=== PATIENT | female | born 1955 | race Caucasian/White ===

== ENCOUNTER 2019-04-02 21:31 | Inpatient (IN) ==
[2019-04-02] MEDS ORDERED: FAMOTIDINE 20MG/5ML IV PUSH IV STA (22:02)
[2019-04-02] MEDS ORDERED: PROCHLORPERAZINE 2 ML IV ONE (22:02)
[2019-04-02] MEDS ORDERED: ACETAMINOPHEN 1,000 MG/100 ML VIAL IV STA (22:03)
[2019-04-02] MEDS ORDERED: SODIUM CHLORIDE 0.9% 500 ML IV SCH (22:15)
[2019-04-02 22:27] LABS: Basophils # (auto) 0.06 K/uL (0-0.2); Basophils % (auto) 0.6 %; Eosinophils # (auto) 0.07 K/uL (0-0.5); Eosinophils % (auto) 0.7 %; Hematocrit (blood only) 29.5 % (37-47); Hemoglobin 10.3 g/dL (12.0-16.0); Immature Granulocytes # (auto) 0.06 K/uL (0.00-0.02); Immature Granulocytes % (auto) 0.6 %; Lymphocytes # (auto) 0.55 K/uL (1.2-3.4); Lymphocytes % (auto) 5.4 %; Mean Corpuscular Hgb Conc 34.9 g/dL (32-36); Mean Corpuscular Volume 100.3 fL (80-100); Mean Platelet Volume 13.8 fL (7.4-10.4); Monocytes % (auto) 8.9 %; Neutrophils # (auto) 8.52 K/uL (1.4-6.5); Neutrophils % (auto) 83.8 %; Platelet Count 162 K/uL (130-400); RDW Coefficient of Variation 12.2 % (11.5-14.5); RDW Standard Deviation 43.8 fL (36.4-46.3); Red Blood Count 2.94 M/uL (4.2-5.4); White Blood Count 10.16 K/uL (4.8-10.8)
[2019-04-02 22:31] LABS: Base Excess VBG -11.2 mEq/L; pH VBG 7.27 (7.36-7.41)
[2019-04-02 22:35] LABS: Alanine Aminotransferase 39 U/L (12-78); Albumin Level 3.3 gm/dl (3.4-5.0); Alkaline Phosphatase 194 U/L (45-117); Aspartate Aminotransferase 26 U/L (15-37); BUN Creatinine Ratio 8.3 (10-20); Bilirubin Direct 0.1 mg/dl (0-0.2); Bilirubin,Total 0.5 mg/dl (0.2-1); Blood Urea Nitrogen 40 mg/dl (7-18); Calcium 9.3 mg/dl (8.5-10.1); Carbon Dioxide 15 mmol/L (21-32); Chloride 92 mmol/L (98-107); Creatinine Clr Calc Pharmacy 10.2 ml/min; Est GFR (African American) 10.6; Est GFR (Non-African American) 9.1; Globulin 3.4 gm/dl (2.5-4.0); Glucose 512 mg/dl (70-99); Magnesium 2.2 mg/dl (1.8-2.4); Phosphorus 5.3 mg/dl (2.5-4.9); Potassium 3.7 mmol/L (3.5-5.1); Sodium 131 mmol/L (136-145); Total Protein 6.7 gm/dl (6.4-8.2); Troponin I < 0.015 ng/ml (0-0.045)
--- NOTE | 2019-04-02 22:37 | XRay Report ---
XR chest 1V portable CLINICAL HISTORY: Chest Pain COMPARISON STUDY: No previous studies for comparison. FINDINGS: There is no pneumothorax or pleural effusion. There is no consolidation. Calcified nodules within the lungs are noted. There are calcified thoracic lymph nodes. The size of the heart is normal . There is mitral annular calcification. There is no evidence for pulmonary edema. IMPRESSION: No acute cardiopulmonary findings. Electronically signed by: Cameron Jack M.D. 04/02/2019 10:36 PM
[2019-04-02] MEDS ORDERED: SODIUM CHLORIDE 0.9% 1000ML 500 ML IV ONE (23:01)
[2019-04-02] MEDS ORDERED: DKA GOAL RANGE 150-250 mg/dl ONE (23:02)
[2019-04-02] MEDS ORDERED: INSULIN REGULAR 250 UNITS in SODIUM CHLORIDE 0.9% 247.5 ML IV SCH (23:15)
--- NOTE | 2019-04-02 23:21 | CT Scan Report ---
CT OF THE ABDOMEN AND PELVIS WITHOUT CONTRAST CLINICAL HISTORY: Abdominal pain, nausea, vomiting and diarrhea. COMPARISON STUDY: No previous studies for comparison. TECHNIQUE: Axial images of the abdomen and pelvis were obtained without IV contrast. Images were revi ewed in the axial, sagittal, and coronal planes. Automated exposure control was utilized for the roslyn dy. A dose lowering technique was utilized adhering to the principles of ALARA. FINDINGS: Calcified granulomas within the lower lungs are noted. Calcification within or overlying th e posterior left ventricle is noted. No pneumatosis, free air or portal venous gas is present. This e xam is significantly compromised given the lack of contrast and paucity of intra-abdominal fat. There are calcified granulomas within the spleen. Unenhanced images of liver, adrenal glands and pancreas are grossly unremarkable. The gallbladder is surgically absent. There is moderate bilateral renal atr ophy. A 3 mm calculus within the right kidney is noted. The course of the ureters is difficult to fol low on this exam and differentiation between gonadal phleboliths and nonobstructing ureteral calculi is difficult. There is no evidence for a bowel obstruction. The appendix is not identified. There is mild diffuse mesenteric infiltration. No suspicious osseous lesions are noted. There is no lymphadeno jhoan. There is no ascites. Postoperative findings within the proximal right femur are noted. IMPRESSION: 1. Exam significantly compromised given the lack of IV contrast and paucity of intra-abdominal fat. 2. Moderate bilateral renal atrophy. No hydronephrosis. 3 mm right renal calculus. Course of ureters difficult to follow on this exam but no definite ureteral calculi. 3. No bowel obstruction. Mild diffuse mesenteric infiltration, a nonspecific finding. 4. Nonvisualization of the appendix. Electronically signed by: Cameron Jack M.D. 04/02/2019 11:18 PM
[2019-04-02] MEDS ORDERED: SODIUM CHLORIDE 0.9% 1000ML 1,000 ML IV SCH (23:45)
[2019-04-02] MEDS ORDERED: NovoLIN-R INSULIN PER UNIT CHARGE IV STA (23:50)
--- NOTE | 2019-04-03 00:19 | Emergency Department Note ---
Entered by Rajesh Reich acting as a scribe for Daniel Hubbard MD History of Present Illness General Chief complaint: Hyperglycemia Stated complaint: NAUSEA, VOMITING, HYPERGYLCEMIA Time Seen by Provider: 04/02/19 21:37 Source: patient History of Present Illness Onset (ago): day(s) 1 Location: abdomen (illness) Pain Consistency: + other (worsening) Relieved By: + none Associated symptoms: + denies other symptoms (dizziness), + nausea/vomiting and + other (diarrhea, abdominal pain) The patient is a 63 year old F who presents to the Emergency Room with complaints of a worsening illness that started 1 day ago. She states that she had dialysis yesterday before she went to dinner with her family. She adds that she has a fistula in place. She notes that after dinner, a family member reported that they had gotten sick. The patient states that she does not know if she currently has food poisoning. She notes that she is currently experiencing vomiting, nausea, diarrhea, and abdominal pain. She denies experiencing any dizziness. She reports that she is urinating normally every day. She states that she does not check her ketones. She adds that she has a history of type 1 diabetes. She notes that she shattered her left leg 5 years ago and recently had a walking boot placed. Home Medications Home Medications Medication Instructions Recorded Confirmed Type furosemide 40 mg PO 2XWK 01/21/19 04/02/19 History venlafaxine 150 mg PO QAM 01/21/19 04/02/19 History atorvastatin 40 mg PO QPM 04/02/19 04/02/19 History fludrocortisone 0.1 mg PO DAILY 04/02/19 04/02/19 History insulin aspart U-100 [Novolog See Rx Instructions .ROUTE .COMPLEX 04/02/19 04/02/19 History Flexpen U-100 Insulin] insulin glargine [Lantus Solostar 12 units SUBCUT DAILY 04/02/19 04/02/19 History U-100 Insulin] levothyroxine 300 mcg PO QAM 04/02/19 04/02/19 History tramadol 50 mg PO BID PRN 04/02/19 04/02/19 History venlafaxine 75 mg PO QAM 04/02/19 04/02/19 History warfarin See Rx Instructions .ROUTE .COMPLEX 04/02/19 04/02/19 History Allergies Allergy/AdvReac Type Severity Reaction Status Date / Time ibuprofen Allergy Hives Verified 02/21/19 13:08 shellfish derived Allergy Hives Verified 02/21/19 13:08 strawberry Allergy ALL Verified 02/21/19 13:08 BERRIES --> Anaphylaxis Past Med/Surg History Medical History A-V fistula (Chronic) RIGHT ARM Chronic kidney disease (Chronic) Diabetes mellitus type 1 (Chronic) GERD (gastroesophageal reflux disease) (Chronic) Hemodialysis patient (Chronic) M,W,F @ [facility] ([place]) Anemia Anxiety Depression Hypertension Hypothyroidism Osteoarthritis Osteoporosis Surgical History History of appendectomy History of section History of cholecystectomy History of colonoscopy History of esophagogastroduodenoscopy (EGD) History of hysterectomy PIERCE WITH BSO History of open reduction and internal fixation (ORIF) procedure RIGHT HIP RIGHT WRIST LEFT ANKLE Social History Preferred Language: German Communication Ability: Effective Patient Care Coordinator Required: No Beliefs That Will Affect Care: None Current Living Situation: Spouse Feels Safe at Home: Yes Safety Concerns: Feels Safe At This Time Smoking Status: Former smoker Tobacco Type: cigarettes Second Hand Exposure: No Hx Alcohol Use: No Hx Substance Use: No Review of Systems See HPI for pertinent positives & negatives. and A total of 10 systems reviewed and were otherwise negative Physical Exam Vital Signs Vital Signs - 24 hr 04/02/19 21:35 04/02/19 22:25 04/02/19 22:26 Temperature 36.4 C L Temperature Source Oral Sepsis Recent Fever Within 48 Hours No Sepsis New/Unexplained Change in Mental Status No Sepsis Action Taken by Nursing No Action Required Pulse Rate 87 Pulse Rate [Apical] 96 H Respiratory Rate 20 22 Respiratory Effort / Characteristics Respiratory Depth Blood Pressure 193/73 H Blood Pressure [Left Arm] 162/51 H Blood Pressure Mean 113 Blood Pressure Mean [Left Arm] 88 Blood Pressure Position Sitting Blood Pressure Position [Left Arm] Sitting Pulse Oximetry 97 99 99 Oxygen Delivery Method Room Air Room Air Room Air 04/02/19 23:05 04/03/19 00:01 04/03/19 00:30 Temperature Temperature Source Sepsis Recent Fever Within 48 Hours Sepsis New/Unexplained Change in Mental Status Sepsis Action Taken by Nursing Pulse Rate Pulse Rate [Apical] 106 H 110 H 118 H Respiratory Rate 20 17 21 Respiratory Effort / Characteristics Respiratory Depth Blood Pressure Blood Pressure [Left Arm] 189/73 H 175/73 H 193/66 H Blood Pressure Mean Blood Pressure Mean [Left Arm] 111 107 108 Blood Pressure Position Blood Pressure Position [Left Arm] Sitting Left Lateral Pulse Oximetry 99 100 99 Oxygen Delivery Method Room Air Room Air 04/03/19 00:32 04/03/19 00:50 04/03/19 04:13 Temperature 36.7 C 36.8 C Temperature Source Oral Oral Sepsis Recent Fever Within 48 Hours Sepsis New/Unexplained Change in Mental Status Sepsis Action Taken by Nursing Pulse Rate 117 H 99 H Pulse Rate [Apical] 101 H Respiratory Rate 17 Respiratory Effort / Characteristics Non-Labored Spontaneous Respiratory Depth Normal Blood Pressure 193/66 H 173/71 H Blood Pressure [Left Arm] 180/70 H 175/74 H Blood Pressure Mean Blood Pressure Mean [Left Arm] 106 107 Blood Pressure Position Blood Pressure Position [Left Arm] Pulse Oximetry 99 95 Oxygen Delivery Method Room Air Room Air GENERAL: Awake, alert, ill-appearing HENT: Normocephalic, atraumatic. Oropharynx with dry mucous membranes and otherwise unremarkable. EYES: Normal conjunctiva. Sclera non-icteric. NECK: Supple. No nuchal rigidity. FROM. No JVD. RESPIRATORY: CTA bilaterally. CARDIAC: Regular rate, normal rhythm. Extremities warm and well perfused. Pulses equal. ABDOMEN: Soft, non-distended. General abdominal discomfort without discrete tenderness. No rebound or guarding. No masses. RECTAL: Deferred. MUSCULOSKELETAL: Chest examination reveals no tenderness. The back is symmetrical on inspection without obvious abnormality. There is no CVA tenderne ss to palpation. No joint edema. LOWER EXTREMITIES: Calves are equal size bilaterally and non-tender. No edema. No discoloration. NEURO: Normal sensorium. No sensory or motor deficits noted. SKIN: No rash or jaundice noted. Course 2151: The patient was evaluated in room C7. A complete history and physical exam was performed. 0017: I reviewed the patient's case with Dr. Jagdish Sanchez, [facility] Hospitalist. He will evaluate the patient for further management. Consultations Consultation #1: I reviewed the patient's case with Dr. Jagdish Sanchez, [facility] Hospitalist. He will evaluate the patient for further management. Time: 00:17 Administered Medications Insulin Human Regular 250 (units/ Sodium Chloride) 250 mls @ 1.5 mls/hr IV .Q24H DELFINO; Protocol Stop: 05/03/19 01:29 Last Titration: 04/03/19 04:33 Dose: 1.5 units/hr, 1.5 mls/hr Documented by: [id number] Cosigned by: [id number] Admin: 04/03/19 02:33 Dose: 1.5 units/hr, 1.5 mls/hr Documented by: [id number] Cosigned by: [id number] Metoprolol Tartrate (Lopressor) 5 mg IV Q4 PRN PRN Reason: Blood Pressure - High Stop: 05/03/19 03:59 Last Admin: 04/03/19 00:32 Dose: 5 mg Documented by: [id number] Discontinued Medications Famotidine (Pepcid 20mg Iv Push) 20 mg IV ONE STA Stop: 04/02/19 22:03 Last Admin: 04/02/19 22:10 Dose: 20 mg Documented by: [id number] Acetaminophen (Ofirmev) 1,000 mg in 100 mls @ 400 mls/hr IV NOW STA Stop: 04/02/19 22:17 Last Infusion: 04/02/19 22:30 Dose: 0 mls/hr Documented by: [id number] Admin: 04/02/19 22:10 Dose: 400 mls/hr Documented by: [id number] Prochlorperazine (Compazine) 2 mls @ 1 mls/min IV ONE ONE Stop: 04/02/19 22:03 Last Admin: 04/02/19 22:10 Dose: 1 mls/min Documented by: [id number] Sodium Chloride (Nss) 500 mls @ 999 mls/hr IV .Q31M DELFINO Stop: 04/02/19 22:45 Last Infusion: 04/02/19 22:42 Dose: 0 mls/hr Documented by: [id number] Admin: 04/02/19 22:11 Dose: 999 mls/hr Documented by: [id number] Sodium Chloride (Nss 1000ml) 500 mls @ 999 mls/hr IV .Q31M ONE Stop: 04/02/19 23:31 Last Infusion: 04/02/19 23:58 Dose: 0 mls/hr Documented by: [id number] Admin: 04/02/19 23:30 Dose: 999 mls/hr Documented by: [id number] Sodium Chloride (Nss 1000ml) 1,000 mls @ 999 mls/hr IV .Q1H1M COUNTS INCLUDE 234 BEDS AT THE [facility] Stop: 04/03/19 00:45 Last Infusion: 04/03/19 01:13 Dose: 0 mls/hr Documented by: [id number] Admin: 04/02/19 23:58 Dose: 999 mls/hr Documented by: [id number] Insulin Human Regular 1.5 (units/ Syringe) 1.5 mls @ 30 mls/min IV TODAY@0245 COUNTS INCLUDE 234 BEDS AT THE [facility] Stop: 04/03/19 02:46 Last Admin: 04/03/19 02:44 Dose: 30 mls/min Documented by: [id number] Cosigned by: [id number] Insulin Human Regular (Novolin R U-100 Per Unit) 10 units IV NOW [facility] Stop: 04/02/19 23:51 Last Admin: 04/02/19 23:58 Dose: 10 units Documented by: [id number] Cosigned by: [id number] Miscellaneous (Insulin Protocol Dka Goal Range) 1 ea N/A ONE ONE Stop: 04/03/19 01:06 Last Admin: 04/03/19 02:47 Dose: 1 ea Documented by: [id number] Miscellaneous (Insulin Protocol Moderate Stress Level) 1 ea N/A ONE ONE Stop: 04/03/19 01:06 Last Admin: 04/03/19 02:48 Dose: 1 ea Documented by: [id number] Medical Decision Making Differential Diagnosis Differential diagnosis includes: appendicitis, diverticulitis, PUD, biliary pathology, UTI, pancreatitis, obstruction, mesenteric ischemia, aortic pathology, infections, inflammatory bowel disease, renal colic, as well as others were entertained. Medical Records Attestation: I reviewed the patient's medical records. Home Medications Current Medication List: was personally reviewed by me Laboratory Data Attestation: I reviewed the patient's lab results. Result diagrams: 04/02/19 21:38 04/03/19 01:17 Lab Results 04/02/19 04/02/19 04/02/19 Range/Units 21:37 21:38 21:38 WBC 10.16 (4.8-10.8) K/uL RBC 2.94 L (4.2-5.4) M/uL Hgb 10.3 L (12.0-16.0) g/dL Hct 29.5 L (37-47) % MCV 100.3 H (80-100) fL MCH 35.0 H (25-34) pg MCHC 34.9 (32-36) g/dL RDW Std Deviation 43.8 (36.4-46.3) fL RDW Coeff of Erica 12.2 (11.5-14.5) % Plt Count 162 (130-400) K/uL MPV 13.8 H (7.4-10.4) fL Immature Gran % (Auto) 0.6 % Neut % (Auto) 83.8 % Lymph % (Auto) 5.4 % [place] % (Auto) 8.9 % Eos % (Auto) 0.7 % Baso % (Auto) 0.6 % Immature Gran # (Auto) 0.06 H (0.00-0.02) K/uL Neut # (Auto) 8.52 H (1.4-6.5) K/uL Lymph # (Auto) 0.55 L (1.2-3.4) K/uL [place] # (Auto) 0.90 H (0.11-0.59) K/uL Eos # (Auto) 0.07 (0-0.5) K/uL Baso # (Auto) 0.06 (0-0.2) K/uL VBG pH (7.36-7.41) VBG pCO2 (38-50) mmHg VBG pO2 mmHg VBG HCO3 mmol/L VBG O2 Saturation % VBG Base Excess mEq/L Barometric Pressure mm/Hg Sodium 131 L (136-145) mmol/L Potassium 3.7 (3.5-5.1) mmol/L Chloride 92 L (98-107) mmol/L Carbon Dioxide 15 L (21-32) mmol/L Anion Gap 24.0 H (3-11) BUN 40 H (7-18) mg/dl Creatinine 4.79 H* (0.6-1.2) mg/dl Est Cr Clr Drug Dosing 10.2 ml/min Est GFR ( Amer) 10.6 Est GFR (Non-Af Amer) 9.1 BUN/Creatinine Ratio 8.3 L (10-20) Glucose 512 H* (70-99) mg/dl POC Glucose 522 H* (70-99) Calcium 9.3 (8.5-10.1) mg/dl Phosphorus 5.3 H (2.5-4.9) mg/dl Magnesium 2.2 (1.8-2.4) mg/dl Total Bilirubin 0.5 (0.2-1) mg/dl Direct Bilirubin 0.1 (0-0.2) mg/dl AST 26 (15-37) U/L ALT 39 (12-78) U/L Alkaline Phosphatase 194 H (45-117) U/L Troponin I < 0.015 (0-0.045) ng/ml Total Protein 6.7 (6.4-8.2) gm/dl Albumin 3.3 L (3.4-5.0) gm/dl Globulin 3.4 (2.5-4.0) gm/dl Albumin/Globulin Ratio 1.0 (0.9-2) Lipase 133 (73-393) U/L Beta-Hydroxybutyric Acd 85.90 H (0.2-2.81) mg/dl 04/02/19 04/02/19 04/03/19 Range/Units 22:21 23:30 00:32 WBC (4.8-10.8) K/uL RBC (4.2-5.4) M/uL Hgb (12.0-16.0) g/dL Hct (37-47) % MCV (80-100) fL MCH (25-34) pg MCHC (32-36) g/dL RDW Std Deviation (36.4-46.3) fL RDW Coeff of Erica (11.5-14.5) % Plt Count (130-400) K/uL MPV (7.4-10.4) fL Immature Gran % (Auto) % Neut % (Auto) % Lymph % (Auto) % [place] % (Auto) % Eos % (Auto) % Baso % (Auto) % Immature Gran # (Auto) (0.00-0.02) K/uL Neut # (Auto) (1.4-6.5) K/uL Lymph # (Auto) (1.2-3.4) K/uL [place]leigh # (Auto) (0.11-0.59) K/uL Eos # (Auto) (0-0.5) K/uL Baso # (Auto) (0-0.2) K/uL VBG pH 7.27 L (7.36-7.41) VBG pCO2 33 L (38-50) mmHg VBG pO2 59 mmHg VBG HCO3 15 mmol/L VBG O2 Saturation 88.0 % VBG Base Excess -11.2 mEq/L Barometric Pressure 727.7 mm/Hg Sodium (136-145) mmol/L Potassium (3.5-5.1) mmol/L Chloride (98-107) mmol/L Carbon Dioxide (21-32) mmol/L Anion Gap (3-11) BUN (7-18) mg/dl Creatinine (0.6-1.2) mg/dl Est Cr Clr Drug Dosing ml/min Est GFR ( Amer) Est GFR (Non-Af Amer) BUN/Creatinine Ratio (10-20) Glucose (70-99) mg/dl POC Glucose 551 H* 493 H* (70-99) Calcium (8.5-10.1) mg/dl Phosphorus (2.5-4.9) mg/dl Magnesium (1.8-2.4) mg/dl Total Bilirubin (0.2-1) mg/dl Direct Bilirubin (0-0.2) mg/dl AST (15-37) U/L ALT (12-78) U/L Alkaline Phosphatase (45-117) U/L Troponin I (0-0.045) ng/ml Total Protein (6.4-8.2) gm/dl Albumin (3.4-5.0) gm/dl Globulin (2.5-4.0) gm/dl Albumin/Globulin Ratio (0.9-2) Lipase (73-393) U/L Beta-Hydroxybutyric Acd (0.2-2.81) mg/dl 04/03/19 04/03/19 04/03/19 Range/Units 01:17 02:11 03:31 WBC (4.8-10.8) K/uL RBC (4.2-5.4) M/uL Hgb (12.0-16.0) g/dL Hct (37-47) % MCV (80-100) fL MCH (25-34) pg MCHC (32-36) g/dL RDW Std Deviation (36.4-46.3) fL RDW Coeff of Erica (11.5-14.5) % Plt Count (130-400) K/uL MPV (7.4-10.4) fL Immature Gran % (Auto) % Neut % (Auto) % Lymph % (Auto) % [place] % (Auto) % Eos % (Auto) % Baso % (Auto) % Immature Gran # (Auto) (0.00-0.02) K/uL Neut # (Auto) (1.4-6.5) K/uL Lymph # (Auto) (1.2-3.4) K/uL [place] # (Auto) (0.11-0.59) K/uL Eos # (Auto) (0-0.5) K/uL Baso # (Auto) (0-0.2) K/uL VBG pH (7.36-7.41) VBG pCO2 (38-50) mmHg VBG pO2 mmHg VBG HCO3 mmol/L VBG O2 Saturation % VBG Base Excess mEq/L Barometric Pressure mm/Hg Sodium 133 L (136-145) mmol/L Potassium 3.4 L (3.5-5.1) mmol/L Chloride 97 L (98-107) mmol/L Carbon Dioxide 17 L (21-32) mmol/L Anion Gap 19.0 H (3-11) BUN 45 H (7-18) mg/dl Creatinine 4.95 H* (0.6-1.2) mg/dl Est Cr Clr Drug Dosing 10.3 ml/min Est GFR ( Amer) 10.2 Est GFR (Non-Af Amer) 8.8 BUN/Creatinine Ratio 9.3 L (10-20) Glucose 449 H* (70-99) mg/dl POC Glucose 412 H* 357 H* (70-99) Calcium 8.2 L (8.5-10.1) mg/dl Phosphorus (2.5-4.9) mg/dl Magnesium (1.8-2.4) mg/dl Total Bilirubin (0.2-1) mg/dl Direct Bilirubin (0-0.2) mg/dl AST (15-37) U/L ALT (12-78) U/L Alkaline Phosphatase (45-117) U/L Troponin I (0-0.045) ng/ml Total Protein (6.4-8.2) gm/dl Albumin (3.4-5.0) gm/dl Globulin (2.5-4.0) gm/dl Albumin/Globulin Ratio (0.9-2) Lipase (73-393) U/L Beta-Hydroxybutyric Acd (0.2-2.81) mg/dl 04/03/19 Range/Units 04:28 WBC (4.8-10.8) K/uL RBC (4.2-5.4) M/uL Hgb (12.0-16.0) g/dL Hct (37-47) % MCV (80-100) fL MCH (25-34) pg MCHC (32-36) g/dL RDW Std Deviation (36.4-46.3) fL RDW Coeff of Erica (11.5-14.5) % Plt Count (130-400) K/uL MPV (7.4-10.4) fL Immature Gran % (Auto) % Neut % (Auto) % Lymph % (Auto) % [place] % (Auto) % Eos % (Auto) % Baso % (Auto) % Immature Gran # (Auto) (0.00-0.02) K/uL Neut # (Auto) (1.4-6.5) K/uL Lymph # (Auto) (1.2-3.4) K/uL [place] # (Auto) (0.11-0.59) K/uL Eos # (Auto) (0-0.5) K/uL Baso # (Auto) (0-0.2) K/uL VBG pH (7.36-7.41) VBG pCO2 (38-50) mmHg VBG pO2 mmHg VBG HCO3 mmol/L VBG O2 Saturation % VBG Base Excess mEq/L Barometric Pressure mm/Hg Sodium (136-145) mmol/L Potassium (3.5-5.1) mmol/L Chloride (98-107) mmol/L Carbon Dioxide (21-32) mmol/L Anion Gap (3-11) BUN (7-18) mg/dl Creatinine (0.6-1.2) mg/dl Est Cr Clr Drug Dosing ml/min Est GFR ( Amer) Est GFR (Non-Af Amer) BUN/Creatinine Ratio (10-20) Glucose (70-99) mg/dl POC Glucose 356 H* (70-99) Calcium (8.5-10.1) mg/dl Phosphorus (2.5-4.9) mg/dl Magnesium (1.8-2.4) mg/dl Total Bilirubin (0.2-1) mg/dl Direct Bilirubin (0-0.2) mg/dl AST (15-37) U/L ALT (12-78) U/L Alkaline Phosphatase (45-117) U/L Troponin I (0-0.045) ng/ml Total Protein (6.4-8.2) gm/dl Albumin (3.4-5.0) gm/dl Globulin (2.5-4.0) gm/dl Albumin/Globulin Ratio (0.9-2) Lipase (73-393) U/L Beta-Hydroxybutyric Acd (0.2-2.81) mg/dl Imaging Data Radiologist's Impression: Radiology results as stated below per my review and the radiologist's interpretation: XR chest 1V portable CLINICAL HISTORY: Chest Pain COMPARISON STUDY: No previous studies for comparison. FINDINGS: There is no pneumothorax or pleural effusion. There is no consolidation. Calcified nodules within the lungs are noted. There are calcified thoracic lymph nodes. The size of the heart is normal. There is mitral annular calcification. There is no evidence for pulmonary edema. IMPRESSION: No acute cardiopulmonary findings. Electronically signed by: Cameron Jack M.D. 04/02/2019 10:[address] OF THE ABDOMEN AND PELVIS WITHOUT CONTRAST CLINICAL HISTORY: Abdominal pain, nausea, vomiting and diarrhea. COMPARISON STUDY: No previous studies for comparison. TECHNIQUE: Axial images of the abdomen and pelvis were obtained without IV contrast. Images were reviewed in the axial, sagittal, and coronal planes. Automated exposure control was utilized for the study. A dose lowering technique was utilized adhering to the principles of ALARA. FINDINGS: Calcified granulomas within the lower lungs are noted. Calcification w ithin or overlying the posterior left ventricle is noted. No pneumatosis, free air or portal venous gas is present. This exam is significantly compromised given the lack of contrast and paucity of intra-abdominal fat. There are calcified granulomas within the spleen. Unenhanced images of liver, adrenal glands and pancreas are grossly unremarkable. The gallbladder is surgically absent. There is moderate bilateral renal atrophy. A 3 mm calculus within the right kidney is noted. The course of the ureters is difficult to follow on this exam and differentiation between gonadal phleboliths and nonobstructing ureteral calculi is difficult. There is no evidence for a bowel obstruction. The appendix is not identified. There is mild diffuse mesenteric infiltration. No suspicious osseous lesions are noted. There is no lymphadenopathy. There is no ascites. Postoperative findings within the proximal right femur are noted. IMPRESSION: 1. Exam significantly compromised given the lack of IV contrast and paucity of intra-abdominal fat. 2. Moderate bilateral renal atrophy. No hydronephrosis. 3 mm right renal calculus. Course of ureters difficult to follow on this exam but no definite ureteral calculi. 3. No bowel obstruction. Mild diffuse mesenteric infiltration, a nonspecific finding. 4. Nonvisualization of the appendix. Electronically signed by: Cameron Jack M.D. 04/02/2019 11:18 PM ECG Data Attestation: I personally reviewed and interpreted this ECG as follows: Indication: abdominal pain Rate (beats per minute): 88 Rhythm: sinus rhythm Findings: + nonspecific-ST abn; no acute ischemic change Comparison ECG Date: from (02/28/19) Change: no significant change Blood Pressure Blood Pressure Findings: Elevated blood pressure Blood Pressure Disposition: further management by hospitalist MIKE Briggs The patient is a pleasant 63 y/o woman with a pmhx of IDDM1 and ESRD on HD MWF who presents to the emergency department with n/v/d since yesterday with elevated sugars in 400s per HPI. On arrival the patient is ill appearing but in NAD, AF, VSS. Patient appears clinically dry. She has mild generalized abdominal discomfort without discrete ttp. EKG without overt acute ischemia. CXR negative for acute process. WBC wnl. H/H 10.3/29.5 similar to prior baseline range. Platelts wnl. VBG with pH 7.27 suggestive of DKA as chemistry demonstrates Gap acidosis with gap 24 and bicarb 15. BHB 85. Cr. 4.95 in the setting of patients ESRD. Troponin negative. CT abd/pelvis w/o contrast with nonspecific mesenteric stranding. Otherwise no acute findings. Patient ordered for insulin gtt and cautious hydration given ESRD, though patient reports she does urinate daily. Case d/w Dr. sanchez, [facility], who will evaluate the patient for admission. Impression & Plan DKA (diabetic ketoacidoses) Critical Care Time I have personally spent greater than 45 minutes of critical care time in the direct management of this patient. This includes bedside care, interpretation of diagnostic studies, and testing, discussion with consultants, patient, and family members, and other required patient management activities. This 45 minutes is in excess of all separately billable procedures. Critical Care Time: Yes Total Critical Care Time: 45 Discharge Plan Visit Data *Final* Discharge Date/Time: 04/03/19 00:50 Chief Complaint: Hyperglycemia Stated Complaint: NAUSEA, VOMITING, HYPERGYLCEMIA ED Provider: Daniel Hubbard Discharge Problem: DKA (diabetic ketoacidoses) Patient Disposition: Admitted As Inpatient Discharge Instructions Interventions: ED Discharge Assessment Last Done: 04/03/19 00:50 Discharge Problem: DKA (diabetic ketoacidoses) Qualifiers: Diabetes mellitus type: type 1 Diabetes mellitus complication detail: without coma Qualified Code(s): E10.10 - Type 1 diabetes mellitus with ketoacidosis without coma The scribe's documentation has been prepared under my direction and personally reviewed by me in its entirety. I confirm that the note above accurately reflects all work, treatment, procedures, and medical decision making performed by me.
[2019-04-03] MEDS: METOPROLOL TARTRATE 1 MG/ML VIAL IV PRN (00:32)
[2019-04-03] MEDS ORDERED: DKA GOAL RANGE 150-250 mg/dl ONE (01:05)
[2019-04-03] MEDS ORDERED: ACETAMINOPHEN 325 MG TAB PO PRN (01:05)
[2019-04-03] MEDS ORDERED: ACETAMINOPHEN 1000 MG/100 ML IV IV PRN (01:05)
[2019-04-03] MEDS ORDERED: PROCHLORPERAZINE 10 MG in SYRINGE 8 ML IV PRN (01:05)
[2019-04-03] MEDS ORDERED: MODERATE STRESS LEVEL ONE (01:05)
[2019-04-03] MEDS ORDERED: INSULIN REGULAR 250 UNITS in SODIUM CHLORIDE 0.9% 247.5 ML IV SCH (01:30)
[2019-04-03] MEDS ORDERED: DEXTROSE 50% 50 ML SYRINGE IV PRN (02:00)
[2019-04-03] MEDS ORDERED: GLUCOSE 40% GEL 15 GM TUBE PO PRN (02:00)
[2019-04-03] MEDS ORDERED: GLUCAGON FOR INJ 1 MG VIAL SQ PRN (02:00)
[2019-04-03] MEDS ORDERED: GLUCOSE 10 TABS/TUBE PO PRN (02:00)
[2019-04-03 02:18] LABS: BUN Creatinine Ratio 9.3 (10-20); Calcium 8.2 mg/dl (8.5-10.1); Creatinine Clr Calc Pharmacy 10.3 ml/min; Est GFR (African American) 10.2; Est GFR (Non-African American) 8.8; Potassium 3.4 mmol/L (3.5-5.1)
[2019-04-03] MEDS ORDERED: INSULIN HUMAN REGULAR PER UNIT 1.5 UNITS in SYRINGE 1.485 ML IV SCH (02:45)
[2019-04-03] MEDS: LEVOTHYROXINE SODIUM 100 MCG TABLET PO SCH (05:58)
--- NOTE | 2019-04-03 06:08 | History & Physical Report ---
Date of Service April 03, 2019 Assessment & Plan (1) DKA (diabetic ketoacidoses): DKA, likely secondary to dehydration and gastroenteritis, possibly associated food poisoning- Placed on DKA protocol with target range 150-250, moderate stress scale. She is received a total of 2 L of normal saline in the ED. We will continue normal saline at 50 mils per hour, and convert over to D5 when glucose gets below 250. Presently anion gap is 24, follow BMP serially, and continue insulin drip and IV fluids until gap closes. Present on Admission?: Yes (2) Gastroenteritis: Likely trigger of her DKA. She questions the possibility of food poisoning. Stool culture results pending. Present on Admission?: Yes (3) End stage renal disease on dialysis: Typically gets dialysis Thursday, Thursday and Thursday Present on Admission?: Yes (4) Diabetes mellitus type 1: Hold Lantus insulin 12 units subcu daily and her NovoLog FlexPen scale. Placed on DKA protocol with target 150-250, and moderate stress scale. Present on Admission?: Yes (5) Anxiety and depression: Continue venlafaxine Present on Admission?: Yes (6) Hyperlipidemia LDL goal <70: Continue atorvastatin 40 mg p.o. every evening Present on Admission?: Yes (7) Hypothyroidism (acquired): Continue levothyroxine sodium 200 mcg p.o. every morning Present on Admission?: Yes History of Present Illness Chief Complaint: The patient presents to the emergency department with nausea, vomiting and generalized abdominal pain. Primary Care Provider: Fiorella Vela MD The patient is a 63-year-old female with past medical history including ESRD on HD, with last dialysis day yesterday, who presents to the emergency department with complaint of nausea, vomiting, generalized abdominal pain and intermittent diarrhea. She reports that she had dialysis yesterday, then went out to dinner with the family, was told that 1 of her family members did get sick, and she is questioning whether she may possibly have food poisoning. She does have daily production of urine. Allergies Allergy/AdvReac Type Severity Reaction Status Date / Time ibuprofen Allergy Hives Verified 02/21/19 13:08 shellfish derived Allergy Hives Verified 02/21/19 13:08 strawberry Allergy ALL Verified 02/21/19 13:08 BERRIES --> Anaphylaxis Home Medications Home Medications Medication Instructions Recorded Confirmed Type furosemide 40 mg PO 2XWK 01/21/19 04/02/19 History venlafaxine 150 mg PO QAM 01/21/19 04/02/19 History atorvastatin 40 mg PO QPM 04/02/19 04/02/19 History fludrocortisone 0.1 mg PO DAILY 04/02/19 04/02/19 History insulin aspart U-100 [Novolog See Rx Instructions .ROUTE .COMPLEX 04/02/19 04/02/19 History Flexpen U-100 Insulin] insulin glargine [Lantus Solostar 12 units SUBCUT DAILY 04/02/19 04/02/19 History U-100 Insulin] levothyroxine 300 mcg PO QAM 04/02/19 04/02/19 History tramadol 50 mg PO BID PRN 04/02/19 04/02/19 History venlafaxine 75 mg PO QAM 04/02/19 04/02/19 History warfarin See Rx Instructions .ROUTE .COMPLEX 04/02/19 04/02/19 History Past Med/Surg History Medical History A-V fistula (Chronic) RIGHT ARM Chronic kidney disease (Chronic) Diabetes mellitus type 1 (Chronic) GERD (gastroesophageal reflux disease) (Chronic) Hemodialysis patient (Chronic) M,W,F @ [facility] ([place]) Anemia Anxiety Depression Hypertension Hypothyroidism Osteoarthritis Osteoporosis Surgical History History of appendectomy History of section History of cholecystectomy History of colonoscopy History of esophagogastroduodenoscopy (EGD) History of hysterectomy PIERCE WITH BSO History of open reduction and internal fixation (ORIF) procedure RIGHT HIP RIGHT WRIST LEFT ANKLE Social History Preferred Language: Turkish Communication Ability: Effective Event Planner Required: No Beliefs That Will Affect Care: None Current Living Situation: Spouse Feels Safe at Home: Yes Safety Concerns: Feels Safe At This Time Smoking Status: Former smoker Tobacco Type: cigarettes Second Hand Exposure: No Hx Alcohol Use: No Hx Substance Use: No Review of Systems Review of Systems: The patient denies chest pain, palpitations, shortness of breath, dyspnea on exertion, cough, lower extremity swelling, sore throat, constipation, blood in urine or stool, dysuria, urinary frequency or urgency, memory loss, loss of consciousness, rash, abnormal bruising or bleeding, imbalance, focal weakness, numbness or tingling in arms or legs, generalized arthralgias or myalgias, back or neck pain, or night sweats. The review of systems is otherwise negative other than for that already noted above, and at least 10 systems have been reviewed. Physical Exam Physical Exam: The patient is awake, alert and oriented 3, normocephalic and atraumatic, lying in bed and in no acute distress. HEENT--PERRL, EOMI, mucous membranes and oropharynx dry. Neck--supple. No JVD. No bruits. Thyroid normal, trachea midline, no adenopathy. Heart--normal S1 and S2. No murmurs, rubs or gallops. Lungs--clear bilaterally, no respiratory distress, no accessory muscle use. Abdomen--normal bowel sounds and soft. Nontender. Nondistended. Extremities--no cyanosis or clubbing. No edema. There are good distal pulses b/l. Dermatologic--normal skin turgor, normal color, no abnormal lymph nodes, no rash. Neurologic--cranial nerves II through XII grossly intact. Rheumatologic--normal range of motion. Psychiatric--normal affect. Results & Data Vital Signs (Past 12 Hours) Vital Signs Temp Pulse Pulse Resp BP BP Pulse Ox 04/03/19 04:13 98.2 F 175/74 H 95 04/03/19 00:50 98.1 F 99 H 101 H 17 173/71 H 180/70 H 99 04/03/19 00:32 117 H 193/66 H 04/03/19 00:30 118 H 21 193/66 H 99 04/03/19 00:01 110 H 17 175/73 H 100 04/02/19 23:05 106 H 20 189/73 H 99 04/02/19 22:26 99 04/02/19 22:25 96 H 22 162/51 H 99 04/02/19 21:35 97.5 F L 87 20 193/73 H 97 Laboratory Results Laboratory Results WBC 10.16 K/uL (4.8-10.8) 04/02/19 21:38 RBC 2.94 M/uL (4.2-5.4) L 05/04/19 21:38 Hgb 10.3 g/dL (12.0-16.0) L 04/02/19 21:38 Hct 29.5 % (37-47) L 04/02/19 21:38 MCV 100.3 fL (80-100) H 04/02/19 21:38 MCH 35.0 pg (25-34) H 04/02/19 21:38 MCHC 34.9 g/dL (32-36) 04/02/19 21:38 RDW Std Deviation 43.8 fL (36.4-46.3) 04/02/19 21:38 RDW Coeff of Erica 12.2 % (11.5-14.5) 04/02/19 21:38 Plt Count 162 K/uL (130-400) 04/02/19 21:38 MPV 13.8 fL (7.4-10.4) H 04/02/19 21:38 Immature Gran % (Auto) 0.6 % 04/02/19 21:38 Neut % (Auto) 83.8 % 04/02/19 21:38 Lymph % (Auto) 5.4 % 04/02/19 21:38 Kingfisher % (Auto) 8.9 % 04/02/19 21:38 Eos % (Auto) 0.7 % 04/02/19 21:38 Baso % (Auto) 0.6 % 04/02/19 21:38 Immature Gran # (Auto) 0.06 K/uL (0.00-0.02) H 04/02/19 21:38 Neut # (Auto) 8.52 K/uL (1.4-6.5) H 04/02/19 21:38 Lymph # (Auto) 0.55 K/uL (1.2-3.4) L 04/02/19 21:38 Kingfisher # (Auto) 0.90 K/uL (0.11-0.59) H 04/02/19 21:38 Eos # (Auto) 0.07 K/uL (0-0.5) 04/02/19 21:38 Baso # (Auto) 0.06 K/uL (0-0.2) 04/02/19 21:38 VBG pH 7.27 (7.36-7.41) L 04/02/19 22:21 VBG pCO2 33 mmHg (38-50) L 04/02/19 22:21 VBG pO2 59 mmHg 04/02/19 22:21 VBG HCO3 15 mmol/L 04/02/19 22:21 VBG O2 Saturation 88.0 % 04/02/19 22:21 VBG Base Excess -11.2 mEq/L 04/02/19 22:21 Barometric Pressure 727.7 mm/Hg 04/02/19 22:21 Sodium 133 mmol/L (136-145) L 04/03/19 01:17 Potassium 3.4 mmol/L (3.5-5.1) L 04/03/19 01:17 Chloride 97 mmol/L (98-107) L 04/03/19 01:17 Carbon Dioxide 17 mmol/L (21-32) L 04/03/19 01:17 Anion Gap 19.0 (3-11) H 04/03/19 01:17 BUN 45 mg/dl (7-18) H 04/03/19 01:17 Creatinine 4.95 mg/dl (0.6-1.2) H* 04/03/19 01:17 Est Cr Clr Drug Dosing 10.3 ml/min 04/03/19 01:17 Est GFR ( Amer) 10.2 04/03/19 01:17 Est GFR (Non-Af Amer) 8.8 04/03/19 01:17 BUN/Creatinine Ratio 9.3 (10-20) L 04/03/19 01:17 Glucose 449 mg/dl (70-99) H* 04/03/19 01:17 POC Glucose 310 (70-99) H* 04/03/19 05:31 Calcium 8.2 mg/dl (8.5-10.1) L 04/03/19 01:17 Phosphorus 5.3 mg/dl (2.5-4.9) H 04/02/19 21:38 Magnesium 2.2 mg/dl (1.8-2.4) 04/02/19 21:38 Total Bilirubin 0.5 mg/dl (0.2-1) 04/02/19 21:38 Direct Bilirubin 0.1 mg/dl (0-0.2) 04/02/19 21:38 AST 26 U/L (15-37) 04/02/19 21:38 ALT 39 U/L (12-78) 04/02/19 21:38 Alkaline Phosphatase 194 U/L (45-117) H 04/02/19 21:38 Troponin I < 0.015 ng/ml (0-0.045) 04/02/19 21:38 Total Protein 6.7 gm/dl (6.4-8.2) 04/02/19 21:38 Albumin 3.3 gm/dl (3.4-5.0) L 04/02/19 21:38 Globulin 3.4 gm/dl (2.5-4.0) 04/02/19 21:38 Albumin/Globulin Ratio 1.0 (0.9-2) 04/02/19 21:38 Lipase 133 U/L (73-393) 04/02/19 21:38 Beta-Hydroxybutyric Acd mg/dl (0.2-2.81) 04/03/19 01:17 Diagnostic Findings [place], [place] [phone] XRay Report Patient: Kendal DOMÍNGUEZ Date: 04/02/19 MR#: [id number]: [address] Acct ID:[id number]: Date: 1955[facility] Zip: [place] [address] Age: 63Location: ED Sex: F Room/Bed: Att Phy: Diagnosis: NAUSEA, VOMITING, HYPERGYLCEMIA Elissa Phy: Fiorella Vela MDService Date: 04/02/19 Fam Phy: Interpreting Phy: Cameron Jack MD Admit Phy: Ordering Phy: Daniel Hubbard M.D. cc: ~ XR chest 1V portable CLINICAL HISTORY: Chest Pain COMPARISON STUDY: No previous studies for comparison. FINDINGS: There is no pneumothorax or pleural effusion. There is no consolidation. Calcified nodules within the lungs are noted. There are calcified thoracic lymph nodes. The size of the heart is normal. There is mitral annular calcification. There is no evidence for pulmonary edema. IMPRESSION: No acute cardiopulmonary findings. Electronically signed by: Cameron Jack M.D. 04/02/2019 10:36 PM Dictated: 04/02/192234 Transcribed: 04/02/192234 [place], [place] [phone] CT Scan Report Patient: Kendal DOMÍNGUEZ Date: 04/02/19 MR#: [id number]: [address] Acct ID:[id number]: Date: 1955[facility] Zip: [place] [address] Age: 63Location: ED Sex: F Room/Bed: Att Phy: Diagnosis: NAUSEA, VOMITING, HYPERGYLCEMIA Elissa Phy: Fiorella Vela MDService Date: 04/02/19 Fam Phy: Interpreting Phy: Cameron Jack MD Admit Phy: Ordering Phy: Daniel Hubbard M.D. cc: ~ CT OF THE ABDOMEN AND PELVIS WITHOUT CONTRAST CLINICAL HISTORY: Abdominal pain, nausea, vomiting and diarrhea. COMPARISON STUDY: No previous studies for comparison. TECHNIQUE: Axial images of the abdomen and pelvis were obtained without IV contrast. Images were reviewed in the axial, sagittal, and coronal planes. Automated exposure control was utilized for the study. A dose lowering technique was utilized adhering to the principles of ALARA. FINDINGS: Calcified granulomas within the lower lungs are noted. Calcification within or overlying the posterior left ventricle is noted. No pneumatosis, free air or portal venous gas is present. This exam is significantly compromised given the lack of contrast and paucity of intra-abdominal fat. There are calcified granulomas within the spleen. Unenhanced images of liver, adrenal glands and pancreas are grossly unremarkable. The gallbladder is surgically absent. There is moderate bilateral renal atrophy. A 3 mm calculus within the right kidney is noted. The course of the ureters is difficult to follow on this exam and differentiation between gonadal phleboliths and nonobstructing ureteral calculi is difficult. There is no evidence for a bowel obstruction. The appendix is not identified. There is mild diffuse mesenteric infiltration. No suspicious osseous lesions are noted. There is no lymphadenopathy. There is no ascites. Postoperative findings within the proximal right femur are noted. IMPRESSION: 1. Exam significantly compromised given the lack of IV contrast and paucity of intra-abdominal fat. 2. Moderate bilateral renal atrophy. No hydronephrosis. 3 mm right renal calculus. Course of ureters difficult to follow on this exam but no definite ureteral calculi. 3. No bowel obstruction. Mild diffuse mesenteric infiltration, a nonspecific finding. 4. Nonvisualization of the appendix. Electronically signed by: Cameron Jack M.D. 04/02/2019 11:18 PM Dictated: 04/02/192306 Transcribed: 04/02/192306 Code Status & VTE Plan Code Status Full code VTE Prophylaxis Plan VTE Prophylaxis will be ordered: Yes (1) DKA (diabetic ketoacidoses) Diabetes mellitus complication detail: without coma Diabetes mellitus type: type 1 Qualified Code(s): E10.10 - Type 1 diabetes mellitus with ketoacidosis without coma
[2019-04-03] MEDS ORDERED: D5W AND NSS 1,000 ML IV PRN (06:15)
[2019-04-03] MEDS: VENLAFAXINE HCL XR 75 MG CAPXR PO SCH (08:26)
[2019-04-03] MEDS: FLUDROCORTISONE ACETATE 0.1 MG TAB PO SCH (08:26)
[2019-04-03] MEDS: VENLAFAXINE HCL XR 150 MG CAPXR PO SCH (08:26)
[2019-04-03 08:54] LABS: Basophils # (auto) 0.03 K/uL (0-0.2); Basophils % (auto) 0.2 %; Eosinophils # (auto) 0.02 K/uL (0-0.5); Eosinophils % (auto) 0.2 %; Hematocrit (blood only) 28.6 % (37-47); Hemoglobin 10.1 g/dL (12.0-16.0); Immature Granulocytes # (auto) 0.04 K/uL (0.00-0.02); Immature Granulocytes % (auto) 0.3 %; Lymphocytes # (auto) 1.15 K/uL (1.2-3.4); Lymphocytes % (auto) 8.7 %; Mean Corpuscular Hgb Conc 35.3 g/dL (32-36); Mean Corpuscular Volume 97.3 fL (80-100); Mean Platelet Volume 12.6 fL (7.4-10.4); Monocytes # (auto) 1.55 K/uL (0.11-0.59); Monocytes % (auto) 11.8 %; Neutrophils # (auto) 10.37 K/uL (1.4-6.5); Neutrophils % (auto) 78.8 %; Platelet Count 175 K/uL (130-400); RDW Coefficient of Variation 12.1 % (11.5-14.5); RDW Standard Deviation 43.4 fL (36.4-46.3); Red Blood Count 2.94 M/uL (4.2-5.4); White Blood Count 13.16 K/uL (4.8-10.8)
[2019-04-03] MEDS: HEPARIN SOD 5,000 UNIT/0.5 ML VIAL SQ SCH ×2 (08:59→19:47)
[2019-04-03 09:05] LABS: INR 1.1 (0.9-1.1); Partial Thromboplastin Ratio 0.9; Partial Thromboplastin Time 24.8 Seconds (21.0-31.0); Prothrombin Time 10.9 Seconds (9.0-12.0)
[2019-04-03] MEDS: INSULIN ASPART 100 UNITS/ML 3 ML PEN SC SCH ×4 (09:13→19:46)
[2019-04-03] MEDS ORDERED: PHARMACY GLYCEMIC MGMT CONSULT PRN (09:15)
[2019-04-03] MEDS ORDERED: INSULIN PROTOCOL GOAL RANGE ONE (09:30)
[2019-04-03 09:45] LABS: Albumin Level 3.2 gm/dl (3.4-5.0); BUN Creatinine Ratio 9.9 (10-20); Bilirubin,Total 0.3 mg/dl (0.2-1); Calcium 8.7 mg/dl (8.5-10.1); Creatinine Clr Calc Pharmacy 10.1 ml/min; Est GFR (African American) 9.9; Est GFR (Non-African American) 8.5; Globulin 3.3 gm/dl (2.5-4.0); Potassium 3.4 mmol/L (3.5-5.1); Total Protein 6.5 gm/dl (6.4-8.2)
[2019-04-03] MEDS ORDERED: INSULIN GLARGINE SOLOSTAR 100 UNITS/ML 3 ML PEN SC ONE (09:45)
--- NOTE | 2019-04-03 10:26 | Pharmacy Report ---
Glycemic Control Consultation - Date of Service April 03, 2019 - Scope Scope: Glycemic Pharmacist consulted by Dr Lai on 04/03/19 for glycemic control and to write orders per [facility] inpatient glycemic control protocol - Objective Weight: 60.6 kg Accuchecks BSG (last 24hrs): 04/02/19 04/02/19 04/02/19 21:37 21:38 23:30 Glucose 512 H* POC Glucose 522 H* 551 H* 04/03/19 04/03/19 04/03/19 00:32 01:17 02:11 Glucose 449 H* POC Glucose 493 H* 412 H* 04/03/19 04/03/19 04/03/19 03:31 04:28 05:31 Glucose POC Glucose 357 H* 356 H* 310 H* 04/03/19 04/03/19 04/03/19 07:53 08:35 09:15 Glucose 275 H POC Glucose 287 H 281 H Laboratory Data (last 24hrs): 04/02/19 04/03/19 04/03/19 21:38 01:17 08:35 Potassium 3.7 3.4 L 3.4 L Carbon Dioxide 15 L 17 L 20 L Anion Gap 24.0 H 19.0 H 15.0 H Creatinine 4.79 H* 4.95 H* 5.07 H* Est Cr Clr Drug Dosing 10.2 10.3 10.1 Beta-Hydroxybutyric Acd 85.90 H HbA1c: * Patient's A1c * Her result is likely somewhat unreliable in ESRD patients d/t interactions between the A1c analyzing technique and high levels of urea in ESRD, reduced RBC life span, iron deficiency anemia, and EPO administration. HbA1c > 7.5% in ESRD patient may overestimate the extent of hyperglycemia in ESRD patients. - Recent Pertinent Medications Outpatient Anti-diabetic Regimen: * Lantus 12 units SQ AM * NovoLog as directed ACHS The patient is currently receiving: * IV insulin infusion per DKA protocol * Running st 1.5 units/hr * Goal range 150-250mg/dl - Assessment & Plan Assessment & Plan: ASSESSMENT: * 63yo T1DM female with DKA secondary to gastroenteritis * Pt initiated on IV insulin infusion per DKA protocol * Labs show moderate improvement this morning * Bicarb = 15 --> 17 --> 20 * AG = 24 --> 19--> 15 * GLU --> 512 --> 449 --> 275 * Will start slow transition off of IV insulin infusion to SQ basal bolus insulin regimen * Will adjust fluids per electrolytes PLAN FOR INPATIENT GLYCEMIC CONTROL: * Continue IV insulin infusion per DKA protocol * Will lower Goal Range from 150-250mg/dl to 140-180 mg/dl * Basal insulin * Slightly stress outpatient dosing of Lantus to 18 units SQ x 1 dose now. Will re-evaluate dosing based on BSG trends * Bolus insulin * NovoLog per scale ACHS or Q6hrs while NPO * Goal Range: Low 120 mg/dL - High 150 mg/dL * Correction Factor: 30 mg/dL/unit * Carb ratio = 1 unit for every 10g CHO consumed * Change fluids from D5NS @ 125ml/hr to D51/2NS+20kCl @ 75ml/hr * Please note that the plan above was derived based on current level of insulin resistance and hospital stress. These recommendations are appropriate for inpatient admission only. Plan of care upon discharge will need to be reassessed to avoid potential outpatient hypo/hyperglycemia. Thank you.
[2019-04-03] MEDS: D5W AND 1/2NSS + 20MEQ KCL 20 MEQ/1,000 ML BAG IV SCH (10:32)
[2019-04-03] MEDS ORDERED: HydrALAZINE HCL 20 MG/ML VIAL IV PRN (11:01)
--- NOTE | 2019-04-03 11:09 | Hospitalist Progress Note ---
Date of Service April 03, 2019 Assessment & Plan (1) DKA (diabetic ketoacidoses): DKA, likely secondary to dehydration and gastroenteritis, possibly associated food poisoning- Placed on insulin gtt and now weaned off gtt and on Lantus, Novolog SSI Anion gap is now closed, VBG pH now normal -received IVFs today was switched to D5 i/1 NS with KCl 20 meq all day--> now dc that gap is closed -potassium replaced -continue to follow BMP (2) Gastroenteritis: Likely trigger of her DKA. With leukocytosis likely stress response or from infection She questions the possibility of food poisoning. Stool culture results pending. -antiemetics prn Seems to be resolved (3) End stage renal disease on dialysis: Typically gets dialysis Thursday, Thursday and Thursday Nephro consulted-plan for HD tomorrow appreciate management -continue phosphate binder (4) Diabetes mellitus type 1: HgbA1C elevated and uncontrolled at 10.3% recently -with DKA as above -follows with Endocrine as outpt -continue Lantus/Novolog here now that weaned off insulin gtt (5) Anxiety and depression: stable -Continue venlafaxine (6) Hyperlipidemia LDL goal <70: -Continue atorvastatin 40 mg p.o. every evening (7) Hypothyroidism (acquired): TSH was >500 about 6 weeks ago--> question if was lab error -was started on levothyroxine 200mcg daily and now TSH normal at 0.4 -continue same dose -follow up with Endo as outpt (8) Anemia: Hgb 10.1, macrocytic -check B12, folate (9) Nausea & vomiting: improved, as above -continue antiemetics prn (10) Hypokalemia: mioldly reduced -cautiously replaced in the setting of ESRD -gave KCl 20 meq IV x 1 and some KCl inmaintenance IVFs which are now stopped -follow BMP in AM (11) DVT prophylaxis: heparin SQ Dispo-remain on tele Subjective Pt very drowsy when I saw her but does wake up and briefly answer questions. Not eating much yet today but reports her abd pain is improved and Nausea improved. No CP or SOB Tele with NSR, PVCs, rates 80-100 Review of Systems Review of Systems: All systems reviewed & are unremarkable except as noted in HPI & below Physical Exam Constitutional: WD/WN, vitals as above (appears older than given age) Eyes: PERRL, conjunctivae normal, anicteric sclerae ENMT: external ear and nose normal, oropharynx normal Neck: trachea midline, no thyromegaly Respiratory: normal respiratory effort, lungs clear to auscultation Cardiovascular: RRR, no murmur, no edema Gastrointestinal (Abdomen): normal bowel sounds, soft, nontender, no hepatosplenomegaly Musculoskeletal: Extremities: extremities normal to inspection; no cyanosis and no clubbing Skin: no rashes, warm and dry Neurologic: moves all extremities; no focal motor deficits Psychiatric: Orientation: oriented to person and cooperative; + not alert (drowsy) Results & Data Vital Signs (Past 12 Hours) Vital Signs Temp Pulse Pulse Resp BP BP Pulse Ox 04/03/19 11:05 36.8 C 91 H 17 172/71 H 94 04/03/19 10:37 90 04/03/19 06:58 37.0 C 92 H 18 190/79 H 95 04/03/19 04:13 36.8 C 175/74 H 95 04/03/19 00:50 36.7 C 99 H 101 H 17 173/71 H 180/70 H 99 04/03/19 00:32 117 H 193/66 H 04/03/19 00:30 118 H 21 193/66 H 99 04/03/19 00:01 110 H 17 175/73 H 100 Laboratory Results 04/03/19 04/03/19 04/03/19 Range/Units 20:56 19:45 16:35 WBC (4.8-10.8) K/uL RBC (4.2-5.4) M/uL Hgb (12.0-16.0) g/dL Hct (37-47) % MCV (80-100) fL MCH (25-34) pg MCHC (32-36) g/dL RDW Std Deviation (36.4-46.3) fL RDW Coeff of Erica (11.5-14.5) % Plt Count (130-400) K/uL MPV (7.4-10.4) fL Immature Gran % (Auto) % Neut % (Auto) % Lymph % (Auto) % [place] % (Auto) % Eos % (Auto) % Baso % (Auto) % Immature Gran # (Auto) (0.00-0.02) K/uL Neut # (Auto) (1.4-6.5) K/uL Lymph # (Auto) (1.2-3.4) K/uL [place] # (Auto) (0.11-0.59) K/uL Eos # (Auto) (0-0.5) K/uL Baso # (Auto) (0-0.2) K/uL PT (9.0-12.0) Seconds INR (0.9-1.1) APTT (21.0-31.0) Seconds PTT Ratio VBG pH 7.40 (7.36-7.41) VBG pCO2 38 (38-50) mmHg VBG pO2 52 mmHg VBG HCO3 23 mmol/L VBG O2 Saturation 85.6 % VBG Base Excess -1.6 mEq/L Barometric Pressure 726.3 mm/Hg Sodium 137 (136-145) mmol/L Potassium 3.6 (3.5-5.1) mmol/L Chloride 102 (98-107) mmol/L Carbon Dioxide 24 (21-32) mmol/L Anion Gap 11.0 (3-11) BUN 48 H (7-18) mg/dl Creatinine 5.60 H* (0.6-1.2) mg/dl Est Cr Clr Drug Dosing 9.1 ml/min Est GFR ( Amer) 8.8 Est GFR (Non-Af Amer) 7.6 BUN/Creatinine Ratio 8.6 L (10-20) Glucose 251 H (70-99) mg/dl POC Glucose 232 H (70-99) Estimat Average Glucose Hemoglobin A1c Calcium 8.0 L (8.5-10.1) mg/dl Total Bilirubin (0.2-1) mg/dl AST (15-37) U/L ALT (12-78) U/L Alkaline Phosphatase (45-117) U/L Total Protein (6.4-8.2) gm/dl Albumin (3.4-5.0) gm/dl Globulin (2.5-4.0) gm/dl Albumin/Globulin Ratio (0.9-2) Beta-Hydroxybutyric Acd (0.2-2.81) mg/dl TSH (0.300-4.500) uIu/ml 04/03/19 04/03/19 04/03/19 Range/Units 16:35 16:15 15:45 WBC (4.8-10.8) K/uL RBC (4.2-5.4) M/uL Hgb (12.0-16.0) g/dL Hct (37-47) % MCV (80-100) fL MCH (25-34) pg MCHC (32-36) g/dL RDW Std Deviation (36.4-46.3) fL RDW Coeff of Erica (11.5-14.5) % Plt Count (130-400) K/uL MPV (7.4-10.4) fL Immature Gran % (Auto) % Neut % (Auto) % Lymph % (Auto) % [place] % (Auto) % Eos % (Auto) % Baso % (Auto) % Immature Gran # (Auto) (0.00-0.02) K/uL Neut # (Auto) (1.4-6.5) K/uL Lymph # (Auto) (1.2-3.4) K/uL [place] # (Auto) (0.11-0.59) K/uL Eos # (Auto) (0-0.5) K/uL Baso # (Auto) (0-0.2) K/uL PT (9.0-12.0) Seconds INR (0.9-1.1) APTT (21.0-31.0) Seconds PTT Ratio VBG pH (7.36-7.41) VBG pCO2 (38-50) mmHg VBG pO2 mmHg VBG HCO3 mmol/L VBG O2 Saturation % VBG Base Excess mEq/L Barometric Pressure mm/Hg Sodium 139 (136-145) mmol/L Potassium 3.2 L (3.5-5.1) mmol/L Chloride 104 (98-107) mmol/L Carbon Dioxide 23 (21-32) mmol/L Anion Gap 13.0 H (3-11) BUN 49 H (7-18) mg/dl Creatinine 5.52 H* (0.6-1.2) mg/dl Est Cr Clr Drug Dosing 9.2 ml/min Est GFR ( Amer) 8.9 Est GFR (Non-Af Amer) 7.7 BUN/Creatinine Ratio 8.8 L (10-20) Glucose 164 H (70-99) mg/dl POC Glucose 135 H 148 H (70-99) Estimat Average Glucose Hemoglobin A1c Calcium 8.3 L (8.5-10.1) mg/dl Total Bilirubin (0.2-1) mg/dl AST (15-37) U/L ALT (12-78) U/L Alkaline Phosphatase (45-117) U/L Total Protein (6.4-8.2) gm/dl Albumin (3.4-5.0) gm/dl Globulin (2.5-4.0) gm/dl Albumin/Globulin Ratio (0.9-2) Beta-Hydroxybutyric Acd (0.2-2.81) mg/dl TSH (0.300-4.500) uIu/ml 04/03/19 04/03/19 04/03/19 Range/Units 13:30 12:50 11:30 WBC (4.8-10.8) K/uL RBC (4.2-5.4) M/uL Hgb (12.0-16.0) g/dL Hct (37-47) % MCV (80-100) fL MCH (25-34) pg MCHC (32-36) g/dL RDW Std Deviation (36.4-46.3) fL RDW Coeff of Erica (11.5-14.5) % Plt Count (130-400) K/uL MPV (7.4-10.4) fL Immature Gran % (Auto) % Neut % (Auto) % Lymph % (Auto) % [place] % (Auto) % Eos % (Auto) % Baso % (Auto) % Immature Gran # (Auto) (0.00-0.02) K/uL Neut # (Auto) (1.4-6.5) K/uL Lymph # (Auto) (1.2-3.4) K/uL [place] # (Auto) (0.11-0.59) K/uL Eos # (Auto) (0-0.5) K/uL Baso # (Auto) (0-0.2) K/uL PT (9.0-12.0) Seconds INR (0.9-1.1) APTT (21.0-31.0) Seconds PTT Ratio VBG pH (7.36-7.41) VBG pCO2 (38-50) mmHg VBG pO2 mmHg VBG HCO3 mmol/L VBG O2 Saturation % VBG Base Excess mEq/L Barometric Pressure mm/Hg Sodium 140 (136-145) mmol/L Potassium 3.3 L (3.5-5.1) mmol/L Chloride 103 (98-107) mmol/L Carbon Dioxide 24 (21-32) mmol/L Anion Gap 14.0 H (3-11) BUN 49 H (7-18) mg/dl Creatinine 5.46 H* D (0.6-1.2) mg/dl Est Cr Clr Drug Dosing 9.3 ml/min Est GFR ( Amer) 9.0 Est GFR (Non-Af Amer) 7.8 BUN/Creatinine Ratio 9.0 L (10-20) Glucose 232 H (70-99) mg/dl POC Glucose 236 H 267 H (70-99) Estimat Average Glucose Hemoglobin A1c Calcium 8.2 L (8.5-10.1) mg/dl Total Bilirubin (0.2-1) mg/dl AST (15-37) U/L ALT (12-78) U/L Alkaline Phosphatase (45-117) U/L Total Protein (6.4-8.2) gm/dl Albumin (3.4-5.0) gm/dl Globulin (2.5-4.0) gm/dl Albumin/Globulin Ratio (0.9-2) Beta-Hydroxybutyric Acd (0.2-2.81) mg/dl TSH (0.300-4.500) uIu/ml 04/03/19 04/03/19 04/03/19 Range/Units 09:15 08:35 08:35 WBC (4.8-10.8) K/uL RBC (4.2-5.4) M/uL Hgb (12.0-16.0) g/dL Hct (37-47) % MCV (80-100) fL MCH (25-34) pg MCHC (32-36) g/dL RDW Std Deviation (36.4-46.3) fL RDW Coeff of Erica (11.5-14.5) % Plt Count (130-400) K/uL MPV (7.4-10.4) fL Immature Gran % (Auto) % Neut % (Auto) % Lymph % (Auto) % [place] % (Auto) % Eos % (Auto) % Baso % (Auto) % Immature Gran # (Auto) (0.00-0.02) K/uL Neut # (Auto) (1.4-6.5) K/uL Lymph # (Auto) (1.2-3.4) K/uL [place] # (Auto) (0.11-0.59) K/uL Eos # (Auto) (0-0.5) K/uL Baso # (Auto) (0-0.2) K/uL PT (9.0-12.0) Seconds INR (0.9-1.1) APTT (21.0-31.0) Seconds PTT Ratio VBG pH (7.36-7.41) VBG pCO2 (38-50) mmHg VBG pO2 mmHg VBG HCO3 mmol/L VBG O2 Saturation % VBG Base Excess mEq/L Barometric Pressure mm/Hg Sodium 136 (136-145) mmol/L Potassium 3.4 L (3.5-5.1) mmol/L Chloride 101 (98-107) mmol/L Carbon Dioxide 20 L (21-32) mmol/L Anion Gap 15.0 H (3-11) BUN 51 H (7-18) mg/dl Creatinine 5.07 H* (0.6-1.2) mg/dl Est Cr Clr Drug Dosing 10.1 ml/min Est GFR ( Amer) 9.9 Est GFR (Non-Af Amer) 8.5 BUN/Creatinine Ratio 9.9 L (10-20) Glucose 275 H (70-99) mg/dl POC Glucose 281 H (70-99) Estimat Average Glucose Hemoglobin A1c Calcium 8.7 (8.5-10.1) mg/dl Total Bilirubin 0.3 (0.2-1) mg/dl AST 33 (15-37) U/L ALT 44 (12-78) U/L Alkaline Phosphatase 197 H (45-117) U/L Total Protein 6.5 (6.4-8.2) gm/dl Albumin 3.2 L (3.4-5.0) gm/dl Globulin 3.3 (2.5-4.0) gm/dl Albumin/Globulin Ratio 1.0 (0.9-2) Beta-Hydroxybutyric Acd (0.2-2.81) mg/dl TSH 0.438 (0.300-4.500) uIu/ml 04/03/19 04/03/19 04/03/19 Range/Units 08:35 08:35 08:35 WBC 13.16 H (4.8-10.8) K/uL RBC 2.94 L (4.2-5.4) M/uL Hgb 10.1 L (12.0-16.0) g/dL Hct 28.6 L (37-47) % MCV 97.3 (80-100) fL MCH 34.4 H (25-34) pg MCHC 35.3 (32-36) g/dL RDW Std Deviation 43.4 (36.4-46.3) fL RDW Coeff of Erica 12.1 (11.5-14.5) % Plt Count 175 (130-400) K/uL MPV 12.6 H (7.4-10.4) fL Immature Gran % (Auto) 0.3 % Neut % (Auto) 78.8 % Lymph % (Auto) 8.7 % [place] % (Auto) 11.8 % Eos % (Auto) 0.2 % Baso % (Auto) 0.2 % Immature Gran # (Auto) 0.04 H (0.00-0.02) K/uL Neut # (Auto) 10.37 H (1.4-6.5) K/uL Lymph # (Auto) 1.15 L (1.2-3.4) K/uL [place] # (Auto) 1.55 H (0.11-0.59) K/uL Eos # (Auto) 0.02 (0-0.5) K/uL Baso # (Auto) 0.03 (0-0.2) K/uL PT 10.9 (9.0-12.0) Seconds INR 1.1 (0.9-1.1) APTT 24.8 (21.0-31.0) Seconds PTT Ratio 0.9 VBG pH (7.36-7.41) VBG pCO2 (38-50) mmHg VBG pO2 mmHg VBG HCO3 mmol/L VBG O2 Saturation % VBG Base Excess mEq/L Barometric Pressure mm/Hg Sodium (136-145) mmol/L Potassium (3.5-5.1) mmol/L Chloride (98-107) mmol/L Carbon Dioxide (21-32) mmol/L Anion Gap (3-11) BUN (7-18) mg/dl Creatinine (0.6-1.2) mg/dl Est Cr Clr Drug Dosing ml/min Est GFR ( Amer) Est GFR (Non-Af Amer) BUN/Creatinine Ratio (10-20) Glucose (70-99) mg/dl POC Glucose (70-99) Estimat Average Glucose Pending Hemoglobin A1c Pending Calcium (8.5-10.1) mg/dl Total Bilirubin (0.2-1) mg/dl AST (15-37) U/L ALT (12-78) U/L Alkaline Phosphatase (45-117) U/L Total Protein (6.4-8.2) gm/dl Albumin (3.4-5.0) gm/dl Globulin (2.5-4.0) gm/dl Albumin/Globulin Ratio (0.9-2) Beta-Hydroxybutyric Acd (0.2-2.81) mg/dl TSH (0.300-4.500) uIu/ml 04/03/19 04/03/19 04/03/19 Range/Units 07:53 05:31 04:28 WBC (4.8-10.8) K/uL RBC (4.2-5.4) M/uL Hgb (12.0-16.0) g/dL Hct (37-47) % MCV (80-100) fL MCH (25-34) pg MCHC (32-36) g/dL RDW Std Deviation (36.4-46.3) fL RDW Coeff of Erica (11.5-14.5) % Plt Count (130-400) K/uL MPV (7.4-10.4) fL Immature Gran % (Auto) % Neut % (Auto) % Lymph % (Auto) % [place] % (Auto) % Eos % (Auto) % Baso % (Auto) % Immature Gran # (Auto) (0.00-0.02) K/uL Neut # (Auto) (1.4-6.5) K/uL Lymph # (Auto) (1.2-3.4) K/uL [place] # (Auto) (0.11-0.59) K/uL Eos # (Auto) (0-0.5) K/uL Baso # (Auto) (0-0.2) K/uL PT (9.0-12.0) Seconds INR (0.9-1.1) APTT (21.0-31.0) Seconds PTT Ratio VBG pH (7.36-7.41) VBG pCO2 (38-50) mmHg VBG pO2 mmHg VBG HCO3 mmol/L VBG O2 Saturation % VBG Base Excess mEq/L Barometric Pressure mm/Hg Sodium (136-145) mmol/L Potassium (3.5-5.1) mmol/L Chloride (98-107) mmol/L Carbon Dioxide (21-32) mmol/L Anion Gap (3-11) BUN (7-18) mg/dl Creatinine (0.6-1.2) mg/dl Est Cr Clr Drug Dosing ml/min Est GFR ( Amer) Est GFR (Non-Af Amer) BUN/Creatinine Ratio (10-20) Glucose (70-99) mg/dl POC Glucose 287 H 310 H* 356 H* (70-99) Estimat Average Glucose Hemoglobin A1c Calcium (8.5-10.1) mg/dl Total Bilirubin (0.2-1) mg/dl AST (15-37) U/L ALT (12-78) U/L Alkaline Phosphatase (45-117) U/L Total Protein (6.4-8.2) gm/dl Albumin (3.4-5.0) gm/dl Globulin (2.5-4.0) gm/dl Albumin/Globulin Ratio (0.9-2) Beta-Hydroxybutyric Acd (0.2-2.81) mg/dl TSH (0.300-4.500) uIu/ml 04/03/19 04/03/19 04/03/19 Range/Units 03:31 02:11 01:17 WBC (4.8-10.8) K/uL RBC (4.2-5.4) M/uL Hgb (12.0-16.0) g/dL Hct (37-47) % MCV (80-100) fL MCH (25-34) pg MCHC (32-36) g/dL RDW Std Deviation (36.4-46.3) fL RDW Coeff of Erica (11.5-14.5) % Plt Count (130-400) K/uL MPV (7.4-10.4) fL Immature Gran % (Auto) % Neut % (Auto) % Lymph % (Auto) % [place] % (Auto) % Eos % (Auto) % Baso % (Auto) % Immature Gran # (Auto) (0.00-0.02) K/uL Neut # (Auto) (1.4-6.5) K/uL Lymph # (Auto) (1.2-3.4) K/uL [place] # (Auto) (0.11-0.59) K/uL Eos # (Auto) (0-0.5) K/uL Baso # (Auto) (0-0.2) K/uL PT (9.0-12.0) Seconds INR (0.9-1.1) APTT (21.0-31.0) Seconds PTT Ratio VBG pH (7.36-7.41) VBG pCO2 (38-50) mmHg VBG pO2 mmHg VBG HCO3 mmol/L VBG O2 Saturation % VBG Base Excess mEq/L Barometric Pressure mm/Hg Sodium 133 L (136-145) mmol/L Potassium 3.4 L (3.5-5.1) mmol/L Chloride 97 L (98-107) mmol/L Carbon Dioxide 17 L (21-32) mmol/L Anion Gap 19.0 H (3-11) BUN 45 H (7-18) mg/dl Creatinine 4.95 H* (0.6-1.2) mg/dl Est Cr Clr Drug Dosing 10.3 ml/min Est GFR ( Amer) 10.2 Est GFR (Non-Af Amer) 8.8 BUN/Creatinine Ratio 9.3 L (10-20) Glucose 449 H* (70-99) mg/dl POC Glucose 357 H* 412 H* (70-99) Estimat Average Glucose Hemoglobin A1c Calcium 8.2 L (8.5-10.1) mg/dl Total Bilirubin (0.2-1) mg/dl AST (15-37) U/L ALT (12-78) U/L Alkaline Phosphatase (45-117) U/L Total Protein (6.4-8.2) gm/dl Albumin (3.4-5.0) gm/dl Globulin (2.5-4.0) gm/dl Albumin/Globulin Ratio (0.9-2) Beta-Hydroxybutyric Acd (0.2-2.81) mg/dl TSH (0.300-4.500) uIu/ml 04/03/19 Range/Units 00:32 WBC (4.8-10.8) K/uL RBC (4.2-5.4) M/uL Hgb (12.0-16.0) g/dL Hct (37-47) % MCV (80-100) fL MCH (25-34) pg MCHC (32-36) g/dL RDW Std Deviation (36.4-46.3) fL RDW Coeff of Erica (11.5-14.5) % Plt Count (130-400) K/uL MPV (7.4-10.4) fL Immature Gran % (Auto) % Neut % (Auto) % Lymph % (Auto) % [place] % (Auto) % Eos % (Auto) % Baso % (Auto) % Immature Gran # (Auto) (0.00-0.02) K/uL Neut # (Auto) (1.4-6.5) K/uL Lymph # (Auto) (1.2-3.4) K/uL [place] # (Auto) (0.11-0.59) K/uL Eos # (Auto) (0-0.5) K/uL Baso # (Auto) (0-0.2) K/uL PT (9.0-12.0) Seconds INR (0.9-1.1) APTT (21.0-31.0) Seconds PTT Ratio VBG pH (7.36-7.41) VBG pCO2 (38-50) mmHg VBG pO2 mmHg VBG HCO3 mmol/L VBG O2 Saturation % VBG Base Excess mEq/L Barometric Pressure mm/Hg Sodium (136-145) mmol/L Potassium (3.5-5.1) mmol/L Chloride (98-107) mmol/L Carbon Dioxide (21-32) mmol/L Anion Gap (3-11) BUN (7-18) mg/dl Creatinine (0.6-1.2) mg/dl Est Cr Clr Drug Dosing ml/min Est GFR ( Amer) Est GFR (Non-Af Amer) BUN/Creatinine Ratio (10-20) Glucose (70-99) mg/dl POC Glucose 493 H* (70-99) Estimat Average Glucose Hemoglobin A1c Calcium (8.5-10.1) mg/dl Total Bilirubin (0.2-1) mg/dl AST (15-37) U/L ALT (12-78) U/L Alkaline Phosphatase (45-117) U/L Total Protein (6.4-8.2) gm/dl Albumin (3.4-5.0) gm/dl Globulin (2.5-4.0) gm/dl Albumin/Globulin Ratio (0.9-2) Beta-Hydroxybutyric Acd (0.2-2.81) mg/dl TSH (0.300-4.500) uIu/ml (1) DKA (diabetic ketoacidoses) Diabetes mellitus complication detail: without coma Diabetes mellitus type: type 1 Qualified Code(s): E10.10 - Type 1 diabetes mellitus with ketoacidosis without coma
--- NOTE | 2019-04-03 13:35 | Nephrology Consultation ---
Date of Consultation April 03, 2019 Assessment & Plan (1) End stage renal disease on dialysis: Shanda is a 63-year-old female with ESRD admitted to the hospital with DKA. On HD MWF via BC AVF. On IV fluid and insulin for DKA. Currently electrolyte , volume status acceptable. BP has been running high. --Plan for HD tomorrow as her regular schedule --Epogen during Hd tomorrow --Phos binder and renal vitamin when starts po --DC IV once AG closes Will follow Thank you for allowing me to participate in your patient's care. It was a pleasure to see Shanda (2) Anemia: (3) Secondary hyperparathyroidism of renal origin: History of Present Illness Reason for Consultation: ESRD on HD Attending Physician: Ingrid Lai MD History of Present Illness Shanda Conner is 71 year female with past medical significant for type 1 diabetes end-stage renal disease hemodialysis Thursday admitted to the hospital with DKA. Nephrology consult was requested to manage dialysis while in hospital. Electronic medical records including labs and imaging reviewed in detail during patient's visit. Shanda has history of 1 diabetes. Last Thursday she went out or dinner with her sister. later that evening she developed GI symptoms including vomiting, abdominal pain and diarrhea thought to be related to some food poisoning. She presented to the ER for further evaluation. In ER she was found be in DKA. She was started on DKA protocol with insulin and IV fluid. Glucose improved but she still has AG. Last dialysis was Thursday as regular schedule currently volume status acceptable acceptable. Blood pressure has been running slightly elevated. AVF working fine. She denies any symptoms. Allergies Allergy/AdvReac Type Severity Reaction Status Date / Time ibuprofen Allergy Hives Verified 02/21/19 13:08 shellfish derived Allergy Hives Verified 02/21/19 13:08 strawberry Allergy ALL Verified 02/21/19 13:08 BERRIES --> Anaphylaxis Home Medications Home Medications Medication Instructions Recorded Confirmed Type furosemide 40 mg PO 2XWK 01/21/19 04/02/19 History venlafaxine 150 mg PO QAM 01/21/19 04/02/19 History atorvastatin 40 mg PO QPM 04/02/19 04/02/19 History fludrocortisone 0.1 mg PO DAILY 04/02/19 04/02/19 History insulin aspart U-100 [Novolog See Rx Instructions .ROUTE .COMPLEX 04/02/19 04/02/19 History Flexpen U-100 Insulin] insulin glargine [Lantus Solostar 12 units SUBCUT DAILY 04/02/19 04/02/19 History U-100 Insulin] levothyroxine 300 mcg PO QAM 04/02/19 04/02/19 History tramadol 50 mg PO BID PRN 04/02/19 04/02/19 History venlafaxine 75 mg PO QAM 04/02/19 04/02/19 History warfarin See Rx Instructions .ROUTE .COMPLEX 04/02/19 04/02/19 History Patient History Medical History A-V fistula (Chronic) RIGHT ARM Chronic kidney disease (Chronic) Diabetes mellitus type 1 (Chronic) GERD (gastroesophageal reflux disease) (Chronic) Hemodialysis patient (Chronic) M,W,[facility] Anemia Anxiety Depression Hypertension Hypothyroidism Osteoarthritis Osteoporosis Surgical History History of appendectomy History of section History of cholecystectomy History of colonoscopy History of esophagogastroduodenoscopy (EGD) History of hysterectomy PIERCE WITH BSO History of open reduction and internal fixation (ORIF) procedure RIGHT HIP RIGHT WRIST LEFT ANKLE Social History Preferred Language: [place] Communication Ability: Impaired Extension Edger Required: No Beliefs That Will Affect Care: None Current Living Situation: Spouse Feels Safe at Home: Yes Safety Concerns: Feels Safe At This Time Smoking Status: Former smoker Tobacco Type: cigarettes Second Hand Exposure: No Hx Alcohol Use: No Hx Substance Use: No Physical Exam Physical Exam: GENERAL: middle aged male, AAA x 3, sleepy ill-appearing, not in any distress. HEENT: Atraumatic, normocephalic. NECK: Supple, no JVD, no carotid bruit appreciated. ENT: No sinus tenderness MOUTH and THROAT: dry oral mucosa, RESPIRATORY: Normal breathing efforts, clear to auscultation bilaterally, no wheezes or rales. CARDIOVASCULAR: S1, S2 normal, rate rhythm regular. ABDOMEN: Soft, nontender, positive bowel sound. MUSCULOSKELETAL: No joint swelling, erythema or tenderness. Normal range of motion. SKIN: No skin rash EXTREMITY: No lower extremity edema NEURO: No gross focal neurological deficit, speech fluent. PSYCHIATRY: Normal mood and judgment Results & Data Vital Signs (Past 12 Hours) Vital Signs Temp Pulse Pulse Resp BP BP Pulse Ox 04/03/19 11:05 36.8 C 91 H 17 172/71 H 94 04/03/19 10:37 90 04/03/19 06:58 37.0 C 92 H 18 190/79 H 95 04/03/19 04:13 36.8 C 175/74 H 95
[2019-04-03 13:52] LABS: Calcium 8.2 mg/dl (8.5-10.1); Creatinine Clr Calc Pharmacy 9.3 ml/min; Est GFR (Non-African American) 7.8; Potassium 3.3 mmol/L (3.5-5.1)
[2019-04-03] MEDS: POTASSIUM CHLORIDE / WTR 10 MEQ/100 ML PLCT IV SCH ×2 (16:31→17:23)
[2019-04-03 16:52] LABS: Base Excess VBG -1.6 mEq/L; Oxygen Saturation VBG 85.6 %; pH VBG 7.4 (7.36-7.41)
[2019-04-03 17:31] LABS: BUN Creatinine Ratio 8.8 (10-20); Calcium 8.3 mg/dl (8.5-10.1); Creatinine Clr Calc Pharmacy 9.2 ml/min; Est GFR (African American) 8.9; Est GFR (Non-African American) 7.7; Potassium 3.2 mmol/L (3.5-5.1)
[2019-04-03] MEDS ORDERED: INSULIN GLARGINE SOLOSTAR 100 UNITS/ML 3 ML PEN SC SCH (18:00)
[2019-04-03] MEDS ORDERED: DC IV INSULIN INFUSION 1 EA DEVI ONE (18:00)
[2019-04-03] MEDS: ATORVASTATIN 40 MG TAB PO SCH (19:43)
[2019-04-03 21:33] LABS: BUN Creatinine Ratio 8.6 (10-20); Creatinine Clr Calc Pharmacy 9.1 ml/min; Est GFR (African American) 8.8; Est GFR (Non-African American) 7.6; Potassium 3.6 mmol/L (3.5-5.1)
[2019-04-04] MEDS: INSULIN ASPART 100 UNITS/ML 3 ML PEN SC SCH ×6 (00:02→20:30)
[2019-04-04] MEDS: ONDANSETRON INJ 2 MG/ML 2 ML VIAL IV PRN ×2 (03:57→07:50)
[2019-04-04] MEDS: LEVOTHYROXINE SODIUM 100 MCG TABLET PO SCH (05:20)
[2019-04-04 06:34] LABS: Estimated Average Glucose 243 mg/dl; Hemoglobin A1C 10.1 % (4.5-5.6)
[2019-04-04] MEDS ORDERED: SODIUM CHLORIDE 0.9% 1000ML 1,000 ML IV PRN (07:00)
[2019-04-04 07:10] LABS: Basophils # (auto) 0.05 K/uL (0-0.2); Basophils % (auto) 0.4 %; Eosinophils # (auto) 0.17 K/uL (0-0.5); Eosinophils % (auto) 1.2 %; Hematocrit (blood only) 29.4 % (37-47); Hemoglobin 10.6 g/dL (12.0-16.0); Immature Granulocytes # (auto) 0.04 K/uL (0.00-0.02); Immature Granulocytes % (auto) 0.3 %; Lymphocytes # (auto) 1.07 K/uL (1.2-3.4); Lymphocytes % (auto) 7.6 %; Mean Corpuscular Hgb Conc 36.1 g/dL (32-36); Mean Corpuscular Volume 97.4 fL (80-100); Mean Platelet Volume 12.3 fL (7.4-10.4); Monocytes # (auto) 1.55 K/uL (0.11-0.59); Neutrophils # (auto) 11.27 K/uL (1.4-6.5); Neutrophils % (auto) 79.5 %; Platelet Count 185 K/uL (130-400); RDW Coefficient of Variation 12.5 % (11.5-14.5); RDW Standard Deviation 44.4 fL (36.4-46.3); Red Blood Count 3.02 M/uL (4.2-5.4); White Blood Count 14.15 K/uL (4.8-10.8)
[2019-04-04 07:27] LABS: INR 1.1 (0.9-1.1); Prothrombin Time 11.1 Seconds (9.0-12.0)
[2019-04-04 07:43] LABS: Albumin Globulin Ratio 0.9 (0.9-2); Albumin Level 3.1 gm/dl (3.4-5.0); BUN Creatinine Ratio 8.2 (10-20); Bilirubin,Total 0.4 mg/dl (0.2-1); Calcium 8.7 mg/dl (8.5-10.1); Creatinine Clr Calc Pharmacy 8.8 ml/min; Est GFR (African American) 8.5; Est GFR (Non-African American) 7.3; Globulin 3.3 gm/dl (2.5-4.0); Potassium 3.3 mmol/L (3.5-5.1); Total Protein 6.4 gm/dl (6.4-8.2)
[2019-04-04 08:00] LABS: Folate (Folic Acid) 4.58 ng/ml (>5.38)
[2019-04-04] MEDS: FLUDROCORTISONE ACETATE 0.1 MG TAB PO SCH (08:02)
[2019-04-04] MEDS: HEPARIN SOD 5,000 UNIT/0.5 ML VIAL SQ SCH ×2 (08:02→20:31)
[2019-04-04] MEDS: VENLAFAXINE HCL XR 75 MG CAPXR PO SCH (08:02)
[2019-04-04] MEDS: VENLAFAXINE HCL XR 150 MG CAPXR PO SCH (08:02)
[2019-04-04] MEDS: D5W AND 1/2NSS + 20MEQ KCL 20 MEQ/1,000 ML BAG IV SCH (08:18)
[2019-04-04] MEDS ORDERED: INSULIN GLARGINE SOLOSTAR 100 UNITS/ML 3 ML PEN SC SCH (09:00)
--- NOTE | 2019-04-04 09:40 | Nephrology Progress Note ---
Date of Service April 04, 2019 Assessment & Plan (1) End stage renal disease on dialysis: Shanda is a 63-year-old female with ESRD admitted to the hospital with DKA. On HD MWF via [facility] AV[facility]. On IV fluid and insulin for DKA. Currently electrolyte , volume status acceptable. BP has been running high. -- HD today per MWF schedule -- Orders for HD entered into EMR and discussed with HD nurse, UF goal 2 L -- Renal diet -- Medications appropriate for kidney function -- Volume status acceptable -- Hold fludrocortisone due to accelerated blood pressure (2) Anemia: -- Epogen held today with Hgb 10.6 (acceptable) -- BP accelerated (3) Secondary hyperparathyroidism of renal origin: Subjective No acute events overnight. Shanda was resting comfortably in bed this morning. She feels reasonably well nothing a slight headache and generalized body ache. Appetite good. Hands slightly swollen. Breathing comfortably. Review of Systems Review of Systems: All systems reviewed & are unremarkable except as noted in HPI & below Physical Exam Constitutional: well developed; no acute distress Eyes: no scleral abnormality and no corneal abnormality ENMT: Mouth: no oral mucosal abnormality and oral mucous membranes not dry Neck: normal visual inspection and trachea midline Respiratory: normal respiratory effort; no respiratory distress Cardiovascular: Rate/Rhythm: regular rate Heart Sounds: normal S1 and normal S2 Extremities: + edema (trace) and + AV fistula Gastrointestinal (Abdomen): Percussion/Palpation: abdomen soft; abdomen nontender Musculoskeletal: Extremities: no cyanosis and no clubbing Skin: normal turgor; no rashes Neurologic: Motor/Sensory: no tremor and no asterixis Psychiatric: Orientation: alert and oriented x 3 Results & Data Vital Signs (Past 12 Hours) Vital Signs Temp Pulse Resp BP Pulse Ox 04/04/19 08:09 36.4 C L 92 H 19 199/80 H 94 04/04/19 03:35 36.9 C 85 18 170/90 H 95 04/03/19 23:02 36.8 C 86 18 175/73 H 91 Laboratory Results Laboratory Results - last 24 hr 04/03/19 04/03/19 04/03/19 08:35 08:35 08:35 WBC RBC Hgb Hct MCV MCH MCHC RDW Std Deviation RDW Coeff of Erica Plt Count MPV Immature Gran % (Auto) Neut % (Auto) Lymph % (Auto) [place] % (Auto) Eos % (Auto) Baso % (Auto) Immature Gran # (Auto) Neut # (Auto) Lymph # (Auto) [place] # (Auto) Eos # (Auto) Baso # (Auto) PT INR VBG pH VBG pCO2 VBG pO2 VBG HCO3 VBG O2 Saturation VBG Base Excess Barometric Pressure Sodium 136 Potassium 3.4 L Chloride 101 Carbon Dioxide 20 L Anion Gap 15.0 H BUN 51 H Creatinine 5.07 H* Est Cr Clr Drug Dosing 10.1 Est GFR ( Amer) 9.9 Est GFR (Non-Af Amer) 8.5 BUN/Creatinine Ratio 9.9 L Glucose 275 H POC Glucose Estimat Average Glucose 243 Hemoglobin A1c 10.1 H Calcium 8.7 Total Bilirubin 0.3 AST 33 ALT 44 Alkaline Phosphatase 197 H Total Protein 6.5 Albumin 3.2 L Globulin 3.3 Albumin/Globulin Ratio 1.0 Vitamin B12 Folate TSH 0.438 04/03/19 04/03/19 04/03/19 11:30 12:50 13:30 WBC RBC Hgb Hct MCV MCH MCHC RDW Std Deviation RDW Coeff of Erica Plt Count MPV Immature Gran % (Auto) Neut % (Auto) Lymph % (Auto) [place] % (Auto) Eos % (Auto) Baso % (Auto) Immature Gran # (Auto) Neut # (Auto) Lymph # (Auto) [place] # (Auto) Eos # (Auto) Baso # (Auto) PT INR VBG pH VBG pCO2 VBG pO2 VBG HCO3 VBG O2 Saturation VBG Base Excess Barometric Pressure Sodium 140 Potassium 3.3 L Chloride 103 Carbon Dioxide 24 Anion Gap 14.0 H BUN 49 H Creatinine 5.46 H* D Est Cr Clr Drug Dosing 9.3 Est GFR ( Amer) 9.0 Est GFR (Non-Af Amer) 7.8 BUN/Creatinine Ratio 9.0 L Glucose 232 H POC Glucose 267 H 236 H Estimat Average Glucose Hemoglobin A1c Calcium 8.2 L Total Bilirubin AST ALT Alkaline Phosphatase Total Protein Albumin Globulin Albumin/Globulin Ratio Vitamin B12 Folate TSH 04/03/19 04/03/19 04/03/19 15:45 16:15 16:35 WBC RBC Hgb Hct MCV MCH MCHC RDW Std Deviation RDW Coeff of Erica Plt Count MPV Immature Gran % (Auto) Neut % (Auto) Lymph % (Auto) [place] % (Auto) Eos % (Auto) Baso % (Auto) Immature Gran # (Auto) Neut # (Auto) Lymph # (Auto) [place] # (Auto) Eos # (Auto) Baso # (Auto) PT INR VBG pH VBG pCO2 VBG pO2 VBG HCO3 VBG O2 Saturation VBG Base Excess Barometric Pressure Sodium 139 Potassium 3.2 L Chloride 104 Carbon Dioxide 23 Anion Gap 13.0 H BUN 49 H Creatinine 5.52 H* Est Cr Clr Drug Dosing 9.2 Est GFR ( Amer) 8.9 Est GFR (Non-Af Amer) 7.7 BUN/Creatinine Ratio 8.8 L Glucose 164 H POC Glucose 148 H 135 H Estimat Average Glucose Hemoglobin A1c Calcium 8.3 L Total Bilirubin AST ALT Alkaline Phosphatase Total Protein Albumin Globulin Albumin/Globulin Ratio Vitamin B12 Folate TSH 04/03/19 04/03/19 04/03/19 16:35 19:45 20:56 WBC RBC Hgb Hct MCV MCH MCHC RDW Std Deviation RDW Coeff of Erica Plt Count MPV Immature Gran % (Auto) Neut % (Auto) Lymph % (Auto) [place] % (Auto) Eos % (Auto) Baso % (Auto) Immature Gran # (Auto) Neut # (Auto) Lymph # (Auto) [place] # (Auto) Eos # (Auto) Baso # (Auto) PT INR VBG pH 7.40 VBG pCO2 38 VBG pO2 52 VBG HCO3 23 VBG O2 Saturation 85.6 VBG Base Excess -1.6 Barometric Pressure 726.3 Sodium 137 Potassium 3.6 Chloride 102 Carbon Dioxide 24 Anion Gap 11.0 BUN 48 H Creatinine 5.60 H* Est Cr Clr Drug Dosing 9.1 Est GFR ( Amer) 8.8 Est GFR (Non-Af Amer) 7.6 BUN/Creatinine Ratio 8.6 L Glucose 251 H POC Glucose 232 H Estimat Average Glucose Hemoglobin A1c Calcium 8.0 L Total Bilirubin AST ALT Alkaline Phosphatase Total Protein Albumin Globulin Albumin/Globulin Ratio Vitamin B12 Folate TSH 04/03/19 04/04/19 04/04/19 23:58 03:46 06:35 WBC 14.15 H RBC 3.02 L Hgb 10.6 L Hct 29.4 L MCV 97.4 MCH 35.1 H MCHC 36.1 H RDW Std Deviation 44.4 RDW Coeff of Erica 12.5 Plt Count 185 MPV 12.3 H Immature Gran % (Auto) 0.3 Neut % (Auto) 79.5 Lymph % (Auto) 7.6 [place] % (Auto) 11.0 Eos % (Auto) 1.2 Baso % (Auto) 0.4 Immature Gran # (Auto) 0.04 H Neut # (Auto) 11.27 H Lymph # (Auto) 1.07 L [place] # (Auto) 1.55 H Eos # (Auto) 0.17 Baso # (Auto) 0.05 PT INR VBG pH VBG pCO2 VBG pO2 VBG HCO3 VBG O2 Saturation VBG Base Excess Barometric Pressure Sodium Potassium Chloride Carbon Dioxide Anion Gap BUN Creatinine Est Cr Clr Drug Dosing Est GFR ( Amer) Est GFR (Non-Af Amer) BUN/Creatinine Ratio Glucose POC Glucose 281 H 222 H Estimat Average Glucose Hemoglobin A1c Calcium Total Bilirubin AST ALT Alkaline Phosphatase Total Protein Albumin Globulin Albumin/Globulin Ratio Vitamin B12 Folate TSH 04/04/19 04/04/19 04/04/19 06:35 06:35 06:35 WBC RBC Hgb Hct MCV MCH MCHC RDW Std Deviation RDW Coeff of Erica Plt Count MPV Immature Gran % (Auto) Neut % (Auto) Lymph % (Auto) [place] % (Auto) Eos % (Auto) Baso % (Auto) Immature Gran # (Auto) Neut # (Auto) Lymph # (Auto) [place] # (Auto) Eos # (Auto) Baso # (Auto) PT 11.1 INR 1.1 VBG pH VBG pCO2 VBG pO2 VBG HCO3 VBG O2 Saturation VBG Base Excess Barometric Pressure Sodium 135 L Potassium 3.3 L Chloride 103 Carbon Dioxide 20 L Anion Gap 12.0 H BUN 48 H Creatinine 5.77 H* Est Cr Clr Drug Dosing 8.8 Est GFR ( Amer) 8.5 Est GFR (Non-Af Amer) 7.3 BUN/Creatinine Ratio 8.2 L Glucose 248 H POC Glucose Estimat Average Glucose Hemoglobin A1c Calcium 8.7 Total Bilirubin 0.4 AST 31 ALT 42 Alkaline Phosphatase 204 H Total Protein 6.4 Albumin 3.1 L Globulin 3.3 Albumin/Globulin Ratio 0.9 Vitamin B12 1095 H Folate 4.58 L TSH 04/04/19 07:13 WBC RBC Hgb Hct MCV MCH MCHC RDW Std Deviation RDW Coeff of Erica Plt Count MPV Immature Gran % (Auto) Neut % (Auto) Lymph % (Auto) [place] % (Auto) Eos % (Auto) Baso % (Auto) Immature Gran # (Auto) Neut # (Auto) Lymph # (Auto) [place] # (Auto) Eos # (Auto) Baso # (Auto) PT INR VBG pH VBG pCO2 VBG pO2 VBG HCO3 VBG O2 Saturation VBG Base Excess Barometric Pressure Sodium Potassium Chloride Carbon Dioxide Anion Gap BUN Creatinine Est Cr Clr Drug Dosing Est GFR ( Amer) Est GFR (Non-Af Amer) BUN/Creatinine Ratio Glucose POC Glucose 270 H Estimat Average Glucose Hemoglobin A1c Calcium Total Bilirubin AST ALT Alkaline Phosphatase Total Protein Albumin Globulin Albumin/Globulin Ratio Vitamin B12 Folate TSH
[2019-04-04] MEDS ORDERED: EPOETIN ALFA 3,000 UNITS in SYRINGE 0 ML IV SCH (09:45)
[2019-04-04 09:46] LABS: iSTAT Arterial Blood Gas HCO3 13 meg/L (19-24); iSTAT Arterial Blood Gas pCO2 32 mmHg (35-46); iSTAT Arterial Blood Gas pH 7.23 (7.35-7.45); iSTAT Carbon Dioxide 14 mEq/l (24-31)
[2019-04-04 09:47] LABS: iSTAT Sample Type Arterial
[2019-04-04] MEDS: FOLIC ACID 1 MG TAB PO SCH (11:12)
[2019-04-04] MEDS: LABETALOL HCL 100 MG TAB PO SCH ×2 (11:12→20:31)
--- NOTE | 2019-04-04 12:55 | Pharmacy Report ---
Pharmacy Glycemic Short Note 2 - Date of Service April 04, 2019 - Glycemic Short BSG Results (Last 24 hours): 04/03/19 04/03/19 04/03/19 11:30 12:50 13:30 Glucose 232 H POC Glucose 267 H 236 H 04/03/19 04/03/19 04/03/19 15:45 16:15 16:35 Glucose 164 H POC Glucose 148 H 135 H 04/03/19 04/03/19 04/03/19 19:45 20:56 23:58 Glucose 251 H POC Glucose 232 H 281 H 04/04/19 04/04/19 04/04/19 03:46 06:35 07:13 Glucose 248 H POC Glucose 222 H 270 H 04/04/19 11:10 Glucose POC Glucose 253 H ASSESSMENT: 5-6: * Patient transitioned off insulin drip yesterday afternoon - as BSGs 148-135 mg/dL. Transitioned to basal/bolus thereafter * BSGs trending up last evening, despite minimal po intake from patient * Fasting this morning elevated at 270 mg/dL - adjusted CF/CR for this morning a nd BSGs trending down at lunch, however still elevated >200 mg/dL * Will continue with current regimen / Q4 hr checks novolog as anticipate BSGs to continue to trend down at this time. Patient received Lantus 15 units this morning which about a 20% increase in her home dose. She continues on her home fludrocortisone during this time. * Hesitant to change CF/CR as IVF's (with dextrose) were also d/c'ed around midnight last night, so do feel that there will be continued improvement 5-5: * 63yo T1DM female with DKA secondary to gastroenteritis * Pt initiated on IV insulin infusion per DKA protocol * Labs show moderate improvement this morning * Bicarb = 15 --> 17 --> 20 * AG = 24 --> 19--> 15 * GLU --> 512 --> 449 --> 275 * Will start slow transition off of IV insulin infusion to SQ basal bolus insulin regimen * Will adjust fluids per electrolytes PLAN FOR INPATIENT GLYCEMIC CONTROL: * Basal insulin * Slightly stress outpatient dosing of Lantus 15 units daily * Bolus insulin - tightened * NovoLog per scale ACHS or Q6hrs while NPO * Goal Range: Low 120 mg/dL - High 150 mg/dL * Correction Factor: 25 mg/dL/unit * Carb ratio = 1 unit for every 9 g CHO consumed
--- NOTE | 2019-04-04 18:02 | Hospitalist Progress Note ---
Date of Service April 04, 2019 Assessment & Plan (1) DKA (diabetic ketoacidoses): DKA, likely secondary to dehydration and gastroenteritis, possibly associated food poisoning- Placed on insulin gtt and now weaned off gtt and on Lantus, Novolog SSI Anion gap slightly up again this AM, now glucose improved, Pharmacy managing -no longer on IVFs and getting hemodialysis today -potassium to be corrected with HD -continue to follow BMP, glucose checks (2) Gastroenteritis: Likely trigger of her DKA. With leukocytosis likely stress response or from infection now resolving Stool culture results pending. -antiemetics prn Seems to be resolved richard po, adv diet as tolerated (3) End stage renal disease on dialysis: Typically gets dialysis Thursday, Thursday and Thursday Nephro consulted-appreciated appreciate management -continue phosphate binder (4) Diabetes mellitus type 1: HgbA1C elevated and uncontrolled at 10.3% recently -with DKA as above -follows with Endocrine as outpt -continue Lantus/Novolog here now that weaned off insulin gtt (5) Anxiety and depression: stable -Continue venlafaxine (6) Hyperlipidemia LDL goal <70: -Continue atorvastatin 40 mg p.o. every evening (7) Hypothyroidism (acquired): TSH was >500 about 6 weeks ago--> question if was lab error -was started on levothyroxine 300mcg daily and now TSH normal at 0.4 -continue same dose for now but consider lowering it to 200 -follow up with Endo as outpt (8) Anemia: Hgb 10.1, macrocytic, some from folate def, some from anemia of CKD B12 here is normal, Folate LOW -start folic acid 1 mg daily (9) Nausea & vomiting: improved, as above -continue antiemetics prn (10) Hypokalemia: -cautiously replaced in the setting of ESRD -now getting HD -follow BMP in AM (11) DVT prophylaxis: heparin SQ Dispo-remain on tele Subjective Pt still lethargic but improved. Seen on dialysis. Says still with nausea but improved. No vomitig. No cheast pain or abd pain Is hoping to go home tomorrow Review of Systems Review of Systems: All systems reviewed & are unremarkable except as noted in HPI & below Physical Exam Constitutional: WD/WN, vitals as above (appears older than given age) Eyes: PERRL, conjunctivae normal, anicteric sclerae ENMT: external ear and nose normal, oropharynx normal Neck: trachea midline, no thyromegaly Respiratory: normal respiratory effort, lungs clear to auscultation Cardiovascular: RRR, no murmur, no edema Gastrointestinal (Abdomen): normal bowel sounds, soft, nontender, no hepatosplenomegaly Musculoskeletal: Extremities: extremities normal to inspection; no cyanosis and no clubbing Skin: no rashes, warm and dry Neurologic: moves all extremities; no focal motor deficits Psychiatric: Orientation: oriented to person and cooperative Results & Data Vital Signs (Past 12 Hours) Vital Signs Temp Pulse Pulse Pulse Resp BP BP 04/04/19 17:40 89 168/85 H 04/04/19 17:20 86 158/64 H 04/04/19 17:00 89 150/69 H 04/04/19 16:40 89 174/84 H 04/04/19 16:20 89 175/85 H 04/04/19 16:00 87 173/88 H 04/04/19 15:40 90 173/86 H 04/04/19 15:20 91 H 168/89 H 04/04/19 15:00 90 185/97 H 04/04/19 14:58 37.2 C 90 90 177/94 H 04/04/19 12:01 36.6 C 95 H 17 203/90 H 04/04/19 08:09 36.4 C L 92 H 19 199/80 H Pulse Ox 04/04/19 17:40 04/04/19 17:20 04/04/19 17:00 04/04/19 16:40 04/04/19 16:20 04/04/19 16:00 04/04/19 15:40 04/04/19 15:20 04/04/19 15:00 04/04/19 14:58 04/04/19 12:01 90 04/04/19 08:09 94 Laboratory Results Labs reviewed from 04/04 (1) DKA (diabetic ketoacidoses) Diabetes mellitus complication detail: without coma Diabetes mellitus type: type 1 Qualified Code(s): E10.10 - Type 1 diabetes mellitus with ketoacidosis without coma
[2019-04-04] MEDS: ATORVASTATIN 40 MG TAB PO SCH (20:31)
[2019-04-05] MEDS: METOPROLOL TARTRATE 1 MG/ML VIAL IV PRN (03:51)
[2019-04-05] MEDS: INSULIN ASPART 100 UNITS/ML 3 ML PEN SC SCH ×7 (03:54→23:46)
[2019-04-05] MEDS: LEVOTHYROXINE SODIUM 100 MCG TABLET PO SCH (06:38)
[2019-04-05] MEDS ORDERED: SODIUM CHLORIDE 0.9% 1000ML 1,000 ML IV PRN (07:00)
[2019-04-05 07:35] LABS: Basophils # (auto) 0.05 K/uL (0-0.2); Basophils % (auto) 0.5 %; Eosinophils # (auto) 0.11 K/uL (0-0.5); Eosinophils % (auto) 1.2 %; Hematocrit (blood only) 30.7 % (37-47); Hemoglobin 10.7 g/dL (12.0-16.0); Immature Granulocytes # (auto) 0.02 K/uL (0.00-0.02); Immature Granulocytes % (auto) 0.2 %; Lymphocytes # (auto) 0.97 K/uL (1.2-3.4); Lymphocytes % (auto) 10.6 %; Mean Corpuscular Hgb Conc 34.9 g/dL (32-36); Mean Corpuscular Volume 97.8 fL (80-100); Mean Platelet Volume 12.6 fL (7.4-10.4); Monocytes # (auto) 0.96 K/uL (0.11-0.59); Monocytes % (auto) 10.5 %; Platelet Count 162 K/uL (130-400); RDW Coefficient of Variation 12.4 % (11.5-14.5); RDW Standard Deviation 44.1 fL (36.4-46.3); Red Blood Count 3.14 M/uL (4.2-5.4); White Blood Count 9.11 K/uL (4.8-10.8)
[2019-04-05 07:46] LABS: INR 1.1 (0.9-1.1); Prothrombin Time 11.2 Seconds (9.0-12.0)
[2019-04-05] MEDS: HEPARIN SOD 5,000 UNIT/0.5 ML VIAL SQ SCH ×2 (08:08→20:47)
[2019-04-05] MEDS: VENLAFAXINE HCL XR 150 MG CAPXR PO SCH (08:13)
[2019-04-05] MEDS: FOLIC ACID 1 MG TAB PO SCH (08:13)
[2019-04-05] MEDS: LABETALOL HCL 100 MG TAB PO SCH ×2 (08:15→20:47)
[2019-04-05] MEDS: VENLAFAXINE HCL XR 75 MG CAPXR PO SCH (08:15)
[2019-04-05 08:18] LABS: Albumin Globulin Ratio 0.8 (0.9-2); BUN Creatinine Ratio 6.1 (10-20); Bilirubin,Total 0.6 mg/dl (0.2-1); Calcium 8.7 mg/dl (8.5-10.1); Creatinine Clr Calc Pharmacy 15.9 ml/min; Est GFR (African American) 17.3; Est GFR (Non-African American) 14.9; Globulin 3.6 gm/dl (2.5-4.0); Magnesium 1.9 mg/dl (1.8-2.4); Potassium 3.3 mmol/L (3.5-5.1); Total Protein 6.6 gm/dl (6.4-8.2)
[2019-04-05] MEDS: TRAMADOL HCL 50 MG TABLET PO PRN ×3 (08:39→23:44)
[2019-04-05] MEDS ORDERED: INSULIN GLARGINE SOLOSTAR 100 UNITS/ML 3 ML PEN SC SCH (09:00)
--- NOTE | 2019-04-05 09:34 | Nephrology Progress Note ---
Date of Service April 05, 2019 Assessment & Plan (1) End stage renal disease on dialysis: -- HD MWF via [facility] AVF -- Electrolyte balance acceptable -- Appears euovlemic -- Next HD tomorrow per TTS schedule -- Renal diet -- Medications appropriate for kidney function -- Hold fludrocortisone due to accelerated blood pressure (2) Anemia: -- Hgb acceptable -- Check pre HD (3) Secondary hyperparathyroidism of renal origin: (4) Hypertension: -- Accelerated readings but patient asymptomatic -- Fludrocortisone held -- Labetalol started -- Will monitor Subjective No acute events overnight. Shanda was resting comfortably in bed this morning. She describes generalized malaise. She has some muscle aches but otherwise feels well. She denies fevers or chills. Appetite is fair. She does not have any nausea. She denies diarrhea. No headache. Tolerated HD well yesterday, net UF 2 L. Review of Systems Review of Systems: All systems reviewed & are unremarkable except as noted in HPI & below Physical Exam Constitutional: well developed; no acute distress Eyes: no scleral abnormality and no corneal abnormality ENMT: Mouth: no oral mucosal abnormality and oral mucous membranes not dry Neck: normal visual inspection and trachea midline Respiratory: normal respiratory effort; no respiratory distress Cardiovascular: Rate/Rhythm: regular rate Heart Sounds: normal S1 and normal S2 Extremities: + edema (trace) and + AV fistula Gastrointestinal (Abdomen): Percussion/Palpation: abdomen soft; abdomen nontender Musculoskeletal: Extremities: no cyanosis and no clubbing Skin: normal turgor; no rashes Neurologic: Motor/Sensory: no tremor and no asterixis Psychiatric: Orientation: alert and oriented x 3 Results & Data Vital Signs (Past 12 Hours) Vital Signs Temp Pulse Pulse Resp BP BP Pulse Ox 04/05/19 07:25 86 04/05/19 07:11 36.5 C 75 17 180/76 H 96 04/05/19 05:46 177/75 H 04/05/19 03:51 86 188/80 H 04/05/19 03:28 36.8 C 86 16 188/80 H 95 04/05/19 02:08 91 H 04/05/19 00:17 37.6 C H 89 18 171/80 H 96 Laboratory Results Laboratory Results - last 24 hr 04/02/19 04/04/19 04/04/19 23:40 11:10 16:44 WBC RBC Hgb Hct MCV MCH MCHC RDW Std Deviation RDW Coeff of Erica Plt Count MPV Immature Gran % (Auto) Neut % (Auto) Lymph % (Auto) [place] % (Auto) Eos % (Auto) Baso % (Auto) Immature Gran # (Auto) Neut # (Auto) Lymph # (Auto) [place] # (Auto) Eos # (Auto) Baso # (Auto) PT INR Specimen Type Arterial POC pH 7.23 L POC pCO2 32 L POC pO2 101 H POC HCO3 13 L POC Total CO2 14 L POC Base Excess -14.0 L POC ABG O2 Sat 97.0 H Sodium Potassium Chloride Carbon Dioxide Anion Gap BUN Creatinine Est Cr Clr Drug Dosing Est GFR ( Amer) Est GFR (Non-Af Amer) BUN/Creatinine Ratio Glucose POC Glucose 253 H 135 H Calcium Magnesium Total Bilirubin AST ALT Alkaline Phosphatase Total Protein Albumin Globulin Albumin/Globulin Ratio 04/04/19 04/04/19 04/05/19 20:06 23:40 03:51 WBC RBC Hgb Hct MCV MCH MCHC RDW Std Deviation RDW Coeff of Erica Plt Count MPV Immature Gran % (Auto) Neut % (Auto) Lymph % (Auto) [place] % (Auto) Eos % (Auto) Baso % (Auto) Immature Gran # (Auto) Neut # (Auto) Lymph # (Auto) [place] # (Auto) Eos # (Auto) Baso # (Auto) PT INR Specimen Type POC pH POC pCO2 POC pO2 POC HCO3 POC Total CO2 POC Base Excess POC ABG O2 Sat Sodium Potassium Chloride Carbon Dioxide Anion Gap BUN Creatinine Est Cr Clr Drug Dosing Est GFR ( Amer) Est GFR (Non-Af Amer) BUN/Creatinine Ratio Glucose POC Glucose 123 H 167 H 203 H Calcium Magnesium Total Bilirubin AST ALT Alkaline Phosphatase Total Protein Albumin Globulin Albumin/Globulin Ratio 04/05/19 04/05/19 04/05/19 07:03 07:03 07:03 WBC 9.11 RBC 3.14 L Hgb 10.7 L Hct 30.7 L MCV 97.8 MCH 34.1 H MCHC 34.9 RDW Std Deviation 44.1 RDW Coeff of Erica 12.4 Plt Count 162 MPV 12.6 H Immature Gran % (Auto) 0.2 Neut % (Auto) 77.0 Lymph % (Auto) 10.6 [place] % (Auto) 10.5 Eos % (Auto) 1.2 Baso % (Auto) 0.5 Immature Gran # (Auto) 0.02 Neut # (Auto) 7.00 H Lymph # (Auto) 0.97 L [place] # (Auto) 0.96 H Eos # (Auto) 0.11 Baso # (Auto) 0.05 PT 11.2 INR 1.1 Specimen Type POC pH POC pCO2 POC pO2 POC HCO3 POC Total CO2 POC Base Excess POC ABG O2 Sat Sodium 134 L Potassium 3.3 L Chloride 97 L Carbon Dioxide 24 Anion Gap 13.0 H BUN 19 H D Creatinine 3.20 H D Est Cr Clr Drug Dosing 15.9 Est GFR ( Amer) 17.3 Est GFR (Non-Af Amer) 14.9 BUN/Creatinine Ratio 6.1 L Glucose 210 H POC Glucose Calcium 8.7 Magnesium 1.9 Total Bilirubin 0.6 AST 31 ALT 38 Alkaline Phosphatase 208 H Total Protein 6.6 Albumin 3.0 L Globulin 3.6 Albumin/Globulin Ratio 0.8 L 04/05/19 07:59 WBC RBC Hgb Hct MCV MCH MCHC RDW Std Deviation RDW Coeff of Erica Plt Count MPV Immature Gran % (Auto) Neut % (Auto) Lymph % (Auto) [place] % (Auto) Eos % (Auto) Baso % (Auto) Immature Gran # (Auto) Neut # (Auto) Lymph # (Auto) [place] # (Auto) Eos # (Auto) Baso # (Auto) PT INR Specimen Type POC pH POC pCO2 POC pO2 POC HCO3 POC Total CO2 POC Base Excess POC ABG O2 Sat Sodium Potassium Chloride Carbon Dioxide Anion Gap BUN Creatinine Est Cr Clr Drug Dosing Est GFR ( Amer) Est GFR (Non-Af Amer) BUN/Creatinine Ratio Glucose POC Glucose 261 H Calcium Magnesium Total Bilirubin AST ALT Alkaline Phosphatase Total Protein Albumin Globulin Albumin/Globulin Ratio
[2019-04-05] MEDS ORDERED: POTASSIUM CHLORIDE 20 MEQ TABCR PO STA (09:50)
[2019-04-05] MEDS ORDERED: MAGNESIUM SULFATE / D5W 1 GM/100 ML BAG IV ONE (10:00)
--- NOTE | 2019-04-05 12:47 | Hospitalist Progress Note ---
Date of Service April 05, 2019 Assessment & Plan (1) DKA (diabetic ketoacidoses): DKA, secondary to very poorly controlled blood sugars at home Patient's reports that her blood glucose monitor has been reading "high" 4 times a day for the last month and they did not know that they should call their carpenter general or their primary care doctor to tell them about this. Placed on insulin gtt and now weaned off gtt and on Lantus, Novolog SSI, glucose is improved Anion gap 13 today but serum bicarbonate is normal at 24 Was initially treated with IV fluids which is now been discontinued and she is receiving her routine dialysis -Potassium replaced gently today with oral potassium 20 mEq -continue to follow BMP, glucose checks -Needs continued diabetic education-appreciate diabetic nurse educator consultation while here-an appointment has been arranged with outpatient endocrinology (2) Gastroenteritis: Suspected, but ruled out. Most likely her DKA caused her nausea and vomiting With leukocytosis likely stress response which is now resolved Stool culture results pending but no growth to date Still has some persistent nausea but is tolerating somewhat of a diet today, low appetite. Hopefully her appetite will improve as her blood sugars improve -Continue antiemetics as needed (3) End stage renal disease on dialysis: Typically gets dialysis Thursday, Thursday and Thursday Nephro consulted-appreciated appreciate management -continue phosphate binder (4) Diabetes mellitus type 1: HgbA1C elevated and uncontrolled at 10.3% recently -with DKA as above -follows with Endocrine as outpt-an appointment has been arranged for in the next 2 weeks -continue Lantus/Novolog and adjust as needed (5) Anxiety and depression: stable -Continue venlafaxine (6) Hyperlipidemia LDL goal <70: -Continue atorvastatin 40 mg p.o. every evening (7) Hypothyroidism (acquired): TSH was >500 about 6 weeks ago--> patient reports she used to eat immediately after taking her levothyroxine, but after counseling by the carpenter general a month ago, she has been taking it appropriately on an empty stomach -was started on levothyroxine 300mcg daily approximately 1 month ago and now TSH normal at 0.4 -continue same dose for now but consider lowering it to 200 upon discharge -follow up with Endo as outpt (8) Anemia: Hgb 10.1, macrocytic, some from folate def, some from anemia of CKD B12 here is normal, Folate LOW -started folic acid 1 mg daily (9) Nausea & vomiting: improved, as above -continue antiemetics prn (10) Hypokalemia: -cautiously replaced in the setting of ESRD -follow BMP in AM (11) Memory deficit: Patient and report a great deal of issues with her memory. Patient is not able to tell me much about her history at all. Suspect she has early dementia -Consider outpatient work-up for this -Defer to PCP -Encouraged has been to get more involved with patient's care particularly when it comes to her medication regimen and compliance (12) Hypertension: Accelerated hypertension-blood pressure is much improved today Patient has been on fludrocortisone as an outpatient for an unknown length of time, but had severely elevated blood pressures here -Continue to hold fludrocortisone but watch carefully for orthostasis as she has been on it for a while-we will likely need to wean off of this in the future-we will defer to endocrinology -Started labetalol 100 mg p.o. twice daily (13) DVT prophylaxis: heparin SQ Dispo-remain on tele overnight and if appetite improved and eating better, could be discharged home tomorrow after dialysis Subjective Feeling a little better but still nauseated, low appetite, not her norm. Pt reports she thought she was on coumadin last year, but does not recall this at all and neither 1 of them recall her ever having her INR checked. Pt and her report her blood sugars have been "HI" on her glucose monitor 4x/day for the last month. Patient jokes that her says she has dementia all the time, but I affirmed that I truly believe that she does have mild cognitive impairment no chest pain, no SOB, no abd pain, no diarrhea, no change in urine. Is questioning if the Novolog she started on a few weeks ago caused her to vomit. Tele with NSR Review of Systems Review of Systems: All systems reviewed & are unremarkable except as noted in HPI & below Physical Exam Constitutional: WD/WN, vitals as above (appears older than given age) Eyes: PERRL, conjunctivae normal, anicteric sclerae ENMT: external ear and nose normal, oropharynx normal Neck: trachea midline, no thyromegaly Respiratory: normal respiratory effort, lungs clear to auscultation Cardiovascular: RRR, no murmur, no edema Gastrointestinal (Abdomen): normal bowel sounds, soft, nontender, no hepatosplenomegaly Musculoskeletal: Extremities: extremities normal to inspection; no cyanosis and no clubbing Skin: no rashes, warm and dry Neurologic: moves all extremities; no focal motor deficits Psychiatric: Orientation: oriented to person and cooperative Results & Data Vital Signs (Past 12 Hours) Vital Signs Temp Pulse Pulse Resp BP BP Pulse Ox 04/05/19 11:22 37.2 C 85 16 166/71 H 94 04/05/19 07:25 86 04/05/19 07:11 36.5 C 75 17 180/76 H 96 04/05/19 05:46 177/75 H 04/05/19 03:51 86 188/80 H 04/05/19 03:28 36.8 C 86 16 188/80 H 95 04/05/19 02:08 91 H Laboratory Results 04/05/19 04/05/19 04/05/19 Range/Units 19:29 16:19 11:40 WBC (4.8-10.8) K/uL RBC (4.2-5.4) M/uL Hgb (12.0-16.0) g/dL Hct (37-47) % MCV (80-100) fL MCH (25-34) pg MCHC (32-36) g/dL RDW Std Deviation (36.4-46.3) fL RDW Coeff of Erica (11.5-14.5) % Plt Count (130-400) K/uL MPV (7.4-10.4) fL Immature Gran % (Auto) % Neut % (Auto) % Lymph % (Auto) % Coal % (Auto) % Eos % (Auto) % Baso % (Auto) % Immature Gran # (Auto) (0.00-0.02) K/uL Neut # (Auto) (1.4-6.5) K/uL Lymph # (Auto) (1.2-3.4) K/uL Coal # (Auto) (0.11-0.59) K/uL Eos # (Auto) (0-0.5) K/uL Baso # (Auto) (0-0.2) K/uL PT (9.0-12.0) Seconds INR (0.9-1.1) Sodium (136-145) mmol/L Potassium (3.5-5.1) mmol/L Chloride (98-107) mmol/L Carbon Dioxide (21-32) mmol/L Anion Gap (3-11) BUN (7-18) mg/dl Creatinine (0.6-1.2) mg/dl Est Cr Clr Drug Dosing ml/min Est GFR ( Amer) Est GFR (Non-Af Amer) BUN/Creatinine Ratio (10-20) Glucose (70-99) mg/dl POC Glucose 100 H 99 151 H (70-99) Calcium (8.5-10.1) mg/dl Magnesium (1.8-2.4) mg/dl Total Bilirubin (0.2-1) mg/dl AST (15-37) U/L ALT (12-78) U/L Alkaline Phosphatase (45-117) U/L Total Protein (6.4-8.2) gm/dl Albumin (3.4-5.0) gm/dl Globulin (2.5-4.0) gm/dl Albumin/Globulin Ratio (0.9-2) 04/05/19 04/05/19 04/05/19 Range/Units 07:59 07:03 07:03 WBC (4.8-10.8) K/uL RBC (4.2-5.4) M/uL Hgb (12.0-16.0) g/dL Hct (37-47) % MCV (80-100) fL MCH (25-34) pg MCHC (32-36) g/dL RDW Std Deviation (36.4-46.3) fL RDW Coeff of Erica (11.5-14.5) % Plt Count (130-400) K/uL MPV (7.4-10.4) fL Immature Gran % (Auto) % Neut % (Auto) % Lymph % (Auto) % Coal % (Auto) % Eos % (Auto) % Baso % (Auto) % Immature Gran # (Auto) (0.00-0.02) K/uL Neut # (Auto) (1.4-6.5) K/uL Lymph # (Auto) (1.2-3.4) K/uL Coal # (Auto) (0.11-0.59) K/uL Eos # (Auto) (0-0.5) K/uL Baso # (Auto) (0-0.2) K/uL PT 11.2 (9.0-12.0) Seconds INR 1.1 (0.9-1.1) Sodium 134 L (136-145) mmol/L Potassium 3.3 L (3.5-5.1) mmol/L Chloride 97 L (98-107) mmol/L Carbon Dioxide 24 (21-32) mmol/L Anion Gap 13.0 H (3-11) BUN 19 H D (7-18) mg/dl Creatinine 3.20 H D (0.6-1.2) mg/dl Est Cr Clr Drug Dosing 15.9 ml/min Est GFR ( Amer) 17.3 Est GFR (Non-Af Amer) 14.9 BUN/Creatinine Ratio 6.1 L (10-20) Glucose 210 H (70-99) mg/dl POC Glucose 261 H (70-99) Calcium 8.7 (8.5-10.1) mg/dl Magnesium 1.9 (1.8-2.4) mg/dl Total Bilirubin 0.6 (0.2-1) mg/dl AST 31 (15-37) U/L ALT 38 (12-78) U/L Alkaline Phosphatase 208 H (45-117) U/L Total Protein 6.6 (6.4-8.2) gm/dl Albumin 3.0 L (3.4-5.0) gm/dl Globulin 3.6 (2.5-4.0) gm/dl Albumin/Globulin Ratio 0.8 L (0.9-2) 04/05/19 04/05/19 04/04/19 Range/Units 07:03 03:51 23:40 WBC 9.11 (4.8-10.8) K/uL RBC 3.14 L (4.2-5.4) M/uL Hgb 10.7 L (12.0-16.0) g/dL Hct 30.7 L (37-47) % MCV 97.8 (80-100) fL MCH 34.1 H (25-34) pg MCHC 34.9 (32-36) g/dL RDW Std Deviation 44.1 (36.4-46.3) fL RDW Coeff of Erica 12.4 (11.5-14.5) % Plt Count 162 (130-400) K/uL MPV 12.6 H (7.4-10.4) fL Immature Gran % (Auto) 0.2 % Neut % (Auto) 77.0 % Lymph % (Auto) 10.6 % Coal % (Auto) 10.5 % Eos % (Auto) 1.2 % Baso % (Auto) 0.5 % Immature Gran # (Auto) 0.02 (0.00-0.02) K/uL Neut # (Auto) 7.00 H (1.4-6.5) K/uL Lymph # (Auto) 0.97 L (1.2-3.4) K/uL Coal # (Auto) 0.96 H (0.11-0.59) K/uL Eos # (Auto) 0.11 (0-0.5) K/uL Baso # (Auto) 0.05 (0-0.2) K/uL PT (9.0-12.0) Seconds INR (0.9-1.1) Sodium (136-145) mmol/L Potassium (3.5-5.1) mmol/L Chloride (98-107) mmol/L Carbon Dioxide (21-32) mmol/L Anion Gap (3-11) BUN (7-18) mg/dl Creatinine (0.6-1.2) mg/dl Est Cr Clr Drug Dosing ml/min Est GFR ( Amer) Est GFR (Non-Af Amer) BUN/Creatinine Ratio (10-20) Glucose (70-99) mg/dl POC Glucose 203 H 167 H (70-99) Calcium (8.5-10.1) mg/dl Magnesium (1.8-2.4) mg/dl Total Bilirubin (0.2-1) mg/dl AST (15-37) U/L ALT (12-78) U/L Alkaline Phosphatase (45-117) U/L Total Protein (6.4-8.2) gm/dl Albumin (3.4-5.0) gm/dl Globulin (2.5-4.0) gm/dl Albumin/Globulin Ratio (0.9-2) (1) DKA (diabetic ketoacidoses) Diabetes mellitus complication detail: without coma Diabetes mellitus type: type 1 Qualified Code(s): E10.10 - Type 1 diabetes mellitus with ketoacidosis without coma
--- NOTE | 2019-04-05 13:53 | Pharmacy Report ---
Pharmacy Glycemic Short Note 2 - Date of Service April 05, 2019 - Glycemic Short BSG Results (Last 24 hours): 04/04/19 04/04/19 04/04/19 16:44 20:06 23:40 Glucose POC Glucose 135 H 123 H 167 H 04/05/19 04/05/19 04/05/19 03:51 07:03 07:59 Glucose 210 H POC Glucose 203 H 261 H 04/05/19 11:40 Glucose POC Glucose 151 H ASSESSMENT: 5-7: * Patient received total of 33 units of insulin yesterday, of which 15 were ba willa insulin * Fasting BSG this am elevated at 261 - will further increase basal to 17 units QAM * BSGs trending down yesterday as patient had dialysis 135 - 123 - 167; but then increased further this morning into 200s * Appetite is still poor at this time - will tighten CF further today due to continued elevated preprandial BSGs 5-6: * Patient transitioned off insulin drip yesterday afternoon - as BSGs 148-135 mg/dL. Transitioned to basal/bolus thereafter * BSGs trending up last evening, despite minimal po intake from patient * Fasting this morning elevated at 270 mg/dL - adjusted CF/CR for this morning and BSGs trending down at lunch, however still elevated >200 mg/dL * Will continue with current regimen / Q4 hr checks novolog as anticipate BSGs to continue to trend down at this time. Patient received Lantus 15 units this morning which about a 20% increase in her home dose. She continues on her home fludrocortisone during this time. * Hesitant to change CF/CR as IVF's (with dextrose) were also d/c'ed around midnight last night, so do feel that there will be continued improvement 5-5: * 63yo T1DM female with DKA secondary to gastroenteritis * Pt initiated on IV insulin infusion per DKA protocol * Labs show moderate improvement this morning * Bicarb = 15 --> 17 --> 20 * AG = 24 --> 19--> 15 * GLU --> 512 --> 449 --> 275 * Will start slow transition off of IV insulin infusion to SQ basal bolus insulin regimen * Will adjust fluids per electrolytes PLAN FOR INPATIENT GLYCEMIC CONTROL: * Basal insulin * increase to 17 units daily * Bolus insulin - tightened * NovoLog per scale ACHS or Q6hrs while NPO * Goal Range: Low 120 mg/dL - High 140 mg/dL * Correction Factor: 20 mg/dL/unit * Carb ratio = 1 unit for every 9 g CHO consumed
[2019-04-05] MEDS: ATORVASTATIN 40 MG TAB PO SCH (20:47)
[2019-04-06] MEDS: INSULIN ASPART 100 UNITS/ML 3 ML PEN SC SCH ×5 (04:10→20:41)
[2019-04-06] MEDS: LEVOTHYROXINE SODIUM 100 MCG TABLET PO SCH (05:57)
[2019-04-06] MEDS ORDERED: SODIUM CHLORIDE 0.9% 1000ML 1,000 ML IV PRN (07:00)
[2019-04-06] MEDS: HEPARIN SOD 5,000 UNIT/0.5 ML VIAL SQ SCH ×2 (08:02→20:41)
[2019-04-06 08:23] LABS: BUN Creatinine Ratio 5.9 (10-20); Calcium 8.5 mg/dl (8.5-10.1); Creatinine Clr Calc Pharmacy 11.1 ml/min; Est GFR (African American) 11.1; Est GFR (Non-African American) 9.6; Magnesium 2.2 mg/dl (1.8-2.4); Potassium 3.5 mmol/L (3.5-5.1)
[2019-04-06] MEDS ORDERED: INSULIN GLARGINE SOLOSTAR 100 UNITS/ML 3 ML PEN SC SCH (09:00)
--- NOTE | 2019-04-06 09:52 | Pharmacy Report ---
Pharmacy Glycemic Short Note 2 - Date of Service April 06, 2019 - Glycemic Short BSG Results (Last 24 hours): 04/05/19 04/05/19 04/05/19 11:40 16:19 19:29 Glucose POC Glucose 151 H 99 100 H 04/05/19 04/06/19 04/06/19 23:45 04:07 06:47 Glucose 101 H POC Glucose 124 H 96 04/06/19 07:58 Glucose POC Glucose 111 H Outpatient anti-hyperglycemic regimen: * Lantus 12 units daily * Novolog ACHS ASSESSMENT: 5-8: * Shanda received 32 units of insulin yesterday (17 of which was basal) * Fasting BSG has improved significantly and without the increased basal at steady state, I'm concerned that this may continue to drop * We are probably seeing a decrease in BSGs with the fludrocortisone on hold * Postprandial BSGs are on the lower side so will loosen CF/CR as well 5-7: * Patient received total of 33 units of insulin yesterday, of which 15 were basal insulin * Fasting BSG this am elevated at 261 - will further increase basal to 17 units QAM * BSGs trending down yesterday as patient had dialysis 135 - 123 - 167; but then increased further this morning into 200s * Appetite is still poor at this time - will tighten CF further today due to continued elevated preprandial BSGs 5-6: * Patient transitioned off insulin drip yesterday afternoon - as BSGs 148-135 mg/dL. Transitioned to basal/bolus thereafter * BSGs trending up last evening, despite minimal po intake from patient * Fasting this morning elevated at 270 mg/dL - adjusted CF/CR for this morning and BSGs trending down at lunch, however still elevated >200 mg/dL * Will continue with current regimen / Q4 hr checks novolog as anticipate BSGs to continue to trend down at this time. Patient received Lantus 15 units this morning which about a 20% increase in her home dose. She continues on her home fludrocortisone during this time. * Hesitant to change CF/CR as IVF's (with dextrose) were also d/c'ed around midnight last night, so do feel that there will be continued improvement 5-5: * 63yo T1DM female with DKA secondary to gastroenteritis * Pt initiated on IV insulin infusion per DKA protocol * Labs show moderate improvement this morning * Bicarb = 15 --> 17 --> 20 * AG = 24 --> 19--> 15 * GLU --> 512 --> 449 --> 275 * Will start slow transition off of IV insulin infusion to SQ basal bolus insulin regimen * Will adjust fluids per electrolytes PLAN FOR INPATIENT GLYCEMIC CONTROL: * Basal insulin - decrease * Lantus 15 units daily * Bolus insulin - loosen CF/CR * NovoLog per scale ACHS or Q6hrs while NPO * Goal Range: Low 120 mg/dL - High 140 mg/dL * Correction Factor: 25 mg/dL/unit * Carb ratio = 1 unit for every 10 g CHO consumed Discharge Recommendations: * A1c is unreliable in ESRD; however, CDE interview indicates elevated BSGs at home. Patient is attempting to monitor BSGs more frequently in hopes to get a CGM. Her admission with DKA was secondary to gastroenteritis. Would r ecommend patient continue on outpatient regimen with f/u with outpatient provider to adjust as necessary. Insulin requirements as an inpatient are not significantly different than outpatient regimen.
--- NOTE | 2019-04-06 10:46 | Nephrology Progress Note ---
Date of Service April 06, 2019 Assessment & Plan (1) End stage renal disease on dialysis: -- HD MWF via [facility] -- Patient seen during treatment and orders reviewed with nurse -- BP acceptable -- Renal diet -- Medications appropriate for kidney function -- Hold fludrocortisone due to accelerated blood pressure (2) Anemia: -- Hgb acceptable (3) Secondary hyperparathyroidism of renal origin: (4) Hypertension: -- BP improved -- Fludrocortisone held -- Labetalol started -- Will monitor Subjective No acute events overnight. Shanda was seen during HD this morning. Tolerating treatment well. Qb adequate. Review of Systems Review of Systems: All systems reviewed & are unremarkable except as noted in HPI & below Physical Exam Constitutional: well developed; no acute distress Eyes: no scleral abnormality and no corneal abnormality ENMT: Mouth: no oral mucosal abnormality and oral mucous membranes not dry Neck: normal visual inspection and trachea midline Respiratory: normal respiratory effort; no respiratory distress Cardiovascular: Rate/Rhythm: regular rate Heart Sounds: normal S1 and normal S2 Extremities: + edema (trace) and + AV fistula Gastrointestinal (Abdomen): Percussion/Palpation: abdomen soft; abdomen nontender Musculoskeletal: Extremities: no cyanosis and no clubbing Skin: normal turgor; no rashes Neurologic: Motor/Sensory: no tremor and no asterixis Psychiatric: Orientation: alert and oriented x 3 Results & Data Vital Signs (Past 12 Hours) Vital Signs Temp Pulse Pulse Pulse Resp BP BP 04/06/19 10:40 78 137/74 04/06/19 10:20 77 152/79 H 04/06/19 10:00 76 130/72 04/06/19 09:40 76 152/80 H 04/06/19 09:20 89 167/84 H 04/06/19 09:00 82 164/81 H 04/06/19 08:36 37.1 C 80 04/06/19 07:44 36.9 C 81 17 139/55 L 04/06/19 07:15 77 04/06/19 03:10 36.5 C 78 18 127/65 04/05/19 23:16 37.0 C 84 18 146/72 H Pulse Ox 04/06/19 10:40 04/06/19 10:20 04/06/19 10:00 04/06/19 09:40 04/06/19 09:20 04/06/19 09:00 04/06/19 08:36 04/06/19 07:44 97 04/06/19 07:15 04/06/19 03:10 97 04/05/19 23:16 96 Laboratory Results Laboratory Results - last 24 hr 04/05/19 04/05/19 04/05/19 11:40 16:19 19:29 Sodium Potassium Chloride Carbon Dioxide Anion Gap BUN Creatinine Est Cr Clr Drug Dosing Est GFR ( Amer) Est GFR (Non-Af Amer) BUN/Creatinine Ratio Glucose POC Glucose 151 H 99 100 H Calcium Magnesium 04/05/19 04/06/19 04/06/19 23:45 04:07 06:47 Sodium 137 Potassium 3.5 Chloride 101 Carbon Dioxide 28 Anion Gap 8.0 BUN 27 H Creatinine 4.61 H* D Est Cr Clr Drug Dosing 11.1 Est GFR ( Amer) 11.1 Est GFR (Non-Af Amer) 9.6 BUN/Creatinine Ratio 5.9 L Glucose 101 H POC Glucose 124 H 96 Calcium 8.5 Magnesium 2.2 04/06/19 07:58 Sodium Potassium Chloride Carbon Dioxide Anion Gap BUN Creatinine Est Cr Clr Drug Dosing Est GFR ( Amer) Est GFR (Non-Af Amer) BUN/Creatinine Ratio Glucose POC Glucose 111 H Calcium Magnesium
[2019-04-06] MEDS: VENLAFAXINE HCL XR 150 MG CAPXR PO SCH (12:51)
[2019-04-06] MEDS: VENLAFAXINE HCL XR 75 MG CAPXR PO SCH (12:51)
[2019-04-06] MEDS: LABETALOL HCL 100 MG TAB PO SCH ×2 (12:51→20:40)
[2019-04-06] MEDS: FOLIC ACID 1 MG TAB PO SCH (12:51)
[2019-04-06] MEDS: FLUDROCORTISONE ACETATE 0.1 MG TAB PO SCH (15:23)
--- NOTE | 2019-04-06 20:02 | Hospitalist Progress Note ---
Date of Service April 06, 2019 Assessment & Plan (1) DKA (diabetic ketoacidoses): DKA, secondary to very poorly controlled blood sugars at home Patient's reports that her blood glucose monitor has been reading "high" 4 times a day for the last month and they did not know that they should call their compliance auditor or their primary care doctor to tell them about this. Placed on insulin gtt and now weaned off gtt and on Lantus, Novolog SSI, glucose is improved and anion gap is closed Was initially treated with IV fluids which is now been discontinued and she is receiving her routine dialysis -Potassium replaced and is now normal -continue to follow BMP, glucose checks -Needs continued diabetic education-appreciate diabetic nurse educator consultation while here-an appointment has been arranged with outpatient endocrinology (2) Gastroenteritis: Suspected, but ruled out. Most likely her DKA caused her nausea and vomiting With leukocytosis likely stress response which is now resolved Stool culture results no growth to date Still has some persistent nausea but is much improved -Continue antiemetics as needed (3) End stage renal disease on dialysis: Typically gets dialysis Thursday, Thursday and Thursday Nephro consulted-appreciated appreciate management -continue phosphate binder (4) Diabetes mellitus type 1: HgbA1C elevated and uncontrolled at 10.3% recently -with DKA as above -follows with Endocrine as outpt-an appointment has been arranged for in the next 2 weeks -continue Lantus 15 units nightly/Novolog sliding scale and adjust as needed (5) Anxiety and depression: stable -Continue venlafaxine to 25 mg once daily (6) Hyperlipidemia LDL goal <70: -Continue atorvastatin 40 mg p.o. every evening (7) Hypothyroidism (acquired): TSH was >500 about 6 weeks ago--> patient reports she used to eat immedi ately after taking her levothyroxine, but after counseling by the compliance auditor a month ago, she has been taking it appropriately on an empty stomach -was started on levothyroxine 300mcg daily approximately 1 month ago and now TSH normal at 0.4 -Will decrease dose to 200 micrograms daily -follow up with Endo as outpt (8) Anemia: Hgb 10.1, macrocytic, some from folate def, some from anemia of CKD B12 here is normal, Folate LOW -started folic acid 1 mg daily (9) Nausea & vomiting: improved, as above -continue antiemetics prn (10) Hypokalemia: -cautiously replaced in the setting of ESRD, now normal -follow BMP in AM (11) Memory deficit: Patient and report a great deal of issues with her memory. Patient is not able to tell me much about her history at all. Suspect she has early dementia -Consider outpatient work-up for this -Defer to PCP -Encouraged has been to get more involved with patient's care particularly when it comes to her medication regimen and compliance (12) Hypertension: Accelerated hypertension-with severely elevated blood pressures earlier, now improved somewhat with labetalol and then decreased suddenly as she is been off of her fludrocortisone Has a history of orthostasis and likely has autonomic dysfunction due to severe diabetes for many decades -Restart fludrocortisone 0.1 mg once daily for now, but may need to taper off of this and use midodrine instead on dialysis days -Continue labetalol 100 mg p.o. twice daily and follow blood pressures (13) Pre-syncope: With an episode of almost passing out with getting up to go to the bathroom on 04/06 Blood pressure is significantly lower than previous, likely due to holding fludrocortisone for several days -Restart fludrocortisone as above -Follow blood pressures (14) DVT prophylaxis: heparin SQ Dispo-remain on tele overnight given presyncopal episode and if no longer lightheaded or orthostatic, can discharge home tomorrow Subjective Patient feeling much better today, less nausea, however has been feeling lightheaded and almost passed out when she went to the bathroom today. The nurse had to hold her up and help get her back in the bed. Her blood pressure was in the 1 teens systolic which was significantly lower from previous. She continues to feel lightheaded even with sitting up. Her fludrocortisone has been on hold the last several days. She reports a long history of labile blood pressures and orthostasis. She is eating more today. She is happy with the diabetic nurse educator and feels that she learned a lot from her today. Denies chest pain or shortness of breath. Telemetry with normal sinus rhythm with rates in the 70s to 80s Review of Systems Review of Systems: All systems reviewed & are unremarkable except as noted in HPI & below Physical Exam Constitutional: WD/WN, vitals as above (appears older than given age) Eyes: PERRL, conjunctivae normal, anicteric sclerae ENMT: external ear and nose normal, oropharynx normal Neck: trachea midline, no thyromegaly Respiratory: normal respiratory effort, lungs clear to auscultation Cardiovascular: RRR, no murmur, no edema Gastrointestinal (Abdomen): normal bowel sounds, soft, nontender, no hepatosplenomegaly Musculoskeletal: Extremities: extremities normal to inspection (Except with muscle atrophy in the left calf); no cyanosis and no clubbing Skin: no rashes, warm and dry Neurologic: moves all extremities; no focal motor deficits Psychiatric: Orientation: oriented to person and cooperative Results & Data Vital Signs (Past 12 Hours) Vital Signs Temp Pulse Pulse Pulse Resp BP BP 04/06/19 19:47 36.9 C 82 18 115/64 04/06/19 15:51 36.7 C 65 18 118/68 04/06/19 14:10 94 H 110/62 04/06/19 12:40 37.0 C 78 185/88 H 04/06/19 12:00 76 171/91 H 04/06/19 11:41 79 156/82 H 04/06/19 11:20 90 143/76 H 04/06/19 11:00 79 142/77 H 04/06/19 10:40 78 137/74 04/06/19 10:20 77 152/79 H 04/06/19 10:00 76 130/72 04/06/19 09:40 76 152/80 H 04/06/19 09:20 89 167/84 H 04/06/19 09:00 82 164/81 H 04/06/19 08:36 37.1 C 80 Pulse Ox 04/06/19 19:47 98 04/06/19 15:51 98 04/06/19 14:10 04/06/19 12:40 04/06/19 12:00 04/06/19 11:41 04/06/19 11:20 04/06/19 11:00 04/06/19 10:40 04/06/19 10:20 04/06/19 10:00 04/06/19 09:40 04/06/19 09:20 04/06/19 09:00 04/06/19 08:36 Laboratory Results 04/06/19 04/06/19 04/06/19 Range/Units 20:37 16:22 12:50 Sodium (136-145) mmol/L Potassium (3.5-5.1) mmol/L Chloride (98-107) mmol/L Carbon Dioxide (21-32) mmol/L Anion Gap (3-11) BUN (7-18) mg/dl Creatinine (0.6-1.2) mg/dl Est Cr Clr Drug Dosing ml/min Est GFR ( Amer) Est GFR (Non-Af Amer) BUN/Creatinine Ratio (10-20) Glucose (70-99) mg/dl POC Glucose 116 H 205 H 81 (70-99) Calcium (8.5-10.1) mg/dl Magnesium (1.8-2.4) mg/dl 04/06/19 04/06/19 04/06/19 Range/Units 07:58 06:47 04:07 Sodium 137 (136-145) mmol/L Potassium 3.5 (3.5-5.1) mmol/L Chloride 101 (98-107) mmol/L Carbon Dioxide 28 (21-32) mmol/L Anion Gap 8.0 (3-11) BUN 27 H (7-18) mg/dl Creatinine 4.61 H* D (0.6-1.2) mg/dl Est Cr Clr Drug Dosing 11.1 ml/min Est GFR ( Amer) 11.1 Est GFR (Non-Af Amer) 9.6 BUN/Creatinine Ratio 5.9 L (10-20) Glucose 101 H (70-99) mg/dl POC Glucose 111 H 96 (70-99) Calcium 8.5 (8.5-10.1) mg/dl Magnesium 2.2 (1.8-2.4) mg/dl 04/05/19 Range/Units 23:45 Sodium (136-145) mmol/L Potassium (3.5-5.1) mmol/L Chloride (98-107) mmol/L Carbon Dioxide (21-32) mmol/L Anion Gap (3-11) BUN (7-18) mg/dl Creatinine (0.6-1.2) mg/dl Est Cr Clr Drug Dosing ml/min Est GFR ( Amer) Est GFR (Non-Af Amer) BUN/Creatinine Ratio (10-20) Glucose (70-99) mg/dl POC Glucose 124 H (70-99) Calcium (8.5-10.1) mg/dl Magnesium (1.8-2.4) mg/dl (1) DKA (diabetic ketoacidoses) Diabetes mellitus complication detail: without coma Diabetes mellitus type: type 1 Qualified Code(s): E10.10 - Type 1 diabetes mellitus with ketoacidosis without coma
[2019-04-06] MEDS: ATORVASTATIN 40 MG TAB PO SCH (20:40)
[2019-04-06] MEDS: TRAMADOL HCL 50 MG TABLET PO PRN (20:43)
[2019-04-07] MEDS: LEVOTHYROXINE SODIUM 100 MCG TABLET PO SCH (05:28)
[2019-04-07 06:12] LABS: BUN Creatinine Ratio 4.4 (10-20); Creatinine Clr Calc Pharmacy 13.8 ml/min; Est GFR (African American) 14.6; Est GFR (Non-African American) 12.6
[2019-04-07] MEDS: FLUDROCORTISONE ACETATE 0.1 MG TAB PO SCH (08:11)
[2019-04-07] MEDS: LABETALOL HCL 100 MG TAB PO SCH ×2 (08:11→19:56)
[2019-04-07] MEDS: VENLAFAXINE HCL XR 75 MG CAPXR PO SCH (08:11)
[2019-04-07] MEDS: VENLAFAXINE HCL XR 150 MG CAPXR PO SCH (08:11)
[2019-04-07] MEDS: HEPARIN SOD 5,000 UNIT/0.5 ML VIAL SQ SCH ×2 (08:12→20:34)
[2019-04-07] MEDS: INSULIN ASPART 100 UNITS/ML 3 ML PEN SC SCH ×4 (08:12→20:34)
[2019-04-07] MEDS: FOLIC ACID 1 MG TAB PO SCH (08:12)
--- NOTE | 2019-04-07 08:43 | Pharmacy Report ---
Pharmacy Glycemic Short Note 2 - Date of Service April 07, 2019 - Glycemic Short BSG Results (Last 24 hours): 04/06/19 04/06/19 04/06/19 12:50 16:22 20:37 Glucose POC Glucose 81 205 H 116 H 04/07/19 04/07/19 05:25 07:12 Glucose 264 H POC Glucose 257 H Outpatient anti-hyperglycemic regimen: * Lantus 12 units daily * Novolog ACHS ASSESSMENT: 5-9: * Ms. Conner received 23 units of insulin yesterday (15 of this being basal) * BSGs were decreasing with her Florinef on hold but this was resumed last evening so BSGs have increased again * Will plan to increase Lantus back to 17 units - this was original increase when on the Florinef * Will also tighten CF/CR back to previous parameters to provide more coverage throughout the day * Update: Hydrocortisone 50 mg q8h has just been added as of 11 am. Since BSG already down to 116 mg/dL after tightening the Novolog parameters and basal just increased, will continue same parameters for now. Can add an overnight check in case BSGs remain elevated. 5-8: * Shanda received 32 units of insulin yesterday (17 of which was basal) * Fasting BSG has improved significantly and without the increased basal at steady state, I'm concerned that this may continue to drop * We are probably seeing a decrease in BSGs with the fludrocortisone on hold * Postprandial BSGs are on the lower side so will loosen CF/CR as well 5-7: * Patient received total of 33 units of insulin yesterday, of which 15 were basal insulin * Fasting BSG this am elevated at 261 - will further increase basal to 17 units QAM * BSGs trending down yesterday as patient had dialysis 135 - 123 - 167; but then increased further this morning into 200s * Appetite is still poor at this time - will tighten CF further today due to continued elevated preprandial BSGs 5-6: * Patient transitioned off insulin drip yesterday afternoon - as BSGs 148-135 mg/dL. Transitioned to basal/bolus thereafter * BSGs trending up last evening, despite minimal po intake from patient * Fasting this morning elevated at 270 mg/dL - adjusted CF/CR for this morning and BSGs trending down at lunch, however still elevated >200 mg/dL * Will continue with current regimen / Q4 hr checks novolog as anticipate BSGs to continue to trend down at this time. Patient received Lantus 15 units this morning which about a 20% increase in her home dose. She continues on her home fludrocortisone during this time. * Hesitant to change CF/CR as IVF's (with dextrose) were also d/c'ed around midnight last night, so do feel that there will be continued improvement 5-5: * 63yo T1DM female with DKA secondary to gastroenteritis * Pt initiated on IV insulin infusion per DKA protocol * Labs show moderate improvement this morning * Bicarb = 15 --> 17 --> 20 * AG = 24 --> 19--> 15 * GLU --> 512 --> 449 --> 275 * Will start slow transition off of IV insulin infusion to SQ basal bolus insulin regimen * Will adjust fluids per electrolytes PLAN FOR INPATIENT GLYCEMIC CONTROL: * Basal insulin - increase with resumption of Florinef (continue same for now with added hydrocortisone) * Lantus 17 units daily * Bolus insulin - tighten CF/CR with resumption of Florinef, add overnight check with addition of hydrocortisone * NovoLog per scale ACHS + 0200 * Goal Range: Low 120 mg/dL - High 140 mg/dL * Correction Factor: 20 mg/dL/unit * Carb ratio = 1 unit for every 9 g CHO consumed Discharge Recommendations: * A1c is unreliable in ESRD; however, CDE interview indicates elevated BSGs at home. Patient is attempting to monitor BSGs more frequently in hopes to get a CGM. Her admission with DKA was secondary to gastroenteritis but she will still need adjustments with insulin on discharge secondary to sustained increased BSGs prior to this. She does have an appt with Dr. Sosa later this month for closer management of insulin. * Recommendations: * Increase Lantus to 15 units qAM * Change Novolog to 4 units with meals plus the following sliding scale: * BSG 141 - 170 mg/dL, give 1 unit * BSG 171 - 200 mg/dL, give 2 units * BSG 201 - 230 mg/dL, give 3 units * BSG 231 - 260 mg/dL, give 4 units * BSG 261 - 290 mg/dL, give 5 units * BSG 291 - 320 mg/dL, give 6 units * BSG 321 - 350 mg/dL, give 7 units and call physician
[2019-04-07] MEDS ORDERED: INSULIN GLARGINE SOLOSTAR 100 UNITS/ML 3 ML PEN SC SCH (09:00)
--- NOTE | 2019-04-07 09:39 | Nephrology Progress Note ---
Date of Service April 07, 2019 Assessment & Plan (1) End stage renal disease on dialysis: -- HD MWF via [facility] -- Volume status acceptable -- BP normotensive -- Electrolytes appropriate -- Medications appropriate for kidney function (2) Anemia: -- Hgb acceptable (3) Secondary hyperparathyroidism of renal origin: (4) Hypertension: -- BP improved -- Fludrocortisone held -- Labetalol started -- BP improved Subjective No acute events overnight. Presyncopal event noted yesterday. Tolerated HD well. Breathing comfortably. Abdominal symptoms resolved. Shanda hopes to be discharged home today. No events on tele overnight. Review of Systems Review of Systems: All systems reviewed & are unremarkable except as noted in HPI & below Physical Exam Constitutional: well developed; no acute distress Eyes: no scleral abnormality and no corneal abnormality ENMT: Mouth: no oral mucosal abnormality and oral mucous membranes not dry Neck: normal visual inspection and trachea midline Respiratory: normal respiratory effort; no respiratory distress Cardiovascular: Rate/Rhythm: regular rate Heart Sounds: normal S1 and normal S2 Extremities: + edema (trace) and + AV fistula Gastrointestinal (Abdomen): Percussion/Palpation: abdomen soft; abdomen nontender Musculoskeletal: Extremities: no cyanosis and no clubbing Skin: normal turgor; no rashes Neurologic: Motor/Sensory: no tremor and no asterixis Psychiatric: Orientation: alert and oriented x 3 Results & Data Vital Signs (Past 12 Hours) Vital Signs Temp Pulse Resp BP Pulse Ox 04/07/19 07:18 36.6 C 84 18 127/56 L 95 04/07/19 03:38 36.5 C 83 18 106/57 L 96 04/06/19 23:41 36.1 C L 87 18 104/64 98 Laboratory Results Laboratory Results - last 24 hr 04/06/19 04/06/19 04/06/19 12:50 16:22 20:37 Sodium Potassium Chloride Carbon Dioxide Anion Gap BUN Creatinine Est Cr Clr Drug Dosing Est GFR ( Amer) Est GFR (Non-Af Amer) BUN/Creatinine Ratio Glucose POC Glucose 81 205 H 116 H Calcium 04/07/19 04/07/19 05:25 07:12 Sodium 134 L Potassium 4.0 Chloride 101 Carbon Dioxide 30 Anion Gap 3.0 BUN 16 Creatinine 3.67 H D Est Cr Clr Drug Dosing 13.8 Est GFR ( Amer) 14.6 Est GFR (Non-Af Amer) 12.6 BUN/Creatinine Ratio 4.4 L Glucose 264 H POC Glucose 257 H Calcium 8.0 L
[2019-04-07] MEDS: HYDROCORTISONE SOD 50 MG in SYRINGE 0 ML IV SCH ×2 (11:18→19:30)
[2019-04-07] MEDS: TRAMADOL HCL 50 MG TABLET PO PRN ×2 (14:10→19:56)
[2019-04-07] MEDS: ATORVASTATIN 40 MG TAB PO SCH (19:56)
--- NOTE | 2019-04-07 20:59 | Hospitalist Progress Note ---
Date of Service April 07, 2019 Assessment & Plan (1) DKA (diabetic ketoacidoses): DKA, secondary to very poorly controlled blood sugars at home Patient's reports that her blood glucose monitor has been reading "high" 4 times a day for the last month and they did not know that they should call their public address servicer or their primary care doctor to tell them about this. Placed on insulin gtt and has since been weaned off gtt and on Lantus, Novolog SSI, glucose is improved and anion gap is closed Was initially treated with IV fluids which is now been discontinued and she is receiving her routine dialysis -Potassium replaced and is now normal -continue to follow BMP, glucose checks -Needs continued diabetic education-appreciate diabetic nurse educator consultation while here-an appointment has been arranged with outpatient endocrinology Final insulin regimen to be determined prior to discharge-appreciate pharmacist input. Has been placed back on IV steroids and fludrocortisone and insulin requirement is still not solidified -Patient is willing to do a sliding scale mealtime insulin in addition to her 4 units of NovoLog with each meal, and will likely need Lantus 17 units once daily (2) Gastroenteritis: Suspected, but ruled out. Most likely her DKA caused her nausea and vomiting With leukocytosis likely stress response which is now resolved Stool culture results negative Nausea and vomiting are completely resolved now that blood sugar is much improved (3) End stage renal disease on dialysis: Typically gets dialysis Thursday, Thursday and Thursday Nephro consulted-appreciated appreciate management -continue phosphate binder (4) Diabetes mellitus type 1: HgbA1C elevated and uncontrolled at 10.3% recently -with DKA as above -follows with Endocrine as outpt-an appointment has been arranged for in the next 2 weeks -continue basal bolus insulin as above (5) Anxiety and depression: stable -Continue venlafaxine 225 mg once daily (6) Hyperlipidemia LDL goal <70: -Continue atorvastatin 40 mg p.o. every evening (7) Hypothyroidism (acquired): TSH was >500 about 6 weeks ago--> patient reports she used to eat immediately after taking her levothyroxine, but after counseling by the public address servicer a month ago, she has been taking it appropriately on an empty stomach -was started on levothyroxine 300mcg daily approximately 1 month ago and now TSH normal at 0.4 -Have since decreased dose to 200 micrograms daily during this hospitalization -follow up with Endo as outpt (8) Anemia: Hgb 10.1, macrocytic, some from folate def, some from anemia of CKD B12 here is normal, Folate LOW -started folic acid 1 mg daily (9) Nausea & vomiting: Resolved (10) Hypokalemia: Resolved and was secondary to poor p.o. intake and GI losses (11) Memory deficit: Patient and report a great deal of issues with her memory. Patient is not able to tell me much about her history at all. Suspect she has early dementia -Consider outpatient work-up for this -Defer to PCP -Encouraged her to get more involved with patient's care particularly when it comes to her medication regimen and compliance (12) Hypertension: Accelerated hypertension-with severely elevated blood pressures early on in the admission which were improved with holding her fludrocortisone and restarting her home labetalol 100 mg p.o. twice daily However, her blood pressures then plummeted and she began having orthostasis with syncope after holding the fludrocortisone for 2 days Has a history of orthostasis and likely has autonomic dysfunction due to severe diabetes for many decades -Continue fludrocortisone 0.1 mg once daily for now, but may need to taper off of this and use midodrine instead on dialysis days -Continue labetalol 100 mg p.o. twice daily and follow blood pressures (13) Orthostasis: Now with positive orthostatics -Likely secondary to holding fludrocortisone as above for severely elevated blood pressures She clearly has labile blood pressures and this is proved difficult to control here -Gave 1 day of IV hydrocortisone today and hopefully by tomorrow, her fludrocortisone will help keep her blood pressures up -Remains on labetalol 100 mg p.o. twice daily-consider stopping this, however when she first came in, she had severely elevated blood pressures-we will closely monitor blood pressures at this time -Continue to check orthostatics -If no further syncope and blood pressures better controlled, could discharge to home tomorrow (14) Syncope: Secondary to orthostasis as above Occurred at least 2 times during this hospitalization (15) DVT prophylaxis: heparin SQ Dispo-remain on tele overnight given recurrent syncopal episode and if no longer lightheaded or orthostatic, can discharge home tomorrow Subjective Passed out again today with standing up and then had +orthostatics again later. Started IV hydrocortisone and now feeling much better. No further nausea or vomiting, no abd pain. Feels "great" now, Review of Systems Review of Systems: All systems reviewed & are unremarkable except as noted in HPI & below Physical Exam Constitutional: WD/WN, vitals as above (appears older than given age) Eyes: PERRL, conjunctivae normal, anicteric sclerae ENMT: external ear and nose normal, oropharynx normal Neck: trachea midline, no thyromegaly Respiratory: normal respiratory effort, lungs clear to auscultation Cardiovascular: RRR, no murmur, no edema Gastrointestinal (Abdomen): normal bowel sounds, soft, nontender, no hepatosplenomegaly Musculoskeletal: Extremities: extremities normal to inspection (Except with muscle atrophy in the left calf); no cyanosis and no clubbing Skin: no rashes, warm and dry Neurologic: moves all extremities; no focal motor deficits Psychiatric: A+Ox3, euthymic affect Orientation: cooperative Results & Data Vital Signs (Past 12 Hours) Vital Signs Temp Pulse Pulse Resp BP Pulse Ox 04/07/19 19:14 36.6 C 90 18 146/78 H 98 04/07/19 15:22 36.7 C 81 18 133/69 97 04/07/19 14:48 80 04/07/19 10:43 36.7 C Laboratory Results 04/07/19 04/07/19 04/07/19 Range/Units 20:05 16:19 14:07 Sodium (136-145) mmol/L Potassium (3.5-5.1) mmol/L Chloride (98-107) mmol/L Carbon Dioxide (21-32) mmol/L Anion Gap (3-11) BUN (7-18) mg/dl Creatinine (0.6-1.2) mg/dl Est Cr Clr Drug Dosing ml/min Est GFR ( Amer) Est GFR (Non-Af Amer) BUN/Creatinine Ratio (10-20) Glucose (70-99) mg/dl POC Glucose 256 H 145 H 138 H (70-99) Calcium (8.5-10.1) mg/dl 04/07/19 04/07/19 04/07/19 Range/Units 11:16 07:12 05:25 Sodium 134 L (136-145) mmol/L Potassium 4.0 (3.5-5.1) mmol/L Chloride 101 (98-107) mmol/L Carbon Dioxide 30 (21-32) mmol/L Anion Gap 3.0 (3-11) BUN 16 (7-18) mg/dl Creatinine 3.67 H D (0.6-1.2) mg/dl Est Cr Clr Drug Dosing 13.8 ml/min Est GFR ( Amer) 14.6 Est GFR (Non-Af Amer) 12.6 BUN/Creatinine Ratio 4.4 L (10-20) Glucose 264 H (70-99) mg/dl POC Glucose 116 H 257 H (70-99) Calcium 8.0 L (8.5-10.1) mg/dl (1) DKA (diabetic ketoacidoses) Diabetes mellitus complication detail: without coma Diabetes mellitus type: type 1 Qualified Code(s): E10.10 - Type 1 diabetes mellitus with ketoacidosis without coma
[2019-04-08 01:52] LABS: Appearance Urine Cloudy (Clear); Bilirubin Urine Negative (Negative); Blood Urine Trace (Negative); Color Urine Yellow; Epithelial Cell Urine Auto >30 /lpf (0-5); Glucose Urine UA 3+ (Negative); Ketones Urine Trace (Negative); Leukocyte Esterase Urine Negative (Negative); Nitrite Urine Negative (Negative); Protein Urine 2+ (Negative); RBC Urine Automated 0-4 /hpf (0-4); Specific Gravity Urine 1.021 (1.000-1.030); Urobilinogen Urine Negative (Negative)
[2019-04-08] MEDS ORDERED: INSULIN ASPART 100 UNITS/ML 3 ML PEN SC SCH (02:00)
[2019-04-08 02:17] LABS: Bacteria Urine Automated 1+ (Negative)
[2019-04-08] MEDS: LEVOTHYROXINE SODIUM 100 MCG TABLET PO SCH (05:58)
[2019-04-08] MEDS ORDERED: SODIUM CHLORIDE 0.9% 1000ML 1,000 ML IV PRN (07:00)
[2019-04-08 07:03] LABS: BUN Creatinine Ratio 6.5 (10-20); Calcium 8.4 mg/dl (8.5-10.1); Creatinine Clr Calc Pharmacy 9.5 ml/min; Est GFR (African American) 9.2; Potassium 4.2 mmol/L (3.5-5.1)
[2019-04-08] MEDS: HEPARIN SOD 5,000 UNIT/0.5 ML VIAL SQ SCH ×2 (07:56→20:53)
[2019-04-08] MEDS: INSULIN ASPART 100 UNITS/ML 3 ML PEN SC SCH ×4 (07:57→20:53)
[2019-04-08] MEDS ORDERED: INSULIN GLARGINE SOLOSTAR 100 UNITS/ML 3 ML PEN SC SCH (09:00)
[2019-04-08] MEDS: LABETALOL HCL 100 MG TAB PO SCH (09:05)
[2019-04-08] MEDS: VENLAFAXINE HCL XR 150 MG CAPXR PO SCH (09:05)
[2019-04-08] MEDS: FLUDROCORTISONE ACETATE 0.1 MG TAB PO SCH (09:05)
[2019-04-08] MEDS: FOLIC ACID 1 MG TAB PO SCH (09:05)
[2019-04-08] MEDS: VENLAFAXINE HCL XR 75 MG CAPXR PO SCH (09:05)
--- NOTE | 2019-04-08 11:04 | Nephrology Progress Note ---
Date of Service April 08, 2019 Assessment & Plan (1) End stage renal disease on dialysis: -- HD MWF via [facility] -- HD orders entered into chart and reviewed with nurse -- BP normotensive -- Electrolytes appropriate -- Medications appropriate for kidney function (2) Anemia: -- Hgb acceptable (3) Secondary hyperparathyroidism of renal origin: (4) Hypertension: -- BP improved -- Fludrocortisone restarted due to orthostasis -- Labetalol started -- BP improved Subjective No acute events overnight. Presyncopal event noted yesterday. Tolerated HD well. Breathing comfortably. Abdominal symptoms resolved. Shanda hopes to be discharged home today. No events on tele overnight. Review of Systems Review of Systems: All systems reviewed & are unremarkable except as noted in HPI & below Physical Exam Constitutional: well developed; no acute distress Eyes: no scleral abnormality and no corneal abnormality ENMT: Mouth: no oral mucosal abnormality and oral mucous membranes not dry Neck: normal visual inspection and trachea midline Respiratory: normal respiratory effort; no respiratory distress Cardiovascular: Rate/Rhythm: regular rate Heart Sounds: normal S1 and normal S2 Extremities: + edema (trace) and + AV fistula Gastrointestinal (Abdomen): Percussion/Palpation: abdomen soft; abdomen nontender Musculoskeletal: Extremities: no cyanosis and no clubbing Skin: normal turgor; no rashes Neurologic: Motor/Sensory: no tremor and no asterixis Psychiatric: Orientation: alert and oriented x 3 Results & Data Vital Signs (Past 12 Hours) Vital Signs Temp Pulse Pulse Resp BP Pulse Ox 04/08/19 08:00 79 04/08/19 07:28 36.6 C 85 18 149/73 H 99 04/08/19 02:57 36.6 C 83 17 136/68 100 04/07/19 23:32 36.8 C 80 16 144/69 H 97 Laboratory Results Laboratory Results - last 24 hr 04/07/19 04/07/19 04/07/19 11:16 14:07 16:19 Sodium Potassium Chloride Carbon Dioxide Anion Gap BUN Creatinine Est Cr Clr Drug Dosing Est GFR ( Amer) Est GFR (Non-Af Amer) BUN/Creatinine Ratio Glucose POC Glucose 116 H 138 H 145 H Calcium Urine Color Urine Appearance Urine pH Ur Specific [place] Urine Protein Urine Glucose (UA) Urine Ketones Urine Blood Urine Nitrite Urine Bilirubin Urine Urobilinogen Ur Leukocyte Esterase Urine WBC (Auto) Urine RBC (Auto) U Hyaline Cast (Auto) U Epithel Cells (Auto) Urine Bacteria (Auto) Urine Yeast 04/07/19 04/08/19 04/08/19 20:05 00:40 01:58 Sodium Potassium Chloride Carbon Dioxide Anion Gap BUN Creatinine Est Cr Clr Drug Dosing Est GFR ( Amer) Est GFR (Non-Af Amer) BUN/Creatinine Ratio Glucose POC Glucose 256 H 266 H Calcium Urine Color Yellow Urine Appearance Cloudy A Urine pH 5.0 Ur Specific [place] 1.021 Urine Protein 2+ H Urine Glucose (UA) 3+ H Urine Ketones Trace H Urine Blood Trace H Urine Nitrite Negative Urine Bilirubin Negative Urine Urobilinogen Negative Ur Leukocyte Esterase Negative Urine WBC (Auto) 10-30 H Urine RBC (Auto) 0-4 U Hyaline Cast (Auto) 1-5 U Epithel Cells (Auto) >30 H Urine Bacteria (Auto) 1+ H Urine Yeast Not Reportable 04/08/19 04/08/19 05:51 07:08 Sodium 131 L Potassium 4.2 Chloride 99 Carbon Dioxide 24 Anion Gap 8.0 BUN 36 H D Creatinine 5.37 H* D Est Cr Clr Drug Dosing 9.5 Est GFR ( Amer) 9.2 Est GFR (Non-Af Amer) 8.0 BUN/Creatinine Ratio 6.5 L Glucose 230 H POC Glucose 250 H Calcium 8.4 L Urine Color Urine Appearance Urine pH Ur Specific [place] Urine Protein Urine Glucose (UA) Urine Ketones Urine Blood Urine Nitrite Urine Bilirubin Urine Urobilinogen Ur Leukocyte Esterase Urine WBC (Auto) Urine RBC (Auto) U Hyaline Cast (Auto) U Epithel Cells (Auto) Urine Bacteria (Auto) Urine Yeast
--- NOTE | 2019-04-08 15:21 | Discharge Summary ---
Date of Service April 08, 2019 Admission HPI Per Admitting Provider The patient is a 63-year-old female with past medical history including ESRD on HD, with last dialysis day yesterday, who presents to the emergency department with complaint of nausea, vomiting, generalized abdominal pain and intermittent diarrhea. She reports that she had dialysis yesterday, then went out to dinner with the family, was told that 1 of her family members did get sick, and she is questioning whether she may possibly have food poisoning. She does have daily production of urine. Principal Diagnosis no Discharge Exam General Appearance: WD/WN, no apparent distress, Eyes: normal inspection, PERRL, EOMI, sclerae normal ENT: normal ENT inspection, hearing grossly normal, pharynx normal Neck: supple, no adenopathy, thyroid normal, no JVD, no carotid bruits, trachea midline Respiratory/Chest: chest non-tender, normal breath sounds, no respiratory distress, no accessory muscle use, breath sounds, rales, wheezing Cardiovascular: regular rate, rhythm, no JVD, no murmur Abdomen: normal bowel sounds, non tender, soft, no organomegaly, Extremities: Extremities: + edema (trace) and + AV fistula, normal range of motion, non-tender, normal inspection, no calf tenderness, normal capillary refill, pelvis stable, joint has no limited range of motion, capillary refill is normal, no cyanosis clubbing Neurologic/Psychiatric: 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, no motor/sensory deficits, alert, normal mood/affect, oriented x 3 Skin: normal color, warm/dry, no rash Lymphatic: no adenopathy Discharge Data Allergies Allergy/AdvReac Type Severity Reaction Status Date / Time ibuprofen Allergy Hives Verified 02/21/19 13:08 shellfish derived Allergy Hives Verified 02/21/19 13:08 strawberry Allergy ALL Verified 02/21/19 13:08 BERRIES --> Anaphylaxis Consultations 04/02/19 23:08 ED Decision to Admit Stat 04/03/19 01:05 Consult Case Management - Discharge Planning Routine 04/03/19 09:04 Consult Nephrology Routine Ordered Studies 04/02/19 22:21 CT abd pelvis wo con Stat Hospital Course (1) DKA (diabetic ketoacidoses): DKA, secondary to very poorly controlled blood sugars at home, resolved Patient's reports that her blood glucose monitor has been reading "high" 4 times a day for the last month and they did not know that they should call their coagulating drying supervisor or their primary care doctor to tell them about this. Placed on insulin gtt and has since been weaned off gtt and on Lantus, Novolog SSI, glucose is improved and anion gap is closed Was initially treated with IV fluids which is now been discontinued and she is receiving her routine dialysis -Potassium replaced and is now normal -continue to follow BMP, glucose checks, which has been normal, -Needs continued diabetic education-appreciate diabetic nurse educator consultation while here-an appointment has been arranged with outpatient endocrinology Final insulin regimen to be determined prior to discharge-appreciate pharmacist input. Has been placed back on IV steroids and fludrocortisone and insulin requirement is still not solidified -Patient is willing to do a sliding scale mealtime insulin in addition to her 4 units of NovoLog with each meal, and will likely need Lantus 20 units once daily (2) Gastroenteritis: Suspected, but ruled out. Most likely her DKA caused her nausea and vomiting With leukocytosis likely stress response which is now resolved Stool culture results negative Nausea and vomiting are completely resolved now that blood sugar is much improved Today is no more nausea vomiting (3) End stage renal disease on dialysis: Typically gets dialysis Thursday, Thursday and Thursday Nephro consulted-appreciated appreciate management continue phosphate binder Today has dialysis today, patient looks well (4) Diabetes mellitus type 1: HgbA1C elevated and uncontrolled at 10.3% recently -with DKA as above -follows with Endocrine as outpt-an appointment has been arranged for in the next 2 weeks -continue basal bolus insulin as above (5) Anxiety and depression: stable -Continue venlafaxine 225 mg once daily (6) Hyperlipidemia LDL goal <70: -Continue atorvastatin 40 mg p.o. every evening (7) Hypothyroidism (acquired): TSH was >500 about 6 weeks ago--> patient reports she used to eat immediately after taking her levothyroxine, but after counseling by the coagulating drying supervisor a month ago, she has been taking it appropriately on an empty stomach -was started on levothyroxine 300mcg daily approximately 1 month ago and now TSH normal at 0.4 -Have since decreased dose to 200 micrograms daily during this hospitalization -follow up with Endo as outpt (8) Anemia: Hgb 10.1, macrocytic, some from folate def, some from anemia of CKD B12 here is normal, Folate LOW -started folic acid 1 mg daily, will continue (9) Nausea & vomiting: Resolved (10) Hypokalemia: Resolved and was secondary to poor p.o. intake and GI losses (11) Memory deficit: Patient and report a great deal of issues with her memory. Patient is not able to tell me much about her history at all. Suspect she has early dementia -Consider outpatient work-up for this -Defer to PCP -Encouraged her to get more involved with patient's care particularly when it comes to her medication regimen and compliance (12) Hypertension: Accelerated hypertension-with severely elevated blood pressures early on in the admission which were improved with holding her fludrocortisone and restarting her home labetalol 100 mg p.o. twice daily However, her blood pressures then plummeted and she began having orthostasis with syncope after holding the fludrocortisone for 2 days Has a history of orthostasis and likely has autonomic dysfunction due to severe diabetes for many decades -Continue fludrocortisone 0.1 mg once daily for now, but may need to taper off of this and use midodrine instead on dialysis days -Continue labetalol 100 mg p.o. twice daily and follow blood pressures -New (13) Orthostasis: Now with positive orthostatics -Likely secondary to holding fludrocortisone as above for severely elevated blood pressures She clearly has labile blood pressures and this is proved difficult to control here -Gave 1 day of IV hydrocortisone today and hopefully by tomorrow, her fludrocortisone will help keep her blood pressures up -Remains on labetalol 100 mg p.o. twice daily-consider stopping this, however when she first came in, she had severely elevated blood pressures-we will closely monitor blood pressures at this time -Continue to check orthostatics -We will walk in the bedside and hallway after dialysis today, if everything doing fine will be discharged home today Patient agreed with the plan (14) Syncope: Secondary to orthostasis as above Occurred at least 2 times during this hospitalization Has counseled patient about fall precaution, she agreed (15) DVT prophylaxis: heparin SQ plan you need to follow up with your primary care physician in 1 week, - take medication as instructed, never overdose or any misuse, or take with alc ohol, because misuse of medicine may cause organ damage or , call me, or your primary care physician if have questions of discharge medicaitons. - call your primary care physician, or go to local emergency room if has any fever/chill, chest pain, shortness of breathing, nausea/vomiting/abdominal pain, facial droop/slurry speech/local weakness, or if has any questions. - fall precaution - diet as instructed - you need to follow up with your subspecialist, such as today Laboratory Results - last 24 hr 04/07/19 04/07/19 04/08/19 16:19 20:05 00:40 Sodium Potassium Chloride Carbon Dioxide Anion Gap BUN Creatinine Est Cr Clr Drug Dosing Est GFR ( Amer) Est GFR (Non-Af Amer) BUN/Creatinine Ratio Glucose POC Glucose 145 H 256 H Calcium Urine Color Yellow Urine Appearance Cloudy A Urine pH 5.0 Ur Specific [place] 1.021 Urine Protein 2+ H Urine Glucose (UA) 3+ H Urine Ketones Trace H Urine Blood Trace H Urine Nitrite Negative Urine Bilirubin Negative Urine Urobilinogen Negative Ur Leukocyte Esterase Negative Urine WBC (Auto) 10-30 H Urine RBC (Auto) 0-4 U Hyaline Cast (Auto) 1-5 U Epithel Cells (Auto) >30 H Urine Bacteria (Auto) 1+ H Urine Yeast Not Reportable 04/08/19 04/08/19 04/08/19 01:58 05:51 07:08 Sodium 131 L Potassium 4.2 Chloride 99 Carbon Dioxide 24 Anion Gap 8.0 BUN 36 H D Creatinine 5.37 H* D Est Cr Clr Drug Dosing 9.5 Est GFR ( Amer) 9.2 Est GFR (Non-Af Amer) 8.0 BUN/Creatinine Ratio 6.5 L Glucose 230 H POC Glucose 266 H 250 H Calcium 8.4 L Urine Color Urine Appearance Urine pH Ur Specific [place] Urine Protein Urine Glucose (UA) Urine Ketones Urine Blood Urine Nitrite Urine Bilirubin Urine Urobilinogen Ur Leukocyte Esterase Urine WBC (Auto) Urine RBC (Auto) U Hyaline Cast (Auto) U Epithel Cells (Auto) Urine Bacteria (Auto) Urine Yeast 04/08/19 15:07 Sodium Potassium Chloride Carbon Dioxide Anion Gap BUN Creatinine Est Cr Clr Drug Dosing Est GFR ( Amer) Est GFR (Non-Af Amer) BUN/Creatinine Ratio Glucose POC Glucose 87 Calcium Urine Color Urine Appearance Urine pH Ur Specific [place] Urine Protein Urine Glucose (UA) Urine Ketones Urine Blood Urine Nitrite Urine Bilirubin Urine Urobilinogen Ur Leukocyte Esterase Urine WBC (Auto) Urine RBC (Auto) U Hyaline Cast (Auto) U Epithel Cells (Auto) Urine Bacteria (Auto) Urine Yeast Total Time Total Time Spent Total Time Spent (In Minutes): 36 Discharge Plan Discharge Items Patient Disposition: Home - Self-Care Reason For Visit: DKA Discharge Diagnosis: DKA, uncontrolled DMI Condition: Fair Discharge Goals: Decrease discomfort, Diagnostic testing, Improve disease control, Improve function, Increase independence, Improve nutritional status, Learn about illness and Prevent disease Activity: Resume your previous activity Non-emergency contact: Primary Care Provider, Specialist and Soyfreeze Operator Call non-emergency contact if: you have any medication questions Follow-up/Referrals: Byron Sosa MD [Physician] - 04/22/19 2:00 pm (Please, follow up at [facility] Endocrinology Office with Dr. Sosa on ThursdayApril 22 at 2:00 pm. *The office is located in [address] of [facility]. If you need to change this appointment, call the office at [phone].) Fiorella Vela MD [Primary Care Provider] - 04/12/19 11:30 am (Please, follow up at [facility] with Dr. Vela on ThursdayApril 12 at 11:30 am. *If you need to change this appointment, call the office at [phone].) Diet: Carb Count or DM1 Addtl Provider Instructions: you had DKA secondary to very poorly controlled blood sugars at home, your Lantus is increase to 20 unit hs, please follow-up the instruction from parent educator keep appoinment with outpatient endocrinology In addition to her 4 units of NovoLog with each meal, and will likely need Lantus 20 units once daily you have End stage renal disease on dialysis, continue with dialysis as instructed by orthodontic assistant, you have Anxiety and depression, Hyperlipidemia LDL goal <70: Continue current medication, you have Hypothyroidism (acquired): TSH was >500 about 6 weeks ago, have since decreased dose to 200 micrograms daily during this hospitalization, follow up with Endo as outpt you have accelerated hypertension-with severely elevated blood pressures your cont home labetalol 100 mg p.o. twice daily for now, f/u with pcp you have hx of Orthostasis: cont fludrocortisone, fall precaution you need to follow up with your primary care physician in 1 week, - take medication as instructed, never overdose or any misuse, or take with alcohol, because misuse of medicine may cause organ damage or , call me, or your primary care physician if have questions of discharge medicaitons. - call your primary care physician, or go to local emergency room if has any fever/chill, chest pain, shortness of breathing, nausea/vomiting/abdominal pain, facial droop/slurry speech/local weakness, or if has any questions. - fall precaution - diet as instructed - you need to follow up with your subspecialist, such as Renal and Music Teacher Prescriptions: New folic acid 1 mg Tablet 1 mg PO QAM Qty: 30 RF: 0 labetalol 100 mg Tablet 100 mg PO BID Qty: 30 RF: 0 Continued atorvastatin 40 mg tablet 40 mg PO QPM RF: 0 venlafaxine 75 mg capsule,extended release 24hr 75 mg PO QAM RF: 0 tramadol 50 mg tablet 50 mg PO BID PRN (Reason: Pain) RF: 0 fludrocortisone 0.1 mg tablet 0.1 mg PO DAILY RF: 0 Novolog Flexpen U-100 Insulin 100 unit/mL (3 mL) Insulin Pen See Rx Instructions .ROUTE .COMPLEX RF: 0 furosemide 40 mg tablet 40 mg PO 2XWK RF: 0 venlafaxine 150 mg capsule,extended release 24hr 150 mg PO QAM RF: 0 Changed Lantus Solostar U-100 Insulin 100 unit/mL (3 mL) Insulin Pen 20 unit SUBCUT DAILY Qty: 0 RF: 0 levothyroxine 300 mcg tablet 200 mcg PO QAM Qty: 0 RF: 0 Stand-Alone Forms: [facility] Discharge Orders: Discharge Order (Routine); Ordered 04/08/19 Ordered By: Brian Welch Admission Data Admit Date/Time: 04/03/19 00:11 Attending Provider: Brian Welch Admit Provider: Jagdish Sanchez Primary Care Provider: Fiorella Vela Other Providers: Jagdish Sanchez ; Ada Gardner ; Ingrid Lai Service: Telemetry
[2019-04-08] MEDS: MIDODRINE HCL 2.5 MG TAB PO SCH (17:39)
[2019-04-08] MEDS: CARBOHYDRATES FOR HYPOGLYCEMIA PO PRN (20:45)
[2019-04-08] MEDS: ATORVASTATIN 40 MG TAB PO SCH (20:52)
[2019-04-08] MEDS: TRAMADOL HCL 50 MG TABLET PO PRN (20:52)
[2019-04-09] MEDS: LEVOTHYROXINE SODIUM 100 MCG TABLET PO SCH (06:47)
[2019-04-09] MEDS: VENLAFAXINE HCL XR 150 MG CAPXR PO SCH (07:54)
[2019-04-09] MEDS: INSULIN ASPART 100 UNITS/ML 3 ML PEN SC SCH ×2 (07:54→12:21)
[2019-04-09] MEDS: MIDODRINE HCL 2.5 MG TAB PO SCH ×2 (07:55→11:59)
[2019-04-09] MEDS: HEPARIN SOD 5,000 UNIT/0.5 ML VIAL SQ SCH (07:55)
[2019-04-09] MEDS: VENLAFAXINE HCL XR 75 MG CAPXR PO SCH (07:55)
[2019-04-09] MEDS: FLUDROCORTISONE ACETATE 0.1 MG TAB PO SCH (07:55)
[2019-04-09] MEDS: FOLIC ACID 1 MG TAB PO SCH (07:56)
[2019-04-09] MEDS ORDERED: INSULIN GLARGINE SOLOSTAR 100 UNITS/ML 3 ML PEN SC SCH (09:00)
[2019-04-09] MEDS: CARBOHYDRATES FOR HYPOGLYCEMIA PO PRN ×4 (11:10→11:57)
--- NOTE | 2019-04-09 13:02 | Nephrology Progress Note ---
Date of Service April 09, 2019 Assessment & Plan (1) End stage renal disease on dialysis: -- HD MWF via [facility] resume treatment schedule at [facility] post discharge -- Volume status acceptable -- BP normotensive -- Electrolytes appropriate -- Medications appropriate for kidney function (2) Anemia: -- Hgb stable (3) Secondary hyperparathyroidism of renal origin: (4) Hypertension: -- Fludrocortisone restarted due to orthostasis -- Labetalol stopped -- BP improved Subjective No acute events overnight. Blood glucose low this morning but improved. Tolerated HD well. Shanda hopes to be discharged home today. No events on tele overnight. She was out of bed to the bathroom this morning and denied any lightheadedness or dizziness. No chest pain or palpitations. Review of Systems Review of Systems: All systems reviewed & are unremarkable except as noted in HPI & below Physical Exam Constitutional: well developed; no acute distress Eyes: no scleral abnormality and no corneal abnormality ENMT: Mouth: no oral mucosal abnormality and oral mucous membranes not dry Neck: normal visual inspection and trachea midline Respiratory: normal respiratory effort; no respiratory distress Cardiovascular: Rate/Rhythm: regular rate Heart Sounds: normal S1 and normal S2 Extremities: + edema (trace) and + AV fistula Gastrointestinal (Abdomen): Percussion/Palpation: abdomen soft; abdomen nontender Musculoskeletal: Extremities: no cyanosis and no clubbing Skin: normal turgor; no rashes Neurologic: Motor/Sensory: no tremor and no asterixis Psychiatric: Orientation: alert and oriented x 3 Results & Data Vital Signs (Past 12 Hours) Vital Signs Temp Pulse Pulse Resp BP Pulse Ox 04/09/19 11:44 36.6 C 87 18 117/63 98 04/09/19 08:00 77 04/09/19 07:31 36.5 C 88 16 113/55 L 100 04/09/19 02:43 36.4 C L 80 18 106/54 L 99 Laboratory Results Laboratory Results - last 24 hr 04/08/19 04/08/19 04/08/19 15:07 16:14 20:05 POC Glucose 87 104 H 61 L* 04/08/19 04/08/19 04/09/19 20:07 21:02 07:06 POC Glucose 67 L* 70 166 H 04/09/19 04/09/19 04/09/19 11:05 11:06 11:21 POC Glucose 48 L* 48 L* 40 L* 04/09/19 04/09/19 04/09/19 11:22 11:42 11:43 POC Glucose 40 L* 50 L* 57 L* 04/09/19 04/09/19 04/09/19 11:54 11:55 12:09 POC Glucose 60 L* 62 L* 56 L* 04/09/19 04/09/19 12:10 12:28 POC Glucose 59 L* 87
--- NOTE | 2019-04-09 15:41 | Discharge Summary ---
Date of Service April 09, 2019 Admission HPI Per Admitting Provider The patient is a 63-year-old female with past medical history including ESRD on HD, with last dialysis day yesterday, who presents to the emergency department with complaint of nausea, vomiting, generalized abdominal pain and intermittent diarrhea. She reports that she had dialysis yesterday, then went out to dinner with the family, was told that 1 of her family members did get sick, and she is questioning whether she may possibly have food poisoning. She does have daily production of urine. Principal Diagnosis no Discharge Exam General Appearance: WD/WN, no apparent distress, pleasant looks gaining strength Eyes: normal inspection, PERRL, EOMI, sclerae normal ENT: normal ENT inspection, hearing grossly normal, pharynx normal Neck: supple, no adenopathy, thyroid normal, no JVD, no carotid bruits, trachea midline Respiratory/Chest: chest non-tender, normal breath sounds, no respiratory distress, no accessory muscle use, breath sounds, rales, wheezing Cardiovascular: regular rate, rhythm, no JVD, no murmur Abdomen: normal bowel sounds, non tender, soft, no organomegaly, Extremities: Extremities: + edema (trace) and + AV fistula, normal range of motion, non-tender, normal inspection, no calf tenderness, normal capillary refill, pelvis stable, joint has no limited range of motion, capillary refill is normal, no cyanosis clubbing Neurologic/Psychiatric: union carpenter II-XII nml as tested, no motor/sensory deficits, alert, normal mood/affect, oriented x 3 Skin: normal color, warm/dry, no rash Lymphatic: no adenopathy Discharge Data Allergies Allergy/AdvReac Type Severity Reaction Status Date / Time orange juice Allergy Mild Rash Verified 04/08/19 15:31 ibuprofen Allergy Hives Verified 02/21/19 13:08 shellfish derived Allergy Hives Verified 02/21/19 13:08 strawberry Allergy ALL Verified 02/21/19 13:08 BERRIES --> Anaphylaxis Consultations 04/02/19 23:08 ED Decision to Admit Stat 04/03/19 01:05 Consult Case Management - Discharge Planning Routine 04/03/19 09:04 Consult Nephrology Routine Ordered Studies 04/02/19 22:21 CT abd pelvis wo con Stat Hospital Course (1) DKA (diabetic ketoacidoses): DKA, secondary to very poorly controlled blood sugars at home, resolved Patient's reports that her blood glucose monitor has been reading "high" 4 times a day for the last month and they did not know that they should call [facility] or their primary care doctor to tell them about this. Placed on insulin gtt and has since been weaned off gtt and on Lantus, Novolog SSI, glucose is improved and anion gap is closed Was initially treated with IV fluids which is now been discontinued and she is receiving her routine dialysis -Potassium replaced and is now normal -continue to follow BMP, glucose checks, which has been normal, -Needs continued diabetic education-appreciate diabetic nurse educator consultation while here-an appointment has been arranged with outpatient endocrinology Final insulin regimen to be determined prior to discharge-appreciate pharmacist input. Has been placed back on IV steroids and fludrocortisone and insulin requirement is still not solidified Patient's Lantus will be 16 unit at bedtime, initially was planning 20 unit at bedtime, later in today I decreased to 16 because patient's blood glucose 40s in the morning In addition to the change of the Lantus insulin, I instructed her that if not eating meal she should not give any NovoLog in each mealtime Other changes is I started the medicine of Midodrin for orthostatic hypotension, I started a small dose of 1.25 mg 3 times daily, for orthostatic hypotension, advised her to continue use stocking, and follow-up with PCP, (2) Gastroenteritis: Suspected, but ruled out. Most likely her DKA caused her nausea and vomiting With leukocytosis likely stress response which is now resolved Stool culture results negative Nausea and vomiting are completely resolved now (3) End stage renal disease on dialysis: Typically gets dialysis Thursday, Thursday and Thursday Nephro consulted-appreciated appreciate management continue phosphate binder (4) Diabetes mellitus type 1: HgbA1C elevated and uncontrolled at 10.3% recently -with DKA as above -follows with Endocrine as outpt-an appointment has been arranged for in the next 2 weeks -continue basal bolus insulin as above (5) Anxiety and depression: stable -Continue venlafaxine 225 mg once daily (6) Hyperlipidemia LDL goal <70: -Continue atorvastatin 40 mg p.o. every evening (7) Hypothyroidism (acquired): TSH was >500 about 6 weeks ago--> patient reports she used to eat immediately after taking her levothyroxine, but after counseling by the [facility] a month ago, she has been taking it appropriately on an empty stomach -was started on levothyroxine 300mcg daily approximately 1 month ago and now TSH normal at 0.4 -Have since decreased dose to 200 micrograms daily during this hospitalization -follow up with Endo as outpt (8) Anemia: Hgb 10.1, macrocytic, some from folate def, some from anemia of CKD B12 here is normal, Folate LOW -started folic acid 1 mg daily, will continue (9) Nausea & vomiting: Resolved (10) Hypokalemia: Resolved and was secondary to poor p.o. intake and GI losses (11) Memory deficit: Patient and report a great deal of issues with her memory. Sebastián bates is not able to tell me much about her history at all. Suspect she has early dementia -Consider outpatient work-up for this -Defer to PCP -Encouraged her to get more involved with patient's care particularly when it comes to her medication regimen and compliance (12) Hypertension: Accelerated hypertension-with severely elevated blood pressures early on in the admission which were improved with holding her fludrocortisone and restarting her home labetalol 100 mg p.o. twice daily However, her blood pressures then plummeted and she began having orthostasis with syncope after holding the fludrocortisone for 2 days Has a history of orthostasis and likely has autonomic dysfunction due to severe diabetes for many decades -Continue fludrocortisone 0.1 mg once daily for now, but may need to taper off of this and use midodrine instead on dialysis days -Continue labetalol 100 mg p.o. twice daily and follow blood pressures (13) Orthostasis: Now with positive orthostatics -Likely secondary to holding fludrocortisone as above for severely elevated blood pressures She clearly has labile blood pressures and this is proved difficult to control here -Gave 1 day of IV hydrocortisone today and hopefully by tomorrow, her fludrocortisone will help keep her blood pressures up -Remains on labetalol 100 mg p.o. twice daily-consider stopping this, however when she first came in, she had severely elevated blood pressures-we will closely monitor blood pressures at this time -Continue to check orthostatics Other changes is I started the medicine of Midodrin for orthostatic hypotension, I started a small dose of 1.25 mg 3 times daily, for orthostatic hypotension, advised her to continue use stocking, and follow-up with PCP, (14) Syncope: Secondary to orthostasis as above Occurred at least 2 times during this hospitalization Has counseled patient about fall precaution, she agreed (15) DVT prophylaxis: heparin SQ Laboratory Results - last 24 hr 04/07/19 04/07/19 04/08/19 16:19 20:05 00:40 Sodium Potassium Chloride Carbon Dioxide Anion Gap BUN Creatinine Est Cr Clr Drug Dosing Est GFR ( Amer) Est GFR (Non-Af Amer) BUN/Creatinine Ratio Glucose POC Glucose 145 H 256 H Calcium Urine Color Yellow Urine Appearance Cloudy A Urine pH 5.0 Ur Specific Gibson 1.021 Urine Protein 2+ H Urine Glucose (UA) 3+ H Urine Ketones Trace H Urine Blood Trace H Urine Nitrite Negative Urine Bilirubin Negative Urine Urobilinogen Negative Ur Leukocyte Esterase Negative Urine WBC (Auto) 10-30 H Urine RBC (Auto) 0-4 U Hyaline Cast (Auto) 1-5 U Epithel Cells (Auto) >30 H Urine Bacteria (Auto) 1+ H Urine Yeast Not Reportable 04/08/19 04/08/19 04/08/19 01:58 05:51 07:08 Sodium 131 L Potassium 4.2 Chloride 99 Carbon Dioxide 24 Anion Gap 8.0 BUN 36 H D Creatinine 5.37 H* D Est Cr Clr Drug Dosing 9.5 Est GFR ( Amer) 9.2 Est GFR (Non-Af Amer) 8.0 BUN/Creatinine Ratio 6.5 L Glucose 230 H POC Glucose 266 H 250 H Calcium 8.4 L Urine Color Urine Appearance Urine pH Ur Specific Gibson Urine Protein Urine Glucose (UA) Urine Ketones Urine Blood Urine Nitrite Urine Bilirubin Urine Urobilinogen Ur Leukocyte Esterase Urine WBC (Auto) Urine RBC (Auto) U Hyaline Cast (Auto) U Epithel Cells (Auto) Urine Bacteria (Auto) Urine Yeast 04/08/19 15:07 Sodium Potassium Chloride Carbon Dioxide Anion Gap BUN Creatinine Est Cr Clr Drug Dosing Est GFR ( Amer) Est GFR (Non-Af Amer) BUN/Creatinine Ratio Glucose POC Glucose 87 Calcium Urine Color Urine Appearance Urine pH Ur Specific Gibson Urine Protein Urine Glucose (UA) Urine Ketones Urine Blood Urine Nitrite Urine Bilirubin Urine Urobilinogen Ur Leukocyte Esterase Urine WBC (Auto) Urine RBC (Auto) U Hyaline Cast (Auto) U Epithel Cells (Auto) Urine Bacteria (Auto) Urine Yeast Total Time Total Time Spent Total Time Spent (In Minutes): 35 Discharge Plan Discharge Items Patient Disposition: Home - Self-Care Reason For Visit: DKA Discharge Diagnosis: DKA, uncontrolled DMI Condition: Fair Discharge Goals: Decrease discomfort, Diagnostic testing, Improve disease control, Improve function, Increase independence, Improve nutritional status, Learn about illness and Prevent disease Activity: Resume your previous activity Non-emergency contact: Primary Care Provider, Specialist and Service Station Operator Call non-emergency contact if: you have any medication questions Follow-up/Referrals: Byron Sosa MD [Physician] - 04/22/19 2:00 pm (Please, follow up at [facility] Endocrinology Office with Dr. Sosa on ThursdayApril 22 at 2:00 pm. *The office is located in [address] of [facility]. If you need to change this appointment, call the office at [phone].) Fiorella Vela MD [Primary Care Provider] - 04/12/19 11:30 am (Please, follow up at [facility] with Dr. Vela on ThursdayApril 12 at 11:30 am. *If you need to change this appointment, call the office at [phone].) Diet: Carb Count or DM1 Addtl Provider Instructions: you had DKA secondary to very poorly controlled blood sugars at home, your Lantus is increase to16 unit hs, please follow-up the instruction from family educator keep appoinment with outpatient endocrinology In addition to her 4 units of NovoLog with each meal (no novolog if not eating), and will recommend Lantus 16 units once daily you have End stage renal disease on dialysis, continue with dialysis as instructed by biodiesel division manager, you have Anxiety and depression, Hyperlipidemia LDL goal <70: Continue current medication, you have Hypothyroidism (acquired): TSH was >500 about 6 weeks ago, have since decreased dose to 200 micrograms daily during this hospitalization, follow up with Endo as outpt you have accelerated hypertension-with severely elevated blood pressures your cont home labetalol 100 mg p.o. twice daily for now, f/u with pcp you have hx of Orthostasis: cont fludrocortisone, i started small dose Midodrine at 1.25mg po tid, hold when systolic BP>140, fall precaution you need to chexk your blood pressure twice daily, bring log to pcp to adjust medicine, call pcp of systolic blood pressure >200 you need to follow up with your primary care physician in 1 week, - take medication as instructed, never overdose or any misuse, or take with alcohol, because misuse of medicine may cause organ damage or , call me, or your primary care physician if have questions of discharge medicaitons. - call your primary care physician, or go to local emergency room if has any fever/chill, chest pain, shortness of breathing, nausea/vomiting/abdominal pain, facial droop/slurry speech/local weakness, or if has any questions. - fall precaution - diet as instructed - you need to follow up with your subspecialist, such as Renal and Scaler Packer Prescriptions: New folic acid 1 mg Tablet 1 mg PO QAM Qty: 30 RF: 0 labetalol 100 mg Tablet 100 mg PO BID Qty: 30 RF: 0 midodrine 2.5 mg Tablet 1.25 mg PO TID@0800,1200,1700 Qty: 90 RF: 0 Continued atorvastatin 40 mg tablet 40 mg PO QPM RF: 0 venlafaxine 75 mg capsule,extended release 24hr 75 mg PO QAM RF: 0 tramadol 50 mg tablet 50 mg PO BID PRN (Reason: Pain) RF: 0 fludrocortisone 0.1 mg tablet 0.1 mg PO DAILY RF: 0 Novolog Flexpen U-100 Insulin 100 unit/mL (3 mL) Insulin Pen See Rx Instructions .ROUTE .COMPLEX RF: 0 furosemide 40 mg tablet 40 mg PO 2XWK RF: 0 venlafaxine 150 mg capsule,extended release 24hr 150 mg PO QAM RF: 0 Changed levothyroxine 300 mcg tablet 200 mcg PO QAM Qty: 0 RF: 0 Lantus Solostar U-100 Insulin 100 unit/mL (3 mL) Insulin Pen 16 unit SUBCUT DAILY Qty: 0 RF: 0 Discontinued Lantus Solostar U-100 Insulin 100 unit/mL (3 mL) Insulin Pen 12 units SUBCUT DAILY RF: 0 Stand-Alone Forms: My [facility]/Other Patient Handouts: Folic Acid Oral tablet, Labetalol Hydrochloride Oral tablet, Log Blood Sugar, Diabetes Heart Disease, Hyperglycemia, Hypoglycemia, Diabetes Resources, Blood Sugar Check, Diabetes Healthy Meals, Diabetes Carbs, Diabetes Eating Out, Diabetes Keep Feet Healthy, Diabetes Sick Day Plan, Dizziness Balance Probs Fainting, Dizziness Fainting Poss Causes, Falls Prevent Home, Falls Prevent Safe Cane Walker, Diabetes Carbs Fats Protein Discharge Orders: Discharge Order (Routine); Ordered 04/09/19 Ordered By: Brian eWlch Admission Data Admit Date/Time: 04/03/19 00:11 Attending Provider: Brian Welch Admit Provider: Jagdish Sanchez Primary Care Provider: Fiorella Vela Other Providers: Jagdish Sanchez ; Ada Gardner ; Ingrid Lai Service: Telemetry Other Interventions: Discharge Summary Assessment (RN) Last Done: 04/09/19 13:43 DC Date/Time DO NOT enter until pt leaves facility: 04/09/19 15:18
[2019-04-10] MEDS ORDERED: INSULIN GLARGINE SOLOSTAR 100 UNITS/ML 3 ML PEN SC SCH ×2 (09:00)
== END 2019-04-09 15:18 | disposition home or self-care (01) | DRG 637 ==
LOC: ED 21:31 → SUATTDRO 04-03 00:11 → 2S 04-03 00:11

== ENCOUNTER 2019-04-20 07:03 | Inpatient (IN) ==
[2019-04-20] MEDS ORDERED: ONDANSETRON INJ 2 MG/ML 2 ML VIAL IV STA (07:18)
[2019-04-20 07:50] LABS: Basophils # (auto) 0.03 K/uL (0-0.2); Basophils % (auto) 0.4 %; Eosinophils # (auto) 0.03 K/uL (0-0.5); Eosinophils % (auto) 0.4 %; Hematocrit (blood only) 35.8 % (37-47); Hemoglobin 11.5 g/dL (12.0-16.0); Immature Granulocytes # (auto) 0.02 K/uL (0.00-0.02); Immature Granulocytes % (auto) 0.3 %; Lymphocytes # (auto) 0.44 K/uL (1.2-3.4); Lymphocytes % (auto) 5.7 %; Mean Corpuscular Hgb Conc 32.1 g/dL (32-36); Mean Platelet Volume 12.6 fL (7.4-10.4); Monocytes # (auto) 0.38 K/uL (0.11-0.59); Monocytes % (auto) 4.9 %; Neutrophils % (auto) 88.3 %; Platelet Count 196 K/uL (130-400); RDW Coefficient of Variation 13.3 % (11.5-14.5); RDW Standard Deviation 50.5 fL (36.4-46.3); Red Blood Count 3.41 M/uL (4.2-5.4)
[2019-04-20 08:01] LABS: Partial Thromboplastin Ratio 0.9; Partial Thromboplastin Time 23.6 Seconds (21.0-31.0); Prothrombin Time 10.2 Seconds (9.0-12.0)
[2019-04-20 08:24] LABS: Alanine Aminotransferase 32 U/L (12-78); Albumin Level 3.1 gm/dl (3.4-5.0); Alkaline Phosphatase 242 U/L (45-117); Aspartate Aminotransferase 29 U/L (15-37); Bilirubin,Total 0.5 mg/dl (0.2-1); Blood Urea Nitrogen 40 mg/dl (7-18); Calcium 8.7 mg/dl (8.5-10.1); Carbon Dioxide 15 mmol/L (21-32); Chloride 86 mmol/L (98-107); Est GFR (African American) 8.7; Est GFR (Non-African American) 7.5; Glucose 947 mg/dl (70-99); Potassium 4.5 mmol/L (3.5-5.1); Sodium 123 mmol/L (136-145); Total Protein 6.9 gm/dl (6.4-8.2)
[2019-04-20] MEDS ORDERED: DKA GOAL RANGE 150-250 mg/dl ONE ×2 (08:40→10:28)
[2019-04-20] MEDS ORDERED: MODERATE STRESS LEVEL ONE ×2 (08:40→10:23)
--- NOTE | 2019-04-20 08:43 | XRay Report ---
XR abdomen 2V w PA chest HISTORY: 63 years-old Female vomitting acute vomiting COMPARISON: Chest radiograph 04/02/2019 TECHNIQUE: PA view of the chest with erect and supine views of the abdomen FINDINGS: Cardiomediastinal and hilar silhouettes are within normal limits. Calcified granulomata about the markus gs redemonstrated. Calcification the thoracic aortic arch. Multiple calcified hilar lymph nodes. Ther e is no pneumothorax, pleural effusion, focal airspace consolidation or overt pulmonary edema. Degene rative changes of the shoulders and spine. Cholecystectomy. Nonobstructive bowel gas pattern. No pneumatosis or pneumoperitoneum. No urolith. Ca nnulated screws are noted about the right femoral neck. Demineralized appearance of the bones. Surgic al clip of the left hemipelvis. IMPRESSION: 1. No acute process of the chest. 2. Nonobstructive bowel gas pattern. The above report was generated using voice recognition software. It may contain grammatical, syntax o r spelling errors. Electronically signed by: Julio Cesar Maurer M.D. 04/20/2019 8:42 AM
[2019-04-20] MEDS: INSULIN REGULAR 250 UNITS in SODIUM CHLORIDE 0.9% 247.5 ML IV SCH ×2 (09:22→09:28)
[2019-04-20] MEDS ORDERED: ICU PROTOCOL FOR HYPERGLYCEMIA PRN (10:15)
[2019-04-20] MEDS ORDERED: FUROSEMIDE 40 MG TAB PO SCH (10:15)
[2019-04-20] MEDS ORDERED: DC ALL PREVIOUSLY ORDERED DIABETES MEDS ONE (10:28)
--- NOTE | 2019-04-20 10:51 | History & Physical Report ---
Date of Service April 20, 2019 Assessment & Plan (1) Admitted to intensive care unit: Reason Critically Ill: DKA, question of GI bleed Neuro - [facility] ICU: Negative Peripheral neuropathy No other significant neurological deficits identified Cardiac - History of hypertension Home medications include: * Midrin 3 times daily * Florinef 0.1 p.o. daily * Initiate IV fluids for DKA * Monitor on telemetry Rate controlled, NSR End-stage renal disease with dialysis Thursday Nephrology consulted I do not see a record of an echocardiogram in the past Respiratory - No hypoxia No adventitious breath sounds with auscultation No cough Continue to monitor GI - Report of hematemesis Hemoglobin stable Hemodynamically stable We will not consult GI at this time Focus on DKA and monitor serial labs and further symptoms as he developed RENAL/LYTES - End-stage renal disease -no dialysis today Normal saline for DKA K+ 4.1 Na+ 123 We will follow labs every 4 hours during DKA protocol Nephrology consulted -appreciate Dr. Gardner's input - No hematuria Urine outpatient is unchanged per patient ENDO - Hypothyroidism -continue levothyroxine End-stage renal disease as above HEME - Possible GI bleed with hematemesis outpatient in one episode in the ED Hemoglobin stable 11.5 No further vomiting Nausea controlled Follow serial labs ID - WBC 7.7 Urine culture is pending Imaging of left foot to r/o osteomyelitis LINES/IV ACCESS - Peripheral 20-gauge IV in place Will attempt to get a second peripheral IV DVT PROPHYLAXIS - No chemical prophylaxis pending further information on hematemesis ROBERTO singh SCDs as tolerated CCT: 50 minutes independent of any procedures Thank you for including us in the care of this patient. Please refer to Dr. Craig's addendum for further recommendations. (2) Diabetes mellitus type 1, uncontrolled: Previous hemoglobin A1c was 10.1 Current hemoglobin A1c 9.5 Poorly controlled Placed on insulin drip Would benefit from endocrinology follow-up (3) Shawna's thyroiditis: Continue levothyroxine Recent work-up Follow outpatient (4) Hypertension: Currently hypertensive On Midrin and Florinef as an outpatient Will start hydralazine PRN (5) Dyslipidemia: Continue statin -continue Lipitor (6) Proliferative diabetic retinopathy associated with type 1 diabetes mellitus: Right-sided blindness since No acute changes on left eye (7) End stage renal disease on dialysis: Dialysis Thursday, Thursday, Thursday Nephrology consulted Deferred to Dr. Gardner (8) Anxiety and depression: Continue Effexor History of Present Illness Attending: Dr. Kiara Yusufney is a 63-year-old female with past medical history of diabetes mellitus type 1, depression, Charcot joint of left foot, diabetic neuropathy, hypothyroidism, Shawna's thyroiditis, diabetic retinopathy, frequent falls, hypertension, GERD, and dyslipidemia. She does have a right A-V fistula for dialysis. This is a 63-year-old female that is a type I diabetic that presented for dialysis this morning for her end-stage renal disease. She had nausea and vomiting and apparently had a moderate amount of hematemesis. The dialysis was not performed the patient was sent by ambulance to the emergency department where she was evaluated and we were asked to perform admission. The patient is found to be in DKA with an anion gap of 22. Her electrolytes seem to be fairly balanced with a sodium of 123 potassium of 4.5. She was placed on an insulin drip for reported blood sugar of 954. In the intensive care unit her sugars are listed as over 600. The insulin drip has been continued. The patient continues with some nausea but has had no further vomiting since arriving in intensive care unit. There was a report of some hematemesis in the emergency department. The hemoglobin is stable at 11.5. Patient has chills but denies any fever. She is semi-ambulatory at home due to a previous ankle injury secondary to Charcot joint of foot related to her diabetes. She denies any chest pain or tightness. She reports that she continues with urine output in addition to her dialysis. She denies any hematuria. She does have a recent admission from 04/03/2019 for similar condition. She was discharged home on 04/09/2019. Primary Care Provider: Fiorella Vela MD Allergies Allergy/AdvReac Type Severity Reaction Status Date / Time orange juice Allergy Mild Rash Verified 04/20/19 08:14 ibuprofen Allergy Hives Verified 04/20/19 08:14 shellfish derived Allergy Hives Verified 04/20/19 08:14 strawberry Allergy ALL Verified 04/20/19 08:14 BERRIES --> Anaphylaxis tomato AdvReac Verified 04/22/19 09:55 Home Medications Home Medications Medication Instructions Recorded Confirmed Type furosemide 40 mg PO 2XWK 01/21/19 04/20/19 History venlafaxine 150 mg PO QAM 01/21/19 04/20/19 History Novolog Flexpen U-100 Insulin See Rx Instructions .ROUTE .COMPLEX 04/02/19 04/20/19 History atorvastatin 40 mg PO QPM 04/02/19 04/20/19 History fludrocortisone 0.1 mg PO DAILY 04/02/19 04/20/19 History tramadol 50 mg PO BID PRN 04/02/19 04/20/19 History venlafaxine 75 mg PO QAM 04/02/19 04/20/19 History folic acid 1 mg PO QAM #30 tab 04/08/19 04/20/19 Rx labetalol 100 mg PO BID #30 tab 04/08/19 04/20/19 Rx midodrine 1.25 mg PO TID@0800,1200,1700 #90 04/09/19 04/20/19 Rx tab Lantus Solostar U-100 Insulin 16 unit SUBCUT QAM 04/13/19 04/20/19 History docusate sodium 100 mg capsule 100 mg PO Q3D cap 04/13/19 04/20/19 History levothyroxine 200 mcg PO QAM 04/13/19 04/20/19 History pyridoxine (vitamin B6) 100 mg 100 mg PO QAM tab 04/13/19 04/20/19 History tablet sevelamer carbonate 800 mg tablet 800 mg PO QAM tab 04/13/19 04/20/19 History thiamine HCl (vitamin B1) 250 mg 250 mg PO QAM tab 04/13/19 04/20/19 History tablet Past Med/Surg History Medical History Diabetes mellitus type 1, uncontrolled (Acute) Diabetic peripheral neuropathy associated with type 1 diabetes mellitus (Acute) Dyslipidemia (Acute) Shawna's thyroiditis (Acute) Proliferative diabetic retinopathy associated with type 1 diabetes mellitus (Acute) DKA (diabetic ketoacidoses) (Acute) TREATED INPT AT [facility] 04/03/2019. THIS AM GLUCOSE 200. A-V fistula (Chronic) RIGHT ARM Chronic kidney disease (Chronic) Diabetes mellitus type 1 (Chronic) GERD (gastroesophageal reflux disease) (Chronic) Hemodialysis patient (Chronic) M,W,F @ [facility] Anemia Anxiety Depression Hypertension Hypothyroidism Osteoarthritis Osteoporosis Surgical History History of appendectomy History of section History of cholecystectomy History of colonoscopy History of esophagogastroduodenoscopy (EGD) History of hysterectomy PIERCE WITH BSO History of open reduction and internal fixation (ORIF) procedure RIGHT HIP RIGHT WRIST LEFT ANKLE Family History Father Myocardial infarction acute Coronary heart disease Mother Myocardial infarction Coronary heart disease Sister Coronary heart disease Breast cancer Ovarian cancer Social History Preferred Language: Beninese Communication Ability: Effective Salt Washer Required: Yes Beliefs That Will Affect Care: None Current Living Situation: Spouse Other Information That Helps Us Care for You: No Feels Safe at Home: Yes Safety Concerns: Feels Safe At This Time Smoking Status: Former smoker Tobacco Type: cigarettes Age Started Using Tobacco: 20 Age Quit Using Tobacco: 59 packs per day: 1 Second Hand Exposure: No Hx Alcohol Use: No Hx Substance Use: No Review of Systems Constitutional: + chills, + fatigue and + weakness Eyes: + problem reported (Blind in right eye since ) Ear, Nose, Mouth, Throat: [place] is dry. No slurred speech. No mouth pain. No bleeding of gingiva. Respiratory: No shortness of breath or cough. No sputum production. No h emoptysis Cardiovascular: no chest pain, no dyspnea, no orthopnea and no palpitations Gastrointestinal: + nausea, + vomiting, + coffee ground emesis and + hematemesis; no fecal incontinence and no melena Genitourinary: no hematuria No change in urinary output Integumentary: No new rashes or lesions Neurologic: No headache Hematologic / Lymphatic: No awareness of lymphadenopathy Physical Exam Physical Exam: GENERAL : No acute distress. Appears ill EYES: No icterus, gaze conjugate. Right eye blindness since . Left pupil is reactive to light NOSE: No evidence of epistaxis. MOUTH: No lesions or candidiasis. Mucosa dry with posterior oropharynx deposits NECK: Supple. No evidence of JVD LUNGS: CTA B/L, no wheezes, rales or rhonchi. HEART: Regular, rate controlled. No appreciation of ectopy ABDOMEN: Soft, NT, ND, BS Present. EXTREMITIES: No LE edema, pedal pulses intact. NEURO: A&OX3. No evidence of neurological deficit Results & Data Vital Signs (Past 12 Hours) Vital Signs Temp Pulse Pulse Resp BP BP Pulse Ox 04/20/19 10:35 36.7 C 93 H 25 H 198/79 H 99 04/20/19 09:55 87 20 211/84 H 99 04/20/19 08:39 91 H 20 195/77 H 98 04/20/19 07:08 36.5 C 94 H 18 199/73 H 98 Laboratory Results 04/20/19 07:32 04/20/19 04/20/19 04/20/19 07:32 07:32 07:32 WBC 7.70 RBC 3.41 L Hgb 11.5 L Hct 35.8 L MCV 105.0 H MCH 33.7 MCHC 32.1 RDW Std Deviation 50.5 H RDW Coeff of Erica 13.3 Plt Count 196 MPV 12.6 H Immature Gran % (Auto) 0.3 Neut % (Auto) 88.3 Lymph % (Auto) 5.7 Hyde % (Auto) 4.9 Eos % (Auto) 0.4 Baso % (Auto) 0.4 Immature Gran # (Auto) 0.02 Neut # (Auto) 6.80 H Lymph # (Auto) 0.44 L Hyde # (Auto) 0.38 Eos # (Auto) 0.03 Baso # (Auto) 0.03 PT 10.2 INR 1.0 APTT 23.6 PTT Ratio 0.9 VBG pH Sodium 123 L Potassium 4.5 Chloride 86 L Carbon Dioxide 15 L Anion Gap 22.0 H BUN 40 H Creatinine 5.63 H* Est Cr Clr Drug Dosing Not Reportable Est GFR ( Amer) 8.7 Est GFR (Non-Af Amer) 7.5 BUN/Creatinine Ratio 7.0 L Glucose 947 H* POC Glucose Osmolality Calcium 8.7 Total Bilirubin 0.5 Direct Bilirubin AST 29 ALT 32 Alkaline Phosphatase 242 H Total Protein 6.9 Albumin 3.1 L Lipase 172 Beta-Hydroxybutyric Acd Specimen Hemolysis 04/20/19 04/20/19 04/20/19 07:42 07:55 10:29 WBC RBC Hgb Hct MCV MCH MCHC RDW Std Deviation RDW Coeff of Erica Plt Count MPV Immature Gran % (Auto) Neut % (Auto) Lymph % (Auto) Hyde % (Auto) Eos % (Auto) Baso % (Auto) Immature Gran # (Auto) Neut # (Auto) Lymph # (Auto) Hyde # (Auto) Eos # (Auto) Baso # (Auto) PT INR APTT PTT Ratio VBG pH Sodium Potassium Chloride Carbon Dioxide Anion Gap BUN Creatinine Est Cr Clr Drug Dosing Est GFR ( Amer) Est GFR (Non-Af Amer) BUN/Creatinine Ratio Glucose POC Glucose > 600 H* > 600 H* > 600 H* Osmolality Calcium Total Bilirubin Direct Bilirubin AST ALT Alkaline Phosphatase Total Protein Albumin Lipase Beta-Hydroxybutyric Acd Specimen Hemolysis 04/20/19 04/20/19 10:45 10:45 WBC RBC Hgb Hct MCV MCH MCHC RDW Std Deviation RDW Coeff of Erica Plt Count MPV Immature Gran % (Auto) Neut % (Auto) Lymph % (Auto) Hyde % (Auto) Eos % (Auto) Baso % (Auto) Immature Gran # (Auto) Neut # (Auto) Lymph # (Auto) Hyde # (Auto) Eos # (Auto) Baso # (Auto) PT INR APTT PTT Ratio VBG pH 7.23 L Sodium Potassium Chloride Carbon Dioxide Anion Gap BUN Creatinine Est Cr Clr Drug Dosing Est GFR ( Amer) Est GFR (Non-Af Amer) BUN/Creatinine Ratio Glucose POC Glucose Osmolality 337 H Calcium Total Bilirubin Direct Bilirubin AST ALT Alkaline Phosphatase Total Protein Albumin Lipase Beta-Hydroxybutyric Acd Specimen Hemolysis Diagnostic Findings XR abdomen 2V w PA chest HISTORY: 63 years-old Female vomitting acute vomiting COMPARISON: Chest radiograph 04/02/2019 TECHNIQUE: PA view of the chest with erect and supine views of the abdomen FINDINGS: Cardiomediastinal and hilar silhouettes are within normal limits. Calcified granulomata about the lungs redemonstrated. Calcification the thoracic aortic arch. Multiple calcified hilar lymph nodes. There is no pneumothorax, pleural effusion, focal airspace consolidation or overt pulmonary edema. Degenerative changes of the shoulders and spine. Cholecystectomy. Nonobstructive bowel gas pattern. No pneumatosis or pneumoperitoneum. No urolith. Cannulated screws are noted about the right femoral neck. Demineralized appearance of the bones. Surgical clip of the left hemipelvis. IMPRESSION: 1. No acute process of the chest. 2. Nonobstructive bowel gas pattern. The above report was generated using voice recognition software. It may contain grammatical, syntax or spelling errors. Electronically signed by: Julio Cesar Maurer M.D. 04/20/2019 8:[address] OF THE ABDOMEN AND PELVIS WITHOUT CONTRAST CLINICAL HISTORY: Abdominal pain, nausea, vomiting and diarrhea. COMPARISON STUDY: No previous studies for comparison. TECHNIQUE: Axial images of the abdomen and pelvis were obtained without IV contrast. Images were reviewed in the axial, sagittal, and coronal planes. Automated exposure control was utilized for the study. A dose lowering technique was utilized adhering to the principles of ALARA. FINDINGS: Calcified granulomas within the lower lungs are noted. Calcification within or overlying the posterior left ventricle is noted. No pneumatosis, free air or portal venous gas is present. This exam is significantly compromised given the lack of contrast and paucity of intra-abdominal fat. There are calcified granulomas within the spleen. Unenhanced images of liver, adrenal glands and pancreas are grossly unremarkable. The gallbladder is surgically absent. There is moderate bilateral renal atrophy. A 3 mm calculus within the right kidney is noted. The course of the ureters is difficult to follow on this exam and differentiation between gonadal phleboliths and nonobstructing ureteral calculi is difficult. There is no evidence for a bowel obstruction. The appendix is not identified. There is mild diffuse mesenteric infiltration. No suspicious osseous lesions are noted. There is no lymphadenopathy. There is no ascites. Postoperative findings within the proximal right femur are noted. IMPRESSION: 1. Exam significantly compromised given the lack of IV contrast and paucity of intra-abdominal fat. 2. Moderate bilateral renal atrophy. No hydronephrosis. 3 mm right renal calculus. Course of ureters difficult to follow on this exam but no definite ureteral calculi. 3. No bowel obstruction. Mild diffuse mesenteric infiltration, a nonspecific finding. 4. Nonvisualization of the appendix. Electronically signed by: Cameron Jack M.D. 04/02/2019 11:18 PM ECG Additional Comments: EKG 04/20/2019 at 07:29 AM Vent. rate 94 BPM AK interval 164 ms QRS duration 100 ms QT/QTc 380/475 ms P-R-T axes 77 61 74 Normal sinus rhythm Minimal voltage criteria for LVH, may be normal variant Nonspecific ST abnormality Abnormal ECG When compared with ECG of 02-APR-2019 21:35, No significant change was found Code Status & VTE Plan Code Status Level I: Full code VTE Prophylaxis Plan VTE Prophylaxis will be ordered: Yes Critical Care Time Critical Care Time: Yes Total Critical Care Time: 45 Prolonged Care Time Prolonged Care Time: No Supervising Physician Co-Signing Physician Notes During my face to face encounter, patient was seen and examined. I performed a history and physical on the patient. I reviewed above note and agree with it. Patient is admitted with DKA, and will give hydration and place patient on insulin drip. Will monitor anion gap.
[2019-04-20] MEDS: SODIUM CHLORIDE 0.9% 1000ML 1,000 ML IV SCH ×2 (11:00→14:54)
[2019-04-20] MEDS ORDERED: PHARMACY GLYCEMIC MGMT CONSULT PRN (11:03)
--- NOTE | 2019-04-20 11:11 | Nephrology Consultation ---
Date of Consultation April 20, 2019 Assessment & Plan (1) End stage renal disease on dialysis: End stage renal disease on dialysis: Shanda is a 63-year-old female with ESRD admitted to the hospital with DKA. On HD MWF via [facility] AVF. On IV fluid and insulin for DKA. Currently electrolyte , volume status acceptable. BP has been running high. She was due for dialysis this morning however dialysis was not done as she was sent to ER from the dialysis unit. --hold hemodialysis today as currently she is not volume overloaded, needs IV fluid for DKA and electrolyte acceptable. Will re-evaluate tomorrow for need for dialysis if not will plan to keep her on schedule for on Thursday --hold Epogen for hemoglobin above 10.5 --Phos binder and renal vitamin when starts po --DC IV once AG closes --She had 1 episode of vomiting this morning which apparently content blood, possibly stress also related to DKA however may need further GI evaluation if hemoglobin drops. May need PPI. --continue to hold midodrine and fludrocortisone now as blood pressure running high, discontinue on labetalol. It is unclear why she is on fludrocortisone and midodrine, may need to get more information from her once she is more able to give information. Will follow Thank you for allowing me to participate in your patient's care. It was a pleasure to see Shanda (2) Hypertension: (3) DKA (diabetic ketoacidoses): (4) Anemia: History of Present Illness Reason for Consultation: End-stage renal disease on hemodialysis. Attending Physician: Jerome Craig History of Present Illness Shanda Conner is 71 year female with past medical significant for type 1 diabetes end-stage renal disease hemodialysis Thursday admitted to the hospital with DKA. Nephrology consult was requested to manage dialysis while in hospital. Electronic medical records including labs and imaging reviewed in detail during patient's visit. Shanda has history of 1 diabetes. She was recently admitted to the hospital with DKA in the setting of acute gastroenteritis. This morning she went to the dialysis unit as her regular schedule. While she was getting her vitals checked she had an episode of vomiting there with dark brown material which was positive for heme and she told the nurse that she woke up this morning not feeling well. She also reported episode of diarrhea last night. and she was found to have blood sugar more than 600. She was sent directly to the ER for further evaluation. In ER she was found be in DKA. She was started on DKA protocol with insulin and IV fluid. Glucose still above 600 Last dialysis was Thursday as regular schedule, currently volume status acceptable acceptable. Her estimated dry weight has been 56.5 however over last few treatments she was completing dialysis at 2 kilos lower than her dry weight around 54.5 kg. Blood pressure has been running high. AVF working fine. She continues to be nauseous. Her blood pressure has been running high. At home she is on fludrocortisone and midodrine, unclear why although she has reported history of lightheadedness standing up. Whether she was thought to have autonomic dysfunction or adrenal insufficiency and at some point she was started on those. Also on Lasix 40 mg daily, she continues to make decent amount of urine. Allergies Allergy/AdvReac Type Severity Reaction Status Date / Time orange juice Allergy Mild Rash Verified 04/20/19 08:14 ibuprofen Allergy Hives Verified 04/20/19 08:14 shellfish derived Allergy Hives Verified 04/20/19 08:14 strawberry Allergy ALL Verified 04/20/19 08:14 BERRIES --> Anaphylaxis Home Medications Home Medications Medication Instructions Recorded Confirmed Type furosemide 40 mg PO 2XWK 01/21/19 04/20/19 History venlafaxine 150 mg PO QAM 01/21/19 04/20/19 History Novolog Flexpen U-100 Insulin See Rx Instructions .ROUTE .COMPLEX 04/02/19 04/20/19 History atorvastatin 40 mg PO QPM 04/02/19 04/20/19 History fludrocortisone 0.1 mg PO DAILY 04/02/19 04/20/19 History tramadol 50 mg PO BID PRN 04/02/19 04/20/19 History venlafaxine 75 mg PO QAM 04/02/19 04/20/19 History folic acid 1 mg PO QAM #30 tab 04/08/19 04/20/19 Rx labetalol 100 mg PO BID #30 tab 04/08/19 04/20/19 Rx midodrine 1.25 mg PO TID@0800,1200,1700 #90 04/09/19 04/20/19 Rx tab Lantus Solostar U-100 Insulin 16 unit SUBCUT QAM 04/13/19 04/20/19 History docusate sodium 100 mg capsule 100 mg PO Q3D cap 04/13/19 04/20/19 History levothyroxine 200 mcg PO QAM 04/13/19 04/20/19 History pyridoxine (vitamin B6) 100 mg 100 mg PO QAM tab 04/13/19 04/20/19 History tablet sevelamer carbonate 800 mg tablet 800 mg PO QAM tab 04/13/19 04/20/19 History thiamine HCl (vitamin B1) 250 mg 250 mg PO QAM tab 04/13/19 04/20/19 History tablet Patient History Medical History Diabetes mellitus type 1, uncontrolled (Acute) Diabetic peripheral neuropathy associated with type 1 diabetes mellitus (Acute) Dyslipidemia (Acute) Shawna's thyroiditis (Acute) Proliferative diabetic retinopathy associated with type 1 diabetes mellitus (Acute) DKA (diabetic ketoacidoses) (Acute) TREATED INPT AT [facility] 04/03/2019. THIS AM GLUCOSE 200. A-V fistula (Chronic) RIGHT ARM Chronic kidney disease (Chronic) Diabetes mellitus type 1 (Chronic) GERD (gastroesophageal reflux disease) (Chronic) Hemodialysis patient (Chronic) M,W,F @ [facility]) Anemia Anxiety Depression Hypertension Hypothyroidism Osteoarthritis Osteoporosis Surgical History History of appendectomy History of section History of cholecystectomy History of colonoscopy History of esophagogastroduodenoscopy (EGD) History of hysterectomy PIERCE WITH BSO History of open reduction and internal fixation (ORIF) procedure RIGHT HIP RIGHT WRIST LEFT ANKLE Family History Father Myocardial infarction acute Coronary heart disease Mother Myocardial infarction Coronary heart disease Sister Coronary heart disease Breast cancer Ovarian cancer Social History Preferred Language: [place] Zealander Communication Ability: Effective Bus Washer Required: Yes Beliefs That Will Affect Care: None Current Living Situation: Spouse Other Information That Helps Us Care for You: No Feels Safe at Home: Yes Safety Concerns: Feels Safe At This Time Smoking Status: Former smoker Tobacco Type: cigarettes Age Started Using Tobacco: 20 Age Quit Using Tobacco: 59 packs per day: 1 Second Hand Exposure: No Hx Alcohol Use: No Hx Substance Use: No Physical Exam Physical Exam: GENERAL: Middle-aged female AAA x 3, pleasant, ill-appearing, not in any distress. HEENT: Atraumatic, normocephalic. NECK: Supple, no JVD, no carotid bruit appreciated. ENT: No sinus tenderness MOUTH and THROAT: Moist oral mucosa, RESPIRATORY: Normal breathing efforts, clear to auscultation bilaterally, no wheezes or rales. CARDIOVASCULAR: S1, S2 normal, rate rhythm regular. ABDOMEN: Soft, nontender, positive bowel sound. MUSCULOSKELETAL: No CVA tenderness. No joint swelling, erythema or tenderness. Normal range of motion. SKIN: No skin rash EXTREMITY: No lower extremity edema NEURO: No gross focal neurological deficit, speech fluent. PSYCHIATRY: Normal mood and judgment Results & Data Vital Signs (Past 12 Hours) Vital Signs Temp Pulse Pulse Resp BP BP Pulse Ox 04/20/19 10:35 36.7 C 93 H 25 H 198/79 H 99 04/20/19 09:55 87 20 211/84 H 99 04/20/19 08:39 91 H 20 195/77 H 98 04/20/19 07:08 36.5 C 94 H 18 199/73 H 98 (1) DKA (diabetic ketoacidoses) Diabetes mellitus complication detail: without coma Diabetes mellitus type: type 1 Qualified Code(s): E10.10 - Type 1 diabetes mellitus with ketoacidosis without coma
[2019-04-20 11:24] LABS: iSTAT Allen Test Pass; iSTAT Arterial Blood Gas HCO3 18 meg/L (19-24); iSTAT Carbon Dioxide 19 mEq/l (24-31)
[2019-04-20 11:28] LABS: Estimated Average Glucose 226 mg/dl
[2019-04-20 11:31] LABS: BUN Creatinine Ratio 7.3 (10-20); Calcium 8.4 mg/dl (8.5-10.1); Creatinine Clr Calc Pharmacy 8.9 ml/min; Est GFR (African American) 8.5; Est GFR (Non-African American) 7.3; Magnesium 2.4 mg/dl (1.8-2.4); Phosphorus 5.5 mg/dl (2.5-4.9); Potassium 4.1 mmol/L (3.5-5.1)
[2019-04-20] MEDS: INSULIN ASPART 100 UNITS/ML 3 ML PEN SC SCH ×4 (11:32→20:28)
[2019-04-20] MEDS: PYRIDOXINE HCL 50 MG TAB PO SCH (11:35)
[2019-04-20] MEDS: FLUDROCORTISONE ACETATE 0.1 MG TAB PO SCH ×2 (11:35→11:45)
[2019-04-20] MEDS: LABETALOL HCL 100 MG TAB PO SCH ×2 (11:36→20:27)
[2019-04-20] MEDS: SEVELAMER HCL 800 MG TABLET PO SCH (11:36)
[2019-04-20] MEDS: VENLAFAXINE HCL XR 75 MG CAPXR PO SCH (11:36)
[2019-04-20] MEDS: LEVOTHYROXINE SODIUM 200 MCG TABLET PO SCH (11:36)
[2019-04-20] MEDS: FOLIC ACID 1 MG TAB PO SCH (11:36)
[2019-04-20] MEDS: VENLAFAXINE HCL XR 150 MG CAPXR PO SCH (11:36)
[2019-04-20] MEDS: MIDODRINE HCL 2.5 MG TAB PO SCH ×3 (11:37→17:01)
[2019-04-20] MEDS: THIAMINE HCL 50 MG TABLET PO SCH (11:37)
--- NOTE | 2019-04-20 12:37 | XRay Report ---
XR ankle LT min 3V routine, XR foot LT 2V HISTORY: 63 years-old Female R/O osteo chronic left foot and ankle pain with prior fusion COMPARISON: Left foot and ankle radiographs 01/21/[address] 01/21/2019 TECHNIQUE: 3 views of the left foot and 3 views of the left ankle FINDINGS: ANKLE: Lateral plate and screw fusion of the distal fibula redemonstrated. Hardware failure with displacemen t of the medial malleolar fracture fragment. One of the medial malleolus screws is again noted to be angulated and fractured. Bony sclerosis of the tibiotalar joint with destruction of the tibiotalar sharlene int again noted. Bone fragments about the ankle mortise are redemonstrated with moderate soft tissue swelling, slightly improved from comparison. Moderate degenerative changes of the subtalar joint. FOOT: Diminished appearance the bones. Hallux valgus. Extension of the metatarsal-phalangeal joints with fl exion of the interphalangeal joints redemonstrated. Mild progressive healing of the subacute to chron ic appearing fifth metatarsal fracture. No acute fracture or dislocation identified. IMPRESSION: 1. ORIF changes of the ankle compatible with prior bimalleolar fracture repair. Anterior medial mall eolar cannulated screw is again noted to be fractured and angulated. 2. Extensive lytic and erosive changes with bony fragmentation about the distal tibia and tibiotalar joint. Findings are again concerning for septic arthropathy or neuropathic joint. 3. Persistent soft tissue swelling, mildly improved from comparison. 4. Progressive healing of the fifth metatarsal fracture. The above report was generated using voice recognition software. It may contain grammatical, syntax o r spelling errors. Electronically signed by: Julio Cesar Maurer M.D. 04/20/2019 12:35 PM
[2019-04-20] MEDS: HydrALAZINE HCL 20 MG/ML VIAL IV PRN ×2 (12:45→19:43)
[2019-04-20] MEDS ORDERED: INSULIN ASPART 100 UNITS/ML 3 ML PEN SC SCH (13:00)
[2019-04-20 13:12] LABS: Hematocrit (blood only) 33.4 % (37-47); Hemoglobin 11.3 g/dL (12.0-16.0)
--- NOTE | 2019-04-20 14:17 | Emergency Department Note ---
Entered by Rocky De Paz acting as a scribe for History of Present Illness General Chief complaint: Vomiting Stated complaint: VOMITING W/ BLOOD Time Seen by Provider: 04/20/19 07:16 Source: patient History of Present Illness Onset (ago): hour(s) 1 Location: abdomen Severity: moderate Pain Consistency: + intermittent Relieved By: + none Exacerbated By: + none Associated symptoms: + denies other symptoms and + nausea/vomiting Patient is a 63 y/o female MWF on HD who presented to the emergency department with complaints of intermittent vomiting with blood that occurred this morning prior to arrival. The patient stated that she was on her way to dialysis but was unable to have dialsysis performed of the vomiting. She noted that she does produce urine. The patient stated she has not had a fever. Home Medications Home Medications Medication Instructions Recorded Confirmed Type furosemide 40 mg PO 2XWK 01/21/19 04/20/19 History venlafaxine 150 mg PO QAM 01/21/19 04/20/19 History Novolog Flexpen U-100 Insulin See Rx Instructions .ROUTE .COMPLEX 04/02/19 04/20/19 History atorvastatin 40 mg PO QPM 04/02/19 04/20/19 History fludrocortisone 0.1 mg PO DAILY 04/02/19 04/20/19 History tramadol 50 mg PO BID PRN 04/02/19 04/20/19 History venlafaxine 75 mg PO QAM 04/02/19 04/20/19 History folic acid 1 mg PO QAM #30 tab 04/08/19 04/20/19 Rx labetalol 100 mg PO BID #30 tab 04/08/19 04/20/19 Rx midodrine 1.25 mg PO TID@0800,1200,1700 #90 04/09/19 04/20/19 Rx tab Lantus Solostar U-100 Insulin 16 unit SUBCUT QAM 04/13/19 04/20/19 History docusate sodium 100 mg capsule 100 mg PO Q3D cap 04/13/19 04/20/19 History levothyroxine 200 mcg PO QAM 04/13/19 04/20/19 History pyridoxine (vitamin B6) 100 mg 100 mg PO QAM tab 04/13/19 04/20/19 History tablet sevelamer carbonate 800 mg tablet 800 mg PO QAM tab 04/13/19 04/20/19 History thiamine HCl (vitamin B1) 250 mg 250 mg PO QAM tab 04/13/19 04/20/19 History tablet Allergies Allergy/AdvReac Type Severity Reaction Status Date / Time orange juice Allergy Mild Rash Verified 04/20/19 08:14 ibuprofen Allergy Hives Verified 04/20/19 08:14 shellfish derived Allergy Hives Verified 04/20/19 08:14 strawberry Allergy ALL Verified 04/20/19 08:14 BERRIES --> Anaphylaxis Past Med/Surg History Medical History Diabetes mellitus type 1, uncontrolled (Acute) Diabetic peripheral neuropathy associated with type 1 diabetes mellitus (Acute) Dyslipidemia (Acute) Shawna's thyroiditis (Acute) Proliferative diabetic retinopathy associated with type 1 diabetes mellitus (Acute) DKA (diabetic ketoacidoses) (Acute) TREATED INPT AT [facility] 04/03/2019. THIS AM GLUCOSE 200. A-V fistula (Chronic) RIGHT ARM Chronic kidney disease (Chronic) Diabetes mellitus type 1 (Chronic) GERD (gastroesophageal reflux disease) (Chronic) Hemodialysis patient (Chronic) M,W,F @ [facility] [place] Anemia Anxiety Depression Hypertension Hypothyroidism Osteoarthritis Osteoporosis Surgical History History of appendectomy History of section History of cholecystectomy History of colonoscopy History of esophagogastroduodenoscopy (EGD) History of hysterectomy PIERCE WITH BSO History of open reduction and internal fixation (ORIF) procedure RIGHT HIP RIGHT WRIST LEFT ANKLE Family History Father Myocardial infarction acute Coronary heart disease Mother Myocardial infarction Coronary heart disease Sister Coronary heart disease Breast cancer Ovarian cancer Social History Preferred Language: Swazi Communication Ability: Effective Juice Standardizer Required: Yes Beliefs That Will Affect Care: None Current Living Situation: Spouse Other Information That Helps Us Care for You: No Feels Safe at Home: Yes Safety Concerns: Feels Safe At This Time Smoking Status: Former smoker Tobacco Type: cigarettes Age Started Using Tobacco: 20 Age Quit Using Tobacco: 59 packs per day: 1 Second Hand Exposure: No Hx Alcohol Use: No Hx Substance Use: No Review of Systems See HPI for pertinent positives & negatives. and A total of 10 systems reviewed and were otherwise negative Physical Exam Vital Signs Vital Signs - 24 hr 04/20/19 07:08 04/20/19 07:58 04/20/19 08:39 Temperature 36.5 C Temperature Source Oral Sepsis Recent Fever Within 48 Hours No Sepsis Action Taken by Nursing No Action Required Pulse Rate 94 H Pulse Rate [Left] 91 H Pulse Rhythm Regular Pulse Strength Normal Respiratory Rate 18 20 Respiratory Effort / Characteristics Non-Labored Non-Labored Spontaneous Respiratory Depth Normal Respiratory Pattern Regular Blood Pressure 199/73 H Blood Pressure [Left Arm] 195/77 H Blood Pressure Mean 115 Blood Pressure Mean [Left Arm] 116 Blood Pressure Position Sitting Blood Pressure Position [Left Arm] Lying Pulse Oximetry 98 98 Oxygen Delivery Method Room Air Room Air Room Air GENERAL: She is oriented to person, place, and time. She is vomiting She does not appear distressed. HENT: Exam performed. -Head: Normocephalic and atraumatic. -Right Ear: External ear normal. No mastoid tenderness. -Left Ear: External ear normal. No mastoid tenderness. -Mouth/Throat: The oropharynx is clear and moist. No trismus in the jaw. No dental abscesses or uvula swelling. No oropharyngeal exudate or tonsillar abscesses. EYES: Conjunctivae and EOM are normal. Pupils are equal, round, and reactive to light. Right eye exhibits no discharge. Left eye exhibits no discharge. No scleral icterus. NECK: Normal range of motion. Neck supple. No JVD present. No spinous process tenderness present. No carotid bruit present. No rigidity. No tracheal deviation and normal range of motion present. No Brudzinski's sign and no Kernig's sign noted. CV: Normal rate, regular rhythm, normal heart sounds and intact distal pulses. There is no peripheral edema. Palpable radial pulses bue. PULM/CHEST: Effort normal and breath sounds normal. No respiratory distress. No stridor. She has no wheezes. She has no rales. -Chest Wall: She exhibits no tenderness. ABD: The abdomen is soft. Bowel sounds are normal. She has no distension. No mass is present. There is no tenderness. There is no rebound, no guarding, no Berry's sign and no tenderness at McBurney's point. Rovsig negative MUSC/SKEL: Right upper extremity has an AV fistula with a palpable thrill. LYMPH: No cervical adenopathy. NEURO: She is alert and oriented to person, place, and time. She has normal strength. No cranial nerve deficit or sensory deficit. Coordination and gait normal. GCS eye subscore is 4. GCS verbal subscore is 5. GCS motor subscore is 6. Cerebellar tests wnl. SKIN: Skin is warm and dry. She is not diaphoretic. PSYCH: She has a normal mood and affect. Behavior is normal. Judgment and thought content normal. Course 0713: I reviewed the patients past medical history. She is a type one diabetic with a history of DKA. She was recently admitted for DKA from April 03-. The patient is on hemodialysis Thursday, Thursday, and Thursday. The patient was ev aluated in room B12. A complete history and physical exam was performed. 0846: Vital signs stable. Imaging within normal limits. Labs tests show a blood sugar of 947, anion gap of 22. Patient will be started on insulin drop, no IV fluids given since the patient did not get dialysis treatment this morning.I consulted with Dr. Schroeder-Electrical Equipment Assembler, who believes the patients should be admitted to the ICU. I consulted with [place]. Jen MAXWELL [place] [facility] [place] [facility] [place], he stated to admit to Dr. Craig. He will evaluate for further management. Consultations Consultation #1: I consulted with Dr. Schroeder-Electrical Equipment Assembler, who believes the patients should be admitted to the ICU. Time: 08:44 Consultation #2: I consulted with Dr. Jen MAXWELL [place] [facility] [place] [place], he stated to admit to Dr. Craig. He will evaluate for further management. Time: 08:46 Administered Medications Fludrocortisone Acetate (Florinef) 0.1 mg PO DAILY [facility] Stop: 05/20/19 10:29 Last Admin: 04/20/19 11:45 Dose: Not Given Documented by: [id number] Folic Acid (Folvite) 1 mg PO QAM [facility] Stop: 05/20/19 10:29 Last Admin: 04/20/19 11:36 Dose: 1 mg Documented by: [id number] Furosemide (Lasix) 40 mg PO MoWe@0900 [facility] Stop: 05/20/19 10:14 Last Admin: 04/20/19 11:37 Dose: 40 mg Documented by: [id number] Hydralazine HCl (Hydralazine Hcl) 5 mg IV Q6H PRN PRN Reason: Blood Pressure - High Stop: 05/20/19 12:04 Last Admin: 04/20/19 12:45 Dose: 5 mg Documented by: [id number] Insulin Human Regular 250 (units/ Sodium Chloride) 250 mls @ 7 mls/hr IV .Q24H [facility]; Protocol Stop: 05/20/19 08:44 Last Titration: 04/20/19 11:31 Dose: 7 units/hr, 7 mls/hr Documented by: [id number] Cosigned by: [id number] Admin: 04/20/19 09:28 Dose: 5 units/hr, 5 mls/hr Documented by: [id number] Cosigned by: [id number] Sodium Chloride (Nss 1000ml) 1,000 mls @ 250 mls/hr IV .Q4H [facility] Stop: 05/20/19 10:29 Last Admin: 04/20/19 11:00 Dose: 250 mls/hr Documented by: [id number] Insulin Aspart (Novolog Flexpen) 0 units [facility] Stop: 05/20/19 08:59 Last Admin: 04/20/19 12:25 Dose: Not Given Documented by: [id number] Admin: 04/20/19 11:32 Dose: Not Given Documented by: [id number] Labetalol HCl (Normodyne) 100 mg PO BID [facility] Stop: 05/20/19 10:14 Last Admin: 04/20/19 11:36 Dose: 100 mg Documented by: [id number] Levothyroxine Sodium (Synthroid) 200 mcg PO DAILYBB [facility] Stop: 05/20/19 10:29 Last Admin: 04/20/19 11:36 Dose: 200 mcg Documented by: [id number] Midodrine (Proamatine) 1.25 mg PO TID@0800,1200,1700 [facility] Stop: 05/20/19 11:59 Last Admin: 04/20/19 11:41 Dose: Not Given Documented by: [id number] Pyridoxine HCl (Vitamin B-6) 100 mg PO QAM [facility] Stop: 05/20/19 10:44 Last Admin: 04/20/19 11:35 Dose: 100 mg Documented by: [id number] Sevelamer HCl (Renagel) 800 mg PO QDB [facility] Stop: 05/20/19 11:59 Last Admin: 04/20/19 11:36 Dose: Not Given Documented by: [id number] Thiamine HCl (Vitamin B-1) 250 mg PO QAM [facility] Stop: 05/20/19 10:29 Last Admin: 04/20/19 11:37 Dose: 250 mg Documented by: [id number] Venlafaxine HCl (Effexor Extended Release) 75 mg PO QAM [facility] Stop: 05/20/19 10:29 Last Admin: 04/20/19 11:36 Dose: 75 mg Documented by: [id number] Venlafaxine [facility] (E[facility]xor Extended Release) [facility] [place]: 05/20/19 10:29 Last Admin: 04/20/19 11:36 Dose: 150 mg Documented by: [id number] Discontinued Medications Miscellaneous (Insulin Protocol Moderate Stress Level) 1 ea N/A ONE ONE Stop: 04/20/19 08:41 Last Admin: 04/20/19 08:50 Dose: 1 ea Documented by: [id number] Miscellaneous (Insulin Protocol Dka Goal Range) 1 ea N/A ONE ONE Stop: 04/20/19 08:41 Last Admin: 04/20/19 08:49 Dose: 1 ea Documented by: [id number] Miscellaneous (Insulin Protocol Moderate Stress Level) 1 ea N/A ONE ONE Stop: 04/20/19 10:24 Last Admin: 04/20/19 12:26 Dose: Not Given Documented by: [id number] Miscellaneous Information (Dc All Previously Ordered Diabetes Meds) 1 ea N/A ONE ONE Stop: 04/20/19 10:29 Last Admin: 04/20/19 12:26 Dose: 1 ea Documented by: [id number] Ondansetron HCl (Zofran) 4 mg IV NOW STA Stop: 04/20/19 07:19 Last Admin: 04/20/19 07:59 Dose: 4 mg Documented by: [id number] Medical Decision Making Medical Records Attestation: I reviewed the patient's medical records. Home Medications Current Medication List: was personally reviewed by me Laboratory Data Attestation: I reviewed the patient's lab results. Result diagrams: 04/20/19 12:32 04/20/19 12:32 Lab Results 04/20/19 04/20/19 04/20/19 Range/Units 07:32 07:32 07:32 WBC 7.70 (4.8-10.8) K/uL RBC 3.41 L (4.2-5.4) M/uL Hgb 11.5 L (12.0-16.0) g/dL Hct 35.8 L (37-47) % MCV 105.0 H (80-100) fL MCH 33.7 (25-34) pg MCHC 32.1 (32-36) g/dL RDW Std Deviation 50.5 H (36.4-46.3) fL RDW Coeff of Erica 13.3 (11.5-14.5) % Plt Count 196 (130-400) K/uL MPV 12.6 H (7.4-10.4) fL Immature Gran % (Auto) 0.3 % Neut % (Auto) 88.3 % Lymph % (Auto) 5.7 % [place] % (Auto) 4.9 % Eos % (Auto) 0.4 % Baso % (Auto) 0.4 % Immature Gran # (Auto) 0.02 (0.00-0.02) K/uL Neut # (Auto) 6.80 H (1.4-6.5) K/uL Lymph # (Auto) 0.44 L (1.2-3.4) K/uL [place] # (Auto) 0.38 (0.11-0.59) K/uL Eos # (Auto) 0.03 (0-0.5) K/uL Baso # (Auto) 0.03 (0-0.2) K/uL PT 10.2 (9.0-12.0) Seconds INR 1.0 (0.9-1.1) APTT 23.6 (21.0-31.0) Seconds PTT Ratio 0.9 Sodium 123 L (136-145) mmol/L Potassium 4.5 (3.5-5.1) mmol/L Chloride 86 L (98-107) mmol/L Carbon Dioxide 15 L (21-32) mmol/L Anion Gap 22.0 H (3-11) BUN 40 H (7-18) mg/dl Creatinine 5.63 H* (0.6-1.2) mg/dl Est Cr Clr Drug Dosing Not Reportable Est GFR ( Amer) 8.7 Est GFR (Non-Af Amer) 7.5 BUN/Creatinine Ratio 7.0 L (10-20) Glucose 947 H* (70-99) mg/dl POC Glucose (70-99) Calcium 8.7 (8.5-10.1) mg/dl Total Bilirubin 0.5 (0.2-1) mg/dl Direct Bilirubin (0-0.2) mg/dl AST 29 (15-37) U/L ALT 32 (12-78) U/L Alkaline Phosphatase 242 H (45-117) U/L Total Protein 6.9 (6.4-8.2) gm/dl Albumin 3.1 L (3.4-5.0) gm/dl Lipase 172 (73-393) U/L Beta-Hydroxybutyric Acd (0.2-2.81) mg/dl Specimen Hemolysis 04/20/19 04/20/19 Range/Units 07:42 07:55 WBC (4.8-10.8) K/uL RBC (4.2-5.4) M/uL Hgb (12.0-16.0) g/dL Hct (37-47) % MCV (80-100) fL MCH (25-34) pg MCHC (32-36) g/dL RDW Std Deviation (36.4-46.3) fL RDW Coeff of Erica (11.5-14.5) % Plt Count (130-400) K/uL MPV (7.4-10.4) fL Immature Gran % (Auto) % Neut % (Auto) % Lymph % (Auto) % [place] % (Auto) % Eos % (Auto) % Baso % (Auto) % Immature Gran # (Auto) (0.00-0.02) K/uL Neut # (Auto) (1.4-6.5) K/uL Lymph # (Auto) (1.2-3.4) K/uL [place] # (Auto) (0.11-0.59) K/uL Eos # (Auto) (0-0.5) K/uL Baso # (Auto) (0-0.2) K/uL PT (9.0-12.0) Seconds INR (0.9-1.1) APTT (21.0-31.0) Seconds PTT Ratio Sodium (136-145) mmol/L Potassium (3.5-5.1) mmol/L Chloride (98-107) mmol/L Carbon Dioxide (21-32) mmol/L Anion Gap (3-11) BUN (7-18) mg/dl Creatinine (0.6-1.2) mg/dl Est Cr Clr Drug Dosing Est GFR ( Amer) Est GFR (Non-Af Amer) BUN/Creatinine Ratio (10-20) Glucose (70-99) mg/dl POC Glucose > 600 H* > 600 H* (70-99) Calcium (8.5-10.1) mg/dl Total Bilirubin (0.2-1) mg/dl Direct Bilirubin (0-0.2) mg/dl AST (15-37) U/L ALT (12-78) U/L Alkaline Phosphatase (45-117) U/L Total Protein (6.4-8.2) gm/dl Albumin (3.4-5.0) gm/dl Lipase (73-393) U/L Beta-Hydroxybutyric Acd (0.2-2.81) mg/dl Specimen Hemolysis ECG Data Attestation: I personally reviewed and interpreted this ECG as follows: Indication: vomiting Rate (beats per minute): 94 Rhythm: normal sinus Findings: + other (PRQRS and QRC intervals normal and left ventricular hypertro phy present); no ST depression and no ST elevation Blood Pressure Blood Pressure Findings: Normal blood pressure Blood Pressure Disposition: further management by hospitalist [facility] Narrative Vital signs stable. Imaging within normal limits. Labs tests show a blood sugar of 947, anion gap of 22. Patient will be started on insulin drop, no IV fluids given since the patient did not get dialysis treatment this morning.I consulted with Dr. Schroeder-Electrical Equipment Assembler, who believes the patients should be admitted to the ICU. I consulted with Dr. Jen MAXWELL [place] [facility] [place] [facility] [place], he stated to admit to Dr. Craig. He will evaluate for further management. Impression & Plan DKA (diabetic ketoacidoses) Critical Care Time I have personally spent greater than 60 minutes of critical care time in the direct management of this patient. This includes bedside care, interpretation of diagnostic studies, and testing, discussion with consultants, patient, and family members, and other required patient management activities. This 60 minutes is in excess of all separately billable procedures. Critical Care Time: Yes Total Critical Care Time: 60 Discharge Plan Visit Data *Final* Discharge Date/Time: 04/20/19 09:55 Chief Complaint: Vomiting Stated Complaint: VOMITING W/ BLOOD ED Provider: Hal Mcguire Discharge Problem: DKA (diabetic ketoacidoses) Patient Disposition: Being Evaluated by Hospitalist Discharge Instructions Interventions: ED Discharge Assessment Last Done: 04/20/19 09:55 Discharge Problem: DKA (diabetic ketoacidoses) Qualifiers: Diabetes mellitus type: type 1 Diabetes mellitus complication detail: without coma Qualified Code(s): E10.10 - Type 1 diabetes mellitus with ketoacidosis without coma The scribe's documentation has been prepared under my direction and personally reviewed by me in its entirety. I confirm that the note above accurately reflects all work, treatment, procedures, and medical decision making performed by me.
[2019-04-20 15:09] LABS: BUN Creatinine Ratio 7.4 (10-20); Calcium 8.6 mg/dl (8.5-10.1); Creatinine Clr Calc Pharmacy 8.8 ml/min; Est GFR (African American) 8.5; Est GFR (Non-African American) 7.3; Magnesium 2.1 mg/dl (1.8-2.4); Phosphorus 3.3 mg/dl (2.5-4.9); Potassium 3.4 mmol/L (3.5-5.1)
[2019-04-20] MEDS ORDERED: SODIUM CHLOR 0.45% + 20MEQ KCL 20 MEQ/1,000 ML BAG IV SCH (15:30)
[2019-04-20] MEDS ORDERED: PENDING D5 1/2NS+20mEq KCL IVF SCH (16:00)
[2019-04-20] MEDS: D5W AND 1/2NSS + 20MEQ KCL 20 MEQ/1,000 ML BAG IV SCH (18:51)
[2019-04-20 19:25] LABS: BUN Creatinine Ratio 7.6 (10-20); Calcium 8.6 mg/dl (8.5-10.1); Creatinine Clr Calc Pharmacy 9.2 ml/min; Est GFR (African American) 8.9; Est GFR (Non-African American) 7.7; Magnesium 2.1 mg/dl (1.8-2.4); Phosphorus 3.2 mg/dl (2.5-4.9); Potassium 3.4 mmol/L (3.5-5.1)
[2019-04-20] MEDS: ATORVASTATIN 40 MG TAB PO SCH (20:28)
[2019-04-20] MEDS: TRAMADOL HCL 50 MG TABLET PO PRN (20:31)
--- NOTE | 2019-04-20 22:58 | Procedure Note ---
Procedure Note Date of Service April 20, 2019 Procedure: Irrigation Manager Indwelling Peripherally Inserted IV Catheter Placement Attending: Dr. Schroeder APC: Erick Staley PA-C Indication: Need for IV Access, Poor Vascular Access Anesthesia: Lidocaine 1% Verbal consent was obtained from patient prior to performing the procedure. A time-out was completed verifying correct patient, procedure, site, positioning, and implant(s) or special equipment if applicable. Utilizing bedside ultrasound, vascularity of the LEFT upper extremity was assessed. Vessel size was noted for appropriate catheter selection and skin was marked with gentle pressure. Patients LEFT upper extremity was prepped and draped in the usual sterile fashion utilizing chlorhexidine. Ultrasound guidance was used to aid needle placement. A 20 g Endurance Catheter was introduced into the LEFT Cephalic vein under direct ultrasound guidance. Guide wire was easily deployed w ithout resistance. Catheter was threaded over the guide wire without resistance and the entire apparatus was removed intact. Good venous blood return was noted in the catheter. The IV catheter was easily flushed with sterile saline flush. Sterile clave was attached to the end of the catheter and good blood return was again noted. Tourniquet was released. StatLock device and sterile dressing were applied. The patient tolerated the procedure well. Blood Loss: Minimal Complications: None Procedural Ultrasound Guidance: Procedure Date: 04/20/2019 Indication: Poor Vascular Access Attending: Dr. Schroeder APC: Erick Staley PA-C Artery/Veins Identified: YES Access confirmed in Vein with ultrasound: YES Complications: NONE Patient tolerated procedure: WELL Coding
[2019-04-20] MEDS ORDERED: ACETAMINOPHEN SOL 650 MG/20.3 ML UDC PO PRN (23:33)
[2019-04-20 23:42] LABS: BUN Creatinine Ratio 7.2 (10-20); Calcium 8.4 mg/dl (8.5-10.1); Creatinine Clr Calc Pharmacy 9.1 ml/min; Est GFR (African American) 8.8; Est GFR (Non-African American) 7.6; Magnesium 1.9 mg/dl (1.8-2.4); Phosphorus 3.8 mg/dl (2.5-4.9); Potassium 3.5 mmol/L (3.5-5.1)
[2019-04-21] MEDS: D5W AND 1/2NSS + 20MEQ KCL 20 MEQ/1,000 ML BAG IV SCH ×2 (02:53→09:29)
[2019-04-21 03:10] LABS: BUN Creatinine Ratio 7.2 (10-20); Calcium 8.2 mg/dl (8.5-10.1); Creatinine Clr Calc Pharmacy 9.1 ml/min; Est GFR (African American) 8.8; Est GFR (Non-African American) 7.6; Magnesium 1.9 mg/dl (1.8-2.4); Phosphorus 4.3 mg/dl (2.5-4.9); Potassium 3.5 mmol/L (3.5-5.1)
[2019-04-21] MEDS: HydrALAZINE HCL 20 MG/ML VIAL IV PRN (04:23)
[2019-04-21 04:34] LABS: Basophils # (auto) 0.04 K/uL (0-0.2); Basophils % (auto) 0.4 %; Eosinophils # (auto) 0.21 K/uL (0-0.5); Eosinophils % (auto) 1.9 %; Hemoglobin 10.3 g/dL (12.0-16.0); Immature Granulocytes # (auto) 0.01 K/uL (0.00-0.02); Immature Granulocytes % (auto) 0.1 %; Lymphocytes # (auto) 1.71 K/uL (1.2-3.4); Lymphocytes % (auto) 15.4 %; Mean Corpuscular Hgb Conc 36.8 g/dL (32-36); Mean Corpuscular Volume 95.2 fL (80-100); Mean Platelet Volume 11.2 fL (7.4-10.4); Monocytes # (auto) 0.99 K/uL (0.11-0.59); Monocytes % (auto) 8.9 %; Neutrophils # (auto) 8.16 K/uL (1.4-6.5); Neutrophils % (auto) 73.3 %; Platelet Count 186 K/uL (130-400); RDW Coefficient of Variation 12.6 % (11.5-14.5); RDW Standard Deviation 42.6 fL (36.4-46.3); Red Blood Count 2.94 M/uL (4.2-5.4); White Blood Count 11.12 K/uL (4.8-10.8)
[2019-04-21 04:52] LABS: Magnesium 1.9 mg/dl (1.8-2.4); Phosphorus 4.3 mg/dl (2.5-4.9)
[2019-04-21] MEDS: LEVOTHYROXINE SODIUM 200 MCG TABLET PO SCH (06:06)
[2019-04-21] MEDS: TRAMADOL HCL 50 MG TABLET PO PRN ×2 (06:08→20:28)
--- NOTE | 2019-04-21 07:33 | Critical Care Progress Note ---
Date of Service April 21, 2019 Assessment & Plan (1) Admitted to intensive care unit: Reason Critically Ill: DKA (improved), question of GI bleed Neuro - [facility] ICU: Negative Peripheral neuropathy No other significant neurological deficits identified Cardiac - History of hypertension Home medications include: Midrin 3 times daily, Florinef 0.1 p.o. daily D/C IV fluids for DKA Monitor on telemetry Rate controlled, NSR Will cont to hold midodrine and fludrocortisone as BP running high (not sure why on these), cont labetalol No record of an echocardiogram in the past Respiratory - No hypoxia No adventitious breath sounds with auscultation No cough Continue to monitor GI - Report of hematemesis Hemodynamically stable We will not consult GI at this time Will cont trend H/H When diet advanced will start Phos binder and renal vitamin RENAL/LYTES - End-stage renal disease with dialysis Thursday D/C Normal saline for DKA, scheduled for dialysis tomorrow as her regular schedule. Potassium normal now Na+ low but improved 132 Nephrology following -appreciate Dr. Gardner's input - No hematuria Urine outpatient is unchanged per patient ENDO - Hypothyroidism -continue levothyroxine End-stage renal disease as above BSGs significantly improved HEME - Possible GI bleed with hematemesis outpatient in one episode in the ED Hemoglobin stable No further vomiting Nausea controlled Follow serial labs Hold Epogen for hgb above 10.5 ID - Will send out urine for UA and culture to r/o UTI Imaging of left foot to r/o osteomyelitis: Extensive lytic and erosive changes with bony fragmentation about the distal tibia and tibiotalar joint. Findings are again concerning for septic arthropathy or neuropathic joint Cont monitor feve curve LINES/IV ACCESS - PIV x2 DVT PROPHYLAXIS - No chemical prophylaxis pending further information on hematemesis ROBERTO hose SCDs as tolerated Full Code Dispo: Stable for downgrade out of ICU Supervising Physician Co-Signing Physician Notes Dr. Cheung was resident physician during care of patient. I separately evaluated patient for brar portions of the history and the exam. I was present during the critical portion of medical decision making, and I discussed the case with the resident. I generally agree with the findings and plan. Patient's blood sugars have significantly improved, limiting fluid secondary to end-stage renal disease on dialysis. Patient still produces urine will send urine if she is able used to rule out UTI. Adding labetalol back to patient's regimen holding mid a drain secondary to hypertension blood pressure currently 180/90. She is stable for downgrade out of the ICU. Subjective 63 y/o F found in bed this AM in NAD. No reports of acute overnight events. PICC placed last evening. Pt denies N/V/D since arrival in ICU. Has still been NPO. No issues voiding. Only complaints of MEADOWS. No other acute concerns or complaints. Review of Systems Review of Systems: All systems reviewed & are unremarkable except as noted in HPI & below Physical Exam Constitutional: WD/WN, vitals as above Eyes: R eye blind. L PERRL ENMT: external ear and nose normal, oropharynx normal Respiratory: normal respiratory effort, lungs clear to auscultation Cardiovascular: RRR, no murmur, no edema Gastrointestinal (Abdomen): normal bowel sounds, soft, nontender, no hepatosplenomegaly Skin: L Charcot foot Psychiatric: A+Ox3, euthymic affect Results & Data Vital Signs (Past 12 Hours) Vital Signs Temp Pulse Resp BP Pulse Ox 04/21/19 04:20 96 H 17 189/76 H 96 04/21/19 04:10 36.8 C 95 H 18 207/71 H 96 04/21/19 03:01 95 H 17 165/63 H 95 04/21/19 02:00 95 H 30 H 136/63 96 04/21/19 01:01 98 H 14 157/64 H 95 04/21/19 00:00 36.9 C 98 H 12 142/58 H 95 04/20/19 23:00 98 H 16 164/71 H 95 04/20/19 22:00 98 H 19 138/59 L 96 04/20/19 21:00 98 H 23 168/80 H 97 04/20/19 20:00 36.8 C 101 H 23 173/82 H 97 04/20/19 19:40 98 H 22 180/79 H 97 Laboratory Results Laboratory Results - last 24 hr 04/20/19 04/20/19 04/20/19 10:29 10:44 10:44 WBC RBC Hgb Hct MCV MCH MCHC RDW Std Deviation RDW Coeff of Erica Plt Count MPV Immature Gran % (Auto) Neut % (Auto) Lymph % (Auto) [place] % (Auto) Eos % (Auto) Baso % (Auto) Immature Gran # (Auto) Neut # (Auto) Lymph # (Auto) [place] # (Auto) Eos # (Auto) Baso # (Auto) Sample Site POC pH POC pCO2 POC pO2 POC HCO3 POC Total CO2 POC Base Excess POC ABG O2 Sat Ji Test VBG pH O2 Delivery Device Sodium 123 L Potassium 4.1 Chloride 86 L Carbon Dioxide 18 L Anion Gap 19.0 H BUN 42 H Creatinine 5.75 H* Est Cr Clr Drug Dosing 8.9 Est GFR ( Amer) 8.5 Est GFR (Non-Af Amer) 7.3 BUN/Creatinine Ratio 7.3 L Glucose 952 H* POC Glucose > 600 H* Estimat Average Glucose 226 Hemoglobin A1c 9.5 H Osmolality Calcium 8.4 L Phosphorus 5.5 H Magnesium 2.4 Beta-Hydroxybutyric Acd 62.96 H Nasal Screen MRSA (PCR) 04/20/19 04/20/19 04/20/19 10:44 10:45 10:45 WBC RBC Hgb Hct MCV MCH MCHC RDW Std Deviation RDW Coeff of Erica Plt Count MPV Immature Gran % (Auto) Neut % (Auto) Lymph % (Auto) [place] % (Auto) Eos % (Auto) Baso % (Auto) Immature Gran # (Auto) Neut # (Auto) Lymph # (Auto) [place] # (Auto) Eos # (Auto) Baso # (Auto) Sample Site POC pH POC pCO2 POC pO2 POC HCO3 POC Total CO2 POC Base Excess POC ABG O2 Sat Ji Test VBG pH 7.23 L O2 Delivery Device Sodium Potassium Chloride Carbon Dioxide Anion Gap BUN Creatinine Est Cr Clr Drug Dosing Est GFR ( Amer) Est GFR (Non-Af Amer) BUN/Creatinine Ratio Glucose Cancelled POC Glucose Estimat Average Glucose Hemoglobin A1c Osmolality 337 H Calcium Phosphorus Magnesium Beta-Hydroxybutyric Acd Nasal Screen MRSA (PCR) 04/20/19 04/20/19 04/20/19 10:45 11:08 12:30 WBC RBC Hgb Hct MCV MCH MCHC RDW Std Deviation RDW Coeff of Erica Plt Count MPV Immature Gran % (Auto) Neut % (Auto) Lymph % (Auto) [place] % (Auto) Eos % (Auto) Baso % (Auto) Immature Gran # (Auto) Neut # (Auto) Lymph # (Auto) [place] # (Auto) Eos # (Auto) Baso # (Auto) Sample Site L Radial POC pH Pending POC pCO2 Pending POC pO2 Pending POC HCO3 18 L POC Total CO2 19 L POC Base Excess -9.0 POC ABG O2 Sat 96.0 H Ji Test Pass VBG pH O2 Delivery Device Room Air Sodium Potassium Chloride Carbon Dioxide Anion Gap BUN Creatinine Est Cr Clr Drug Dosing Est GFR ( Amer) Est GFR (Non-Af Amer) BUN/Creatinine Ratio Glucose POC Glucose > 600 H* Estimat Average Glucose Hemoglobin A1c Osmolality Calcium Phosphorus Magnesium Beta-Hydroxybutyric Acd Nasal Screen MRSA (PCR) Negative 04/20/19 04/20/19 04/20/19 12:32 12:32 14:07 WBC RBC Hgb 11.3 L Hct 33.4 L MCV MCH MCHC RDW Std Deviation RDW Coeff of Erica Plt Count MPV Immature Gran % (Auto) Neut % (Auto) Lymph % (Auto) [place] % (Auto) Eos % (Auto) Baso % (Auto) Immature Gran # (Auto) Neut # (Auto) Lymph # (Auto) [place] # (Auto) Eos # (Auto) Baso # (Auto) Sample Site POC pH POC pCO2 POC pO2 POC HCO3 POC Total CO2 POC Base Excess POC ABG O2 Sat Ji Test VBG pH O2 Delivery Device Sodium Potassium Chloride Carbon Dioxide Anion Gap BUN Creatinine Est Cr Clr Drug Dosing Est GFR ( Amer) Est GFR (Non-Af Amer) BUN/Creatinine Ratio Glucose 719 H* POC Glucose 240 H Estimat Average Glucose Hemoglobin A1c Osmolality Calcium Phosphorus Magnesium Beta-Hydroxybutyric Acd 28.76 H Nasal Screen MRSA (PCR) 04/20/19 04/20/19 04/20/19 14:09 14:11 14:13 WBC RBC Hgb Hct MCV MCH MCHC RDW Std Deviation RDW Coeff of Erica Plt Count MPV Immature Gran % (Auto) Neut % (Auto) Lymph % (Auto) [place] % (Auto) Eos % (Auto) Baso % (Auto) Immature Gran # (Auto) Neut # (Auto) Lymph # (Auto) [place] # (Auto) Eos # (Auto) Baso # (Auto) Sample Site POC pH POC pCO2 POC pO2 POC HCO3 POC Total CO2 POC Base Excess POC ABG O2 Sat Ji Test VBG pH O2 Delivery Device Sodium Potassium Chloride Carbon Dioxide Anion Gap BUN Creatinine Est Cr Clr Drug Dosing Est GFR ( Amer) Est GFR (Non-Af Amer) BUN/Creatinine Ratio Glucose POC Glucose 519 H* 497 H* 480 H* Estimat Average Glucose Hemoglobin A1c Osmolality Calcium Phosphorus Magnesium Beta-Hydroxybutyric Acd Nasal Screen MRSA (PCR) 04/20/19 04/20/19 04/20/19 14:20 14:20 14:55 WBC RBC Hgb Hct MCV MCH MCHC RDW Std Deviation RDW Coeff of Erica Plt Count MPV Immature Gran % (Auto) Neut % (Auto) Lymph % (Auto) [place] % (Auto) Eos % (Auto) Baso % (Auto) Immature Gran # (Auto) Neut # (Auto) Lymph # (Auto) [place] # (Auto) Eos # (Auto) Baso # (Auto) Sample Site POC pH POC pCO2 POC pO2 POC HCO3 POC Total CO2 POC Base Excess POC ABG O2 Sat Ji Test VBG pH 7.35 L O2 Delivery Device Sodium 132 L D Potassium 3.4 L D Chloride 95 L Carbon Dioxide 24 Anion Gap 12.0 H BUN 43 H Creatinine 5.77 H* Est Cr Clr Drug Dosing 8.8 Est GFR ( Amer) 8.5 Est GFR (Non-Af Amer) 7.3 BUN/Creatinine Ratio 7.4 L Glucose 521 H* POC Glucose 447 H* Estimat Average Glucose Hemoglobin A1c Osmolality Calcium 8.6 Phosphorus 3.3 D Magnesium 2.1 Beta-Hydroxybutyric Acd 6.55 H Nasal Screen MRSA (PCR) 04/20/19 04/20/19 04/20/19 15:56 16:59 17:54 WBC RBC Hgb Hct MCV MCH MCHC RDW Std Deviation RDW Coeff of Erica Plt Count MPV Immature Gran % (Auto) Neut % (Auto) Lymph % (Auto) [place] % (Auto) Eos % (Auto) Baso % (Auto) Immature Gran # (Auto) Neut # (Auto) Lymph # (Auto) [place] # (Auto) Eos # (Auto) Baso # (Auto) Sample Site POC pH POC pCO2 POC pO2 POC HCO3 POC Total CO2 POC Base Excess POC ABG O2 Sat Ji Test VBG pH O2 Delivery Device Sodium Potassium Chloride Carbon Dioxide Anion Gap BUN Creatinine Est Cr Clr Drug Dosing Est GFR ( Amer) Est GFR (Non-Af Amer) BUN/Creatinine Ratio Glucose POC Glucose 379 H* 268 H 187 H Estimat Average Glucose Hemoglobin A1c Osmolality Calcium Phosphorus Magnesium Beta-Hydroxybutyric Acd Nasal Screen MRSA (PCR) 04/20/19 04/20/19 04/20/19 18:41 18:41 19:17 WBC RBC Hgb Hct MCV MCH MCHC RDW Std Deviation RDW Coeff of Erica Plt Count MPV Immature Gran % (Auto) Neut % (Auto) Lymph % (Auto) [place] % (Auto) Eos % (Auto) Baso % (Auto) Immature Gran # (Auto) Neut # (Auto) Lymph # (Auto) [place] # (Auto) Eos # (Auto) Baso # (Auto) Sample Site POC pH POC pCO2 POC pO2 POC HCO3 POC Total CO2 POC Base Excess POC ABG O2 Sat Ji Test VBG pH 7.38 O2 Delivery Device Sodium 133 L Potassium 3.4 L Chloride 98 Carbon Dioxide 25 Anion Gap 10.0 BUN 42 H Creatinine 5.54 H* Est Cr Clr Drug Dosing 9.2 Est GFR ( Amer) 8.9 Est GFR (Non-Af Amer) 7.7 BUN/Creatinine Ratio 7.6 L Glucose 155 H POC Glucose 146 H Estimat Average Glucose Hemoglobin A1c Osmolality Calcium 8.6 Phosphorus 3.2 Magnesium 2.1 Beta-Hydroxybutyric Acd Nasal Screen MRSA (PCR) 04/20/19 04/20/19 04/20/19 20:10 21:19 21:33 WBC RBC Hgb Hct MCV MCH MCHC RDW Std Deviation RDW Coeff of Erica Plt Count MPV Immature Gran % (Auto) Neut % (Auto) Lymph % (Auto) [place] % (Auto) Eos % (Auto) Baso % (Auto) Immature Gran # (Auto) Neut # (Auto) Lymph # (Auto) [place] # (Auto) Eos # (Auto) Baso # (Auto) Sample Site POC pH POC pCO2 POC pO2 POC HCO3 POC Total CO2 POC Base Excess POC ABG O2 Sat Ji Test VBG pH O2 Delivery Device Sodium Potassium Chloride Carbon Dioxide Anion Gap BUN Creatinine Est Cr Clr Drug Dosing Est GFR ( Amer) Est GFR (Non-Af Amer) BUN/Creatinine Ratio Glucose POC Glucose 120 H 98 100 H Estimat Average Glucose Hemoglobin A1c Osmolality Calcium Phosphorus Magnesium Beta-Hydroxybutyric Acd Nasal Screen MRSA (PCR) 04/20/19 04/20/19 04/20/19 22:22 22:22 22:23 WBC RBC Hgb Hct MCV MCH MCHC RDW Std Deviation RDW Coeff of Erica Plt Count MPV Immature Gran % (Auto) Neut % (Auto) Lymph % (Auto) [place] % (Auto) Eos % (Auto) Baso % (Auto) Immature Gran # (Auto) Neut # (Auto) Lymph # (Auto) [place] # (Auto) Eos # (Auto) Baso # (Auto) Sample Site POC pH POC pCO2 POC pO2 POC HCO3 POC Total CO2 POC Base Excess POC ABG O2 Sat Ji Test VBG pH 7.38 O2 Delivery Device Sodium 137 Potassium 3.5 Chloride 102 Carbon Dioxide 24 Anion Gap 11.0 BUN 40 H Creatinine 5.59 H* Est Cr Clr Drug Dosing 9.1 Est GFR ( Amer) 8.8 Est GFR (Non-Af Amer) 7.6 BUN/Creatinine Ratio 7.2 L Glucose 94 POC Glucose 100 H Estimat Average Glucose Hemoglobin A1c Osmolality Calcium 8.4 L Phosphorus 3.8 Magnesium 1.9 Beta-Hydroxybutyric Acd Nasal Screen MRSA (PCR) 04/20/19 04/21/19 04/21/19 23:59 01:05 02:02 WBC RBC Hgb Hct MCV MCH MCHC RDW Std Deviation RDW Coeff of Erica Plt Count MPV Immature Gran % (Auto) Neut % (Auto) Lymph % (Auto) [place] % (Auto) Eos % (Auto) Baso % (Auto) Immature Gran # (Auto) Neut # (Auto) Lymph # (Auto) [place] # (Auto) Eos # (Auto) Baso # (Auto) Sample Site POC pH POC pCO2 POC pO2 POC HCO3 POC Total CO2 POC Base Excess POC ABG O2 Sat Ji Test VBG pH O2 Delivery Device Sodium Potassium Chloride Carbon Dioxide Anion Gap BUN Creatinine Est Cr Clr Drug Dosing Est GFR ( Amer) Est GFR (Non-Af Amer) BUN/Creatinine Ratio Glucose POC Glucose 97 105 H 118 H Estimat Average Glucose Hemoglobin A1c Osmolality Calcium Phosphorus Magnesium Beta-Hydroxybutyric Acd Nasal Screen MRSA (PCR) 04/21/19 04/21/19 04/21/19 02:34 02:34 03:26 WBC RBC Hgb Hct MCV MCH MCHC RDW Std Deviation RDW Coeff of Erica Plt Count MPV Immature Gran % (Auto) Neut % (Auto) Lymph % (Auto) [place] % (Auto) Eos % (Auto) Baso % (Auto) Immature Gran # (Auto) Neut # (Auto) Lymph # (Auto) [place] # (Auto) Eos # (Auto) Baso # (Auto) Sample Site POC pH POC pCO2 POC pO2 POC HCO3 POC Total CO2 POC Base Excess POC ABG O2 Sat Ji Test VBG pH 7.37 O2 Delivery Device Sodium 136 Potassium 3.5 Chloride 101 Carbon Dioxide 25 Anion Gap 10.0 BUN 40 H Creatinine 5.60 H* Est Cr Clr Drug Dosing 9.1 Est GFR ( Amer) 8.8 Est GFR (Non-Af Amer) 7.6 BUN/Creatinine Ratio 7.2 L Glucose 121 H POC Glucose 129 H Estimat Average Glucose Hemoglobin A1c Osmolality Calcium 8.2 L Phosphorus 4.3 Magnesium 1.9 Beta-Hydroxybutyric Acd Nasal Screen MRSA (PCR) 04/21/19 04/21/19 04/21/19 04:25 04:25 05:10 WBC 11.12 H RBC 2.94 L Hgb 10.3 L Hct 28.0 L MCV 95.2 D MCH 35.0 H MCHC 36.8 H RDW Std Deviation 42.6 RDW Coeff of Erica 12.6 Plt Count 186 MPV 11.2 H Immature Gran % (Auto) 0.1 Neut % (Auto) 73.3 Lymph % (Auto) 15.4 [place] % (Auto) 8.9 Eos % (Auto) 1.9 Baso % (Auto) 0.4 Immature Gran # (Auto) 0.01 Neut # (Auto) 8.16 H Lymph # (Auto) 1.71 [place] # (Auto) 0.99 H Eos # (Auto) 0.21 Baso # (Auto) 0.04 Sample Site POC pH POC pCO2 POC pO2 POC HCO3 POC Total CO2 POC Base Excess POC ABG O2 Sat Ji Test VBG pH O2 Delivery Device Sodium Potassium Chloride Carbon Dioxide Anion Gap BUN Creatinine Est Cr Clr Drug Dosing Est GFR ( Amer) Est GFR (Non-Af Amer) BUN/Creatinine Ratio Glucose POC Glucose 128 H Estimat Average Glucose Hemoglobin A1c Osmolality Calcium Phosphorus 4.3 Magnesium 1.9 Beta-Hydroxybutyric Acd Nasal Screen MRSA (PCR) 04/21/19 04/21/19 04/21/19 06:34 06:34 07:05 WBC RBC Hgb Hct MCV MCH MCHC RDW Std Deviation RDW Coeff of Erica Plt Count MPV Immature Gran % (Auto) Neut % (Auto) Lymph % (Auto) [place] % (Auto) Eos % (Auto) Baso % (Auto) Immature Gran # (Auto) Neut # (Auto) Lymph # (Auto) [place] # (Auto) Eos # (Auto) Baso # (Auto) Sample Site POC pH POC pCO2 POC pO2 POC HCO3 POC Total CO2 POC Base Excess POC ABG O2 Sat Ji Test VBG pH 7.39 O2 Delivery Device Sodium 132 L Potassium 3.9 Chloride 100 Carbon Dioxide 23 Anion Gap 9.0 BUN 39 H Creatinine 5.56 H* Est Cr Clr Drug Dosing 9.2 Est GFR ( Amer) 8.8 Est GFR (Non-Af Amer) 7.6 BUN/Creatinine Ratio 7.0 L Glucose 212 H POC Glucose 157 H Estimat Average Glucose Hemoglobin A1c Osmolality Calcium 7.9 L Phosphorus 3.9 Magnesium 1.8 Beta-Hydroxybutyric Acd Nasal Screen MRSA (PCR) Medications Administered Current Inpatient Medications Acetaminophen (Tylenol) 650 mg PO Q6 PRN PRN Reason: Pain Stop: 05/20/19 23:32 Atorvastatin Calcium (Lipitor) 40 mg PO QPM [facility] Stop: 05/20/19 20:59 Last Admin: 04/20/19 20:28 Dose: 40 mg Documented by: Docusate Sodium (Colace) 100 mg PO Q3D@0900 [facility] Stop: 05/22/19 08:59 Fludrocortisone Acetate (Florinef) 0.1 mg PO DAILY [facility] Stop: 05/20/19 10:29 Last Admin: 04/20/19 11:45 Dose: Not Given Documented by: Folic Acid (Folvite) 1 mg PO QAM [facility] Stop: 05/20/19 10:29 Last Admin: 04/21/19 09:35 Dose: 1 mg Documented by: Furosemide (Lasix) 40 mg PO MoWe@0900 [facility] Stop: 05/20/19 10:14 Last Admin: 04/20/19 11:37 Dose: 40 mg Documented by: Hydralazine HCl (Hydralazine Hcl) 5 mg IV Q6H PRN PRN Reason: Blood Pressure - High Stop: 05/20/19 12:04 Last Admin: 04/21/19 04:23 Dose: 5 mg Documented by: Insulin Human Regular 250 (units/ Sodium Chloride) 250 mls @ 0.6 mls/hr IV .Q24H [facility]; Protocol Stop: 05/20/19 08:44 Last Titration: 04/21/19 07:00 Dose: 0.6 units/hr, 0.6 mls/hr Documented by: Insulin Aspart (Novolog Flexpen) 0 units SC PCHS [facility] Stop: 05/20/19 08:59 Last Admin: 04/21/19 09:35 Dose: Not Given Documented by: Insulin Aspart (Novolog Flexpen) 0 units SC ACHS [facility] Stop: 05/21/19 11:29 Labetalol HCl (Normodyne) 100 mg PO BID [facility] Stop: 05/20/19 10:14 Last Admin: 04/21/19 09:34 Dose: 100 mg Documented by: Levothyroxine Sodium (Synthroid) 200 mcg PO DAILYBB [facility] Stop: 05/20/19 10:29 Last Admin: 04/21/19 06:06 Dose: 200 mcg Documented by: Midodrine (Proamatine) 1.25 mg PO TID@0800,1200,1700 [facility] Stop: 05/20/19 11:59 Last Admin: 04/21/19 09:31 Dose: Not Given Documented by: Miscellaneous (I[facility] Protocol For Hyperglycemia) 1 ea N/A PRN PRN; Protocol PRN Reason: Hyperglycemia Protocol Stop: 04/22/19 10:14 Miscellaneous (Pending Order) 1 ea N/A QS [facility] Stop: 05/21/19 09:59 Miscellaneous Information (Consult Glycemic Management Pharmacy) 1 ea N/A UD PRN PRN Reason: Consult Stop: 05/20/19 11:02 Pyridoxine HCl (Vitamin B-6) 100 mg PO QAM [facility] Stop: 05/20/19 10:44 Last Admin: 04/21/19 09:35 Dose: 100 mg Documented by: Sevelamer HCl (Renagel) 800 mg PO QDB [facility] Stop: 05/20/19 11:59 Last Admin: 04/21/19 09:30 Dose: Not Given Documented by: Thiamine HCl (Vitamin B-1) 250 mg PO QAM [facility] Stop: 05/20/19 10:29 Last Admin: 04/21/19 09:34 Dose: 250 mg Documented by: Tramadol HCl (Ultram) 50 mg PO BID PRN PRN Reason: Pain Stop: 05/20/19 10:14 Last Admin: 04/21/19 06:08 Dose: 50 mg Documented by: Venlafaxine HCl (Effexor Extended Release) 75 mg PO QAM [facility] Stop: 05/20/19 10:29 Last Admin: 04/21/19 09:34 Dose: 75 mg Documented by: Venlafaxine HCl (Effexor Extended Release) [facility] Stop: 05/20/19 10:29 Last Admin: 04/21/19 09:34 Dose: 150 mg Documented by: Resident Activity Tracking Resident Involvement: Resident Care Provided Care Provided: Adult Hospital Medicine
[2019-04-21 07:34] LABS: Calcium 7.9 mg/dl (8.5-10.1); Creatinine Clr Calc Pharmacy 9.2 ml/min; Est GFR (African American) 8.8; Est GFR (Non-African American) 7.6; Magnesium 1.8 mg/dl (1.8-2.4); Phosphorus 3.9 mg/dl (2.5-4.9); Potassium 3.9 mmol/L (3.5-5.1)
[2019-04-21] MEDS ORDERED: INSULIN GLARGINE SOLOSTAR 100 UNITS/ML 3 ML PEN SC ONE (08:30)
--- NOTE | 2019-04-21 08:33 | Critical Care Consultation ---
Date of Consultation April 20, 2019 REASON FOR LATE: pt was reviewed and discussed with research & insights executive team on 04/20, but no note was placed. Assessment & Plan (1) Admitted to intensive care unit: This is note for 04/20 Reason Critically Ill: DKA, question of GI bleed Neuro - [facility] ICU: Negative Peripheral neuropathy No other significant neurological deficits identified Cardiac - History of hypertension Home medications include: Midrin 3 times daily Florinef 0.1 p.o. daily Initiate IV fluids for DKA Monitor on telemetry Rate controlled, NSR End-stage renal disease with dialysis Thursday Nephrology consulted I do not see a record of an echocardiogram in the past Respiratory - No hypoxia No adventitious breath sounds with auscultation No cough Continue to monitor GI - Report of hematemesis Hemoglobin stable Hemodynamically stable We will not consult GI at this time Focus on DKA and monitor serial labs and further symptoms as he developed RENAL/LYTES - End-stage renal disease -no dialysis today Normal saline for DKA K+ 4.1 Na+ 123 We will follow labs every 4 hours during DKA protocol Nephrology consulted -appreciate Dr. Gardner's input - No hematuria Urine outpatient is unchanged per patient ENDO - Hypothyroidism -continue levothyroxine End-stage renal disease as above HEME - Possible GI bleed with hematemesis outpatient in one episode in the ED Hemoglobin stable 11.5 No further vomiting Nausea controlled Follow serial labs ID - WBC 7.7 Urine culture is pending Imaging of left foot to r/o osteomyelitis LINES/IV ACCESS - Peripheral 20-gauge IV in place Will attempt to get a second peripheral IV DVT PROPHYLAXIS - No chemical prophylaxis pending further information on hematemesis ROBERTO singh SCDs as tolerated Supervising Physician Co-Signing Physician Notes Dr. Cheung was resident physician during care of patient. I separately evaluated patient for brar portions of the history and the exam. I was present during the critical portion of medical decision making, and I discussed the case with the resident. I generally agree with the findings and plan. Patient critically ill due to end-stage renal disease and. Patient has been found to be under dry weight at last 2 dialysis treatments, she still produces urine and I believe she is undergoing osmotic diuresis, she is going to require aggressive insulin replacement therapy with judicious fluid administration. We are checking frequent labs and replacing electrolytes including potassium carefully. I have personally spent 50 minutes of critical care time in the direct management of this patient. This is a life/limb threatening event. This includes time spent evaluating patient, direct bedside care, chart review, placing orders, interpretation of diagnostic studies, discussion with consultants, patient, and/or family members regarding treatment decisions, as well as other required patient management activities. This time is exclusive of all separately billable procedures, and teaching time and separate from and in addition to any other critical care service time. History of Present Illness Attending Physician: Jerome Craig Primary Care Provider: Fiorella Vela MD Brooklynn Conner is a 63-year-old female with past medical history of diabetes mellitus type 1, depression, Charcot joint of left foot, diabetic neuropathy, hypothyroidism, Shawna's thyroiditis, diabetic retinopathy, frequent falls, hypertension, GERD, and dyslipidemia. She does have a right A-V fistula for dialysis. This is a 63-year-old female that is a type I diabetic that presented for dialysis this morning for her end-stage renal disease. She had nausea and vomiting and apparently had a moderate amount of hematemesis. The dialysis was not performed the patient was sent by ambulance to the emergency department where she was evaluated and we were asked to perform admission. The patient is found to be in DKA with an anion gap of 22. Her electrolytes seem to be fairly balanced with a sodium of 123 potassium of 4.5. She was placed on an insulin drip for reported blood sugar of 954. In the intensive care unit her sugars are listed as over 600. The insulin drip has been continued. The patient continues with some nausea but has had no further vomiting since arriving in intensive care unit. There was a report of some hematemesis in the emergency department. The hemoglobin is stable at 11.5. Patient has chills but denies any fever. She is semi-ambulatory at home due to a previous ankle injury secondary to Charcot joint of foot related to her diabetes. She denies any chest pain or tightness. She reports that she continues with urine output in addition to her dialysis. She denies any hematuria. She does have a recent admission from 04/03/2019 for similar condition. She was discharged home on 04/09/2019. Allergies Allergy/AdvReac Type Severity Reaction Status Date / Time orange juice Allergy Mild Rash Verified 04/20/19 08:14 ibuprofen Allergy Hives Verified 04/20/19 08:14 shellfish derived Allergy Hives Verified 04/20/19 08:14 strawberry Allergy ALL Verified 04/20/19 08:14 BERRIES --> Anaphylaxis Home Medications Home Medications Medication Instructions Recorded Confirmed Type furosemide 40 mg PO 2XWK 01/21/19 04/20/19 History venlafaxine 150 mg PO QAM 01/21/19 04/20/19 History Novolog Flexpen U-100 Insulin See Rx Instructions .ROUTE .COMPLEX 04/02/19 04/20/19 History atorvastatin 40 mg PO QPM 04/02/19 04/20/19 History fludrocortisone 0.1 mg PO DAILY 04/02/19 04/20/19 History tramadol 50 mg PO BID PRN 04/02/19 04/20/19 History venlafaxine 75 mg PO QAM 04/02/19 04/20/19 History folic acid 1 mg PO QAM #30 tab 04/08/19 04/20/19 Rx labetalol 100 mg PO BID #30 tab 04/08/19 04/20/19 Rx midodrine 1.25 mg PO TID@0800,1200,1700 #90 04/09/19 04/20/19 Rx tab Lantus Solostar U-100 Insulin 16 unit SUBCUT QAM 04/13/19 04/20/19 History docusate sodium 100 mg capsule 100 mg PO Q3D cap 04/13/19 04/20/19 History levothyroxine 200 mcg PO QAM 04/13/19 04/20/19 History pyridoxine (vitamin B6) 100 mg 100 mg PO QAM tab 04/13/19 04/20/19 History tablet sevelamer carbonate 800 mg tablet 800 mg PO QAM tab 04/13/19 04/20/19 History thiamine HCl (vitamin B1) 250 mg 250 mg PO QAM tab 04/13/19 04/20/19 History tablet Patient History Medical History Diabetes mellitus type 1, uncontrolled (Acute) Diabetic peripheral neuropathy associated with type 1 diabetes mellitus (Acute) Dyslipidemia (Acute) Shawna's thyroiditis (Acute) Proliferative diabetic retinopathy associated with type 1 diabetes mellitus (Acute) DKA (diabetic ketoacidoses) (Acute) TREATED INPT AT [facility] 04/03/2019. THIS AM GLUCOSE 200. A-V fistula (Chronic) RIGHT ARM Chronic kidney disease (Chronic) Diabetes mellitus type 1 (Chronic) GERD (gastroesophageal reflux disease) (Chronic) Hemodialysis patient (Chronic) M,W,F @ [facility] ([place]) Anemia Anxiety Depression Hypertension Hypothyroidism Osteoarthritis Osteoporosis Surgical History History of appendectomy History of section History of cholecystectomy History of colonoscopy History of esophagogastroduodenoscopy (EGD) History of hysterectomy PIERCE WITH BSO History of open reduction and internal fixation (ORIF) procedure RIGHT HIP RIGHT WRIST LEFT ANKLE Family History Father Myocardial infarction acute Coronary heart disease Mother Myocardial infarction Coronary heart disease Sister Coronary heart disease Breast cancer Ovarian cancer Social History Preferred Language: Malay Communication Ability: Effective Spring Former Required: Yes Beliefs That Will Affect Care: None Current Living Situation: Spouse Other Information That Helps Us Care for You: No Feels Safe at Home: Yes Safety Concerns: Feels Safe At This Time Smoking Status: Former smoker Tobacco Type: cigarettes Age Started Using Tobacco: 20 Age Quit Using Tobacco: 59 packs per day: 1 Second Hand Exposure: No Hx Alcohol Use: No Hx Substance Use: No Review of Systems Review of Systems: All systems reviewed & are unremarkable except as noted in HPI & below Physical Exam Constitutional: WD/WN, vitals as above + ill appearing Eyes: R eye blindness. L PERRL ENMT: dry MM Respiratory: normal respiratory effort, lungs clear to auscultation Cardiovascular: RRR, no murmur, no edema Gastrointestinal (Abdomen): normal bowel sounds, soft, nontender, no hepatosplenomegaly Skin: L Charcot foot Psychiatric: A+Ox3, euthymic affect Results & Data Vital Signs (Past 12 Hours) Vital Signs Temp Pulse Resp BP Pulse Ox 04/21/19 04:20 96 H 17 189/76 H 96 04/21/19 04:10 36.8 C 95 H 18 207/71 H 96 04/21/19 03:01 95 H 17 165/63 H 95 04/21/19 02:00 95 H 30 H 136/63 96 04/21/19 01:01 98 H 14 157/64 H 95 04/21/19 00:00 36.9 C 98 H 12 142/58 H 95 04/20/19 23:00 98 H 16 164/71 H 95 04/20/19 22:00 98 H 19 138/59 L 96 04/20/19 21:00 98 H 23 168/80 H 97 Resident Activity Tracking Resident Involvement: Resident Care Provided Care Provided: Adult [facility] Medicine
[2019-04-21] MEDS: SEVELAMER HCL 800 MG TABLET PO SCH (09:30)
[2019-04-21] MEDS: MIDODRINE HCL 2.5 MG TAB PO SCH (09:31)
[2019-04-21] MEDS: VENLAFAXINE HCL XR 150 MG CAPXR PO SCH (09:34)
[2019-04-21] MEDS: THIAMINE HCL 50 MG TABLET PO SCH (09:34)
[2019-04-21] MEDS: LABETALOL HCL 100 MG TAB PO SCH ×2 (09:34→20:28)
[2019-04-21] MEDS: VENLAFAXINE HCL XR 75 MG CAPXR PO SCH (09:34)
[2019-04-21] MEDS: FOLIC ACID 1 MG TAB PO SCH (09:35)
[2019-04-21] MEDS: PYRIDOXINE HCL 50 MG TAB PO SCH (09:35)
[2019-04-21] MEDS: INSULIN ASPART 100 UNITS/ML 3 ML PEN SC SCH ×4 (09:35→20:37)
--- NOTE | 2019-04-21 09:44 | Nephrology Progress Note ---
Date of Service April 21, 2019 Assessment & Plan (1) End stage renal disease on dialysis: End stage renal disease on dialysis: Shanda is a 63-year-old female with ESRD admitted to the hospital with DKA. On HD MWF via [facility] AVF. On IV fluid and insulin for DKA. Currently electrolyte , volume status acceptable. BP has been running high. Blood pressure high but volume status, electrolyte acceptable. --discontinue IV fluid, scheduled for dialysis tomorrow as her regular schedule. --hold Epogen for hemoglobin above 10.5 --Phos binder and renal vitamin when starts po --continue to hold midodrine and fludrocortisone now as blood pressure running high, discontinue on labetalol. It is unclear why she is on fludrocortisone and midodrine, may need to get more information from her once she is more able to give information. Will follow. Thank you for allowing me to participate in your patient's care. It was a pleasure to see Shanda (2) Hypertension: (3) DKA (diabetic ketoacidoses): (4) Anemia: Rakan Shaneka was seen examined in her room in the ICU this morning. She is feeling much better. Denies shortness of breath, chest pain, fever or chills. No nausea or abdominal pain. Electrolyte acceptable, anion gap closed, blood sugar improved. Blood pressure running high. Physical Exam Constitutional: WD/WN, vitals as above Respiratory: normal respiratory effort, lungs clear to auscultation Cardiovascular: RRR, no murmur, no edema Neurologic: moves all extremities and awake Psychiatric: A+Ox3, euthymic affect Results & Data Vital Signs (Past 12 Hours) Vital Signs Temp Pulse Resp BP Pulse Ox 04/21/19 04:20 96 H 17 189/76 H 96 04/21/19 04:10 36.8 C 95 H 18 207/71 H 96 04/21/19 03:01 95 H 17 165/63 H 95 04/21/19 02:00 95 H 30 H 136/63 96 04/21/19 01:01 98 H 14 157/64 H 95 04/21/19 00:00 36.9 C 98 H 12 142/58 H 95 04/20/19 23:00 98 H 16 164/71 H 95 04/20/19 22:00 98 H 19 138/59 L 96 (1) DKA (diabetic ketoacidoses) Diabetes mellitus complication detail: without coma Diabetes mellitus type: type 1 Qualified Code(s): E10.10 - Type 1 diabetes mellitus with ketoacidosis without coma
[2019-04-21] MEDS ORDERED: INSULIN INFUSION~PENDING ORDER SCH (10:00)
[2019-04-21] MEDS ORDERED: ACETAMINOPHEN 325 MG TAB PO PRN (10:16)
--- NOTE | 2019-04-21 11:18 | Pharmacy Report ---
Glycemic Control Consultation - Date of Service April 21, 2019 - Scope Scope: Glycemic Pharmacist consulted by Miguel Preeyra on 04/20 for glycemic control and to write orders per [facility] inpatient glycemic control protocol - Objective Weight: 58 kg Accuchecks BSG (last 24hrs): 04/20/19 04/20/19 04/20/19 10:44 10:44 12:30 Glucose 952 H* Cancelled POC Glucose > 600 H* 04/20/19 04/20/19 04/20/19 12:32 14:07 14:09 Glucose 719 H* POC Glucose 240 H 519 H* 04/20/19 04/20/19 04/20/19 14:11 14:13 14:20 Glucose 521 H* POC Glucose 497 H* 480 H* 04/20/19 04/20/19 04/20/19 14:55 15:56 16:59 Glucose POC Glucose 447 H* 379 H* 268 H 04/20/19 04/20/19 04/20/19 17:54 18:41 19:17 Glucose 155 H POC Glucose 187 H 146 H 04/20/19 04/20/19 04/20/19 20:10 21:19 21:33 Glucose POC Glucose 120 H 98 100 H 04/20/19 04/20/19 04/20/19 22:22 22:23 23:59 Glucose 94 POC Glucose 100 H 97 04/21/19 04/21/19 04/21/19 01:05 02:02 02:34 Glucose 121 H POC Glucose 105 H 118 H 04/21/19 04/21/19 04/21/19 03:26 05:10 06:34 Glucose 212 H POC Glucose 129 H 128 H 04/21/19 04/21/19 07:05 09:13 Glucose POC Glucose 157 H 172 H Laboratory Data (last 24hrs): 04/20/19 04/20/19 04/20/19 10:44 10:45 12:32 Potassium 4.1 Carbon Dioxide 18 L Anion Gap 19.0 H Creatinine 5.75 H* Est Cr Clr Drug Dosing 8.9 Osmolality 337 H Beta-Hydroxybutyric Acd 62.96 H 28.76 H 04/20/19 04/20/19 04/20/19 14:20 18:41 22:22 Potassium 3.4 L D 3.4 L 3.5 Carbon Dioxide 24 25 24 Anion Gap 12.0 H 10.0 11.0 Creatinine 5.77 H* 5.54 H* 5.59 H* Est Cr Clr Drug Dosing 8.8 9.2 9.1 Osmolality Beta-Hydroxybutyric Acd 6.55 H 04/21/19 04/21/19 02:34 06:34 Potassium 3.5 3.9 Carbon Dioxide 25 23 Anion Gap 10.0 9.0 Creatinine 5.60 H* 5.56 H* Est Cr Clr Drug Dosing 9.1 9.2 Osmolality Beta-Hydroxybutyric Acd HbA1c: 9.5 % (4.5-5.6) H 04/20/19 10:44 - Recent Pertinent Medications Outpatient Anti-diabetic Regimen: * Discharge recommendations from 04/09: 15 units QAM, Novolog 4 units + sliding scale * Patient noncompliant in past, had follow-up appointment scheduled with Dr. Meghann brown for 04/22, per previous discharge papers * A1c = 9.5 % 04/20/19- although unreliable in setting of chronic HD The patient is currently receiving: * Insulin infusion @0.6 units/hr Risk Factors for Insulin Resistance: * Steroids: Florinef on hold * IVF: D51/2NS+20 k discontinued this AM with transition of drip * Diet: T1DM - Assessment & Plan Assessment & Plan: ASSESSMENT: * Type 1 diabetic with ESRD on dialysis with recent admission for DKA, discharged on 04/09/19 * Patient's home regimen was adjusted after this visit to 16 units of lantus, 4 units of novolog with meals + sliding scale; patient had been noncompliant with checking blood sugars and novolog in the past * Admitted with DKA, presenting BSG 952, Bicarb 15, anion gap 22, started on insulin infusion with subsequent gap closure, improvement in bicarb and BSGs * Patient did not undergo dialysis and is not going to have dialysis again today, patient was below dry weight * Will assist in transition off of insulin infusion and monitor BSGs. Starting with 15 units of lantus and Novolog parameters 28/09- this was starting point of last admission, can be titrated down as needed. PLAN FOR INPATIENT GLYCEMIC CONTROL: * Holding outpatient oral diabetes medications * Basal insulin * Lantus 15 units SQ QAM * Bolus insulin * NovoLog per scale ACHS or Q6hrs while NPO * Goal Range: Low 110 mg/dL - High 160 mg/dL * Correction Factor: 30 mg/dL/unit * Nutritional / Prandial insulin per carb ratio of 1 unit per 10 grams CHO consumed * Please note that the plan above was derived based on current level of insulin resistance and hospital stress. These recommendations are appropriate for inpatient admission only. Plan of care upon discharge will need to be reassessed to avoid potential outpatient hypo/hyperglycemia. Thank you.
[2019-04-21] MEDS: ATORVASTATIN 40 MG TAB PO SCH (20:29)
--- NOTE | 2019-04-21 22:13 | Hospitalist Progress Note ---
Date of Service April 21, 2019 Assessment & Plan (1) DKA (diabetic ketoacidoses): Admitted to intensive care unit initially and was transferred out today. Patient's anion gap has closed and patient has been bridged to long acting insulin. Neuro - [facility] ICU: Negative Peripheral neuropathy No other significant neurological deficits identified Cardiac - History of hypertension Home medications include: Midrin 3 times daily Florinef 0.1 p.o. daily End-stage renal disease with dialysis Thursday Nephrology consulted Respiratory - No hypoxia No adventitious breath sounds with auscultation No cough Continue to monitor GI - Report of hematemesis Hemoglobin remains stable Hemodynamically stable We will not consult GI at this time RENAL/LYTES - End-stage renal disease -will get dialysis tomorrow. Anion gap is closed. Patient is now eating. - No hematuria Urine outpatient is unchanged per patient ENDO - Hypothyroidism -continue levothyroxine End-stage renal disease as above HEME - Possible GI bleed with hematemesis outpatient in one episode in the ED Hemoglobin stable No further vomiting Nausea controlled Follow serial labs ID - No fever, chills, trend WBC. doubt osteomyelitis given lack of systemic symptoms. DVT PROPHYLAXIS - No chemical prophylaxis pending further information on hematemesis ROBERTO singh SCDs as tolerated Spent 35 minutes in management of patient. Patient was transferred to the floor. Subjective Patient is found sitting in bed and in no distress. Patient reports feeling back to her normal self. She denies any symptoms at this time. Review of Systems Review of Systems: All systems reviewed & are unremarkable except as noted in HPI & below Physical Exam Physical Exam: GENERAL : No acute distress. No longer appears ill. EYES: No icterus, gaze conjugate. Right eye blindness since . Left pupil is reactive to light NOSE: No evidence of epistaxis. MOUTH: No lesions or candidiasis. Mucosa dry with posterior oropharynx deposits NECK: Supple. No evidence of JVD LUNGS: CTA B/L, no wheezes, rales or rhonchi. HEART: Regular, rate controlled. No appreciation of ectopy ABDOMEN: Soft, NT, ND, BS Present. EXTREMITIES: No LE edema, pedal pulses intact. Left charcot foot. NEURO: A&OX3. No evidence of neurological deficit Results & Data Vital Signs (Past 12 Hours) Vital Signs Temp Pulse Resp BP Pulse Ox 04/21/19 11:00 36.9 C 91 H 20 175/64 H 97 (1) DKA (diabetic ketoacidoses) Diabetes mellitus complication detail: without coma Diabetes mellitus type: type 1 Qualified Code(s): E10.10 - Type 1 diabetes mellitus with ketoacidosis without coma
[2019-04-22 03:51] LABS: Appearance Urine Clear (Clear); Bacteria Urine Automated Negative (Negative); Bilirubin Urine Negative (Negative); Cast Urine Automated 0 /lpf (0-5); Color Urine Yellow; Glucose Urine UA Trace (Negative); Ketones Urine Negative (Negative); Leukocyte Esterase Urine Trace (Negative); Nitrite Urine Negative (Negative); Protein Urine 1+ (Negative); Specific Gravity Urine 1.015 (1.000-1.030); Urobilinogen Urine Negative (Negative)
[2019-04-22] MEDS: LEVOTHYROXINE SODIUM 200 MCG TABLET PO SCH (05:37)
[2019-04-22 05:58] LABS: Basophils # (auto) 0.02 K/uL (0-0.2); Basophils % (auto) 0.3 %; Eosinophils # (auto) 0.27 K/uL (0-0.5); Eosinophils % (auto) 4.6 %; Hematocrit (blood only) 29.6 % (37-47); Hemoglobin 10.2 g/dL (12.0-16.0); Immature Granulocytes # (auto) 0.01 K/uL (0.00-0.02); Immature Granulocytes % (auto) 0.2 %; Lymphocytes # (auto) 1.37 K/uL (1.2-3.4); Lymphocytes % (auto) 23.5 %; Mean Corpuscular Hgb Conc 34.5 g/dL (32-36); Mean Corpuscular Volume 99.7 fL (80-100); Mean Platelet Volume 11.5 fL (7.4-10.4); Monocytes # (auto) 0.76 K/uL (0.11-0.59); Neutrophils # (auto) 3.41 K/uL (1.4-6.5); Neutrophils % (auto) 58.4 %; Platelet Count 171 K/uL (130-400); RDW Coefficient of Variation 13.3 % (11.5-14.5); RDW Standard Deviation 48.4 fL (36.4-46.3); Red Blood Count 2.97 M/uL (4.2-5.4); White Blood Count 5.84 K/uL (4.8-10.8)
[2019-04-22] MEDS ORDERED: SODIUM CHLORIDE 0.9% 1000ML 1,000 ML IV PRN (07:00)
[2019-04-22] MEDS: VENLAFAXINE HCL XR 150 MG CAPXR PO SCH (08:06)
[2019-04-22] MEDS: PYRIDOXINE HCL 50 MG TAB PO SCH (08:06)
[2019-04-22] MEDS: FOLIC ACID 1 MG TAB PO SCH (08:06)
[2019-04-22] MEDS: THIAMINE HCL 50 MG TABLET PO SCH (08:06)
[2019-04-22] MEDS: SEVELAMER HCL 800 MG TABLET PO SCH (08:06)
[2019-04-22] MEDS: VENLAFAXINE HCL XR 75 MG CAPXR PO SCH (08:06)
[2019-04-22] MEDS: INSULIN ASPART 100 UNITS/ML 3 ML PEN SC SCH ×2 (08:07→14:37)
--- NOTE | 2019-04-22 08:29 | Nephrology Progress Note ---
Date of Service April 22, 2019 Assessment & Plan (1) End stage renal disease on dialysis: End stage renal disease on dialysis: Shanda is a 63-year-old female with ESRD admitted to the hospital with DKA. On HD MWF via [facility]. DKA resolved, currently otherwise asymptomatic, blood pressure well controlled volume status acceptable. --plan for dialysis today as her regular schedule, can be discharged after dialysis. --hold Epogen for hemoglobin above 10.5 --Phos binder and renal vitamin when starts po --continue to hold midodrine and fludrocortisone now as blood pressure running high, discontinue on labetalol. It is unclear why she is on fludrocortisone and midodrine, may need to get more information from her once she is more able to give information. Will follow. Thank you for allowing me to participate in your patient's care. It was a pleasure to see Shanda (2) Hypertension: (3) DKA (diabetic ketoacidoses): (4) Anemia: Subjective Shanda was seen examined in her room this morning. She is otherwise feeling well, at her baseline, denies any symptom, eager to go home. Blood pressure stable. Physical Exam Constitutional: WD/WN, vitals as above Respiratory: normal respiratory effort, lungs clear to auscultation Cardiovascular: RRR, no murmur, no edema Neurologic: moves all extremities and awake Psychiatric: A+Ox3, euthymic affect Results & Data Vital Signs (Past 12 Hours) Vital Signs Temp Pulse Resp BP Pulse Ox 04/22/19 07:20 36.6 C 90 20 143/76 H 95 04/22/19 00:18 90 121/60 04/21/19 23:00 36.6 C 93 H 17 168/64 H 97 (1) DKA (diabetic ketoacidoses) Diabetes mellitus complication detail: without coma Diabetes mellitus type: type 1 Qualified Code(s): E10.10 - Type 1 diabetes mellitus with ketoacidosis without coma
[2019-04-22] MEDS ORDERED: DOCUSATE SODIUM 100 MG CAP PO SCH (09:00)
--- NOTE | 2019-04-22 13:49 | Pharmacy Report ---
Pharmacy Glycemic Short Note 2 - Date of Service April 22, 2019 - Glycemic Short BSG Results (Last 24 hours): 04/21/19 04/21/19 04/22/19 16:09 20:15 02:26 POC Glucose 75 82 78 04/22/19 07:42 POC Glucose 149 H OUTPATIENT ANTIDIABETIC REGIMEN: * Lantus 16 units SQ AM * NovoLog Scale - not using consistently ASSESSMENT: * Type 1 diabetic with ESRD on dialysis with recent admission for DKA, dischar ged on 04/09/19 * Patient's home regimen was adjusted after this visit to 16 units of lantus, 4 units of novolog with meals + sliding scale; patient had been noncompliant with checking blood sugars and novolog in the past * Admitted with DKA, presenting BSG 952, Bicarb 15, anion gap 22, started on insulin infusion with subsequent gap closure, improvement in bicarb and BSGs. Pt transitioned from IV to SQ basal bolus insulin regimen yesterday * BSGs slightly below goal range since transition; [id number] * Pt receiving HD today - Pt's BSGs typically decrease after HD * Will decrease basal insulin dosing and continue to titrate based on BSG trends PLAN FOR INPATIENT GLYCEMIC CONTROL: * Basal insulin * Decrease Lantus 10 units SQ Daily * Will hold dose this morning for BSG = 78 mg/dl. Will give after HD * Bolus insulin * NovoLog per scale ACHS or Q6hrs while NPO * Goal Range: Low 110 mg/dL - High 160 mg/dL * Correction Factor: 30 mg/dL/unit * Nutritional / Prandial insulin per carb ratio of 1 unit per 10 grams CHO consumed
[2019-04-22] MEDS: LABETALOL HCL 100 MG TAB PO SCH (14:36)
[2019-04-22] MEDS ORDERED: INSULIN GLARGINE SOLOSTAR 100 UNITS/ML 3 ML PEN SC SCH (16:00)
--- NOTE | 2019-04-26 10:37 | Discharge Summary ---
Date of Service April 22, 2019 Admission HPI Per Admitting Provider This is a 63-year-old female that is a type I diabetic that presented for dialysis this morning for her end-stage renal disease. She had nausea and vomiting and apparently had a moderate amount of hematemesis. The dialysis was not performed the patient was sent by ambulance to the emergency department where she was evaluated and we were asked to perform admission. The patient is found to be in DKA with an anion gap of 22. Her electrolytes seem to be fairly balanced with a sodium of 123 potassium of 4.5. She was placed on an insulin drip for reported blood sugar of 954. In the intensive care unit her sugars are listed as over 600. The insulin drip has been continued. The patient continues with some nausea but has had no further vomiting since arriving in intensive care unit. There was a report of some hematemesis in the emergency department. The hemoglobin is stable at 11.5. Patient has chills but denies any fever. She is semi-ambulatory at home due to a previous ankle injury secondary to Charcot joint of foot related to her diabetes. She denies any chest pain or tightness. She reports that she continues with urine output in addition to her dialysis. She denies any hematuria. She does have a recent admission from 04/03/2019 for similar condition. She was discharged home on 04/09/2019. Principal Diagnosis DKA Discharge Exam GENERAL : No acute distress. No longer appears ill. EYES: No icterus, gaze conjugate. Right eye blindness since . Left pupil is reactive to light NOSE: No evidence of epistaxis. MOUTH: No lesions or candidiasis. Mucosa dry with posterior oropharynx deposits NECK: Supple. No evidence of JVD LUNGS: CTA B/L, no wheezes, rales or rhonchi. HEART: Regular, rate controlled. No appreciation of ectopy ABDOMEN: Soft, NT, ND, BS Present. EXTREMITIES: No LE edema, pedal pulses intact. Left charcot foot. NEURO: A&OX3. No evidence of neurological deficit Discharge Data Allergies Allergy/AdvReac Type Severity Reaction Status Date / Time orange juice Allergy Mild Rash Verified 04/20/19 08:14 ibuprofen Allergy Hives Verified 04/20/19 08:14 shellfish derived Allergy Hives Verified 04/20/19 08:14 strawberry Allergy ALL Verified 04/20/19 08:14 BERRIES --> Anaphylaxis tomato AdvReac Verified 04/22/19 09:55 Consultations 04/20/19 08:47 ED Decision to Admit Stat 04/20/19 10:15 Consult Case Management - Discharge Planning Routine Consult Wet End Tester Routine 04/20/19 10:19 Consult Nephrology Routine Hospital Course (1) Admitted to intensive care unit: Admitted to intensive care unit initially and was transferred out today. Patient's anion gap has closed and patient has been bridged to long acting insulin. Patient tolerating diet Neuro - CAM ICU: Negative Peripheral neuropathy No other significant neurological deficits identified Cardiac - History of hypertension Home medications include: Midrin 3 times daily Florinef 0.1 p.o. daily End-stage renal disease with dialysis Thursday Nephrology consulted May consider stopping fludrocortisone and midodrine given elevated BP. Will defer to PCP. Respiratory - No hypoxia No adventitious breath sounds with auscultation No cough Continue to monitor GI - Report of hematemesis Hemoglobin remains stable Hemodynamically stable We will not consult GI at this time RENAL/LYTES - End-stage renal disease -will get dialysis tomorrow. Anion gap is closed. Patient is now eating. - No hematuria Urine outpatient is unchanged per patient ENDO - Hypothyroidism -continue levothyroxine End-stage renal disease as above HEME - Possible GI bleed with hematemesis outpatient in one episode in the ED Hemoglobin stable No further vomiting Nausea controlled Follow serial labs ID - No fever, chills, trend WBC. doubt osteomyelitis given lack of systemic symptoms. Paatient has f/u with ortho as an outpatient. DVT PROPHYLAXIS - No chemical prophylaxis pending further information on hematemesis ROBERTO hose SCDs as tolerated Total Time Total Time Spent Total Time Spent (In Minutes): 34 Total Time Includes: Examination of the Patient, Discharge Planning and Medication Reconciliation Discharge Plan Discharge Items Patient Disposition: Home - Self-Care Reason For Visit: GI BLEED, DKA Discharge Diagnosis: DKA Discharge Goals: Decrease discomfort Activity: Resume your previous activity Non-emergency contact: Primary Care Provider Call non-emergency contact if: you have any medication questions Follow-up/Referrals: Fiorella Vela MD [Primary Care Provider] - 04/27/19 11:30 am (Please, follow up at [facility] with Dr. Vela on ThursdayApril 27 at 11:30 am. *If you need to change this appointment, call the office at [phone].) Diet: Regular Addtl Provider Instructions: Followup with PCP in 1-2 weeks. fOLLOWUP WITH ortho in regards to foot. Prescriptions: Continued sevelamer carbonate 800 mg tablet 800 mg PO QAM RF: 0 thiamine HCl (vitamin B1) 250 mg tablet 250 mg PO QAM RF: 0 pyridoxine (vitamin B6) 100 mg tablet 100 mg PO QAM RF: 0 docusate sodium 100 mg capsule 100 mg PO Q3D RF: 0 levothyroxine 200 mcg Tablet 200 mcg PO QAM RF: 0 Lantus Solostar U-100 Insulin 100 unit/mL (3 mL) insulin pen 16 unit SUBCUT QAM RF: 0 atorvastatin 40 mg tablet 40 mg PO QPM RF: 0 venlafaxine 75 mg capsule,extended release 24hr 75 mg PO QAM RF: 0 tramadol 50 mg tablet 50 mg PO BID PRN (Reason: Pain) RF: 0 fludrocortisone 0.1 mg tablet 0.1 mg PO DAILY RF: 0 Novolog Flexpen U-100 Insulin 100 unit/mL (3 mL) Insulin Pen See Rx Instructions .ROUTE .COMPLEX RF: 0 folic acid 1 mg Tablet 1 mg PO QAM Qty: 30 RF: 0 labetalol 100 mg Tablet 100 mg PO BID Qty: 30 RF: 0 midodrine 2.5 mg Tablet 1.25 mg PO TID@0800,1200,1700 Qty: 90 RF: 0 furosemide 40 mg tablet 40 mg PO 2XWK RF: 0 venlafaxine 150 mg capsule,extended release 24hr 150 mg PO QAM RF: 0 Stand-Alone Forms: [facility] Discharge Orders: Discharge Order (Routine); Ordered 04/22/19 Ordered By: Jerome Craig Admission Data Admit Date/Time: 04/20/19 08:53 Attending Provider: Jerome Craig Admit Provider: Jerome Craig Primary Care Provider: Fiorella Vela Other Providers: Ada Gardner ; Loki Schroeder ; Jerome Craig Service: Medical Other Interventions: Discharge Summary Assessment (RN) Last Done: 04/22/19 12:30 DC Date/Time DO NOT enter until pt leaves facility: 04/22/19 15:09
== END 2019-04-22 15:09 | disposition home or self-care (01) | DRG 637 ==
LOC: ED 07:03 → 1E 08:53 → 2N 04-21 09:32

== ENCOUNTER 2019-04-28 00:41 | Inpatient (IN) ==
[2019-04-28] MEDS ORDERED: SODIUM CHLORIDE 0.9% 1000ML 1,000 ML IV ONE (00:59)
[2019-04-28] MEDS ORDERED: HYDROmorphone INJ 0.5 MG/0.5 ML SYR IV PRN (01:09)
[2019-04-28] MEDS ORDERED: ONDANSETRON INJ 2 MG/ML 2 ML VIAL IV STA (01:10)
[2019-04-28] MEDS ORDERED: SEVERE STRESS LEVEL ONE (01:11)
[2019-04-28] MEDS ORDERED: DKA GOAL RANGE 150-250 mg/dl ONE (01:11)
[2019-04-28 01:15] LABS: Basophils # (auto) 0.01 K/uL (0-0.2); Basophils % (auto) 0.1 %; Hematocrit (blood only) 32.4 % (37-47); Immature Granulocytes # (auto) 0.01 K/uL (0.00-0.02); Immature Granulocytes % (auto) 0.1 %; Lymphocytes # (auto) 0.57 K/uL (1.2-3.4); Lymphocytes % (auto) 6.3 %; Mean Platelet Volume 12.4 fL (7.4-10.4); Monocytes % (auto) 8.8 %; Neutrophils # (auto) 7.73 K/uL (1.4-6.5); Neutrophils % (auto) 84.7 %; Platelet Count 174 K/uL (130-400); RDW Standard Deviation 47.4 fL (36.4-46.3); Red Blood Count 3.24 M/uL (4.2-5.4); White Blood Count 9.12 K/uL (4.8-10.8)
[2019-04-28 01:22] LABS: iSTAT Creatinine 5.3 mg/dl (0.6-1.3); iSTAT Hemoglobin 11.2 g/dl (12.0-16.0); iSTAT Ionized Calcium 0.95 mmol/l (1.12-1.32); iSTAT Potassium 4.7 mEq/L (3.3-5.0)
[2019-04-28 01:26] LABS: INR 1.2 (0.9-1.1); Partial Thromboplastin Ratio 0.9; Partial Thromboplastin Time 25.6 Seconds (21.0-31.0); Prothrombin Time 12.2 Seconds (9.0-12.0)
[2019-04-28 01:41] LABS: HCO3 ABG 7 mmol/L (19-24); Oxygen Saturation ABG 98.7 % (90-95); PCO2 ABG 15 mmHg (35-46); PO2 ABG 133 mm/Hg (80-95); pH ABG 7.26 (7.35-7.45)
[2019-04-28 01:47] LABS: Allen Test POS (Pos)
[2019-04-28] MEDS ORDERED: GLUCAGON FOR INJ 1 MG VIAL IM PRN (02:00)
[2019-04-28] MEDS ORDERED: GLUCOSE 40% GEL 15 GM TUBE PO PRN (02:00)
[2019-04-28] MEDS ORDERED: CARBOHYDRATES FOR HYPOGLYCEMIA PO PRN (02:00)
[2019-04-28] MEDS ORDERED: GLUCOSE 10 TABS/TUBE PO PRN (02:00)
[2019-04-28] MEDS ORDERED: NovoLIN-R BOLUS FROM BAG IV ONE (02:00)
[2019-04-28 02:05] LABS: Alanine Aminotransferase 43 U/L (12-78); Albumin Globulin Ratio 0.9 (0.9-2); Albumin Level 3.1 gm/dl (3.4-5.0); Alkaline Phosphatase 191 U/L (45-117); Aspartate Aminotransferase 35 U/L (15-37); BUN Creatinine Ratio 10.5 (10-20); Bilirubin,Total 0.7 mg/dl (0.2-1); Blood Urea Nitrogen 54 mg/dl (7-18); Calcium 8.3 mg/dl (8.5-10.1); Carbon Dioxide 9 mmol/L (21-32); Chloride 93 mmol/L (98-107); Est GFR (African American) 9.8; Est GFR (Non-African American) 8.4; Globulin 3.4 gm/dl (2.5-4.0); Glucose 445 mg/dl (70-99); Potassium 4.7 mmol/L (3.5-5.1); Sodium 133 mmol/L (136-145); Total Protein 6.5 gm/dl (6.4-8.2)
[2019-04-28] MEDS: INSULIN REGULAR 250 UNITS in SODIUM CHLORIDE 0.9% 247.5 ML IV SCH ×2 (02:55→06:45)
[2019-04-28] MEDS: SODIUM BICARBONATE 8.4% 150 MEQ in DEXTROSE 5% 1,000 ML IV SCH ×2 (03:00→08:26)
[2019-04-28] MEDS ORDERED: SODIUM CHLORIDE 0.9% 1000ML 1,000 ML IV SCH (04:00)
[2019-04-28] MEDS ORDERED: D5NSS + 20MEQ KCL 1,000 ML IV SCH (04:00)
[2019-04-28] MEDS ORDERED: ICU PROTOCOL FOR HYPERGLYCEMIA PRN (04:00)
[2019-04-28 04:31] LABS: Hemoglobin 10.7 g/dL (12.0-16.0); Mean Corpuscular Hgb Conc 34.5 g/dL (32-36); Mean Corpuscular Volume 100.3 fL (80-100); Mean Platelet Volume 12.1 fL (7.4-10.4); Platelet Count 161 K/uL (130-400); RDW Coefficient of Variation 12.9 % (11.5-14.5); RDW Standard Deviation 46.8 fL (36.4-46.3); Red Blood Count 3.09 M/uL (4.2-5.4)
[2019-04-28 04:44] LABS: INR 1.2 (0.9-1.1); Partial Thromboplastin Time 26.8 Seconds (21.0-31.0); Prothrombin Time 12.5 Seconds (9.0-12.0)
--- NOTE | 2019-04-28 04:54 | Emergency Department Note ---
Entered by Jojo Gamble acting as a scribe for Luciano Arenas MD History of Present Illness General Chief complaint: Vomiting Stated complaint: VOMITING Source: patient History of Present Illness Onset (ago): day(s) (this evening) Location: chest Pain Consistency: + other (episode) Quality: + other (shortness of breath) Associated symptoms: + nausea/vomiting (vomiting) and + other (more lethargic) The patient is a 63 year old female who presents to the ED with complaints of an episode of shortness of breath starting this evening. The patient states that she has not been well for several weeks and has been in and out of the hospital because of it. She reports that tonight she has been short of breath and then started vomiting again. Per nursing staff, the patients complains of her being more lethargic. The patient denies missing any of her medications including her insulin. She notes that she get dialysis 3 days a week. Home Medications Home Medications Medication Instructions Recorded Confirmed Type furosemide 40 mg PO 2XWK 01/21/19 04/28/19 History venlafaxine 150 mg PO QAM 01/21/19 04/28/19 History Novolog Flexpen U-100 Insulin See Rx Instructions .ROUTE .COMPLEX 04/02/19 04/28/19 History atorvastatin 40 mg PO QPM 04/02/19 04/28/19 History fludrocortisone 0.1 mg PO DAILY 04/02/19 04/28/19 History tramadol 50 mg PO BID PRN 04/02/19 04/28/19 History venlafaxine 75 mg PO QAM 04/02/19 04/28/19 History folic acid 1 mg PO QAM #30 tab 04/08/19 04/28/19 Rx labetalol 100 mg PO BID #30 tab 04/08/19 04/28/19 Rx midodrine 1.25 mg PO TID@0800,1200,1700 #90 04/09/19 04/28/19 Rx tab Lantus Solostar U-100 Insulin 16 unit SUBCUT QAM 04/13/19 04/28/19 History docusate sodium 100 mg capsule 100 mg PO Q3D cap 04/13/19 04/28/19 History levothyroxine 200 mcg PO QAM 04/13/19 04/28/19 History pyridoxine (vitamin B6) 100 mg 100 mg PO QAM tab 04/13/19 04/28/19 History tablet sevelamer carbonate 800 mg tablet 800 mg PO QAM tab 04/13/19 04/28/19 History thiamine HCl (vitamin B1) 250 mg 250 mg PO QAM tab 04/13/19 04/28/19 History tablet Allergies Allergy/AdvReac Type Severity Reaction Status Date / Time orange juice Allergy Mild Rash Verified 04/28/19 01:16 ibuprofen Allergy Hives Verified 04/28/19 01:16 shellfish derived Allergy Hives Verified 04/28/19 01:16 strawberry Allergy ALL Verified 04/28/19 01:16 BERRIES --> Anaphylaxis tomato AdvReac Unknown Verified 04/28/19 01:16 Past Med/Surg History Medical History Diabetes mellitus type 1, uncontrolled (Acute) Diabetic peripheral neuropathy associated with type 1 diabetes mellitus (Acute) Dyslipidemia (Acute) Shawna's thyroiditis (Acute) Proliferative diabetic retinopathy associated with type 1 diabetes mellitus (Acute) DKA (diabetic ketoacidoses) (Acute) TREATED INPT AT [facility] 04/03/2019. THIS AM GLUCOSE 200. A-V fistula (Chronic) RIGHT ARM Chronic kidney disease (Chronic) Diabetes mellitus type 1 (Chronic) GERD (gastroesophageal reflux disease) (Chronic) Hemodialysis patient (Chronic) M,W,F @ [facility]) Anemia Anxiety Depression Hypertension Hypothyroidism Osteoarthritis Osteoporosis Surgical History History of appendectomy History of section History of cholecystectomy History of colonoscopy History of esophagogastroduodenoscopy (EGD) History of hysterectomy PIERCE WITH BSO History of open reduction and internal fixation (ORIF) procedure RIGHT HIP RIGHT WRIST LEFT ANKLE Family History Father Myocardial infarction acute Coronary heart disease Mother Myocardial infarction Coronary heart disease Sister Coronary heart disease Breast cancer Ovarian cancer Social History Preferred Language: Telugu Communication Ability: Effective Emission Specialist Required: No Beliefs That Will Affect Care: None Current Living Situation: Spouse Other Information That Helps Us Care for You: No Feels Safe at Home: Declines to Answer Smoking Status: Unknown if ever smoked Hx Alcohol Use: No Hx Substance Use: Yes substance use type: marijuana Last Used Substance: Unknown Last Used Substance Other:: reports uses monthly Review of Systems See HPI for pertinent positives & negatives. and A total of 10 systems reviewed and were otherwise negative Physical Exam Vital Signs Vital Signs - 24 hr 04/28/19 00:44 Temperature 36.5 C Temperature Source Oral Sepsis Recent Fever Within 48 Hours No Sepsis New/Unexplained Change in Mental Status No Sepsis Action Taken by Nursing No Action Required Pulse Rate 97 H Respiratory Rate 18 Blood Pressure 81/44 L Blood Pressure Mean 56 Pulse Oximetry 100 Oxygen Delivery Method Room Air GENERAL: Awake, alert, well-appearing, in no acute distress. Fruity odor. HENT: Normocephalic, atraumatic. Oropharynx unremarkable. EYES: Normal conjunctiva. Sclera non-icteric. NECK: Supple. No nuchal rigidity. FROM. No JVD. RESPIRATORY: Clear to auscultation. Rapid respirations. Kussmaul breathing. CARDIAC: Regular rate, normal rhythm. Extremities warm and well perfused. Pulses equal. ABDOMEN: Soft, non-distended. No tenderness to palpation. No rebound or guarding. No masses. RECTAL: Deferred. MUSCULOSKELETAL: Chest examination reveals no tenderness. The back is symmetrical on inspection without obvious abnormality. There is no CVA tenderness to palpation. No joint edema. LOWER EXTREMITIES: Calves are equal size bilaterally and non-tender. No edema. No discoloration. NEURO: Normal sensorium. No sensory or motor deficits noted. SKIN: No rash or jaundice noted. Course 0055: The patient was evaluated in room A2. A complete history and physical exam was performed. 0131: I discussed the patient's case with Dr. Lis FREDERICK Hospitalist. He will evaluate the patient for further management. 0213: I reevaluated the patient and updated her on her test results. I discussed the treatment plan with her. She verbally agrees and understands. Consultations Consultation #1: I discussed the patient's case with Dr. Lis FREDERICK Hospitalist. He will evaluate the patient for further management. Time: 01:31 Administered Medications Dextrose (Dextrose 50%) 25 - 50 ml IV UD PRN; Protocol PRN Reason: Hypoglycemia Protocol Stop: 05/28/19 01:59 Last Admin: 04/28/19 13:43 Dose: 25 ml Documented by: [id number] Heparin Sodium (Porcine) (Heparin Sodium (Porcine)) 5,000 units SQ Q12 DELFINO Stop: 05/28/19 08:59 Last Admin: 04/28/19 22:50 Dose: 5,000 units Documented by: [id number] Cosigned by: [id number] Admin: 04/28/19 09:36 Dose: 5,000 units Documented by: [id number] Cosigned by: [id number] Insulin Human Regular 250 (units/ Sodium Chloride) 250 mls @ 0.3 mls/hr IV .Q24H DELFINO; Protocol Stop: 05/28/19 01:14 Last Titration: 04/28/19 22:53 Dose: 0.3 units/hr, 0.3 mls/hr Documented by: [id number] Cosigned by: [id number] Titration: 04/28/19 20:26 Dose: 0.3 units/hr, 0.3 mls/hr Documented by: [id number] Cosigned by: [id number] Titration: 04/28/19 19:42 Dose: 0.3 units/hr, 0.3 mls/hr Documented by: [id number] Cosigned by: [id number] Titration: 04/28/19 17:15 Dose: 0.5 units/hr, 0.5 mls/hr Documented by: [id number] Cosigned by: [id number] Titration: 04/28/19 17:00 Dose: 0 units/hr, 0 mls/hr Documented by: [id number] Cosigned by: [id number] Titration: 04/28/19 16:45 Dose: 0 units/hr, 0 mls/hr Documented by: [id number] Cosigned by: [id number] Titration: 04/28/19 16:30 Dose: 0 units/hr, 0 mls/hr Documented by: [id number] Cosigned by: [id number] Titration: 04/28/19 16:15 Dose: 0 units/hr, 0 mls/hr Documented by: [id number] Cosigned by: [id number] Titration: 04/28/19 16:00 Dose: 0 units/hr, 0 mls/hr Documented by: [id number] Cosigned by: [id number] Titration: 04/28/19 15:00 Dose: 0.8 units/hr, 0.8 mls/hr Documented by: [id number] Cosigned by: [id number] Titration: 04/28/19 13:58 Dose: 1 units/hr, 1 mls/hr Documented by: [id number] Cosigned by: [id number] Titration: 04/28/19 13:35 Dose: 0 units/hr, 0 mls/hr Documented by: [id number] Cosigned by: [id number] Titration: 04/28/19 12:41 Dose: 1.7 units/hr, 1.7 mls/hr Documented by: [id number] Cosigned by: [id number] Titration: 04/28/19 11:45 Dose: 2.1 units/hr, 2.1 mls/hr Documented by: [id number] Cosigned by: [id number] Titration: 04/28/19 11:05 Dose: 2.1 units/hr, 2.1 mls/hr Documented by: [id number] Cosigned by: [id number] Titration: 04/28/19 10:35 Dose: 0 units/hr, 0 mls/hr Documented by: [id number] Cosigned by: [id number] Titration: 04/28/19 09:35 Dose: 3.5 units/hr, 3.5 mls/hr Documented by: [id number] Cosigned by: [id number] Titration: 04/28/19 08:35 Dose: 3.5 units/hr, 3.5 mls/hr Documented by: [id number] Cosigned by: [id number] Titration: 04/28/19 07:35 Dose: 3.5 units/hr, 3.5 mls/hr Documented by: [id number] Cosigned by: [id number] Titration: 04/28/19 06:56 Dose: 3.5 units/hr, 3.5 mls/hr Documented by: [id number] Cosigned by: [id number] Titration: 04/28/19 06:53 Dose: 3.5 units/hr, 3.5 mls/hr Documented by: [id number] Cosigned by: [id number] Admin: 04/28/19 06:45 Dose: Not Given Documented by: [id number] Titration: 04/28/19 06:35 Dose: 3.5 units/hr, 3.5 mls/hr Documented by: [id number] Cosigned by: [id number] Titration: 04/28/19 05:45 Dose: 3.5 units/hr, 3.5 mls/hr Documented by: [id number] Cosigned by: [id number] Titration: 04/28/19 04:35 Dose: 3.5 units/hr, 3.5 mls/hr Documented by: [id number] Cosigned by: [id number] Titration: 04/28/19 03:35 Dose: 2.9 units/hr, 2.9 mls/hr Documented by: [id number] Cosigned by: [id number] Admin: 04/28/19 02:55 Dose: 2.1 units/hr, 2.1 mls/hr Documented by: [id number] Cosigned by: [id number] Famotidine 20 mg/ Syringe 5 mls @ 2.5 mls/min IV Q12 DELFINO Stop: 05/28/19 08:59 Last Admin: 04/28/19 22:49 Dose: 2.5 mls/min Documented by: [id number] Admin: 04/28/19 09:36 Dose: 2.5 mls/min Documented by: [id number] Acetaminophen (Ofirmev) 1,000 mg in 100 mls @ 400 mls/hr IV Q8H PRN; Protocol PRN Reason: Pain or Fever Stop: 05/28/19 05:14 Last Infusion: 04/28/19 10:12 Dose: 0 mls/hr Documented by: [id number] Admin: 04/28/19 09:56 Dose: 400 mls/hr Documented by: [id number] Levothyroxine Sodium 100 mcg/ (Syringe) 5 mls @ 2 mls/min IV DAILY@0900 DELFINO Stop: 05/28/19 08:59 Last Admin: 04/28/19 09:40 Dose: 2 mls/min Documented by: [id number] Piperacillin Sod/Tazobactam (Sod 3.375 gm/ Dextrose) 115 mls @ 28.75 mls/hr IV Q12H DELFINO; Protocol Stop: 05/05/19 13:59 Last Admin: 04/28/19 19:41 Dose: 28.8 mls/hr Documented by: [id number] Insulin Aspart (Novolog Flexpen) 0 units SC [facility] Stop: 05/28/19 08:59 Last Admin: 04/28/19 20:27 Dose: Not Given Documented by: [id number] Cosigned by: [id number] Admin: 04/28/19 19:40 Dose: Not Given Documented by: [id number] Cosigned by: [id number] Admin: 04/28/19 14:02 Dose: Not Given Documented by: [id number] Cosigned by: [id number] Admin: 04/28/19 09:14 Dose: Not Given Documented by: [id number] Cosigned by: [id number] Metoprolol Tartrate (Lopressor) 5 mg IV Q4 [facility] Stop: 05/28/19 07:59 Last Admin: 04/28/19 19:41 Dose: 5 mg Documented by: [id number] Admin: 04/28/19 17:29 Dose: Not Given Documented by: [id number] Admin: 04/28/19 12:24 Dose: 5 mg Documented by: [id number] Admin: 04/28/19 08:03 Dose: 5 mg Documented by: [id number] Ondansetron HCl (Zofran) 4 mg IV Q6H PRN PRN Reason: Nausea Stop: 05/28/19 05:00 Last Admin: 04/28/19 09:56 Dose: 4 mg Documented by: [id number] Pantoprazole Sodium (Protonix) 40 mg PO QAM DELFINO Stop: 05/28/19 10:14 Last Admin: 04/28/19 10:33 Dose: Not Given Documented by: [id number] Discontinued Medications Sodium Chloride (Nss 1000ml) 1,000 mls @ 999 mls/hr IV .Q1H1M ONE Stop: 04/28/19 01:59 Last Infusion: 04/28/19 08:49 Dose: 0 mls/hr Documented by: [id number] Admin: 04/28/19 01:08 Dose: 999 mls/hr Documented by: [id number] Sodium Bicarbonate 150 meq/ (Dextrose) 1,150 mls @ 200 mls/hr IV .Q5H45M DELFINO Stop: 05/28/19 01:59 Last Infusion: 04/28/19 09:12 Dose: 0 mls/hr Documented by: [id number] Admin: 04/28/19 08:26 Dose: 200 mls/hr Documented by: [id number] Infusion: 04/28/19 08:26 Dose: 200 mls/hr Documented by: [id number] Admin: 04/28/19 03:00 Dose: 200 mls/hr Documented by: [id number] Daptomycin 500 mg/ Syringe 10 mls @ 0 mls/min IV TODAY@0515 [facility]; Protocol Stop: 04/28/19 06:00 Last Admin: 04/28/19 05:40 Dose: 5 mls/min Documented by: [id number] Piperacillin Sod/Tazobactam (Sod 4.5 gm/ Dextrose) 120 mls @ 200 mls/hr IV NOW ONE; Protocol Stop: 04/28/19 05:50 Last Infusion: 04/28/19 06:20 Dose: 0 mls/hr Documented by: [id number] Admin: 04/28/19 05:40 Dose: 200 mls/hr Documented by: [id number] Vancomycin HCl 1,000 mg/ (Sodium Chloride) 270 mls @ 125 mls/hr IV .AFTER HD COMPLETE ONE; Protocol Stop: 04/28/19 13:09 Last Infusion: 04/28/19 22:44 Dose: 0 mls/hr Documented by: [id number] Admin: 04/28/19 20:13 Dose: 125 mls/hr Documented by: [id number] Insulin Human Regular (Novolin R Bolus From Bag) 2 units IV ONE ONE Stop: 04/28/19 02:01 Last Admin: 04/28/19 04:45 Dose: Not Given Documented by: [id number] Melissaaneous (Insulin Protocol Dka Goal Range) 1 ea N/A ONE ONE Stop: 04/28/19 01:12 Last Admin: 04/28/19 08:49 Dose: Not Given Documented by: [id number] Peterson (Pending D5ns+20meq Kcl Ivf) 1 ea N/A Q2H DELFINO Stop: 05/28/19 04:44 Last Admin: 04/28/19 09:31 Dose: Not Given Documented by: [id number] Admin: 04/28/19 09:12 Dose: Not Given Documented by: [id number] Admin: 04/28/19 05:50 Dose: Not Given Documented by: [id number] Ondansetron HCl (Zofran) 4 mg IV NOW STA Stop: 04/28/19 01:11 Last Admin: 04/28/19 01:50 Dose: 4 mg Documented by: [id number] Medical Decision Making Differential Diagnosis Differential Diagnosis includes but is not limited to dehydration, stroke, anemia, hypoglycemia, hyponatremia, hypernatremia, urinary tract infection, pneumonia, bronchitis, sepsis, gastroenteritis, additional abdominal pathology, metabolic abnormalities and infections. Medical Records Attestation: I reviewed the patient's medical records. Home Medications Current Medication List: was personally reviewed by me Laboratory Data Attestation: I reviewed the patient's lab results. Result diagrams: 04/28/19 04:14 04/28/19 20:31 Lab Results 04/28/19 04/28/19 04/28/19 Range/Units 00:56 01:01 01:01 WBC 9.12 (4.8-10.8) K/uL RBC 3.24 L (4.2-5.4) M/uL Hgb 11.0 L (12.0-16.0) g/dL POC Hgb (12.0-16.0) g/dl Hct 32.4 L (37-47) % POC Hct (37-47) % MCV 100.0 (80-100) fL MCH 34.0 (25-34) pg MCHC 34.0 (32-36) g/dL RDW Std Deviation 47.4 H (36.4-46.3) fL RDW Coeff of Erica 13.0 (11.5-14.5) % Plt Count 174 (130-400) K/uL MPV 12.4 H (7.4-10.4) fL Immature Gran % (Auto) 0.1 % Neut % (Auto) 84.7 % Lymph % (Auto) 6.3 % [place] % (Auto) 8.8 % Eos % (Auto) 0.0 % Baso % (Auto) 0.1 % Immature Gran # (Auto) 0.01 (0.00-0.02) K/uL Neut # (Auto) 7.73 H (1.4-6.5) K/uL Lymph # (Auto) 0.57 L (1.2-3.4) K/uL [place] # (Auto) 0.80 H (0.11-0.59) K/uL Eos # (Auto) 0.00 (0-0.5) K/uL Baso # (Auto) 0.01 (0-0.2) K/uL PT 12.2 H (9.0-12.0) Seconds INR 1.2 H (0.9-1.1) APTT 25.6 (21.0-31.0) Seconds PTT Ratio 0.9 ABG pH (7.35-7.45) ABG pCO2 (35-46) mmHg ABG pO2 (80-95) mm/Hg ABG HCO3 (19-24) mmol/L ABG O2 Saturation (90-95) % ABG Base Excess (-9-1.8) mEq/L Ji Test (Pos) Barometric Pressure mm/Hg Oxygen Given POC Sodium (135-144) mEq/L Sodium (136-145) mmol/L POC Potassium (3.3-5.0) mEq/L Potassium (3.5-5.1) mmol/L POC Chloride (101-112) mEq/L Chloride (98-107) mmol/L Carbon Dioxide (21-32) mmol/L POC Total CO2 (24-31) mEq/l Anion Gap (3-11) POC Anion Gap (16-25) mmol/L POC BUN (7-18) mg/dl BUN (7-18) mg/dl Creatinine (0.6-1.2) mg/dl POC Creatinine (0.6-1.3) mg/dl Est Cr Clr Drug Dosing Est GFR ( Amer) Est GFR (Non-Af Amer) BUN/Creatinine Ratio (10-20) Glucose (70-99) mg/dl POC Glucose 401 H* (70-99) POC Glucose (other) (70-99) mg/dl POC Lactic Acid Nolberto (0.90-1.70) mmol/L Calcium (8.5-10.1) mg/dl POC Ioniz Calcium Aj (1.12-1.32) mmol/l Total Bilirubin (0.2-1) mg/dl AST (15-37) U/L ALT (12-78) U/L Alkaline Phosphatase (45-117) U/L Total Protein (6.4-8.2) gm/dl Albumin (3.4-5.0) gm/dl Globulin (2.5-4.0) gm/dl Albumin/Globulin Ratio (0.9-2) Beta-Hydroxybutyric Acd (0.2-2.81) mg/dl 04/28/19 04/28/19 04/28/19 Range/Units 01:01 01:06 01:09 WBC (4.8-10.8) K/uL RBC (4.2-5.4) M/uL Hgb (12.0-16.0) g/dL POC Hgb 11.2 L (12.0-16.0) g/dl Hct (37-47) % POC Hct 33 L (37-47) % MCV (80-100) fL MCH (25-34) pg MCHC (32-36) g/dL RDW Std Deviation (36.4-46.3) fL RDW Coeff of Erica (11.5-14.5) % Plt Count (130-400) K/uL MPV (7.4-10.4) fL Immature Gran % (Auto) % Neut % (Auto) % Lymph % (Auto) % [place] % (Auto) % Eos % (Auto) % Baso % (Auto) % Immature Gran # (Auto) (0.00-0.02) K/uL Neut # (Auto) (1.4-6.5) K/uL Lymph # (Auto) (1.2-3.4) K/uL [place] # (Auto) (0.11-0.59) K/uL Eos # (Auto) (0-0.5) K/uL Baso # (Auto) (0-0.2) K/uL PT (9.0-12.0) Seconds INR (0.9-1.1) APTT (21.0-31.0) Seconds PTT Ratio ABG pH (7.35-7.45) ABG pCO2 (35-46) mmHg ABG pO2 (80-95) mm/Hg ABG HCO3 (19-24) mmol/L ABG O2 Saturation (90-95) % ABG Base Excess (-9-1.8) mEq/L Ji Test (Pos) Barometric Pressure mm/Hg Oxygen Given POC Sodium 131 L (135-144) mEq/L Sodium 133 L (136-145) mmol/L POC Potassium 4.7 (3.3-5.0) mEq/L Potassium 4.7 (3.5-5.1) mmol/L POC Chloride 98 L (101-112) mEq/L Chloride 93 L (98-107) mmol/L Carbon Dioxide 9 L* (21-32) mmol/L POC Total CO2 10 L (24-31) mEq/l Anion Gap 31.0 H (3-11) POC Anion Gap 28.0 H (16-25) mmol/L POC BUN 49 H (7-18) mg/dl BUN 54 H (7-18) mg/dl Creatinine 5.12 H* (0.6-1.2) mg/dl POC Creatinine 5.3 H* (0.6-1.3) mg/dl Est Cr Clr Drug Dosing Not Reportable Est GFR ( Amer) 9.8 Est GFR (Non-Af Amer) 8.4 BUN/Creatinine Ratio 10.5 (10-20) Glucose 445 H* (70-99) mg/dl POC Glucose (70-99) POC Glucose (other) 456 H* (70-99) mg/dl POC Lactic Acid Nolberto 2.01 H (0.90-1.70) mmol/L Calcium 8.3 L (8.5-10.1) mg/dl POC Ioniz Calcium Aj 0.95 L (1.12-1.32) mmol/l Total Bilirubin 0.7 (0.2-1) mg/dl AST 35 (15-37) U/L ALT 43 (12-78) U/L Alkaline Phosphatase 191 H (45-117) U/L Total Protein 6.5 (6.4-8.2) gm/dl Albumin 3.1 L (3.4-5.0) gm/dl Globulin 3.4 (2.5-4.0) gm/dl Albumin/Globulin Ratio 0.9 (0.9-2) Beta-Hydroxybutyric Acd (0.2-2.81) mg/dl 04/28/19 Range/Units 01:27 WBC (4.8-10.8) K/uL RBC (4.2-5.4) M/uL Hgb (12.0-16.0) g/dL POC Hgb (12.0-16.0) g/dl Hct (37-47) % POC Hct (37-47) % MCV (80-100) fL MCH (25-34) pg MCHC (32-36) g/dL RDW Std Deviation (36.4-46.3) fL RDW Coeff of Erica (11.5-14.5) % Plt Count (130-400) K/uL MPV (7.4-10.4) fL Immature Gran % (Auto) % Neut % (Auto) % Lymph % (Auto) % [place] % (Auto) % Eos % (Auto) % Baso % (Auto) % Immature Gran # (Auto) (0.00-0.02) K/uL Neut # (Auto) (1.4-6.5) K/uL Lymph # (Auto) (1.2-3.4) K/uL [place] # (Auto) (0.11-0.59) K/uL Eos # (Auto) (0-0.5) K/uL Baso # (Auto) (0-0.2) K/uL PT (9.0-12.0) Seconds INR (0.9-1.1) APTT (21.0-31.0) Seconds PTT Ratio ABG pH 7.26 L (7.35-7.45) ABG pCO2 15 L (35-46) mmHg ABG pO2 133 H (80-95) mm/Hg ABG HCO3 7 L (19-24) mmol/L ABG O2 Saturation 98.7 H (90-95) % ABG Base Excess -18.2 L (-9-1.8) mEq/L Ji Test POS (Pos) Barometric Pressure 726.6 mm/Hg Oxygen Given ROOM AIR POC Sodium (135-144) mEq/L Sodium (136-145) mmol/L POC Potassium (3.3-5.0) mEq/L Potassium (3.5-5.1) mmol/L POC Chloride (101-112) mEq/L Chloride (98-107) mmol/L Carbon Dioxide (21-32) mmol/L POC Total CO2 (24-31) mEq/l Anion Gap (3-11) POC Anion Gap (16-25) mmol/L POC BUN (7-18) mg/dl BUN (7-18) mg/dl Creatinine (0.6-1.2) mg/dl POC Creatinine (0.6-1.3) mg/dl Est Cr Clr Drug Dosing Est GFR ( Amer) Est GFR (Non-Af Amer) BUN/Creatinine Ratio (10-20) Glucose (70-99) mg/dl POC Glucose (70-99) POC Glucose (other) (70-99) mg/dl POC Lactic Acid Nolberto (0.90-1.70) mmol/L Calcium (8.5-10.1) mg/dl POC Ioniz Calcium Aj (1.12-1.32) mmol/l Total Bilirubin (0.2-1) mg/dl AST (15-37) U/L ALT (12-78) U/L Alkaline Phosphatase (45-117) U/L Total Protein (6.4-8.2) gm/dl Albumin (3.4-5.0) gm/dl Globulin (2.5-4.0) gm/dl Albumin/Globulin Ratio (0.9-2) Beta-Hydroxybutyric Acd (0.2-2.81) mg/dl Imaging Data Attestation: I personally reviewed and interpreted this imaging study as follows: My Impression: 1 VIEW CHEST X-RAY: The results were interpreted by me. Pulmonary nodules are present that are chronic. There is no evidence of pneumonia, congestion, or pneumothorax. Blood Pressure Blood Pressure Findings: Elevated blood pressure Blood Pressure Disposition: further management by hospitalist MDM Narrative This is a [facility] downtime chart. This is a 63-year-old female who presents emergency department complaining of shortness of breath. The patient appears to be in DKA as she is having fruity breath. Based on this and IV was established, the patient is hypotensive and was given a normal saline bolus. She is on dialysis however does not appear to be volume overloaded. The patient's CO2 was found to be decreased. She was started on insulin drip. I did discuss the case with the hospitalist service who agreed to admit the patient. Patient was in agreement with the treatment plan. Patient was given Dilaudid for her pain here in the emergency department. Impression & Plan DKA (diabetic ketoacidoses) Critical Care Time I have personally spent greater than 30 minutes of critical care time in the direct management of this patient. This includes bedside care, interpretation of diagnostic studies, and testing, discussion with consultants, patient, and family members, and other required patient management activities. This 30 minutes is in excess of all separately billable procedures. Discharge Plan Visit Data *Final* Discharge Date/Time: 04/28/19 03:15 Chief Complaint: Vomiting Stated Complaint: VOMITING ED Provider: Luciano Arenas Discharge Problem: DKA (diabetic ketoacidoses) Patient Disposition: Being Evaluated by Hospitalist Discharge Problem: DKA (diabetic ketoacidoses) Qualifiers: Diabetes mellitus type: type 1 Diabetes mellitus complication detail: without coma Qualified Code(s): E10.10 - Type 1 diabetes mellitus with ketoacidosis without coma The scribe's documentation has been prepared under my direction and personally reviewed by me in its entirety. I confirm that the note above accurately reflects all work, treatment, procedures, and medical decision making performed by me.
[2019-04-28] MEDS ORDERED: MoRPHine SULFATE 2 MG/ML CARP IV PRN (05:01)
[2019-04-28 05:04] LABS: Basophilic Stippling 1+; Giant Platelets 1+; Immature Granulocytes # (auto) 0.02 K/uL (0.00-0.02); Immature Granulocytes % (auto) 0.2 %; Lymphocytes # (auto) 0.46 K/uL (1.2-3.4); Lymphocytes % (auto) 4.4 %; Monocytes # (auto) 0.98 K/uL (0.11-0.59); Monocytes % (auto) 9.3 %; Neutrophils # (auto) 9.04 K/uL (1.4-6.5); Neutrophils % (auto) 86.1 %; Toxic Vacuolation 1+
[2019-04-28 05:11] LABS: Amphetamines+Metham, Urine Neg (Neg); Barbiturates, Urine Neg (Neg); Benzodiazepine, Urine Neg (Neg); Cocaine, Urine Neg (Neg); MDMA (Ecstacy), Urine Pos (Neg); Methadone, Urine Neg (Neg); Opiate, Urine Neg (Neg); Phencyclidine, Urine Neg (Neg)
[2019-04-28 05:13] LABS: Albumin Globulin Ratio 0.9 (0.9-2); Albumin Level 2.8 gm/dl (3.4-5.0); Bilirubin Direct 0.1 mg/dl (0-0.2); Bilirubin,Total 0.6 mg/dl (0.2-1); Calcium 7.6 mg/dl (8.5-10.1); Creatinine Clr Calc Pharmacy 9.4 ml/min; Est GFR (African American) 9.6; Est GFR (Non-African American) 8.3; Globulin 3.1 gm/dl (2.5-4.0); Magnesium 2.5 mg/dl (1.8-2.4); Phosphorus 5.3 mg/dl (2.5-4.9); Potassium 4.2 mmol/L (3.5-5.1); Total Protein 5.9 gm/dl (6.4-8.2)
[2019-04-28] MEDS ORDERED: ACETAMINOPHEN 1,000 MG/100 ML VIAL IV PRN (05:15)
[2019-04-28] MEDS ORDERED: PIPERACILLIN/TAZOBACTAM 4.5 GM in DEXTROSE 5% 100 ML IV ONE (05:15)
[2019-04-28] MEDS ORDERED: DAPTOmycin 500 MG in SYRINGE 0 ML IV SCH (05:15)
--- NOTE | 2019-04-28 05:42 | History & Physical Report ---
Date of Service April 28, 2019 Assessment & Plan (1) Admitted to intensive care unit: Patient is admitted to the intensive care unit due to DKA and septic shock Present on Admission?: Yes (2) DKA (diabetic ketoacidoses): This is the third admission for DKA for the patient this month. Previous admissions: 04/03-04/09, and 04/20-04/22. Patient is not responsive at this time, and therefore not able to help determine reason for this increased frequency of infection. N.p.o. Pharmacy glycemic management consult. pH 7.26, PCO2 15, bicarb is 7 and PO2 is 133. Starting insulin drip per protocol for severe distress. Placed on D5 with 3 A of bicarbonate at 200 mils per hour. Check a BMP and magnesium level every 4 hours x 6 times. ABG every morning. CBC with differential and chemistry profile, magnesium level every morning. Empiric treatment with daptomycin IV and Zosyn IV. Follow cultures. Consulting site inspector. Present on Admission?: Yes (3) Hyperlipidemia LDL goal <70: Hold atorvastatin 40 mg in evening until taking p.o. Present on Admission?: Yes (4) End stage renal disease on dialysis: ESRD on HD, Thursday, Thursday and Thursday. Needs IV fluid rehydration at this point. We will consult nephrology Dr. Gardner Present on Admission?: Yes (5) Diabetes mellitus type 1: Present on Admission?: Yes (6) Hypothyroidism (acquired): On levothyroxine 200 mcg p.o. daily, will place on levothyroxine 100 mcg IV daily Present on Admission?: Yes (7) Hypertension: Hold oral medications. Every 4 hours with hold parameters placed on Lopressor 5 mg IV Present on Admission?: Yes (8) Orthostasis: Will resume midodrine when taking p.o. Present on Admission?: Yes History of Present Illness Chief Complaint: The patient presents to the emergency department in an altered mental state, and is not able to contribute to her HPI or review of systems. Primary Care Provider: Fiorella Vela MD The patient is a 63-year-old female with past medical history including ESRD on HD Thursday, Thursday and Thursday, with most recent hospital admissions from 04/03- 04/09 for DKA with gastroenteritis, and 04/20-04/22 was admitted to the intensive care unit with DKA and possible GI bleed. She is again diagnosed in the emergency department with DKA, and is being admitted to the ICU due to associated hypotension from septic shock. Allergies Allergy/AdvReac Type Severity Reaction Status Date / Time orange juice Allergy Mild Rash Verified 04/28/19 01:16 ibuprofen Allergy Hives Verified 04/28/19 01:16 shellfish derived Allergy Hives Verified 04/28/19 01:16 strawberry Allergy ALL Verified 04/28/19 01:16 BERRIES --> Anaphylaxis tomato AdvReac Unknown Verified 04/28/19 01:16 Home Medications Home Medications Medication Instructions Recorded Confirmed Type furosemide 40 mg PO 2XWK 01/21/19 04/28/19 History venlafaxine 150 mg PO QAM 01/21/19 04/28/19 History Novolog Flexpen U-100 Insulin See Rx Instructions .ROUTE .COMPLEX 04/02/19 04/28/19 History atorvastatin 40 mg PO QPM 04/02/19 04/28/19 History fludrocortisone 0.1 mg PO DAILY 04/02/19 04/28/19 History tramadol 50 mg PO BID PRN 04/02/19 04/28/19 History venlafaxine 75 mg PO QAM 04/02/19 04/28/19 History folic acid 1 mg PO QAM #30 tab 04/08/19 04/28/19 Rx labetalol 100 mg PO BID #30 tab 04/08/19 04/28/19 Rx midodrine 1.25 mg PO TID@0800,1200,1700 #90 04/09/19 04/28/19 Rx tab Lantus Solostar U-100 Insulin 16 unit SUBCUT QAM 04/13/19 04/28/19 History docusate sodium 100 mg capsule 100 mg PO Q3D cap 04/13/19 04/28/19 History levothyroxine 200 mcg PO QAM 04/13/19 04/28/19 History pyridoxine (vitamin B6) 100 mg 100 mg PO QAM tab 04/13/19 04/28/19 History tablet sevelamer carbonate 800 mg tablet 800 mg PO QAM tab 04/13/19 04/28/19 History thiamine HCl (vitamin B1) 250 mg 250 mg PO QAM tab 04/13/19 04/28/19 History tablet Past Med/Surg History Family History Father Myocardial infarction acute Coronary heart disease Mother Myocardial infarction Coronary heart disease Sister Coronary heart disease Breast cancer Ovarian cancer Social History Preferred Language: [place] Communication Ability: Effective Decator Operator Required: No Beliefs That Will Affect Care: None Current Living Situation: Spouse Other Information That Helps Us Care for You: No Feels Safe at Home: Declines to Answer Smoking Status: Unknown if ever smoked Hx Alcohol Use: No Hx Substance Use: Yes substance use type: marijuana Last Used Substance: Unknown Last Used Substance Other:: reports uses monthly Review of Systems Review of Systems: The patient's mental status is too altered to be able contribute to her HPI or review of systems. Physical Exam Physical Exam: The patient is nonresponsive, only moaning in a non-localizable pain, normocephalic and atraumatic, lying in bed and in mild to moderate distress as noted. HEENT--PERRL, EOMI, mucous membranes and oropharynx dry. Neck--supple. No JVD. No bruits. Thyroid normal, trachea midline, no adenopathy. Heart--normal S1 and S2. Systolic murmur. No rubs or gallops. Lungs--few scattered crackles bilaterally. No respiratory distress, no accessory muscle use. Abdomen--normal bowel sounds and soft. Nontender. Nondistended, no hernias or masses, no organomegaly. Extremities--no cyanosis or clubbing. No edema. There are good distal pulses b/l. Dermatologic--normal skin turgor, normal color, no abnormal lymph nodes, no rash. Neurologic--cranial nerves II through XII grossly intact. Rheumatologic--limited examination Psychiatric--nonresponsive Results & Data Vital Signs (Past 12 Hours) Vital Signs Temp Pulse Pulse Resp BP BP Pulse Ox 04/28/19 01:49 98 04/28/19 01:48 98 H 18 128/51 L 98 04/28/19 00:44 97.7 F 97 H 18 81/44 L 100 Laboratory Results Laboratory Results WBC 10.50 K/uL (4.8-10.8) 04/28/19 04:14 RBC 3.09 M/uL (4.2-5.4) L 04/28/19 04:14 Hgb 10.7 g/dL (12.0-16.0) L 04/28/19 04:14 POC Hgb 11.2 g/dl (12.0-16.0) L 04/28/19 01:09 Hct 31.0 % (37-47) L 04/28/19 04:14 POC Hct 33 % (37-47) L 04/28/19 01:09 MCV 100.3 fL (80-100) H 04/28/19 04:14 MCH 34.6 pg (25-34) H 04/28/19 04:14 MCHC 34.5 g/dL (32-36) 04/28/19 04:14 RDW Std Deviation 46.8 fL (36.4-46.3) H 04/28/19 04:14 RDW Coeff of Erica 12.9 % (11.5-14.5) 04/28/19 04:14 Plt Count 161 K/uL (130-400) 04/28/19 04:14 MPV 12.1 fL (7.4-10.4) H 04/28/19 04:14 Immature Gran % (Auto) 0.2 % 04/28/19 04:14 Neut % (Auto) 86.1 % 04/28/19 04:14 Lymph % (Auto) 4.4 % 04/28/19 04:14 Traill % (Auto) 9.3 % 04/28/19 04:14 Eos % (Auto) 0.0 % 04/28/19 04:14 Baso % (Auto) 0.0 % 04/28/19 04:14 Immature Gran # (Auto) 0.02 K/uL (0.00-0.02) 04/28/19 04:14 Neut # (Auto) 9.04 K/uL (1.4-6.5) H 04/28/19 04:14 Lymph # (Auto) 0.46 K/uL (1.2-3.4) L 04/28/19 04:14 Traill # (Auto) 0.98 K/uL (0.11-0.59) H 04/28/19 04:14 Eos # (Auto) 0.00 K/uL (0-0.5) 04/28/19 04:14 Baso # (Auto) 0.00 K/uL (0-0.2) 04/28/19 04:14 1+ 04/28/19 04:14 1+ 04/28/19 04:14 1+ 04/28/19 04:14 PT 12.5 Seconds (9.0-12.0) H 04/28/19 04:14 INR 1.2 (0.9-1.1) H 04/28/19 04:14 APTT 26.8 Seconds (21.0-31.0) 04/28/19 04:14 PTT Ratio 1.0 04/28/19 04:14 ABG pH 7.26 (7.35-7.45) L 04/28/19 01:27 ABG pCO2 15 mmHg (35-46) L 04/28/19 01:27 ABG pO2 133 mm/Hg (80-95) H 04/28/19 01:27 ABG HCO3 7 mmol/L (19-24) L 04/28/19 01:27 ABG O2 Saturation 98.7 % (90-95) H 04/28/19 01:27 ABG Base Excess -18.2 mEq/L (-9-1.8) L 04/28/19 01:27 POS (Pos) 04/28/19 01:27 Barometric Pressure 726.6 mm/Hg 04/28/19 01:27 Oxygen Given ROOM AIR 04/28/19 01:27 POC Sodium 131 mEq/L (135-144) L 04/28/19 01:09 Sodium 134 mmol/L (136-145) L 04/28/19 04:14 POC Potassium 4.7 mEq/L (3.3-5.0) 04/28/19 01:09 Potassium 4.2 mmol/L (3.5-5.1) 04/28/19 04:14 POC Chloride 98 mEq/L (101-112) L 04/28/19 01:09 Chloride 96 mmol/L (98-107) L 04/28/19 04:14 Carbon Dioxide 10 mmol/L (21-32) L 04/28/19 04:14 POC Total CO2 10 mEq/l (24-31) L 04/28/19 01:09 28.0 (3-11) H 04/28/19 04:14 POC Anion Gap 28.0 mmol/L (16-25) H 04/28/19 01:09 POC BUN 49 mg/dl (7-18) H 04/28/19 01:09 BUN 58 mg/dl (7-18) H 04/28/19 04:14 5.18 mg/dl (0.6-1.2) H* 04/28/19 04:14 POC Creatinine 5.3 mg/dl (0.6-1.3) H* 04/28/19 01:09 Est Cr Clr Drug Dosing 9.4 ml/min 04/28/19 04:14 Est GFR ( Amer) 9.6 04/28/19 04:14 Est GFR (Non-Af Amer) 8.3 04/28/19 04:14 11.0 (10-20) 04/28/19 04:14 Glucose 427 mg/dl (70-99) H* 04/28/19 04:14 POC Glucose 454 (70-99) H* 04/28/19 04:36 POC Glucose (other) 456 mg/dl (70-99) H* 04/28/19 01:09 POC Lactic Acid Nolberto 2.01 mmol/L (0.90-1.70) H 04/28/19 01:06 Calcium 7.6 mg/dl (8.5-10.1) L 04/28/19 04:14 POC Ioniz Calcium Aj 0.95 mmol/l (1.12-1.32) L 04/28/19 01:09 Phosphorus 5.3 mg/dl (2.5-4.9) H 04/28/19 04:14 Magnesium 2.5 mg/dl (1.8-2.4) H 04/28/19 04:14 0.6 mg/dl (0.2-1) 04/28/19 04:14 0.1 mg/dl (0-0.2) 04/28/19 04:14 AST 29 U/L (15-37) 04/28/19 04:14 ALT 44 U/L (12-78) 04/28/19 04:14 183 U/L (45-117) H 04/28/19 04:14 5.9 gm/dl (6.4-8.2) L 04/28/19 04:14 2.8 gm/dl (3.4-5.0) L 04/28/19 04:14 3.1 gm/dl (2.5-4.0) 04/28/19 04:14 0.9 (0.9-2) 04/28/19 04:14 131 U/L (73-393) 04/28/19 04:14 Beta-Hydroxybutyric Acd mg/dl (0.2-2.81) 04/28/19 01:01 Neg (Neg) 04/28/19 04:30 Ur Methadone, Qual Neg (Neg) 04/28/19 04:30 Neg (Neg) 04/28/19 04:30 Ur Phencyclidine (PCP) Neg (Neg) 04/28/19 04:30 U Amphetamin/Meth Scrn Neg (Neg) 04/28/19 04:30 Pos (Neg) H 04/28/19 04:30 U Benzodiazepines Scrn Neg (Neg) 04/28/19 04:30 Ur Cocaine Metabolite Neg (Neg) 04/28/19 04:30 U Marijuana (THC) Screen Pos (Neg) H 04/28/19 04:30 Code Status & VTE Plan Code Status Full code VTE Prophylaxis Plan VTE Prophylaxis will be ordered: Yes Critical Care Time Critical Care Time: Yes Total Critical Care Time: 50 Prolonged Care Time Total Time: Total critical care time was 50 minutes (1) DKA (diabetic ketoacidoses) Diabetes mellitus complication detail: without coma Diabetes mellitus type: type 1 Qualified Code(s): E10.10 - Type 1 diabetes mellitus with ketoacidosis without coma
[2019-04-28] MEDS: PENDING D5NS+20mEq KCL IVF SCH ×3 (05:50→09:31)
[2019-04-28 06:02] LABS: iSTAT Allen Test Pass; iSTAT Arterial Blood Gas HCO3 12 meg/L (19-24); iSTAT Carbon Dioxide 12 mEq/l (24-31); iSTAT Site L Radial
--- NOTE | 2019-04-28 06:28 | XRay Report ---
XR chest 1V portable CLINICAL HISTORY: Sepsis dyspnea COMPARISON STUDY: 04/20/2019 FINDINGS: Diffuse chronic granulomatous change. Lungs are clear. Diaphragms smooth. Calcification glenys ral annulus unchanged. IMPRESSION: Chronic granulomatous change. No acute process. The above report was generated using voice recognition software. It may contain grammatical, syntax or spelling errors. Electronically signed by: Bryon Mooney M.D. 04/28/2019 6:26 AM
[2019-04-28 06:52] LABS: Beta-Hydroxybutyrate 118.07 mg/dl (0.2-2.81)
[2019-04-28] MEDS ORDERED: DAPTOMYCIN CONSULT ACTIVE PRN (07:05)
[2019-04-28] MEDS ORDERED: PIPERACILL/TAZOBAC CONSULT ACTIVE PRN (07:06)
[2019-04-28] MEDS: METOPROLOL TARTRATE 1 MG/ML VIAL IV SCH ×4 (08:03→19:41)
[2019-04-28 08:44] LABS: BUN Creatinine Ratio 10.6 (10-20); Calcium 7.6 mg/dl (8.5-10.1); Creatinine Clr Calc Pharmacy 9.3 ml/min; Est GFR (African American) 9.5; Est GFR (Non-African American) 8.2; Magnesium 2.5 mg/dl (1.8-2.4); Potassium 3.7 mmol/L (3.5-5.1)
[2019-04-28] MEDS ORDERED: INSULIN ASPART 100 UNITS/ML 3 ML PEN SC SCH (09:00)
[2019-04-28 09:07] LABS: Beta-Hydroxybutyrate 39.85 mg/dl (0.2-2.81)
[2019-04-28] MEDS: INSULIN ASPART 100 UNITS/ML 3 ML PEN SC SCH ×4 (09:14→20:27)
[2019-04-28] MEDS ORDERED: SODIUM CHLORIDE 0.9% 1000ML 1,000 ML IV PRN (09:15)
[2019-04-28] MEDS: HEPARIN SOD 5,000 UNIT/0.5 ML VIAL SQ SCH ×2 (09:36→22:50)
[2019-04-28] MEDS: FAMOTIDINE 20 MG in SYRINGE 3 ML IV SCH ×2 (09:36→22:49)
[2019-04-28] MEDS: LEVOTHYROXINE SODIUM 100 MCG in SYRINGE 0 ML IV SCH (09:40)
--- NOTE | 2019-04-28 09:45 | Nephrology Consultation ---
Date of Consultation April 28, 2019 Assessment & Plan (1) Admitted to intensive care unit: -- 30 minutes of critical care time provided today (2) DKA (diabetic ketoacidoses): -- Insulin gtt and D5 infusing (3) End stage renal disease on dialysis: -- HD orders entered into chart -- UF goal 3 L -- AVF with good thrill and bruit -- Emergent HD arranged: HCO3 infusion may be stopped (4) Diabetes mellitus type 1: (5) Hypertension: -- Midodrine and fludrocortisone held -- Home antihypertensives restarted with additional labetalol prn provided for accelerated HTN (6) Orthostasis: -- Medical therapy held while BP accelerated History of Present Illness Reason for Consultation: ESRD on HD Requesting Physician: Doyle Ferraro DO Attending Physician: Doyle Ferraro DO History of Present Illness Mrs. Shanda Conner is a 63-year-old female with diabetes mellitus type 1, depression, Charcot joint of left foot, diabetic neuropathy, hypothyroidism, Shawna's thyroiditis, diabetic retinopathy, frequent falls, hypertension, GERD, orthostatic hypotension from presumed autonomic insufficiency, and dyslipidemia. She is on MWF HD at [facility] under the care of Dr. Gardner. Shanda dialyzes via a right upper extremity AVF. Her last outpatient HD treatment was on 04/18. Shanda missed her scheduled treatment this past Thursday. She told staff at the HD unit that she was at [facility]. She missed HD yesterday and presented to the ED at [facility]. Shanda presented to the ED yesterday with mental status changes. She was brought to the ED by her . The patient was not able to provide any medical history this morning. She remains significantly altered. She has not fevers. This is Shanda's 3rd admission to [facility] this month. She was admitted 04/03-04/09 with DKA. Shanda was admitted 04/20-04/22 with upper GI bleed. During her most recent admission, there was no observed persistent evidence of GI bleed and GI evaluation was deferred. Shanda's prior hospital courses are notable for accelerated hypertension and significant hyperglycemia on admission. She had persistent orthostatic hy potension when midodrine and fludrocortisone were held. Allergies Allergy/AdvReac Type Severity Reaction Status Date / Time orange juice Allergy Mild Rash Verified 04/28/19 01:16 ibuprofen Allergy Hives Verified 04/28/19 01:16 shellfish derived Allergy Hives Verified 04/28/19 01:16 strawberry Allergy ALL Verified 04/28/19 01:16 BERRIES --> Anaphylaxis tomato AdvReac Unknown Verified 04/28/19 01:16 Home Medications Home Medications Medication Instructions Recorded Confirmed Type furosemide 40 mg PO 2XWK 01/21/19 04/28/19 History venlafaxine 150 mg PO QAM 01/21/19 04/28/19 History Novolog Flexpen U-100 Insulin See Rx Instructions .ROUTE .COMPLEX 04/02/19 04/28/19 History atorvastatin 40 mg PO QPM 04/02/19 04/28/19 History fludrocortisone 0.1 mg PO DAILY 04/02/19 04/28/19 History tramadol 50 mg PO BID PRN 04/02/19 04/28/19 History venlafaxine 75 mg PO QAM 04/02/19 04/28/19 History folic acid 1 mg PO QAM #30 tab 04/08/19 04/28/19 Rx labetalol 100 mg PO BID #30 tab 04/08/19 04/28/19 Rx midodrine 1.25 mg PO TID@0800,1200,1700 #90 04/09/19 04/28/19 Rx tab Lantus Solostar U-100 Insulin 16 unit SUBCUT QAM 04/13/19 04/28/19 History docusate sodium 100 mg capsule 100 mg PO Q3D cap 04/13/19 04/28/19 History levothyroxine 200 mcg PO QAM 04/13/19 04/28/19 History pyridoxine (vitamin B6) 100 mg 100 mg PO QAM tab 04/13/19 04/28/19 History tablet sevelamer carbonate 800 mg tablet 800 mg PO QAM tab 04/13/19 04/28/19 History thiamine HCl (vitamin B1) 250 mg 250 mg PO QAM tab 04/13/19 04/28/19 History tablet Patient History Medical History Diabetes mellitus type 1, uncontrolled (Acute) Diabetic peripheral neuropathy associated with type 1 diabetes mellitus (Acute) Dyslipidemia (Acute) Shawna's thyroiditis (Acute) Proliferative diabetic retinopathy associated with type 1 diabetes mellitus (Acute) DKA (diabetic ketoacidoses) (Acute) TREATED INPT AT [facility] 04/03/2019. THIS AM GLUCOSE 200. A-V fistula (Chronic) RIGHT ARM Chronic kidney disease (Chronic) Diabetes mellitus type 1 (Chronic) GERD (gastroesophageal reflux disease) (Chronic) Hemodialysis patient (Chronic) M,W,F @ [facility] Anemia Anxiety Depression Hypertension Hypothyroidism Osteoarthritis Osteoporosis Surgical History History of appendectomy History of section History of cholecystectomy History of colonoscopy History of esophagogastroduodenoscopy (EGD) History of hysterectomy PIERCE WITH BSO History of open reduction and internal fixation (ORIF) procedure RIGHT HIP RIGHT WRIST LEFT ANKLE Family History Father Myocardial infarction acute Coronary heart disease Mother Myocardial infarction Coronary heart disease Sister Coronary heart disease Breast cancer Ovarian cancer Social History Preferred Language: Frisian Communication Ability: Effective Chemistry Technical Officer Required: No Beliefs That Will Affect Care: None Current Living Situation: Spouse Other Information That Helps Us Care for You: No Feels Safe at Home: Declines to Answer Smoking Status: Unknown if ever smoked Hx Alcohol Use: No Hx Substance Use: Yes substance use type: marijuana Last Used Substance: Unknown Last Used Substance Other:: reports uses monthly Review of Systems Review of Systems: Unobtainable due to cognitive status Physical Exam Constitutional: well developed, + ill appearing and + altered mental status Eyes: + pinpoint pupils; no scleral abnormality and no corneal abnormality ENMT: Mouth: no oral mucosal abnormality and oral mucous membranes not dry Neck: normal visual inspection and trachea midline Respiratory: normal respiratory effort Auscultation: lungs clear to auscultation bilaterally Cardiovascular: Heart Sounds: normal S1, normal S2 and + murmur Extremities: + AV fistula; no edema Gastrointestinal (Abdomen): Percussion/Palpation: abdomen soft; abdomen nontender Musculoskeletal: Extremities: no cyanosis and no clubbing Skin: normal turgor; no rashes Neurologic: Motor/Sensory: no tremor and no asterixis Psychiatric: Orientation: alert awake, does not answer questions appropriately, slow to respond Results & Data Vital Signs (Past 12 Hours) Vital Signs Temp Pulse Pulse Pulse Resp BP BP 04/28/19 09:00 93 H 20 178/83 H 04/28/19 08:15 85 18 157/67 H 04/28/19 08:03 104 H 185/74 H 04/28/19 08:00 36.8 C 105 H 18 185/74 H 04/28/19 07:00 100 H 16 174/70 H 04/28/19 06:49 99 H 04/28/19 06:00 102 H 21 177/73 H 04/28/19 05:00 106 H 22 172/78 H 04/28/19 04:00 106 H 23 202/95 H 04/28/19 03:30 108 H 24 04/28/19 03:01 104 H 25 H 04/28/19 03:00 36.6 C 103 H 103 H 23 144/46 H 138/50 L 04/28/19 02:57 104 H 23 138/50 L 04/28/19 01:49 04/28/19 01:48 98 H 18 128/51 L 04/28/19 00:44 36.5 C 97 H 18 81/44 L Pulse Ox 04/28/19 09:00 99 04/28/19 08:15 99 04/28/19 08:03 04/28/19 08:00 98 04/28/19 07:00 99 04/28/19 06:49 04/28/19 06:00 99 04/28/19 05:00 100 04/28/19 04:00 100 04/28/19 03:30 100 04/28/19 03:01 100 04/28/19 03:00 100 04/28/19 02:57 100 04/28/19 01:49 98 04/28/19 01:48 98 04/28/19 00:44 100 Laboratory Results Laboratory Results - last 24 hr 04/28/19 04/28/19 04/28/19 00:56 01:01 01:01 WBC 9.12 RBC 3.24 L Hgb 11.0 L POC Hgb Hct 32.4 L POC Hct MCV 100.0 MCH 34.0 MCHC 34.0 RDW Std Deviation 47.4 H RDW Coeff of Erica 13.0 Plt Count 174 MPV 12.4 H Immature Gran % (Auto) 0.1 Neut % (Auto) 84.7 Lymph % (Auto) 6.3 Mccone % (Auto) 8.8 Eos % (Auto) 0.0 Baso % (Auto) 0.1 Immature Gran # (Auto) 0.01 Neut # (Auto) 7.73 H Lymph # (Auto) 0.57 L Mccone # (Auto) 0.80 H Eos # (Auto) 0.00 Baso # (Auto) 0.01 Toxic Vacuolation Giant Platelets Basophilic Stippling PT 12.2 H INR 1.2 H APTT 25.6 PTT Ratio 0.9 Sample Site POC pH POC pCO2 POC pO2 POC HCO3 POC Base Excess ABG pH ABG pCO2 ABG pO2 ABG HCO3 POC ABG O2 Sat ABG O2 Saturation ABG Base Excess Ji Test Barometric Pressure Oxygen Given O2 Delivery Device POC Sodium Sodium POC Potassium Potassium POC Chloride Chloride Carbon Dioxide POC Total CO2 Anion Gap POC Anion Gap POC BUN BUN Creatinine POC Creatinine Est Cr Clr Drug Dosing Est GFR ( Amer) Est GFR (Non-Af Amer) BUN/Creatinine Ratio Glucose POC Glucose 401 H* POC Glucose (other) POC Lactic Acid Nolberto Calcium POC Ioniz Calcium Aj Phosphorus Magnesium Total Bilirubin Direct Bilirubin AST ALT Alkaline Phosphatase Total Protein Albumin Globulin Albumin/Globulin Ratio Lipase Beta-Hydroxybutyric Acd Nasal Screen MRSA (PCR) Urine Opiates Screen Ur Methadone, Qual Urine Barbiturates Ur Phencyclidine (PCP) U Amphetamin/Meth Scrn MDMA (Ecstasy) Screen U MDMA (Ecstasy), Quant U Benzodiazepines Scrn Ur Cocaine Metabolite U Marijuana (THC) Screen U Marijuana THC Carboxy 04/28/19 04/28/19 04/28/19 01:01 01:06 01:09 WBC RBC Hgb POC Hgb 11.2 L Hct POC Hct 33 L MCV MCH MCHC RDW Std Deviation RDW Coeff of Erica Plt Count MPV Immature Gran % (Auto) Neut % (Auto) Lymph % (Auto) Mccone % (Auto) Eos % (Auto) Baso % (Auto) Immature Gran # (Auto) Neut # (Auto) Lymph # (Auto) Mccone # (Auto) Eos # (Auto) Baso # (Auto) Toxic Vacuolation Giant Platelets Basophilic Stippling PT INR APTT PTT Ratio Sample Site POC pH POC pCO2 POC pO2 POC HCO3 POC Base Excess ABG pH ABG pCO2 ABG pO2 ABG HCO3 POC ABG O2 Sat ABG O2 Saturation ABG Base Excess Ji Test Barometric Pressure Oxygen Given O2 Delivery Device POC Sodium 131 L Sodium 133 L POC Potassium 4.7 Potassium 4.7 POC Chloride 98 L Chloride 93 L Carbon Dioxide 9 L* POC Total CO2 10 L Anion Gap 31.0 H POC Anion Gap 28.0 H POC BUN 49 H BUN 54 H Creatinine 5.12 H* POC Creatinine 5.3 H* Est Cr Clr Drug Dosing Not Reportable Est GFR ( Amer) 9.8 Est GFR (Non-Af Amer) 8.4 BUN/Creatinine Ratio 10.5 Glucose 445 H* POC Glucose POC Glucose (other) 456 H* POC Lactic Acid Nolberto 2.01 H Calcium 8.3 L POC Ioniz Calcium Aj 0.95 L Phosphorus Magnesium Total Bilirubin 0.7 Direct Bilirubin AST 35 ALT 43 Alkaline Phosphatase 191 H Total Protein 6.5 Albumin 3.1 L Globulin 3.4 Albumin/Globulin Ratio 0.9 Lipase Beta-Hydroxybutyric Acd Nasal Screen MRSA (PCR) Urine Opiates Screen Ur Methadone, Qual Urine Barbiturates Ur Phencyclidine (PCP) U Amphetamin/Meth Scrn MDMA (Ecstasy) Screen U MDMA (Ecstasy), Quant U Benzodiazepines Scrn Ur Cocaine Metabolite U Marijuana (THC) Screen U Marijuana THC Carboxy 04/28/19 04/28/19 04/28/19 01:27 02:30 03:37 WBC RBC Hgb POC Hgb Hct POC Hct MCV MCH MCHC RDW Std Deviation RDW Coeff of Erica Plt Count MPV Immature Gran % (Auto) Neut % (Auto) Lymph % (Auto) Mccone % (Auto) Eos % (Auto) Baso % (Auto) Immature Gran # (Auto) Neut # (Auto) Lymph # (Auto) Mccone # (Auto) Eos # (Auto) Baso # (Auto) Toxic Vacuolation Giant Platelets Basophilic Stippling PT INR APTT PTT Ratio Sample Site POC pH POC pCO2 POC pO2 POC HCO3 POC Base Excess ABG pH 7.26 L ABG pCO2 15 L ABG pO2 133 H ABG HCO3 7 L POC ABG O2 Sat ABG O2 Saturation 98.7 H ABG Base Excess -18.2 L Ji Test POS Barometric Pressure 726.6 Oxygen Given ROOM AIR O2 Delivery Device POC Sodium Sodium POC Potassium Potassium POC Chloride Chloride Carbon Dioxide POC Total CO2 Anion Gap POC Anion Gap POC BUN BUN Creatinine POC Creatinine Est Cr Clr Drug Dosing Est GFR ( Amer) Est GFR (Non-Af Amer) BUN/Creatinine Ratio Glucose POC Glucose 467 H* POC Glucose (other) POC Lactic Acid Nolberto Calcium POC Ioniz Calcium Aj Phosphorus Magnesium Total Bilirubin Direct Bilirubin AST ALT Alkaline Phosphatase Total Protein Albumin Globulin Albumin/Globulin Ratio Lipase Beta-Hydroxybutyric Acd Nasal Screen MRSA (PCR) Negative Urine Opiates Screen Ur Methadone, Qual Urine Barbiturates Ur Phencyclidine (PCP) U Amphetamin/Meth Scrn MDMA (Ecstasy) Screen U MDMA (Ecstasy), Quant U Benzodiazepines Scrn Ur Cocaine Metabolite U Marijuana (THC) Screen U Marijuana THC Carboxy 04/28/19 04/28/19 04/28/19 04:14 04:14 04:14 WBC 10.50 RBC 3.09 L Hgb 10.7 L POC Hgb Hct 31.0 L POC Hct MCV 100.3 H MCH 34.6 H MCHC 34.5 RDW Std Deviation 46.8 H RDW Coeff of Erica 12.9 Plt Count 161 MPV 12.1 H Immature Gran % (Auto) 0.2 Neut % (Auto) 86.1 Lymph % (Auto) 4.4 Mccone % (Auto) 9.3 Eos % (Auto) 0.0 Baso % (Auto) 0.0 Immature Gran # (Auto) 0.02 Neut # (Auto) 9.04 H Lymph # (Auto) 0.46 L Mccone # (Auto) 0.98 H Eos # (Auto) 0.00 Baso # (Auto) 0.00 Toxic Vacuolation 1+ Giant Platelets 1+ Basophilic Stippling 1+ PT 12.5 H INR 1.2 H APTT 26.8 PTT Ratio 1.0 Sample Site POC pH POC pCO2 POC pO2 POC HCO3 POC Base Excess ABG pH ABG pCO2 ABG pO2 ABG HCO3 POC ABG O2 Sat ABG O2 Saturation ABG Base Excess Ji Test Barometric Pressure Oxygen Given O2 Delivery Device POC Sodium Sodium 134 L POC Potassium Potassium 4.2 POC Chloride Chloride 96 L Carbon Dioxide 10 L POC Total CO2 Anion Gap 28.0 H POC Anion Gap POC BUN BUN 58 H Creatinine 5.18 H* POC Creatinine Est Cr Clr Drug Dosing 9.4 Est GFR ( Amer) 9.6 Est GFR (Non-Af Amer) 8.3 BUN/Creatinine Ratio 11.0 Glucose 427 H* POC Glucose POC Glucose (other) POC Lactic Acid Nolberto Calcium 7.6 L POC Ioniz Calcium Aj Phosphorus 5.3 H Magnesium 2.5 H Total Bilirubin 0.6 Direct Bilirubin 0.1 AST 29 ALT 44 Alkaline Phosphatase 183 H Total Protein 5.9 L Albumin 2.8 L Globulin 3.1 Albumin/Globulin Ratio 0.9 Lipase 131 Beta-Hydroxybutyric Acd 118.07 H Nasal Screen MRSA (PCR) Urine Opiates Screen Ur Methadone, Qual Urine Barbiturates Ur Phencyclidine (PCP) U Amphetamin/Meth Scrn MDMA (Ecstasy) Screen U MDMA (Ecstasy), Quant U Benzodiazepines Scrn Ur Cocaine Metabolite U Marijuana (THC) Screen U Marijuana THC Carboxy 04/28/19 04/28/19 04/28/19 04:30 04:30 04:30 WBC RBC Hgb POC Hgb Hct POC Hct MCV MCH MCHC RDW Std Deviation RDW Coeff of Erica Plt Count MPV Immature Gran % (Auto) Neut % (Auto) Lymph % (Auto) Mccone % (Auto) Eos % (Auto) Baso % (Auto) Immature Gran # (Auto) Neut # (Auto) Lymph # (Auto) Mccone # (Auto) Eos # (Auto) Baso # (Auto) Toxic Vacuolation Giant Platelets Basophilic Stippling PT INR APTT PTT Ratio Sample Site POC pH POC pCO2 POC pO2 POC HCO3 POC Base Excess ABG pH ABG pCO2 ABG pO2 ABG HCO3 POC ABG O2 Sat ABG O2 Saturation ABG Base Excess Ji Test Barometric Pressure Oxygen Given O2 Delivery Device POC Sodium Sodium POC Potassium Potassium POC Chloride Chloride Carbon Dioxide POC Total CO2 Anion Gap POC Anion Gap POC BUN BUN Creatinine POC Creatinine Est Cr Clr Drug Dosing Est GFR ( Amer) Est GFR (Non-Af Amer) BUN/Creatinine Ratio Glucose POC Glucose POC Glucose (other) POC Lactic Acid Nolberto Calcium POC Ioniz Calcium Aj Phosphorus Magnesium Total Bilirubin Direct Bilirubin AST ALT Alkaline Phosphatase Total Protein Albumin Globulin Albumin/Globulin Ratio Lipase Beta-Hydroxybutyric Acd Nasal Screen MRSA (PCR) Urine Opiates Screen Neg Ur Methadone, Qual Neg Urine Barbiturates Neg Ur Phencyclidine (PCP) Neg U Amphetamin/Meth Scrn Neg MDMA (Ecstasy) Screen Pos H U MDMA (Ecstasy), Quant Pending U Benzodiazepines Scrn Neg Ur Cocaine Metabolite Neg U Marijuana (THC) Screen Pos H U Marijuana THC Carboxy Pending 04/28/19 04/28/19 04/28/19 04:36 05:43 05:49 WBC RBC Hgb POC Hgb Hct POC Hct MCV MCH MCHC RDW Std Deviation RDW Coeff of Erica Plt Count MPV Immature Gran % (Auto) Neut % (Auto) Lymph % (Auto) Mccone % (Auto) Eos % (Auto) Baso % (Auto) Immature Gran # (Auto) Neut # (Auto) Lymph # (Auto) Mccone # (Auto) Eos # (Auto) Baso # (Auto) Toxic Vacuolation Giant Platelets Basophilic Stippling PT INR APTT PTT Ratio Sample Site L Radial POC pH Pending POC pCO2 Pending POC pO2 Pending POC HCO3 12 L POC Base Excess -14.0 L ABG pH ABG pCO2 ABG pO2 ABG HCO3 POC ABG O2 Sat 98.0 H ABG O2 Saturation ABG Base Excess Ji Test Pass Barometric Pressure Oxygen Given O2 Delivery Device Room Air POC Sodium Sodium POC Potassium Potassium POC Chloride Chloride Carbon Dioxide POC Total CO2 12 L Anion Gap POC Anion Gap POC BUN BUN Creatinine POC Creatinine Est Cr Clr Drug Dosing Est GFR ( Amer) Est GFR (Non-Af Amer) BUN/Creatinine Ratio Glucose POC Glucose 454 H* 368 H* POC Glucose (other) POC Lactic Acid Nolberto Calcium POC Ioniz Calcium Aj Phosphorus Magnesium Total Bilirubin Direct Bilirubin AST ALT Alkaline Phosphatase Total Protein Albumin Globulin Albumin/Globulin Ratio Lipase Beta-Hydroxybutyric Acd Nasal Screen MRSA (PCR) Urine Opiates Screen Ur Methadone, Qual Urine Barbiturates Ur Phencyclidine (PCP) U Amphetamin/Meth Scrn MDMA (Ecstasy) Screen U MDMA (Ecstasy), Quant U Benzodiazepines Scrn Ur Cocaine Metabolite U Marijuana (THC) Screen U Marijuana THC Carboxy 04/28/19 04/28/19 04/28/19 06:34 07:37 07:55 WBC RBC Hgb POC Hgb Hct POC Hct MCV MCH MCHC RDW Std Deviation RDW Coeff of Erica Plt Count MPV Immature Gran % (Auto) Neut % (Auto) Lymph % (Auto) Mccone % (Auto) Eos % (Auto) Baso % (Auto) Immature Gran # (Auto) Neut # (Auto) Lymph # (Auto) Mccone # (Auto) Eos # (Auto) Baso # (Auto) Toxic Vacuolation Giant Platelets Basophilic Stippling PT INR APTT PTT Ratio Sample Site POC pH POC pCO2 POC pO2 POC HCO3 POC Base Excess ABG pH ABG pCO2 ABG pO2 ABG HCO3 POC ABG O2 Sat ABG O2 Saturation ABG Base Excess Ji Test Barometric Pressure Oxygen Given O2 Delivery Device POC Sodium Sodium 136 POC Potassium Potassium 3.7 POC Chloride Chloride 98 Carbon Dioxide 19 L POC Total CO2 Anion Gap 19.0 H POC Anion Gap POC BUN BUN 56 H Creatinine 5.26 H* POC Creatinine Est Cr Clr Drug Dosing 9.3 Est GFR ( Amer) 9.5 Est GFR (Non-Af Amer) 8.2 BUN/Creatinine Ratio 10.6 Glucose 327 H* POC Glucose 346 H* 322 H* POC Glucose (other) POC Lactic Acid Nolberto Calcium 7.6 L POC Ioniz Calcium Aj Phosphorus Magnesium 2.5 H Total Bilirubin Direct Bilirubin AST ALT Alkaline Phosphatase Total Protein Albumin Globulin Albumin/Globulin Ratio Lipase Beta-Hydroxybutyric Acd 39.85 H Nasal Screen MRSA (PCR) Urine Opiates Screen Ur Methadone, Qual Urine Barbiturates Ur Phencyclidine (PCP) U Amphetamin/Meth Scrn MDMA (Ecstasy) Screen U MDMA (Ecstasy), Quant U Benzodiazepines Scrn Ur Cocaine Metabolite U Marijuana (THC) Screen U Marijuana THC Carboxy 04/28/19 08:36 WBC RBC Hgb POC Hgb Hct POC Hct MCV MCH MCHC RDW Std Deviation RDW Coeff of Erica Plt Count MPV Immature Gran % (Auto) Neut % (Auto) Lymph % (Auto) Mccone % (Auto) Eos % (Auto) Baso % (Auto) Immature Gran # (Auto) Neut # (Auto) Lymph # (Auto) Mccone # (Auto) Eos # (Auto) Baso # (Auto) Toxic Vacuolation Giant Platelets Basophilic Stippling PT INR APTT PTT Ratio Sample Site POC pH POC pCO2 POC pO2 POC HCO3 POC Base Excess ABG pH ABG pCO2 ABG pO2 ABG HCO3 POC ABG O2 Sat ABG O2 Saturation ABG Base Excess Ji Test Barometric Pressure Oxygen Given O2 Delivery Device POC Sodium Sodium POC Potassium Potassium POC Chloride Chloride Carbon Dioxide POC Total CO2 Anion Gap POC Anion Gap POC BUN BUN Creatinine POC Creatinine Est Cr Clr Drug Dosing Est GFR ( Amer) Est GFR (Non-Af Amer) BUN/Creatinine Ratio Glucose POC Glucose 309 H* POC Glucose (other) POC Lactic Acid Nolberto Calcium POC Ioniz Calcium Aj Phosphorus Magnesium Total Bilirubin Direct Bilirubin AST ALT Alkaline Phosphatase Total Protein Albumin Globulin Albumin/Globulin Ratio Lipase Beta-Hydroxybutyric Acd Nasal Screen MRSA (PCR) Urine Opiates Screen Ur Methadone, Qual Urine Barbiturates Ur Phencyclidine (PCP) U Amphetamin/Meth Scrn MDMA (Ecstasy) Screen U MDMA (Ecstasy), Quant U Benzodiazepines Scrn Ur Cocaine Metabolite U Marijuana (THC) Screen U Marijuana THC Carboxy (1) DKA (diabetic ketoacidoses) Diabetes mellitus complication detail: without coma Diabetes mellitus type: type 1 Qualified Code(s): E10.10 - Type 1 diabetes mellitus with ketoacidosis without coma
[2019-04-28] MEDS: ONDANSETRON INJ 2 MG/ML 2 ML VIAL IV PRN (09:56)
[2019-04-28] MEDS ORDERED: VANCOMYCIN CONSULT ACTIVE PRN (10:05)
--- NOTE | 2019-04-28 10:29 | Critical Care Consultation ---
Date of Consultation April 28, 2019 Assessment & Plan (1) Admitted to intensive care unit: 63 yo female patient with comorbities noted above mainly type 1 diabetes with ESRD on HD non adherence to therapy admitted with DKA altered mental status and hypertensive urgency neuro neuro checks Q1 hour she is in metabolic encephalopathy most likely resp stable duoben PRN CV use metoprolol and hydralazine IV to control BP 130s/80s atorvastatin 40 mg PO daily hold midodrine and fluodrocortisone Renal HD today hold IV bicarbonate and use insulin drip to control DKA venous blood gas post HD FU and correct electrolytes It is difficult to differentiated the cause of the anion gap but will recheck labs after HD scheduled at 230 pm GI NPO for now pantoprazole 40 mg PO daily ID stop daptomycin one dose vancomycin and pharmacy to dose continue renal dosed zosyn procalcitonin sent 2 blood cultures done will FU makes scanty amount of urine will send U culture access She needs centra line no decubiti and no andrade endocrine DKA insulin drip protocol with electrolytes Q6 continue home dose of levorhyroxine PAtient critically ill and will manage in MICU total CCTime 50 minutes Present on Admission?: Yes (2) DKA (diabetic ketoacidoses): (3) End stage renal disease on dialysis: (4) Diabetes mellitus type 1: History of Present Illness Requesting Physician: Brandi Sanchez Attending Physician: Doyle Ferraro DO History of Present Illness This is a 63-year-old female with diabetes mellitus type 1, depression, Charcot joint of left foot, diabetic neuropathy, hypothyroidism, Shawna's thyroiditis, diabetic retinopathy, frequent falls, hypertension, GERD, orthostatic hypotension from presumed autonomic insufficiency, and dyslipidemia. She is on MWF HD at [facility] under the care of Dr. Gardner. Per Nephrology she has HD MWF and she missed HD since 04/18. She remains altered mental status this am and hypertensive. She says she fell at home and was feeling sick and vomitted but that is about all history she is giving. She was admitted with DKA. SHe still has an anion gap and presumed to have sepsis and started on daptomycin and zosyn. This is Shanda's 3rd admission to [facility] this month first 04/03-04/09 with DKA. then 04/20-04/22 with upper GI bleed which cleared on its own It is unclear to me why she is on both labetalol and midodrine as well as fluodrocortisol at this time She says she has a headache and feels nausaus and sick but this about all she is saying now. CXR is clear and her resp status is stable but she is hypertensive to 180s Allergies Allergy/AdvReac Type Severity Reaction Status Date / Time orange juice Allergy Mild Rash Verified 04/28/19 01:16 ibuprofen Allergy Hives Verified 04/28/19 01:16 shellfish derived Allergy Hives Verified 04/28/19 01:16 strawberry Allergy ALL Verified 04/28/19 01:16 BERRIES --> Anaphylaxis tomato AdvReac Unknown Verified 04/28/19 01:16 Home Medications Home Medications Medication Instructions Recorded Confirmed Type furosemide 40 mg PO 2XWK 01/21/19 04/28/19 History venlafaxine 150 mg PO QAM 01/21/19 04/28/19 History Novolog Flexpen U-100 Insulin See Rx Instructions .ROUTE .COMPLEX 04/02/19 04/28/19 History atorvastatin 40 mg PO QPM 04/02/19 04/28/19 History fludrocortisone 0.1 mg PO DAILY 04/02/19 04/28/19 History tramadol 50 mg PO BID PRN 04/02/19 04/28/19 History venlafaxine 75 mg PO QAM 04/02/19 04/28/19 History folic acid 1 mg PO QAM #30 tab 04/08/19 04/28/19 Rx labetalol 100 mg PO BID #30 tab 04/08/19 04/28/19 Rx midodrine 1.25 mg PO TID@0800,1200,1700 #90 04/09/19 04/28/19 Rx tab Lantus Solostar U-100 Insulin 16 unit SUBCUT QAM 04/13/19 04/28/19 History docusate sodium 100 mg capsule 100 mg PO Q3D cap 04/13/19 04/28/19 History levothyroxine 200 mcg PO QAM 04/13/19 04/28/19 History pyridoxine (vitamin B6) 100 mg 100 mg PO QAM tab 04/13/19 04/28/19 History tablet sevelamer carbonate 800 mg tablet 800 mg PO QAM tab 04/13/19 04/28/19 History thiamine HCl (vitamin B1) 250 mg 250 mg PO QAM tab 04/13/19 04/28/19 History tablet Patient History Medical History Diabetes mellitus type 1, uncontrolled (Acute) Diabetic peripheral neuropathy associated with type 1 diabetes mellitus (Acute) Dyslipidemia (Acute) Shawna's thyroiditis (Acute) Proliferative diabetic retinopathy associated with type 1 diabetes mellitus (Acute) DKA (diabetic ketoacidoses) (Acute) TREATED INPT AT [facility] 04/03/2019. THIS AM GLUCOSE 200. A-V fistula (Chronic) RIGHT ARM Chronic kidney disease (Chronic) Diabetes mellitus type 1 (Chronic) GERD (gastroesophageal reflux disease) (Chronic) Hemodialysis patient (Chronic) M,W,F @ [facility] Anemia Anxiety Depression Hypertension Hypothyroidism Osteoarthritis Osteoporosis Surgical History History of appendectomy History of section History of cholecystectomy History of colonoscopy History of esophagogastroduodenoscopy (EGD) History of hysterectomy PIERCE WITH BSO History of open reduction and internal fixation (ORIF) procedure RIGHT HIP RIGHT WRIST LEFT ANKLE Family History Father Myocardial infarction acute Coronary heart disease Mother Myocardial infarction Coronary heart disease Sister Coronary heart disease Breast cancer Ovarian cancer Social History Preferred Language: Greenlandic Communication Ability: Effective Real Estate Leasing Agent Required: No Beliefs That Will Affect Care: None Current Living Situation: Spouse Other Information That Helps Us Care for You: No Feels Safe at Home: Declines to Answer Smoking Status: Unknown if ever smoked Hx Alcohol Use: No Hx Substance Use: Yes substance use type: marijuana Last Used Substance: Unknown Last Used Substance Other:: reports uses monthly Review of Systems Review of Systems: Unobtainable due to cognitive status Physical Exam Physical Exam: lethargic but arousable and offers yes no answers only Eyes: pinpoint pupils but reactive Respiratory: normal respiratory effort, lungs clear to auscultation Cardiovascular: Rate/Rhythm: regular rate, regular rhythm and + bradycardic Gastrointestinal (Abdomen): normal bowel sounds, soft, nontender, no hepatosplenomegaly scaphoid abdomen and scar of R hip surgery Musculoskeletal: no cyanosis or clubbing, extremities motor strength 5/5 Not edematous but has stage 1 heal ulcers with dressing no decubiti Skin: no rashes, warm and dry dusky colored (uremic) Neurologic: moves all 4 extremities answers simple quesitons drowsy not oriented Results & Data Vital Signs (Past 12 Hours) Vital Signs Temp Pulse Pulse Pulse Resp BP BP 04/28/19 09:00 93 H 20 178/83 H 04/28/19 08:15 85 18 157/67 H 04/28/19 08:03 104 H 185/74 H 04/28/19 08:00 36.8 C 105 H 18 185/74 H 04/28/19 07:00 100 H 16 174/70 H 04/28/19 06:49 99 H 04/28/19 06:00 102 H 21 177/73 H 04/28/19 05:00 106 H 22 172/78 H 04/28/19 04:00 106 H 23 202/95 H 04/28/19 03:30 108 H 24 04/28/19 03:01 104 H 25 H 04/28/19 03:00 36.6 C 103 H 103 H 23 144/46 H 138/50 L 04/28/19 02:57 104 H 23 138/50 L 04/28/19 01:49 04/28/19 01:48 98 H 18 128/51 L 04/28/19 00:44 36.5 C 97 H 18 81/44 L Pulse Ox 04/28/19 09:00 99 04/28/19 08:15 99 04/28/19 08:03 04/28/19 08:00 98 04/28/19 07:00 99 04/28/19 06:49 04/28/19 06:00 99 04/28/19 05:00 100 04/28/19 04:00 100 04/28/19 03:30 100 04/28/19 03:01 100 04/28/19 03:00 100 04/28/19 02:57 100 04/28/19 01:49 98 04/28/19 01:48 98 04/28/19 00:44 100 (1) DKA (diabetic ketoacidoses) Diabetes mellitus complication detail: without coma Diabetes mellitus type: type 1 Qualified Code(s): E10.10 - Type 1 diabetes mellitus with ketoacidosis without coma
[2019-04-28] MEDS: PANTOprazole 40 MG TAB PO SCH (10:33)
[2019-04-28 10:59] LABS: Estimated Average Glucose 226 mg/dl; Hemoglobin A1C 9.5 % (4.5-5.6)
[2019-04-28] MEDS ORDERED: VANCOMYCIN HCL 1,000 MG in SODIUM CHLORIDE 0.9% 250 ML IV ONE (11:00)
[2019-04-28 11:08] LABS: iSTAT Art Bld Gas pCO2 Correct 21 mmHg (35-46); iSTAT Art Bld Gas pH Corrected 7.357 (7.35-7.45); iSTAT Arterial Blood Gas pCO2 20 mmHg (35-46); iSTAT Arterial Blood Gas pH 7.35 (7.35-7.45)
[2019-04-28 12:40] LABS: BUN Creatinine Ratio 10.5 (10-20); Calcium 7.3 mg/dl (8.5-10.1); Creatinine Clr Calc Pharmacy 8.9 ml/min; Est GFR (African American) 8.9; Est GFR (Non-African American) 7.7; Magnesium 2.3 mg/dl (1.8-2.4); Potassium 3.1 mmol/L (3.5-5.1)
--- NOTE | 2019-04-28 13:01 | XRay Report ---
XR chest 1V portable CLINICAL HISTORY: central line tube position COMPARISON STUDY: 04/28/2019 FINDINGS: Central catheter place in superior vena cava. No evidence pneumothorax. Chronic granulomatous change. Calcification of the mitral annulus. Diaphragms are smooth. IMPRESSION: Central catheter placed in the superior vena cava. No evidence for pneumothorax. The above report was generated using voice recognition software. It may contain grammatical, syntax or spelling errors. Electronically signed by: Bryon Mooney M.D. 04/28/2019 1:00 PM
[2019-04-28] MEDS: DEXTROSE 50% 50 ML SYRINGE IV PRN (13:43)
[2019-04-28] MEDS: PIPERACILLIN/TAZOBACTAM 3.375 GM in DEXTROSE 5% 100 ML IV SCH (19:41)
[2019-04-28 21:05] LABS: BUN Creatinine Ratio 6.3 (10-20); Creatinine Clr Calc Pharmacy 27.6 ml/min; Est GFR (African American) 35.3; Est GFR (Non-African American) 30.5; Magnesium 1.9 mg/dl (1.8-2.4)
--- NOTE | 2019-04-28 22:37 | Operative Report ---
DATE OF OPERATION: 04/28/2019 PROCEDURE: Insertion of a triple lumen central venous catheter in the left internal jugular. INDICATIONS: The patient is in DKA septic shock and has renal failure and needed access and blood draw as well as the delivery of medication. CONSENT: The consent was obtained from the patient's as she herself was unable to give consent. She had altered mental status. The , Sherif, gave a phone consent, which was witnessed by the nursing staff and placed in the patient's chart. CONSCIOUS SEDATION: The patient was quiet and no conscious sedation was given. However, local anesthesia with lidocaine was delivered. PROCEDURE MONITORING: The patient was monitored with continuous ECG tracing, pulse oximetry and blood pressure. DESCRIPTION OF THE PROCEDURE: The left aspect of the neck was prepared and draped using chlorhexidine prep as is usual. Subsequently, the ultrasound transducer was unsheathed within the sterile jacket and used to identify the internal jugular vein midway between the angle of the jaw and the sternal notch. Topical anesthesia with 1% lidocaine was used to infiltrate the skin and the subcutaneous tissue in that location under realtime vision with the ultrasound. Subsequently, the introducer needle was inserted at 60 degrees angle to the skin under realtime vision by the sonogram while aspirating at the syringe. When blood flow back was noted the syringe was detached and the guidewire was inserted through the needle. The tract was dilated and a triple lumen central venous catheter was inserted over the guidewire in the usual Seldinger fashion. Blood was obtained from all 3 ports which were then flushed with normal saline. The line was sutured in place and dressed in the usual sterile fashion at 17 cm to the skin. COMPLICATIONS: None apparent. ESTIMATED BLOOD LOSS: Less than 5 mL Post-procedure chest x-ray shows no pneumothorax and the tip of the catheter in the superior vena cava. I attest to the content of the Intraoperative Record and any orders documented therein. Any exception s are noted below.
[2019-04-29] MEDS: METOPROLOL TARTRATE 1 MG/ML VIAL IV SCH ×5 (00:01→16:51)
[2019-04-29 00:44] LABS: BUN Creatinine Ratio 6.9 (10-20); Calcium 7.7 mg/dl (8.5-10.1); Est GFR (African American) 26.9; Est GFR (Non-African American) 23.2; Potassium 3.2 mmol/L (3.5-5.1)
[2019-04-29] MEDS: PIPERACILLIN/TAZOBACTAM 3.375 GM in DEXTROSE 5% 100 ML IV SCH (01:59)
[2019-04-29 04:17] LABS: Basophils # (auto) 0.01 K/uL (0-0.2); Basophils % (auto) 0.1 %; Eosinophils # (auto) 0.02 K/uL (0-0.5); Eosinophils % (auto) 0.2 %; Hematocrit (blood only) 29.5 % (37-47); Hemoglobin 10.2 g/dL (12.0-16.0); Immature Granulocytes # (auto) 0.01 K/uL (0.00-0.02); Immature Granulocytes % (auto) 0.1 %; Lymphocytes % (auto) 11.5 %; Mean Corpuscular Hgb Conc 34.6 g/dL (32-36); Mean Platelet Volume 11.7 fL (7.4-10.4); Monocytes # (auto) 0.84 K/uL (0.11-0.59); Monocytes % (auto) 9.6 %; Neutrophils # (auto) 6.84 K/uL (1.4-6.5); Neutrophils % (auto) 78.5 %; Platelet Count 141 K/uL (130-400); RDW Coefficient of Variation 12.9 % (11.5-14.5); RDW Standard Deviation 45.9 fL (36.4-46.3); Red Blood Count 3.04 M/uL (4.2-5.4); White Blood Count 8.72 K/uL (4.8-10.8)
[2019-04-29 04:27] LABS: INR 1.3 (0.9-1.1); Partial Thromboplastin Ratio 1.1; Partial Thromboplastin Time 30.6 Seconds (21.0-31.0)
[2019-04-29 04:36] LABS: Albumin Level 2.3 gm/dl (3.4-5.0); Calcium 7.7 mg/dl (8.5-10.1); Creatinine Clr Calc Pharmacy 18.8 ml/min; Est GFR (African American) 22.2; Est GFR (Non-African American) 19.1; Magnesium 2.1 mg/dl (1.8-2.4); Potassium 3.1 mmol/L (3.5-5.1)
[2019-04-29 04:41] LABS: Albumin Globulin Ratio 0.7 (0.9-2); Bilirubin Direct 0.1 mg/dl (0-0.2); Bilirubin,Total 0.6 mg/dl (0.2-1); Globulin 3.1 gm/dl (2.5-4.0); Phosphorus 3.5 mg/dl (2.5-4.9); Total Protein 5.4 gm/dl (6.4-8.2)
[2019-04-29] MEDS ORDERED: VANCOMYCIN HCL 500 MG in 0.9 % SODIUM CHLORIDE 100 ML IV SCH (07:00)
[2019-04-29] MEDS ORDERED: CALCIUM GLUCONATE 10% 1,000 MG in SODIUM CHLORIDE 0.9% 50 ML IV ONE (08:30)
--- NOTE | 2019-04-29 08:55 | Nephrology Progress Note ---
Date of Service April 29, 2019 Assessment & Plan (1) DKA (diabetic ketoacidoses): -- Insulin gtt to be stopped this morning -- Outside records from hospital admission at [facility] earlier this week have been requested -- Consider checking D lactate level -- Etiology of recurrent admissions has not been explained (2) End stage renal disease on dialysis: -- Tolerated HD well yesterday -- MWF as outpatient -- BP, volume status and electrolytes are acceptable -- Plan HD tomorrow -- AVF with good thrill and bruit (3) Diabetes mellitus type 1: (4) Hypertension: -- Midodrine and fludrocortisone held -- Accelerated hypertension improved (5) Orthostasis: -- Medical therapy held while BP accelerated Subjective Shanda is awake and comfortable this morning. She tolerated HD yesterday without complications. Net UF 3L. Mental status improved during dialysis. She is answering questions appropriately this morning. She admission to [facility] in [place] from Thursday to Thursday. She states that she presented with confusion and improved with insulin and dialysis. Dialysis was provided at [facility] on Thursday. I spoke with her (Sherif) on the phone. He confirmed this. He states that she does well at home for a few days but eventually develops severe nausea and vomiting before becoming confused requiring readmission to the hospital. He denies that Shanda is taking anything at home other than her prescribed medications. He relates that she receives all medications including insulin as prescribed. Shanda states that she may miss some doses of insulin intermittently. Review of Systems Review of Systems: All systems reviewed & are unremarkable except as noted in HPI & below Physical Exam Constitutional: well developed; no acute distress Eyes: no scleral abnormality and no corneal abnormality ENMT: Mouth: no oral mucosal abnormality and oral mucous membranes not dry Neck: normal visual inspection and trachea midline Respiratory: normal respiratory effort Auscultation: lungs clear to auscultation bilaterally Cardiovascular: Heart Sounds: normal S1, normal S2 and + murmur Extremities: + AV fistula; no edema Gastrointestinal (Abdomen): Percussion/Palpation: abdomen soft; abdomen nontender Musculoskeletal: Extremities: no cyanosis and no clubbing Skin: normal turgor; no rashes Neurologic: Motor/Sensory: no tremor and no asterixis Psychiatric: Orientation: alert Results & Data Vital Signs (Past 12 Hours) Vital Signs Temp Pulse Resp BP Pulse Ox 04/29/19 07:34 82 159/64 H 04/29/19 06:00 81 22 163/64 H 97 04/29/19 05:00 79 18 164/68 H 96 04/29/19 04:20 81 151/62 H 04/29/19 04:00 36.8 C 83 18 151/62 H 98 04/29/19 03:00 83 16 161/63 H 97 04/29/19 02:00 86 16 165/72 H 98 04/29/19 01:00 87 16 165/76 H 98 04/29/19 00:01 87 172/72 H 04/29/19 00:00 37.2 C 88 16 172/72 H 98 04/28/19 23:00 89 14 167/84 H 98 04/28/19 22:00 86 21 183/80 H 99 04/28/19 21:00 85 20 174/82 H 98 Laboratory Results Laboratory Results - last 24 hr 04/28/19 04/28/19 04/28/19 05:49 07:55 09:46 WBC RBC Hgb Hct MCV MCH MCHC RDW Std Deviation RDW Coeff of Erica Plt Count MPV Immature Gran % (Auto) Neut % (Auto) Lymph % (Auto) Camp % (Auto) Eos % (Auto) Baso % (Auto) Immature Gran # (Auto) Neut # (Auto) Lymph # (Auto) Camp # (Auto) Eos # (Auto) Baso # (Auto) PT INR APTT PTT Ratio POC pH 7.35 POC pCO2 20 L POC pO2 108 H ABG pH (Temp Correct) 7.357 ABG pCO2 (Temp Corrct 21 L POC ABG pO2 at Pt Temp 105 Sodium Potassium Chloride Carbon Dioxide Anion Gap BUN Creatinine Est Cr Clr Drug Dosing Est GFR ( Amer) Est GFR (Non-Af Amer) BUN/Creatinine Ratio Glucose POC Glucose 264 H Estimat Average Glucose Hemoglobin A1c Calcium Ionized Calcium Phosphorus Magnesium Total Bilirubin Direct Bilirubin AST ALT Alkaline Phosphatase Total Protein Albumin Globulin Albumin/Globulin Ratio Lipase Beta-Hydroxybutyric Acd 39.85 H Procalcitonin Random Vancomycin 04/28/19 04/28/19 04/28/19 10:06 10:06 10:46 WBC RBC Hgb Hct MCV MCH MCHC RDW Std Deviation RDW Coeff of Erica Plt Count MPV Immature Gran % (Auto) Neut % (Auto) Lymph % (Auto) Camp % (Auto) Eos % (Auto) Baso % (Auto) Immature Gran # (Auto) Neut # (Auto) Lymph # (Auto) Camp # (Auto) Eos # (Auto) Baso # (Auto) PT INR APTT PTT Ratio POC pH POC pCO2 POC pO2 ABG pH (Temp Correct) ABG pCO2 (Temp Corrct POC ABG pO2 at Pt Temp Sodium Potassium Chloride Carbon Dioxide Anion Gap BUN Creatinine Est Cr Clr Drug Dosing Est GFR ( Amer) Est GFR (Non-Af Amer) BUN/Creatinine Ratio Glucose POC Glucose 188 H Estimat Average Glucose 226 Hemoglobin A1c 9.5 H Calcium Ionized Calcium Phosphorus Magnesium Total Bilirubin Direct Bilirubin AST ALT Alkaline Phosphatase Total Protein Albumin Globulin Albumin/Globulin Ratio Lipase Beta-Hydroxybutyric Acd Procalcitonin 1.48 H Random Vancomycin 04/28/19 04/28/19 04/28/19 11:47 11:50 12:37 WBC RBC Hgb Hct MCV MCH MCHC RDW Std Deviation RDW Coeff of Erica Plt Count MPV Immature Gran % (Auto) Neut % (Auto) Lymph % (Auto) Camp % (Auto) Eos % (Auto) Baso % (Auto) Immature Gran # (Auto) Neut # (Auto) Lymph # (Auto) Camp # (Auto) Eos # (Auto) Baso # (Auto) PT INR APTT PTT Ratio POC pH POC pCO2 POC pO2 ABG pH (Temp Correct) ABG pCO2 (Temp Corrct POC ABG pO2 at Pt Temp Sodium 135 L Potassium 3.1 L D Chloride 99 Carbon Dioxide 25 Anion Gap 11.0 BUN 59 H Creatinine 5.51 H* Est Cr Clr Drug Dosing 8.9 Est GFR ( Amer) 8.9 Est GFR (Non-Af Amer) 7.7 BUN/Creatinine Ratio 10.5 Glucose 180 H POC Glucose 172 H 149 H Estimat Average Glucose Hemoglobin A1c Calcium 7.3 L Ionized Calcium Phosphorus Magnesium 2.3 Total Bilirubin Direct Bilirubin AST ALT Alkaline Phosphatase Total Protein Albumin Globulin Albumin/Globulin Ratio Lipase Beta-Hydroxybutyric Acd Procalcitonin Random Vancomycin 04/28/19 04/28/19 04/28/19 13:38 13:58 15:12 WBC RBC Hgb Hct MCV MCH MCHC RDW Std Deviation RDW Coeff of Erica Plt Count MPV Immature Gran % (Auto) Neut % (Auto) Lymph % (Auto) Camp % (Auto) Eos % (Auto) Baso % (Auto) Immature Gran # (Auto) Neut # (Auto) Lymph # (Auto) Camp # (Auto) Eos # (Auto) Baso # (Auto) PT INR APTT PTT Ratio POC pH POC pCO2 POC pO2 ABG pH (Temp Correct) ABG pCO2 (Temp Corrct POC ABG pO2 at Pt Temp Sodium Potassium Chloride Carbon Dioxide Anion Gap BUN Creatinine Est Cr Clr Drug Dosing Est GFR ( Amer) Est GFR (Non-Af Amer) BUN/Creatinine Ratio Glucose POC Glucose 107 H 169 H 142 H Estimat Average Glucose Hemoglobin A1c Calcium Ionized Calcium Phosphorus Magnesium Total Bilirubin Direct Bilirubin AST ALT Alkaline Phosphatase Total Protein Albumin Globulin Albumin/Globulin Ratio Lipase Beta-Hydroxybutyric Acd Procalcitonin Random Vancomycin 04/28/19 04/28/19 04/28/19 16:01 16:16 16:31 WBC RBC Hgb Hct MCV MCH MCHC RDW Std Deviation RDW Coeff of Erica Plt Count MPV Immature Gran % (Auto) Neut % (Auto) Lymph % (Auto) Camp % (Auto) Eos % (Auto) Baso % (Auto) Immature Gran # (Auto) Neut # (Auto) Lymph # (Auto) Camp # (Auto) Eos # (Auto) Baso # (Auto) PT INR APTT PTT Ratio POC pH POC pCO2 POC pO2 ABG pH (Temp Correct) ABG pCO2 (Temp Corrct POC ABG pO2 at Pt Temp Sodium Potassium Chloride Carbon Dioxide Anion Gap BUN Creatinine Est Cr Clr Drug Dosing Est GFR ( Amer) Est GFR (Non-Af Amer) BUN/Creatinine Ratio Glucose POC Glucose 107 H 101 H 108 H Estimat Average Glucose Hemoglobin A1c Calcium Ionized Calcium Phosphorus Magnesium Total Bilirubin Direct Bilirubin AST ALT Alkaline Phosphatase Total Protein Albumin Globulin Albumin/Globulin Ratio Lipase Beta-Hydroxybutyric Acd Procalcitonin Random Vancomycin 04/28/19 04/28/19 04/28/19 16:45 17:03 17:18 WBC RBC Hgb Hct MCV MCH MCHC RDW Std Deviation RDW Coeff of Erica Plt Count MPV Immature Gran % (Auto) Neut % (Auto) Lymph % (Auto) Camp % (Auto) Eos % (Auto) Baso % (Auto) Immature Gran # (Auto) Neut # (Auto) Lymph # (Auto) Camp # (Auto) Eos # (Auto) Baso # (Auto) PT INR APTT PTT Ratio POC pH POC pCO2 POC pO2 ABG pH (Temp Correct) ABG pCO2 (Temp Corrct POC ABG pO2 at Pt Temp Sodium Potassium Chloride Carbon Dioxide Anion Gap BUN Creatinine Est Cr Clr Drug Dosing Est GFR ( Amer) Est GFR (Non-Af Amer) BUN/Creatinine Ratio Glucose POC Glucose 131 H 143 H 160 H Estimat Average Glucose Hemoglobin A1c Calcium Ionized Calcium Phosphorus Magnesium Total Bilirubin Direct Bilirubin AST ALT Alkaline Phosphatase Total Protein Albumin Globulin Albumin/Globulin Ratio Lipase Beta-Hydroxybutyric Acd Procalcitonin Random Vancomycin 04/28/19 04/28/19 04/28/19 18:09 18:31 18:44 WBC RBC Hgb Hct MCV MCH MCHC RDW Std Deviation RDW Coeff of Erica Plt Count MPV Immature Gran % (Auto) Neut % (Auto) Lymph % (Auto) Camp % (Auto) Eos % (Auto) Baso % (Auto) Immature Gran # (Auto) Neut # (Auto) Lymph # (Auto) Camp # (Auto) Eos # (Auto) Baso # (Auto) PT INR APTT PTT Ratio POC pH POC pCO2 POC pO2 ABG pH (Temp Correct) ABG pCO2 (Temp Corrct POC ABG pO2 at Pt Temp Sodium Potassium Chloride Carbon Dioxide Anion Gap BUN Creatinine Est Cr Clr Drug Dosing Est GFR ( Amer) Est GFR (Non-Af Amer) BUN/Creatinine Ratio Glucose POC Glucose 106 H 108 H 133 H Estimat Average Glucose Hemoglobin A1c Calcium Ionized Calcium Phosphorus Magnesium Total Bilirubin Direct Bilirubin AST ALT Alkaline Phosphatase Total Protein Albumin Globulin Albumin/Globulin Ratio Lipase Beta-Hydroxybutyric Acd Procalcitonin Random Vancomycin 04/28/19 04/28/19 04/28/19 18:59 19:31 20:18 WBC RBC Hgb Hct MCV MCH MCHC RDW Std Deviation RDW Coeff of Erica Plt Count MPV Immature Gran % (Auto) Neut % (Auto) Lymph % (Auto) Camp % (Auto) Eos % (Auto) Baso % (Auto) Immature Gran # (Auto) Neut # (Auto) Lymph # (Auto) Camp # (Auto) Eos # (Auto) Baso # (Auto) PT INR APTT PTT Ratio POC pH POC pCO2 POC pO2 ABG pH (Temp Correct) ABG pCO2 (Temp Corrct POC ABG pO2 at Pt Temp Sodium Potassium Chloride Carbon Dioxide Anion Gap BUN Creatinine Est Cr Clr Drug Dosing Est GFR ( Amer) Est GFR (Non-Af Amer) BUN/Creatinine Ratio Glucose POC Glucose 138 H 182 H 202 H Estimat Average Glucose Hemoglobin A1c Calcium Ionized Calcium Phosphorus Magnesium Total Bilirubin Direct Bilirubin AST ALT Alkaline Phosphatase Total Protein Albumin Globulin Albumin/Globulin Ratio Lipase Beta-Hydroxybutyric Acd Procalcitonin Random Vancomycin 04/28/19 04/28/19 04/28/19 20:31 20:31 22:47 WBC RBC Hgb Hct MCV MCH MCHC RDW Std Deviation RDW Coeff of Erica Plt Count MPV Immature Gran % (Auto) Neut % (Auto) Lymph % (Auto) Camp % (Auto) Eos % (Auto) Baso % (Auto) Immature Gran # (Auto) Neut # (Auto) Lymph # (Auto) Camp # (Auto) Eos # (Auto) Baso # (Auto) PT INR APTT PTT Ratio POC pH POC pCO2 POC pO2 ABG pH (Temp Correct) ABG pCO2 (Temp Corrct POC ABG pO2 at Pt Temp Sodium 139 Potassium 3.0 L Chloride 101 Carbon Dioxide 22 Anion Gap 16.0 H BUN 11 D Creatinine 1.77 H D Est Cr Clr Drug Dosing 27.6 Est GFR ( Amer) 35.3 Est GFR (Non-Af Amer) 30.5 BUN/Creatinine Ratio 6.3 L Glucose 221 H POC Glucose 230 H Estimat Average Glucose Hemoglobin A1c Calcium 8.0 L Ionized Calcium 1.01 L Phosphorus Magnesium 1.9 Total Bilirubin Direct Bilirubin AST ALT Alkaline Phosphatase Total Protein Albumin Globulin Albumin/Globulin Ratio Lipase Beta-Hydroxybutyric Acd Procalcitonin Random Vancomycin 04/28/19 04/29/19 04/29/19 23:56 00:13 00:59 WBC RBC Hgb Hct MCV MCH MCHC RDW Std Deviation RDW Coeff of Erica Plt Count MPV Immature Gran % (Auto) Neut % (Auto) Lymph % (Auto) Camp % (Auto) Eos % (Auto) Baso % (Auto) Immature Gran # (Auto) Neut # (Auto) Lymph # (Auto) Camp # (Auto) Eos # (Auto) Baso # (Auto) PT INR APTT PTT Ratio POC pH POC pCO2 POC pO2 ABG pH (Temp Correct) ABG pCO2 (Temp Corrct POC ABG pO2 at Pt Temp Sodium 135 L Potassium 3.2 L Chloride 100 Carbon Dioxide 20 L Anion Gap 15.0 H BUN 15 Creatinine 2.22 H D Est Cr Clr Drug Dosing 22.0 Est GFR ( Amer) 26.9 Est GFR (Non-Af Amer) 23.2 BUN/Creatinine Ratio 6.9 L Glucose 261 H POC Glucose 257 H 261 H Estimat Average Glucose Hemoglobin A1c Calcium 7.7 L Ionized Calcium Phosphorus Magnesium 2.0 Total Bilirubin Direct Bilirubin AST ALT Alkaline Phosphatase Total Protein Albumin Globulin Albumin/Globulin Ratio Lipase Beta-Hydroxybutyric Acd Procalcitonin Random Vancomycin 04/29/19 04/29/19 04/29/19 01:57 02:58 03:47 WBC RBC Hgb Hct MCV MCH MCHC RDW Std Deviation RDW Coeff of Erica Plt Count MPV Immature Gran % (Auto) Neut % (Auto) Lymph % (Auto) Camp % (Auto) Eos % (Auto) Baso % (Auto) Immature Gran # (Auto) Neut # (Auto) Lymph # (Auto) Camp # (Auto) Eos # (Auto) Baso # (Auto) PT INR APTT PTT Ratio POC pH POC pCO2 POC pO2 ABG pH (Temp Correct) ABG pCO2 (Temp Corrct POC ABG pO2 at Pt Temp Sodium Potassium Chloride Carbon Dioxide Anion Gap BUN Creatinine Est Cr Clr Drug Dosing Est GFR ( Amer) Est GFR (Non-Af Amer) BUN/Creatinine Ratio Glucose POC Glucose 238 H 262 H 241 H Estimat Average Glucose Hemoglobin A1c Calcium Ionized Calcium Phosphorus Magnesium Total Bilirubin Direct Bilirubin AST ALT Alkaline Phosphatase Total Protein Albumin Globulin Albumin/Globulin Ratio Lipase Beta-Hydroxybutyric Acd Procalcitonin Random Vancomycin 04/29/19 04/29/19 04/29/19 03:53 03:53 03:53 WBC 8.72 RBC 3.04 L Hgb 10.2 L Hct 29.5 L MCV 97.0 MCH 33.6 MCHC 34.6 RDW Std Deviation 45.9 RDW Coeff of Erica 12.9 Plt Count 141 MPV 11.7 H Immature Gran % (Auto) 0.1 Neut % (Auto) 78.5 Lymph % (Auto) 11.5 Camp % (Auto) 9.6 Eos % (Auto) 0.2 Baso % (Auto) 0.1 Immature Gran # (Auto) 0.01 Neut # (Auto) 6.84 H Lymph # (Auto) 1.00 L Camp # (Auto) 0.84 H Eos # (Auto) 0.02 Baso # (Auto) 0.01 PT 13.0 H INR 1.3 H APTT 30.6 PTT Ratio 1.1 POC pH POC pCO2 POC pO2 ABG pH (Temp Correct) ABG pCO2 (Temp Corrct POC ABG pO2 at Pt Temp Sodium 136 Potassium 3.1 L Chloride 101 Carbon Dioxide 22 Anion Gap 13.0 H BUN 18 Creatinine 2.60 H D Est Cr Clr Drug Dosing 18.8 Est GFR ( Amer) 22.2 Est GFR (Non-Af Amer) 19.1 BUN/Creatinine Ratio 7.0 L Glucose 260 H POC Glucose Estimat Average Glucose Hemoglobin A1c Calcium 7.7 L Ionized Calcium Phosphorus 3.5 D Magnesium 2.1 Total Bilirubin 0.6 Direct Bilirubin 0.1 AST 23 ALT 34 Alkaline Phosphatase 155 H Total Protein 5.4 L Albumin 2.3 L Globulin 3.1 Albumin/Globulin Ratio 0.7 L Lipase 133 Beta-Hydroxybutyric Acd Procalcitonin Random Vancomycin 04/29/19 04/29/19 04/29/19 03:53 03:53 04:55 WBC RBC Hgb Hct MCV MCH MCHC RDW Std Deviation RDW Coeff of Erica Plt Count MPV Immature Gran % (Auto) Neut % (Auto) Lymph % (Auto) Camp % (Auto) Eos % (Auto) Baso % (Auto) Immature Gran # (Auto) Neut # (Auto) Lymph # (Auto) Camp # (Auto) Eos # (Auto) Baso # (Auto) PT INR APTT PTT Ratio POC pH POC pCO2 POC pO2 ABG pH (Temp Correct) ABG pCO2 (Temp Corrct POC ABG pO2 at Pt Temp Sodium Potassium Chloride Carbon Dioxide Anion Gap BUN Creatinine Est Cr Clr Drug Dosing Est GFR ( Amer) Est GFR (Non-Af Amer) BUN/Creatinine Ratio Glucose POC Glucose 251 H Estimat Average Glucose Hemoglobin A1c Calcium Ionized Calcium 1.02 L Phosphorus Magnesium Total Bilirubin Direct Bilirubin AST ALT Alkaline Phosphatase Total Protein Albumin Globulin Albumin/Globulin Ratio Lipase Beta-Hydroxybutyric Acd Procalcitonin Random Vancomycin 13.2 04/29/19 04/29/19 05:51 06:46 WBC RBC Hgb Hct MCV MCH MCHC RDW Std Deviation RDW Coeff of Erica Plt Count MPV Immature Gran % (Auto) Neut % (Auto) Lymph % (Auto) Camp % (Auto) Eos % (Auto) Baso % (Auto) Immature Gran # (Auto) Neut # (Auto) Lymph # (Auto) Camp # (Auto) Eos # (Auto) Baso # (Auto) PT INR APTT PTT Ratio POC pH POC pCO2 POC pO2 ABG pH (Temp Correct) ABG pCO2 (Temp Corrct POC ABG pO2 at Pt Temp Sodium Potassium Chloride Carbon Dioxide Anion Gap BUN Creatinine Est Cr Clr Drug Dosing Est GFR ( Amer) Est GFR (Non-Af Amer) BUN/Creatinine Ratio Glucose POC Glucose 254 H 209 H Estimat Average Glucose Hemoglobin A1c Calcium Ionized Calcium Phosphorus Magnesium Total Bilirubin Direct Bilirubin AST ALT Alkaline Phosphatase Total Protein Albumin Globulin Albumin/Globulin Ratio Lipase Beta-Hydroxybutyric Acd Procalcitonin Random Vancomycin (1) DKA (diabetic ketoacidoses) Diabetes mellitus complication detail: without coma Diabetes mellitus type: type 1 Qualified Code(s): E10.10 - Type 1 diabetes mellitus with ketoacidosis without coma
[2019-04-29] MEDS: LEVOTHYROXINE SODIUM 100 MCG in SYRINGE 0 ML IV SCH (09:31)
[2019-04-29] MEDS: PANTOprazole 40 MG TAB PO SCH (09:31)
[2019-04-29] MEDS: INSULIN ASPART 100 UNITS/ML 3 ML PEN SC SCH ×4 (09:32→21:06)
[2019-04-29] MEDS: ONDANSETRON INJ 2 MG/ML 2 ML VIAL IV PRN (09:56)
[2019-04-29] MEDS ORDERED: INSULIN GLARGINE SOLOSTAR 100 UNITS/ML 3 ML PEN SC SCH (10:00)
[2019-04-29] MEDS ORDERED: GLUCAGON FOR INJ 1 MG VIAL SQ PRN (10:01)
[2019-04-29] MEDS ORDERED: GLUCOSE 40% GEL 15 GM TUBE PO PRN (10:01)
[2019-04-29] MEDS ORDERED: GLUCOSE 10 TABS/TUBE PO PRN (10:01)
[2019-04-29] MEDS ORDERED: DEXTROSE 50% 50 ML SYRINGE IV PRN (10:01)
[2019-04-29] MEDS ORDERED: CARBOHYDRATES FOR HYPOGLYCEMIA PO PRN (10:01)
--- NOTE | 2019-04-29 12:44 | Critical Care Progress Note ---
Date of Service April 29, 2019 Assessment & Plan (1) Admitted to intensive care unit: 63 yo female patient with comorbities noted above mainly type 1 diabetes with ESRD on HD non adherence to therapy admitted with DKA. Her mental status normalized and acidosis as well. She is being transitioned to her home dose of lantus. resp stable duoben PRN CV use metoprolol and hydralazine IV to control BP 130s/80s. Will start on small dose of metoprolol 25 mg PO BID for BP atorvastatin 40 mg PO daily hold midodrine and fluodrocortisone Renal HD today FU and correct electrolytes. May tolerate low K and P DC andrade Will send D lactate GI low carb diet pantoprazole 40 mg PO daily Reglan for nausea ID DC antibiotics 2 blood cultures negative makes scanty amount of urine will send U culture access She needs central line no decubiti and no andrade endocrine DKA insulin drip protocol with electrolytes Q6 continue home dose of levothyroxin PAtient critically ill and will manage in MICU total CCTime 40 minutes (2) DKA (diabetic ketoacidoses): (3) End stage renal disease on dialysis: (4) Diabetes mellitus type 1: Subjective During HD yesterday patient woke up and her ABG show normal ph. She had hypocalcemia and that was corrected. She continues to complain of nausea and has been given ondansetron by Charisse. The is at the bedside. She says she tries not to miss her HD. She is scheduled today for HD. Appreciate nephrology input. Physical Exam Respiratory: normal respiratory effort, lungs clear to auscultation Cardiovascular: Rate/Rhythm: regular rate, regular rhythm and + bradycardic Gastrointestinal (Abdomen): normal bowel sounds, soft, nontender, no hepatosplenomegaly Musculoskeletal: no cyanosis or clubbing, extremities motor strength 5/5 Skin: no rashes, warm and dry Neurologic: No gross focal motor deficits. Psychiatric: A+Ox3, euthymic affect Results & Data Vital Signs (Past 12 Hours) Vital Signs Temp Pulse Resp BP Pulse Ox 04/29/19 12:08 75 197/83 H 04/29/19 08:00 83 19 160/77 H 96 04/29/19 07:34 82 159/64 H 04/29/19 07:00 36.8 C 83 18 159/64 H 99 04/29/19 06:00 81 22 163/64 H 97 04/29/19 05:00 79 18 164/68 H 96 04/29/19 04:20 81 151/62 H 04/29/19 04:00 36.8 C 83 18 151/62 H 98 04/29/19 03:00 83 16 161/63 H 97 04/29/19 02:00 86 16 165/72 H 98 04/29/19 01:00 87 16 165/76 H 98 (1) DKA (diabetic ketoacidoses) Diabetes mellitus complication detail: without coma Diabetes mellitus type: type 1 Qualified Code(s): E10.10 - Type 1 diabetes mellitus with ketoacidosis without coma
[2019-04-29] MEDS ORDERED: METOCLOPRAMIDE HCL INJ 5 MG/ML 2 ML VIAL IV ONE (12:45)
[2019-04-29] MEDS ORDERED: INSULIN ASPART 100 UNITS/ML 3 ML PEN SC ONE (12:45)
[2019-04-29] MEDS ORDERED: ACETAMINOPHEN SOL 650 MG/20.3 ML UDC PO PRN (13:44)
[2019-04-29] MEDS: LISINOPRIL 5 MG TAB PO SCH (14:29)
[2019-04-29] MEDS: HEPARIN SOD 5,000 UNIT/0.5 ML VIAL SQ SCH ×2 (14:29→21:07)
--- NOTE | 2019-04-29 16:46 | Hospitalist Progress Note ---
Date of Service April 29, 2019 Assessment & Plan (1) DKA (diabetic ketoacidoses): This is the third admission for DKA for the patient this month. Previous admissions: 04/03-04/09, and 04/20-04/22. pH 7.26, PCO2 15, bicarb is 7 and PO2 is 133 on admission treated with insulin drip, responded well, gap closed this morning given Lantus 15 units early afternoon and drip turned off three hours later Novolog SS ordered official glycemic management consult placed eating a little but not great transfer to tele today nursing educator following discussed with patient and family, need to make sure she is stable prior to discharge, would recommend 2 days in hospital eating and on home regimen this is 3rd admission this month, would benefit to keep her a little longer to try to prevent her from coming back (2) Hyperlipidemia LDL goal <70: continue Lipitor (3) End stage renal disease on dialysis: ESRD on HD, Thursday, Thursday and Thursday. DR. Peña following, received HD on 04/28, no issues electrolytes stable today on HD for 5-6 years now continue phosphate binders (4) Diabetes mellitus type 1: see above for DKA per prior discharge, she was supposed to be on Lantus 15 units in AM and Novolog SS not sure if she is compliant her was administering the insulin, a lot of the time she was too sick to do it needs a lot of education and very close follow up on discharge (5) Hypothyroidism (acquired): On levothyroxine 200 mcg p.o. daily (6) Hypertension: resume home medications quite high at times (7) Orthostasis: using Midodrine, unsure if needed based on hypertensive BP readings (8) Gastroenteritis: ongoing issue, unclear diagnosis has not had an EGD she claims that she vomits everything at home, cannot keep down food or drink or medications discussed the possibility of marijuana hyperemesis, she smokes every day however, has not smoked in weeks and still with vomiting, this is dx of exclusion Sindi SHEPHERD, PPI she was supposed to see Charisse ARROYO for outpatient EGD will consult them while here to expedite work up as she needs to be eating consistently prior to d/c Subjective long discussion with the patient and her family at the bedside, her and daughter discussed recent admissions after she was discharged from [facility] on 04/22 her took her to [place] due to vomiting and poor intake she describes a burning sensation when she swallows, epigastric discomfort but not all the time her appetite is poor has a lot of nausea, vomiting, has not kept medications or food down in a week she did however move her bowels the day prior to admission no fever or chills, no cough, no dysuria, no diarrhea she was referred to [facility] as outpatient for EGD but she was too sick and came back to the hospital in terms of sugars, her records them and gives her insulin he says she was taking the Lantus 15 units at home and using a Novolog SS the day of admission he said her sugar was "HIGH" on the glucose monitor, gave her some insulin and it was then 400's he said after several doses of insulin her sugar was 140 she had to come to hospital because she was vomiting, had altered mental status she admits to marijuana use, smokes every day when she is feeling well however, she has not smoked in weeks due to feeling ill has been smoking marijuana since she was a teenager reviewed labs, anion gap closed, sugars better controlled Lantus started and drip titrated off had HD yesterday, Cr and electrolytes stable normal WBC, normal CXR, no signs of infection nursing educator met with patient as well both patient and her family feel she has gone home too early every time she was discharged I agree, we both discussed keeping her for several days on diet and using Lantus and Novolog to ensure her sugars are stable Review of Systems Review of Systems: All systems reviewed & are unremarkable except as noted in HPI & below Constitutional: + fatigue and + weakness; no fever, no chills and no sweats Respiratory: no cough, no dyspnea and no wheezing Cardiovascular: no chest pain and no edema Gastrointestinal: + abdominal pain (burning when she swallows, epigastric pain), + early satiety, + heartburn, + nausea and + vomiting; no dysphagia, no constipation and no diarrhea/loose stools Genitourinary: no dysuria Musculoskeletal: + muscle weakness Integumentary: no rash Physical Exam Constitutional: well developed, + ill appearing and + thin; no acute distress Eyes: PERRL, conjunctivae normal, anicteric sclerae ENMT: external ear and nose normal, oropharynx normal Neck: trachea midline, no thyromegaly Respiratory: normal respiratory effort, lungs clear to auscultation Cardiovascular: RRR, no murmur, no edema Gastrointestinal (Abdomen): Inspection/Auscultation: abdomen normal to inspection and normal bowel sounds; abdomen not distended Percussion/Palpation: + abdomen tender (epigastric) and abdomen soft; no guarding, abdomen not rigid and no hepatosplenomegaly Musculoskeletal: no cyanosis or clubbing, extremities motor strength 5/5 Skin: no rashes, warm and dry Neurologic: patellar DTR's 2+ bilat, sensation intact and PERRL, EOMI, accommodation nl, no face palsy, no dysarthria Psychiatric: A+Ox3, euthymic affect Lymphatic: no cervical or axillary lymphadenopathy Results & Data Vital Signs (Past 12 Hours) Vital Signs Temp Pulse Resp BP Pulse Ox 04/29/19 16:00 79 04/29/19 13:40 84 25 H 156/56 H 100 04/29/19 13:01 78 14 184/84 H 99 04/29/19 12:12 78 13 197/83 H 100 04/29/19 12:08 75 197/83 H 04/29/19 11:00 80 8 L 181/80 H 100 04/29/19 10:00 79 18 182/80 H 99 04/29/19 09:00 84 12 157/64 H 97 04/29/19 08:00 83 19 160/77 H 96 04/29/19 07:34 82 159/64 H 04/29/19 07:00 36.8 C 83 18 159/64 H 99 04/29/19 06:00 81 22 163/64 H 97 04/29/19 05:00 79 18 164/68 H 96 Laboratory Results Laboratory Results - last 24 hr 04/28/19 04/28/19 04/28/19 16:16 16:31 16:45 WBC RBC Hgb Hct MCV MCH MCHC RDW Std Deviation RDW Coeff of Erica Plt Count MPV Immature Gran % (Auto) Neut % (Auto) Lymph % (Auto) [place] % (Auto) Eos % (Auto) Baso % (Auto) Immature Gran # (Auto) Neut # (Auto) Lymph # (Auto) [place] # (Auto) Eos # (Auto) Baso # (Auto) PT INR APTT PTT Ratio Sodium Potassium Chloride Carbon Dioxide Anion Gap BUN Creatinine Est Cr Clr Drug Dosing Est GFR ( Amer) Est GFR (Non-Af Amer) BUN/Creatinine Ratio Glucose POC Glucose 101 H 108 H 131 H Lactate Calcium Ionized Calcium Phosphorus Magnesium Total Bilirubin Direct Bilirubin AST ALT Alkaline Phosphatase Total Protein Albumin Globulin Albumin/Globulin Ratio Lipase Random Vancomycin Miscellaneous Test 04/28/19 04/28/19 04/28/19 17:03 17:18 18:09 WBC RBC Hgb Hct MCV MCH MCHC RDW Std Deviation RDW Coeff of Erica Plt Count MPV Immature Gran % (Auto) Neut % (Auto) Lymph % (Auto) [place] % (Auto) Eos % (Auto) Baso % (Auto) Immature Gran # (Auto) Neut # (Auto) Lymph # (Auto) [place] # (Auto) Eos # (Auto) Baso # (Auto) PT INR APTT PTT Ratio Sodium Potassium Chloride Carbon Dioxide Anion Gap BUN Creatinine Est Cr Clr Drug Dosing Est GFR ( Amer) Est GFR (Non-Af Amer) BUN/Creatinine Ratio Glucose POC Glucose 143 H 160 H 106 H Lactate Calcium Ionized Calcium Phosphorus Magnesium Total Bilirubin Direct Bilirubin AST ALT Alkaline Phosphatase Total Protein Albumin Globulin Albumin/Globulin Ratio Lipase Random Vancomycin Miscellaneous Test 04/28/19 04/28/19 04/28/19 18:31 18:44 18:59 WBC RBC Hgb Hct MCV MCH MCHC RDW Std Deviation RDW Coeff of Erica Plt Count MPV Immature Gran % (Auto) Neut % (Auto) Lymph % (Auto) [place] % (Auto) Eos % (Auto) Baso % (Auto) Immature Gran # (Auto) Neut # (Auto) Lymph # (Auto) [place] # (Auto) Eos # (Auto) Baso # (Auto) PT INR APTT PTT Ratio Sodium Potassium Chloride Carbon Dioxide Anion Gap BUN Creatinine Est Cr Clr Drug Dosing Est GFR ( Amer) Est GFR (Non-Af Amer) BUN/Creatinine Ratio Glucose POC Glucose 108 H 133 H 138 H Lactate Calcium Ionized Calcium Phosphorus Magnesium Total Bilirubin Direct Bilirubin AST ALT Alkaline Phosphatase Total Protein Albumin Globulin Albumin/Globulin Ratio Lipase Random Vancomycin Miscellaneous Test 04/28/19 04/28/19 04/28/19 19:31 20:18 20:31 WBC RBC Hgb Hct MCV MCH MCHC RDW Std Deviation RDW Coeff of Erica Plt Count MPV Immature Gran % (Auto) Neut % (Auto) Lymph % (Auto) [place] % (Auto) Eos % (Auto) Baso % (Auto) Immature Gran # (Auto) Neut # (Auto) Lymph # (Auto) [place] # (Auto) Eos # (Auto) Baso # (Auto) PT INR APTT PTT Ratio Sodium 139 Potassium 3.0 L Chloride 101 Carbon Dioxide 22 Anion Gap 16.0 H BUN 11 D Creatinine 1.77 H D Est Cr Clr Drug Dosing 27.6 Est GFR ( Amer) 35.3 Est GFR (Non-Af Amer) 30.5 BUN/Creatinine Ratio 6.3 L Glucose 221 H POC Glucose 182 H 202 H Lactate Calcium 8.0 L Ionized Calcium Phosphorus Magnesium 1.9 Total Bilirubin Direct Bilirubin AST ALT Alkaline Phosphatase Total Protein Albumin Globulin Albumin/Globulin Ratio Lipase Random Vancomycin Miscellaneous Test 04/28/19 04/28/19 04/28/19 20:31 22:47 23:56 WBC RBC Hgb Hct MCV MCH MCHC RDW Std Deviation RDW Coeff of Erica Plt Count MPV Immature Gran % (Auto) Neut % (Auto) Lymph % (Auto) [place] % (Auto) Eos % (Auto) Baso % (Auto) Immature Gran # (Auto) Neut # (Auto) Lymph # (Auto) [place] # (Auto) Eos # (Auto) Baso # (Auto) PT INR APTT PTT Ratio Sodium Potassium Chloride Carbon Dioxide Anion Gap BUN Creatinine Est Cr Clr Drug Dosing Est GFR ( Amer) Est GFR (Non-Af Amer) BUN/Creatinine Ratio Glucose POC Glucose 230 H 257 H Lactate Calcium Ionized Calcium 1.01 L Phosphorus Magnesium Total Bilirubin Direct Bilirubin AST ALT Alkaline Phosphatase Total Protein Albumin Globulin Albumin/Globulin Ratio Lipase Random Vancomycin Miscellaneous Test 04/29/19 04/29/19 04/29/19 00:13 00:59 01:57 WBC RBC Hgb Hct MCV MCH MCHC RDW Std Deviation RDW Coeff of Erica Plt Count MPV Immature Gran % (Auto) Neut % (Auto) Lymph % (Auto) [place] % (Auto) Eos % (Auto) Baso % (Auto) Immature Gran # (Auto) Neut # (Auto) Lymph # (Auto) [place] # (Auto) Eos # (Auto) Baso # (Auto) PT INR APTT PTT Ratio Sodium 135 L Potassium 3.2 L Chloride 100 Carbon Dioxide 20 L Anion Gap 15.0 H BUN 15 Creatinine 2.22 H D Est Cr Clr Drug Dosing 22.0 Est GFR ( Amer) 26.9 Est GFR (Non-Af Amer) 23.2 BUN/Creatinine Ratio 6.9 L Glucose 261 H POC Glucose 261 H 238 H Lactate Calcium 7.7 L Ionized Calcium Phosphorus Magnesium 2.0 Total Bilirubin Direct Bilirubin AST ALT Alkaline Phosphatase Total Protein Albumin Globulin Albumin/Globulin Ratio Lipase Random Vancomycin Miscellaneous Test 04/29/19 04/29/19 04/29/19 02:58 03:47 03:53 WBC 8.72 RBC 3.04 L Hgb 10.2 L Hct 29.5 L MCV 97.0 MCH 33.6 MCHC 34.6 RDW Std Deviation 45.9 RDW Coeff of Erica 12.9 Plt Count 141 MPV 11.7 H Immature Gran % (Auto) 0.1 Neut % (Auto) 78.5 Lymph % (Auto) 11.5 [place] % (Auto) 9.6 Eos % (Auto) 0.2 Baso % (Auto) 0.1 Immature Gran # (Auto) 0.01 Neut # (Auto) 6.84 H Lymph # (Auto) 1.00 L [place] # (Auto) 0.84 H Eos # (Auto) 0.02 Baso # (Auto) 0.01 PT INR APTT PTT Ratio Sodium Potassium Chloride Carbon Dioxide Anion Gap BUN Creatinine Est Cr Clr Drug Dosing Est GFR ( Amer) Est GFR (Non-Af Amer) BUN/Creatinine Ratio Glucose POC Glucose 262 H 241 H Lactate Calcium Ionized Calcium Phosphorus Magnesium Total Bilirubin Direct Bilirubin AST ALT Alkaline Phosphatase Total Protein Albumin Globulin Albumin/Globulin Ratio Lipase Random Vancomycin Miscellaneous Test 04/29/19 04/29/19 04/29/19 03:53 03:53 03:53 WBC RBC Hgb Hct MCV MCH MCHC RDW Std Deviation RDW Coeff of Erica Plt Count MPV Immature Gran % (Auto) Neut % (Auto) Lymph % (Auto) [place] % (Auto) Eos % (Auto) Baso % (Auto) Immature Gran # (Auto) Neut # (Auto) Lymph # (Auto) [place] # (Auto) Eos # (Auto) Baso # (Auto) PT 13.0 H INR 1.3 H APTT 30.6 PTT Ratio 1.1 Sodium 136 Potassium 3.1 L Chloride 101 Carbon Dioxide 22 Anion Gap 13.0 H BUN 18 Creatinine 2.60 H D Est Cr Clr Drug Dosing 18.8 Est GFR ( Amer) 22.2 Est GFR (Non-Af Amer) 19.1 BUN/Creatinine Ratio 7.0 L Glucose 260 H POC Glucose Lactate Calcium 7.7 L Ionized Calcium Phosphorus 3.5 D Magnesium 2.1 Total Bilirubin 0.6 Direct Bilirubin 0.1 AST 23 ALT 34 Alkaline Phosphatase 155 H Total Protein 5.4 L Albumin 2.3 L Globulin 3.1 Albumin/Globulin Ratio 0.7 L Lipase 133 Random Vancomycin 13.2 Miscellaneous Test 04/29/19 04/29/19 04/29/19 03:53 04:55 05:51 WBC RBC Hgb Hct MCV MCH MCHC RDW Std Deviation RDW Coeff of Erica Plt Count MPV Immature Gran % (Auto) Neut % (Auto) Lymph % (Auto) [place] % (Auto) Eos % (Auto) Baso % (Auto) Immature Gran # (Auto) Neut # (Auto) Lymph # (Auto) [place] # (Auto) Eos # (Auto) Baso # (Auto) PT INR APTT PTT Ratio Sodium Potassium Chloride Carbon Dioxide Anion Gap BUN Creatinine Est Cr Clr Drug Dosing Est GFR ( Amer) Est GFR (Non-Af Amer) BUN/Creatinine Ratio Glucose POC Glucose 251 H 254 H Lactate Calcium Ionized Calcium 1.02 L Phosphorus Magnesium Total Bilirubin Direct Bilirubin AST ALT Alkaline Phosphatase Total Protein Albumin Globulin Albumin/Globulin Ratio Lipase Random Vancomycin Miscellaneous Test 04/29/19 04/29/19 04/29/19 06:46 07:59 09:54 WBC RBC Hgb Hct MCV MCH MCHC RDW Std Deviation RDW Coeff of Erica Plt Count MPV Immature Gran % (Auto) Neut % (Auto) Lymph % (Auto) [place] % (Auto) Eos % (Auto) Baso % (Auto) Immature Gran # (Auto) Neut # (Auto) Lymph # (Auto) [place] # (Auto) Eos # (Auto) Baso # (Auto) PT INR APTT PTT Ratio Sodium Potassium Chloride Carbon Dioxide Anion Gap BUN Creatinine Est Cr Clr Drug Dosing Est GFR ( Amer) Est GFR (Non-Af Amer) BUN/Creatinine Ratio Glucose POC Glucose 209 H 205 H 314 H* Lactate Calcium Ionized Calcium Phosphorus Magnesium Total Bilirubin Direct Bilirubin AST ALT Alkaline Phosphatase Total Protein Albumin Globulin Albumin/Globulin Ratio Lipase Random Vancomycin Miscellaneous Test 04/29/19 04/29/19 04/29/19 11:00 12:00 12:44 WBC RBC Hgb Hct MCV MCH MCHC RDW Std Deviation RDW Coeff of Erica Plt Count MPV Immature Gran % (Auto) Neut % (Auto) Lymph % (Auto) [place] % (Auto) Eos % (Auto) Baso % (Auto) Immature Gran # (Auto) Neut # (Auto) Lymph # (Auto) [place] # (Auto) Eos # (Auto) Baso # (Auto) PT INR APTT PTT Ratio Sodium Potassium Chloride Carbon Dioxide Anion Gap BUN Creatinine Est Cr Clr Drug Dosing Est GFR ( Amer) Est GFR (Non-Af Amer) BUN/Creatinine Ratio Glucose POC Glucose 367 H* 322 H* Lactate Cancelled Calcium Ionized Calcium Phosphorus Magnesium Total Bilirubin Direct Bilirubin AST ALT Alkaline Phosphatase Total Protein Albumin Globulin Albumin/Globulin Ratio Lipase Random Vancomycin Miscellaneous Test 04/29/19 04/29/19 04/29/19 12:44 12:57 15:37 WBC RBC Hgb Hct MCV MCH MCHC RDW Std Deviation RDW Coeff of Erica Plt Count MPV Immature Gran % (Auto) Neut % (Auto) Lymph % (Auto) [place] % (Auto) Eos % (Auto) Baso % (Auto) Immature Gran # (Auto) Neut # (Auto) Lymph # (Auto) [place] # (Auto) Eos # (Auto) Baso # (Auto) PT INR APTT PTT Ratio Sodium Potassium Chloride Carbon Dioxide Anion Gap BUN Creatinine Est Cr Clr Drug Dosing Est GFR ( Amer) Est GFR (Non-Af Amer) BUN/Creatinine Ratio Glucose POC Glucose 250 H 250 H Lactate Calcium Ionized Calcium Phosphorus Magnesium Total Bilirubin Direct Bilirubin AST ALT Alkaline Phosphatase Total Protein Albumin Globulin Albumin/Globulin Ratio Lipase Random Vancomycin Miscellaneous Test Pending Medications Administered Current Inpatient Medications Acetaminophen (Tylenol) 650 mg PO Q6 PRN PRN Reason: Fever Stop: 05/29/19 13:43 Dextrose (Dextrose 50%) 25 - 50 ml IV UD PRN; Protocol PRN Reason: Hypoglycemia Protocol Stop: 05/28/19 01:59 Last Admin: 04/28/19 13:43 Dose: 25 ml Documented by: Glucagon (Glucagen) 1 mg IM UD PRN; Protocol PRN Reason: Hypoglycemia Protocol Stop: 05/28/19 01:59 Glucose (Glucose 40%) 15 - 30 gm PO UD PRN; Protocol PRN Reason: Hypoglycemia Protocol Stop: 05/28/19 01:59 Glucose (Dex4 Glucose) 4 - 8 tabs PO UD PRN; Protocol PRN Reason: Hypoglycemia Protocol Stop: 05/28/19 01:59 Heparin Sodium (Porcine) (Heparin Sodium (Porcine)) 5,000 units SQ Q8 [facility] Stop: 05/29/19 13:59 Last Admin: 04/29/19 14:29 Dose: 5,000 units Documented by: Insulin Aspart (Novolog Flexpen) 0 units SC ACHS [facility] Stop: 05/29/19 11:29 Insulin Glargine (Lantus Solostar Pen) 16 units SC DAILY [facility] Stop: 05/29/19 09:59 Last Admin: 04/29/19 10:56 Dose: 16 units Documented by: Levothyroxine Sodium (Synthroid) 200 mcg PO DAILYBB [facility] Stop: 05/30/19 06:29 Lisinopril (Zestril) 5 mg PO QAM [facility] Stop: 05/29/19 13:44 Last Admin: 04/29/19 14:29 Dose: 5 mg Documented by: Metoprolol Tartrate (Lopressor) 5 mg IV Q4 [facility] Stop: 04/29/19 19:59 Last Admin: 04/29/19 12:08 Dose: 5 mg Documented by: Metoprolol Tartrate (Lopressor) 25 mg PO BID [facility] Stop: 05/29/19 20:59 Miscellaneous (Carbohydrates For Hypoglycemia) 15 - 30 gm PO PRN PRN PRN Reason: Hypoglycemia Treatment Stop: 05/28/19 01:59 Ondansetron HCl (Zofran) 4 mg IV Q6H PRN PRN Reason: Nausea Stop: 05/28/19 05:00 Last Admin: 04/29/19 09:56 Dose: 4 mg Documented by: Pantoprazole Sodium (Protonix) 40 mg PO QAM [facility] Stop: 05/28/19 10:14 Last Admin: 04/29/19 09:31 Dose: 40 mg Documented by: (1) DKA (diabetic ketoacidoses) Diabetes mellitus complication detail: without coma Diabetes mellitus type: type 1 Qualified Code(s): E10.10 - Type 1 diabetes mellitus with ketoacidosis without coma
[2019-04-29] MEDS ORDERED: PHARMACY GLYCEMIC MGMT CONSULT PRN (18:32)
[2019-04-29] MEDS: METOPROLOL TARTRATE 25 MG TAB PO SCH (21:06)
[2019-04-30] MEDS: INSULIN ASPART 100 UNITS/ML 3 ML PEN SC SCH ×6 (00:28→17:09)
[2019-04-30] MEDS: LEVOTHYROXINE SODIUM 100 MCG TABLET PO SCH (06:14)
[2019-04-30] MEDS: HEPARIN SOD 5,000 UNIT/0.5 ML VIAL SQ SCH ×3 (06:14→20:28)
[2019-04-30] MEDS ORDERED: SODIUM CHLORIDE 0.9% 1000ML 1,000 ML IV PRN (07:00)
[2019-04-30 07:04] LABS: Basophils # (auto) 0.02 K/uL (0-0.2); Basophils % (auto) 0.3 %; Eosinophils # (auto) 0.14 K/uL (0-0.5); Eosinophils % (auto) 2.1 %; Hematocrit (blood only) 33.6 % (37-47); Hemoglobin 11.6 g/dL (12.0-16.0); Immature Granulocytes # (auto) 0.01 K/uL (0.00-0.02); Immature Granulocytes % (auto) 0.2 %; Lymphocytes # (auto) 1.27 K/uL (1.2-3.4); Lymphocytes % (auto) 19.1 %; Mean Corpuscular Hgb Conc 34.5 g/dL (32-36); Mean Corpuscular Volume 98.5 fL (80-100); Mean Platelet Volume 11.8 fL (7.4-10.4); Monocytes # (auto) 0.67 K/uL (0.11-0.59); Monocytes % (auto) 10.1 %; Neutrophils # (auto) 4.54 K/uL (1.4-6.5); Neutrophils % (auto) 68.2 %; Platelet Count 164 K/uL (130-400); RDW Coefficient of Variation 12.8 % (11.5-14.5); Red Blood Count 3.41 M/uL (4.2-5.4); White Blood Count 6.65 K/uL (4.8-10.8)
[2019-04-30 07:14] LABS: INR 1.2 (0.9-1.1); Partial Thromboplastin Ratio 1.3; Partial Thromboplastin Time 34.7 Seconds (21.0-31.0); Prothrombin Time 11.9 Seconds (9.0-12.0)
[2019-04-30 07:56] LABS: Albumin Globulin Ratio 0.7 (0.9-2); Albumin Level 2.4 gm/dl (3.4-5.0); BUN Creatinine Ratio 6.4 (10-20); Bilirubin Direct 0.1 mg/dl (0-0.2); Bilirubin,Total 0.5 mg/dl (0.2-1); Calcium 8.1 mg/dl (8.5-10.1); Creatinine Clr Calc Pharmacy 10.8 ml/min; Est GFR (African American) 11.5; Est GFR (Non-African American) 9.9; Globulin 3.4 gm/dl (2.5-4.0); Magnesium 2.2 mg/dl (1.8-2.4); Phosphorus 3.2 mg/dl (2.5-4.9); Potassium 3.1 mmol/L (3.5-5.1); Total Protein 5.8 gm/dl (6.4-8.2)
[2019-04-30] MEDS: ONDANSETRON INJ 2 MG/ML 2 ML VIAL IV PRN (07:58)
[2019-04-30] MEDS: PANTOprazole 40 MG TAB PO SCH (08:20)
[2019-04-30] MEDS: METOPROLOL TARTRATE 25 MG TAB PO SCH (08:20)
[2019-04-30] MEDS ORDERED: POTASSIUM CHLORIDE 10 MEQ TABCR PO STA (08:56)
[2019-04-30] MEDS: LISINOPRIL 5 MG TAB PO SCH (09:00)
[2019-04-30] MEDS ORDERED: METOPROLOL TARTRATE 25 MG TAB PO ONE (09:15)
--- NOTE | 2019-04-30 11:35 | Dialysis Progress Note ---
Date of Service April 30, 2019 Assessment & Plan (1) DKA (diabetic ketoacidoses): -- Insulin gtt to be stopped this morning -- Outside records from hospital admission at [facility] earlier this week have been requested -- Consider checking D lactate level -- Etiology of recurrent admissions has not been explained (2) End stage renal disease on dialysis: 63-year-old female with end-stage renal disease on hemodialysis, admitted to the hospital with DKA. This is the 3rd episode of DKA over last 1 month, unclear etiology so far. --currently tolerating hemodialysis well, next dialysis will be Thursday as her regular schedule for 3 hours. -- MWF as outpatient -- BP, volume status and electrolytes are acceptable -- plan to have EGD possibly Thursday -- AVF with good thrill and bruit Will follow (3) Diabetes mellitus type 1: (4) Hypertension: -- Midodrine and fludrocortisone held -- Accelerated hypertension improved (5) Orthostasis: -- Medical therapy held while BP accelerated Subjective Shanda was seen and examined during dialysis this morning. She has been overall feeling better although continued to have some nausea feeling and swallowing difficulty. Blood pressure has been stable and tolerating dialysis well. Physical Exam Constitutional: + ill appearing Respiratory: normal respiratory effort, lungs clear to auscultation Cardiovascular: RRR, no murmur, no edema Neurologic: moves all extremities and awake Psychiatric: A+Ox3, euthymic affect Results & Data Vital Signs (Past 12 Hours) Vital Signs Temp Pulse Pulse Pulse Resp BP BP 04/30/19 11:00 78 151/81 H 04/30/19 10:40 81 145/76 H 04/30/19 10:20 78 158/79 H 04/30/19 10:00 76 170/76 H 04/30/19 09:40 75 165/85 H 04/30/19 09:22 76 170/86 H 04/30/19 09:13 37.0 C 78 04/30/19 08:00 94 H 04/30/19 06:56 36.9 C 98 H 18 167/77 H 04/30/19 04:20 36.8 C 84 15 146/65 H Pulse Ox 04/30/19 11:00 04/30/19 10:40 04/30/19 10:20 04/30/19 10:00 04/30/19 09:40 04/30/19 09:22 04/30/19 09:13 04/30/19 08:00 04/30/19 06:56 99 04/30/19 04:20 97 (1) DKA (diabetic ketoacidoses) Diabetes mellitus complication detail: without coma Diabetes mellitus type: type 1 Qualified Code(s): E10.10 - Type 1 diabetes mellitus with ketoacidosis without coma
--- NOTE | 2019-04-30 11:41 | Pharmacy Report ---
Glycemic Control Consultation - Date of Service April 30, 2019 - Scope Scope: Glycemic Pharmacist consulted by Dr Ferraro on 04/29/19 for glycemic control and to write orders per [facility] inpatient glycemic control protocol - Objective Weight: 53 kg Accuchecks BSG (last 24hrs): 04/29/19 04/29/19 04/29/19 12:00 12:57 15:37 Glucose POC Glucose 322 H* 250 H 250 H 04/29/19 04/30/19 04/30/19 20:26 00:25 04:23 Glucose POC Glucose 108 H 100 H 92 04/30/19 04/30/19 06:56 07:22 Glucose 269 H POC Glucose 276 H Laboratory Data (last 24hrs): 04/30/19 06:56 Potassium 3.1 L Carbon Dioxide 25 Anion Gap 10.0 Creatinine 4.47 H D Est Cr Clr Drug Dosing 10.8 HbA1c: 9.5 % (4.5-5.6) H 04/28/19 10:06 - Recent Pertinent Medications Outpatient Anti-diabetic Regimen: * Lantus 16 units daily * Sliding scale novolog * A1c = 9.5 % 04/28/19 (Pt on HD) * However, this result is likely somewhat unreliable in ESRD patients d/t interactions between the A1c analyzing technique and high levels of urea in ESRD, reduced RBC life span, iron deficiency anemia, and EPO administration. HbA1c > 7.5% in ESRD patient may overestimate the extent of hyperglycemia in ESRD patients. The patient is currently receiving: * Basal insulin: Lantus 16 units every 24 hours * Correctional Insulin: Novolog Correction per scale ACHS Goal Range: Low 140 mg/dL - High 180 mg/dL Correction Factor: 30 mg/dL/unit * Prandial insulin: Per carb ratio of 1 unit per 10 grams CHO consumed Risk Factors for Insulin Resistance: * Diet: Type 1 DM - Assessment & Plan Assessment & Plan: ASSESSMENT: * 63 year old female TYPE 1 Diabetic admitted with DKA on 04/28/19. This is the third admission for DKA for the patient this month. Previous admissions: 04/03- 04/09, and 04/20-04/22. * Patient was initially on insulin drip and transitioned to SQ insulin. * Pharmacy consulted yesterday and had home dose of Lantus, will continue this dose * Last admission patient was adequately controlled with current CF and CR so will continue these at this time. * Slightly higher goal range for difficult patient to control and tendency for hypoglycemia. * Pt also with ESRD on HD. PLAN FOR INPATIENT GLYCEMIC CONTROL: * Basal insulin * Lantus 16 units SQ daily * Bolus insulin * NovoLog per scale ACHS or Q6hrs while NPO * Goal Range: Low 120 mg/dL - High 150 mg/dL * Correction Factor: 30 mg/dL/unit * Nutritional / Prandial insulin per carb ratio of 1 unit per 10 grams CHO consumed * Please note that the plan above was derived based on current level of insulin resistance and hospital stress. These recommendations are appropriate for inpatient admission only. Plan of care upon discharge will need to be reassessed to avoid potential outpatient hypo/hyperglycemia. Thank you.
[2019-04-30] MEDS ORDERED: INSULIN GLARGINE SOLOSTAR 100 UNITS/ML 3 ML PEN SC ONE (11:45)
--- NOTE | 2019-04-30 13:12 | Consultation Report ---
DATE OF CONSULTATION: 04/30/2019 GASTROENTEROLOGY CONSULT NOTE REFERRED BY: Doyle Ferraro DO HISTORY OF PRESENT ILLNESS: I was asked by Dr. Doyle Ferraro to consult on this woman for recurrent bouts of nausea and vomiting. The patient is a brittle diabetic with history of DKA, end-stage renal disease on dialysis, who has recurrent bouts of nausea, vomiting, difficulty with eating. She has had no recent upper endoscopy. She has no signs of active GI bleeding and does not take a lot of nonsteroidal anti-inflammatory products. Most likely, these symptoms are related to metabolic disarray and diabetic gastroparesis; however, an upper endoscopy would help to rule out GI pathology. I discussed this with Dr. Mcqueen and I will take the liberty of setting her up for an upper endoscopy on Thursday looking for an upper gastrointestinal pathology and make sure we are not missing anything in the upper GI tract.
[2019-04-30] MEDS: METOCLOPRAMIDE HCL INJ 5 MG/ML 2 ML VIAL IV SCH ×2 (14:45→20:28)
--- NOTE | 2019-04-30 19:54 | Hospitalist Progress Note ---
Date of Service April 30, 2019 Assessment & Plan (1) DKA (diabetic ketoacidoses): Resolved. s/p insulin drip protocol. This is the third admission for DKA for the patient this month. Previous admissions: 04/03-04/09, and 04/20-04/22. glycemic management consult requested. throughout the day today, in setting of nausea/emesis/poor oral intake, sugars cristiane >400. spoke with pharmacy - to place back on insulin drip. Present on Admission?: Yes (2) Diabetes mellitus type 1: see above in "DKA" last 4 hemoglobin a1c levels >9% regimen at home - Lantus 15 units in AM and Novolog w/ meals. compliance questionable. appreciate pharmacy and DM education consultations. Present on Admission?: Yes (3) Hyperlipidemia LDL goal <70: continue Lipitor Present on Admission?: Yes (4) End stage renal disease on dialysis: ESRD on HD, Thursday, Thursday and Thursday. on HD for 5-6 years now - due to diabetic nephropathy? RUE AV fistula in place continue phosphate binders appreciate nephrology assistance (5) Hypothyroidism (acquired): On levothyroxine 200 mcg p.o. daily most recent TSH wnl (6) Hypertension: resumed home medications control fair adjust lisinopril if needed (7) Orthostasis: by history on midodrine at home but BPs high check orthostatics in am (8) Nausea and vomiting: CT abd/pelvis earlier this months w/o acute pathology significance of modestly elevated lipase uncertain seen by GI - EGD planned for Thursday if EGD negative consider outpatient gastric emptying study to r/o gastroparesis in meantime reglan 5mg IV q6h also consider CT head - r/o [employer] causes of nausea/emesis consider cardiac work-up as welll await EGD on Thursday (9) Anxiety and depression: resume effexor if withdrawing from this could be contributing to GI symptoms (10) DVT prophylaxis: change heparin to 5000 BID from TID Subjective continues with nausea, occasional emesis despite resolution of DKA. because of these symptoms her appetite has been fair at best and unable to take in normal amounts of diet. denies abd pain. thinks she had a gastric emptying study in [place] "years ago". also thinks she was told she has a hiatal hernia. telemetry stable. she is s/p cholecystectomy in the past. seen by GI - EGD on Thursday. Review of Systems Constitutional: no fever and no chills Respiratory: no cough and no dyspnea Cardiovascular: no chest pain Gastrointestinal: as per Subjective / HPI Physical Exam Constitutional: + acute distress (nausea with dry heaves during my visit) and average body habitus; no altered mental status ENMT: external ear and nose normal, oropharynx normal (no thrush) Respiratory: normal respiratory effort, lungs clear to auscultation Cardiovascular: Rate/Rhythm: regular rate and regular rhythm Heart Sounds: normal S1 and normal S2 Vessels: posterior tibial pulses present and dorsalis pedis pulses present; no JVD Extremities: + AV fistula (right arm - positive bruit); no edema Gastrointestinal (Abdomen): normal bowel sounds, soft, nontender, no hepatosplenomegaly Skin: no rashes, warm and dry left IJ CVC intact Psychiatric: A+Ox3, euthymic affect Results & Data Vital Signs (Past 12 Hours) Vital Signs Temp Pulse Pulse Pulse Pulse Resp BP 04/30/19 19:31 37.2 C 81 19 04/30/19 16:00 85 04/30/19 15:03 36.7 C 75 18 04/30/19 13:00 36.9 C 80 04/30/19 12:00 37.2 C 85 69 20 153/76 H 04/30/19 11:40 80 119/62 04/30/19 11:20 80 166/75 H 04/30/19 11:00 78 151/81 H 04/30/19 10:40 81 145/76 H 04/30/19 10:20 78 158/79 H 04/30/19 10:00 76 170/76 H 04/30/19 09:40 75 165/85 H 04/30/19 09:22 76 170/86 H 04/30/19 09:13 37.0 C 78 04/30/19 08:00 94 H BP Pulse Ox 04/30/19 19:31 157/71 H 99 04/30/19 16:00 04/30/19 15:03 176/74 H 99 04/30/19 13:00 162/72 H 04/30/19 12:00 174/74 H 96 04/30/19 11:40 04/30/19 11:20 04/30/19 11:00 04/30/19 10:40 04/30/19 10:20 04/30/19 10:00 04/30/19 09:40 04/30/19 09:22 04/30/19 09:13 04/30/19 08:00 Laboratory Results Laboratory Results - last 24 hr 04/28/19 04/30/19 04/30/19 04:30 06:56 06:56 WBC 6.65 RBC 3.41 L Hgb 11.6 L Hct 33.6 L MCV 98.5 MCH 34.0 MCHC 34.5 RDW Std Deviation 46.0 RDW Coeff of Erica 12.8 Plt Count 164 MPV 11.8 H Immature Gran % (Auto) 0.2 Neut % (Auto) 68.2 Lymph % (Auto) 19.1 [place] % (Auto) 10.1 Eos % (Auto) 2.1 Baso % (Auto) 0.3 Immature Gran # (Auto) 0.01 Neut # (Auto) 4.54 Lymph # (Auto) 1.27 [place] # (Auto) 0.67 H Eos # (Auto) 0.14 Baso # (Auto) 0.02 PT 11.9 INR 1.2 H APTT 34.7 H PTT Ratio 1.3 Sodium Potassium Chloride Carbon Dioxide Anion Gap BUN Creatinine Est Cr Clr Drug Dosing Est GFR ( Amer) Est GFR (Non-Af Amer) BUN/Creatinine Ratio Glucose POC Glucose Calcium Phosphorus Magnesium Total Bilirubin Direct Bilirubin AST ALT Alkaline Phosphatase Total Protein Albumin Globulin Albumin/Globulin Ratio Lipase U Marijuana THC Carboxy 15 A 04/30/19 04/30/19 04/30/19 06:56 07:22 12:57 WBC RBC Hgb Hct MCV MCH MCHC RDW Std Deviation RDW Coeff of Erica Plt Count MPV Immature Gran % (Auto) Neut % (Auto) Lymph % (Auto) [place] % (Auto) Eos % (Auto) Baso % (Auto) Immature Gran # (Auto) Neut # (Auto) Lymph # (Auto) [place] # (Auto) Eos # (Auto) Baso # (Auto) PT INR APTT PTT Ratio Sodium 134 L Potassium 3.1 L Chloride 99 Carbon Dioxide 25 Anion Gap 10.0 BUN 28 H D Creatinine 4.47 H D Est Cr Clr Drug Dosing 10.8 Est GFR ( Amer) 11.5 Est GFR (Non-Af Amer) 9.9 BUN/Creatinine Ratio 6.4 L Glucose 269 H POC Glucose 276 H 176 H Calcium 8.1 L Phosphorus 3.2 Magnesium 2.2 Total Bilirubin 0.5 Direct Bilirubin 0.1 AST 47 H ALT 41 Alkaline Phosphatase 162 H Total Protein 5.8 L Albumin 2.4 L Globulin 3.4 Albumin/Globulin Ratio 0.7 L Lipase 664 H U Marijuana THC Carboxy 04/30/19 04/30/19 04/30/19 16:37 16:38 18:27 WBC RBC Hgb Hct MCV MCH MCHC RDW Std Deviation RDW Coeff of Erica Plt Count MPV Immature Gran % (Auto) Neut % (Auto) Lymph % (Auto) [place] % (Auto) Eos % (Auto) Baso % (Auto) Immature Gran # (Auto) Neut # (Auto) Lymph # (Auto) [place] # (Auto) Eos # (Auto) Baso # (Auto) PT INR APTT PTT Ratio Sodium Potassium Chloride Carbon Dioxide Anion Gap BUN Creatinine Est Cr Clr Drug Dosing Est GFR ( Amer) Est GFR (Non-Af Amer) BUN/Creatinine Ratio Glucose POC Glucose 432 H* 421 H* 480 H* Calcium Phosphorus Magnesium Total Bilirubin Direct Bilirubin AST ALT Alkaline Phosphatase Total Protein Albumin Globulin Albumin/Globulin Ratio Lipase U Marijuana THC Carboxy 04/30/19 04/30/19 04/30/19 18:29 19:54 19:55 WBC RBC Hgb Hct MCV MCH MCHC RDW Std Deviation RDW Coeff of Erica Plt Count MPV Immature Gran % (Auto) Neut % (Auto) Lymph % (Auto) [place] % (Auto) Eos % (Auto) Baso % (Auto) Immature Gran # (Auto) Neut # (Auto) Lymph # (Auto) [place] # (Auto) Eos # (Auto) Baso # (Auto) PT INR APTT PTT Ratio Sodium Potassium Chloride Carbon Dioxide Anion Gap BUN Creatinine Est Cr Clr Drug Dosing Est GFR ( Amer) Est GFR (Non-Af Amer) BUN/Creatinine Ratio Glucose POC Glucose 493 H* 496 H* 500 H* Calcium Phosphorus Magnesium Total Bilirubin Direct Bilirubin AST ALT Alkaline Phosphatase Total Protein Albumin Globulin Albumin/Globulin Ratio Lipase U Marijuana THC Carboxy 04/30/19 04/30/19 04/30/19 20:35 22:04 22:58 WBC RBC Hgb Hct MCV MCH MCHC RDW Std Deviation RDW Coeff of Erica Plt Count MPV Immature Gran % (Auto) Neut % (Auto) Lymph % (Auto) [place] % (Auto) Eos % (Auto) Baso % (Auto) Immature Gran # (Auto) Neut # (Auto) Lymph # (Auto) [place] # (Auto) Eos # (Auto) Baso # (Auto) PT INR APTT PTT Ratio Sodium Potassium Chloride Carbon Dioxide Anion Gap BUN Creatinine Est Cr Clr Drug Dosing Est GFR ( Amer) Est GFR (Non-Af Amer) BUN/Creatinine Ratio Glucose POC Glucose 535 H* 542 H* 475 H* Calcium Phosphorus Magnesium Total Bilirubin Direct Bilirubin AST ALT Alkaline Phosphatase Total Protein Albumin Globulin Albumin/Globulin Ratio Lipase U Marijuana THC Carboxy 04/30/19 05/01/19 05/01/19 23:59 00:59 01:58 WBC RBC Hgb Hct MCV MCH MCHC RDW Std Deviation RDW Coeff of Erica Plt Count MPV Immature Gran % (Auto) Neut % (Auto) Lymph % (Auto) [place] % (Auto) Eos % (Auto) Baso % (Auto) Immature Gran # (Auto) Neut # (Auto) Lymph # (Auto) [place] # (Auto) Eos # (Auto) Baso # (Auto) PT INR APTT PTT Ratio Sodium Potassium Chloride Carbon Dioxide Anion Gap BUN Creatinine Est Cr Clr Drug Dosing Est GFR ( Amer) Est GFR (Non-Af Amer) BUN/Creatinine Ratio Glucose POC Glucose 401 H* 334 H* 300 H Calcium Phosphorus Magnesium Total Bilirubin Direct Bilirubin AST ALT Alkaline Phosphatase Total Protein Albumin Globulin Albumin/Globulin Ratio Lipase U Marijuana THC Carboxy 05/01/19 05/01/19 05/01/19 02:59 03:58 05:03 WBC RBC Hgb Hct MCV MCH MCHC RDW Std Deviation RDW Coeff of Erica Plt Count MPV Immature Gran % (Auto) Neut % (Auto) Lymph % (Auto) [place] % (Auto) Eos % (Auto) Baso % (Auto) Immature Gran # (Auto) Neut # (Auto) Lymph # (Auto) [place] # (Auto) Eos # (Auto) Baso # (Auto) PT INR APTT PTT Ratio Sodium Potassium Chloride Carbon Dioxide Anion Gap BUN Creatinine Est Cr Clr Drug Dosing Est GFR ( Amer) Est GFR (Non-Af Amer) BUN/Creatinine Ratio Glucose POC Glucose 168 H 141 H 95 Calcium Phosphorus Magnesium Total Bilirubin Direct Bilirubin AST ALT Alkaline Phosphatase Total Protein Albumin Globulin Albumin/Globulin Ratio Lipase U Marijuana THC Carboxy 05/01/19 05:58 WBC RBC Hgb Hct MCV MCH MCHC RDW Std Deviation RDW Coeff of Erica Plt Count MPV Immature Gran % (Auto) Neut % (Auto) Lymph % (Auto) [place] % (Auto) Eos % (Auto) Baso % (Auto) Immature Gran # (Auto) Neut # (Auto) Lymph # (Auto) [place] # (Auto) Eos # (Auto) Baso # (Auto) PT INR APTT PTT Ratio Sodium Potassium Chloride Carbon Dioxide Anion Gap BUN Creatinine Est Cr Clr Drug Dosing Est GFR ( Amer) Est GFR (Non-Af Amer) BUN/Creatinine Ratio Glucose POC Glucose 118 H Calcium Phosphorus Magnesium Total Bilirubin Direct Bilirubin AST ALT Alkaline Phosphatase Total Protein Albumin Globulin Albumin/Globulin Ratio Lipase U Marijuana THC Carboxy (1) DKA (diabetic ketoacidoses) Diabetes mellitus complication detail: without coma Diabetes mellitus type: type 1 Qualified Code(s): E10.10 - Type 1 diabetes mellitus with ketoacidosis without coma (2) Diabetes mellitus type 1 Diabetes mellitus complication status: with kidney complications Diabetes mellitus complication detail: with chronic kidney disease Chronic kidney disease stage: on chronic dialysis Qualified Code(s): E10.22 - Type 1 diabetes mellitus with diabetic chronic kidney disease; N18.6 - End stage renal disease; Z99.2 - Dependence on renal dialysis (3) Hypertension Hypertension type: essential hypertension Qualified Code(s): I10 - Essential (primary) hypertension (4) Nausea and vomiting Vomiting type: unspecified Vomiting Intractability: intractable Qualified Code(s): R11.2 - Nausea with vomiting, unspecified
[2019-04-30] MEDS ORDERED: INSULIN PROTOCOL GOAL RANGE ONE (20:11)
[2019-04-30] MEDS ORDERED: MODERATE STRESS LEVEL ONE (20:11)
[2019-04-30] MEDS ORDERED: DC ALL PREVIOUSLY ORDERED DIABETES MEDS ONE (20:14)
[2019-04-30] MEDS ORDERED: INSULIN REGULAR 250 UNITS in SODIUM CHLORIDE 0.9% 247.5 ML IV SCH (20:15)
[2019-04-30] MEDS: METOPROLOL TARTRATE 50 MG TAB PO SCH (20:27)
[2019-04-30] MEDS ORDERED: INSULIN ASPART 100 UNITS/ML 3 ML PEN SC SCH ×2 (21:00)
[2019-04-30] MEDS ORDERED: NovoLIN-R BOLUS FROM BAG IV ONE (21:00)
[2019-05-01] MEDS: METOCLOPRAMIDE HCL INJ 5 MG/ML 2 ML VIAL IV SCH ×4 (03:02→20:34)
[2019-05-01] MEDS: LEVOTHYROXINE SODIUM 100 MCG TABLET PO SCH (06:23)
[2019-05-01 07:00] LABS: Basophils # (auto) 0.03 K/uL (0-0.2); Basophils % (auto) 0.5 %; Eosinophils # (auto) 0.13 K/uL (0-0.5); Eosinophils % (auto) 2.2 %; Hematocrit (blood only) 31.8 % (37-47); Hemoglobin 11.4 g/dL (12.0-16.0); Immature Granulocytes # (auto) 0.02 K/uL (0.00-0.02); Immature Granulocytes % (auto) 0.3 %; Lymphocytes # (auto) 1.25 K/uL (1.2-3.4); Mean Corpuscular Hgb Conc 35.8 g/dL (32-36); Mean Corpuscular Volume 97.2 fL (80-100); Mean Platelet Volume 11.7 fL (7.4-10.4); Monocytes # (auto) 0.81 K/uL (0.11-0.59); Monocytes % (auto) 13.6 %; Neutrophils # (auto) 3.71 K/uL (1.4-6.5); Neutrophils % (auto) 62.4 %; Platelet Count 136 K/uL (130-400); RDW Coefficient of Variation 12.7 % (11.5-14.5); RDW Standard Deviation 45.1 fL (36.4-46.3); Red Blood Count 3.27 M/uL (4.2-5.4); White Blood Count 5.95 K/uL (4.8-10.8)
[2019-05-01] MEDS ORDERED: INSULIN GLARGINE SOLOSTAR 100 UNITS/ML 3 ML PEN SC SCH ×2 (07:15→21:00)
[2019-05-01 07:40] LABS: Albumin Level 2.4 gm/dl (3.4-5.0); BUN Creatinine Ratio 6.7 (10-20); Creatinine Clr Calc Pharmacy 13.3 ml/min; Est GFR (African American) 15.2; Est GFR (Non-African American) 13.1; Potassium 3.3 mmol/L (3.5-5.1)
[2019-05-01 07:43] LABS: Albumin Globulin Ratio 0.8 (0.9-2); Bilirubin,Total 0.5 mg/dl (0.2-1); Total Protein 5.4 gm/dl (6.4-8.2)
[2019-05-01] MEDS: INSULIN ASPART 100 UNITS/ML 3 ML PEN SC SCH ×4 (08:08→20:36)
[2019-05-01] MEDS: LISINOPRIL 5 MG TAB PO SCH (08:09)
[2019-05-01] MEDS: PANTOprazole 40 MG TAB PO SCH (08:10)
[2019-05-01] MEDS: METOPROLOL TARTRATE 50 MG TAB PO SCH ×2 (08:10→20:37)
[2019-05-01] MEDS: VENLAFAXINE HCL XR 150 MG CAPXR PO SCH (08:12)
[2019-05-01] MEDS: HEPARIN SOD 5,000 UNIT/0.5 ML VIAL SQ SCH ×2 (08:12→20:35)
--- NOTE | 2019-05-01 11:27 | Nephrology Progress Note ---
Date of Service May 01, 2019 Assessment & Plan (1) DKA (diabetic ketoacidoses): -- Insulin gtt to be stopped this morning -- Outside records from hospital admission at [facility] earlier this week have been requested -- Consider checking D lactate level -- Etiology of recurrent admissions has not been explained (2) End stage renal disease on dialysis: 63-year-old female with end-stage renal disease on hemodialysis, admitted to the hospital with DKA. This is the 3rd episode of DKA over last 1 month, unclear etiology so far. Evaluated by GI for persistent nausea and scheduled for EGD Thursday. Had dialysis yesterday, currently blood pressure, volume status and his electrolytes acceptable. -- dialysis tomorrow can be done in the afternoon if EGD is planned for morning -- BP, volume status and electrolytes are acceptable -- AVF with good thrill and bruit Will follow (3) Diabetes mellitus type 1: (4) Hypertension: -- Midodrine and fludrocortisone held -- Accelerated hypertension improved (5) Orthostasis: -- Medical therapy held while BP accelerated Subjective Shanda Was seen and examined in her room this morning. She denies any symptoms, nausea resolved. No shortness of breath and chest pain. BP low but asymptomatic. Physical Exam Constitutional: + ill appearing Respiratory: normal respiratory effort, lungs clear to auscultation Cardiovascular: RRR, no murmur, no edema Neurologic: moves all extremities and awake Psychiatric: A+Ox3, euthymic affect Results & Data Vital Signs (Past 12 Hours) Vital Signs Temp Pulse Pulse Pulse Resp BP Pulse Ox 05/01/19 10:33 36.8 C 69 18 107/63 99 05/01/19 08:00 85 05/01/19 07:04 36.7 C 71 15 138/56 L 100 05/01/19 03:03 36.8 C 74 15 116/61 99 05/01/19 00:02 37.3 C 80 15 145/68 H 98 (1) DKA (diabetic ketoacidoses) Diabetes mellitus complication detail: without coma Diabetes mellitus type: type 1 Qualified Code(s): E10.10 - Type 1 diabetes mellitus with ketoacidosis without coma (2) Diabetes mellitus type 1 Diabetes mellitus complication status: with kidney complications Diabetes mellitus complication detail: with chronic kidney disease Chronic kidney disease stage: on chronic dialysis Qualified Code(s): E10.22 - Type 1 diabetes mellitus with diabetic chronic kidney disease; N18.6 - End stage renal disease; Z99.2 - Dependence on renal dialysis (3) Hypertension Hypertension type: essential hypertension Qualified Code(s): I10 - Essential (primary) hypertension
[2019-05-01] MEDS: FOLIC ACID 1 MG TAB PO SCH (11:38)
[2019-05-01] MEDS: FLUDROCORTISONE ACETATE 0.1 MG TAB PO SCH (11:38)
--- NOTE | 2019-05-01 12:38 | Hospitalist Progress Note ---
Date of Service May 01, 2019 Assessment & Plan (1) DKA (diabetic ketoacidoses): Resolved. s/p insulin drip protocol. This is the third admission for DKA for the patient this month. Previous admissions: 04/03-04/09, and 04/20-04/22. glycemic management consult requested and appreciated. Was back on insulin gtt again on 04/30 and now weaned off again -continue Basal bolus insulin-recommend chekcing glucose 2 hours after lunch and if continuing to rise, would tighten down CF and CR today WIll d/w Pharmacy (2) Diabetes mellitus type 1: see above in "DKA" last 4 hemoglobin a1c levels >9% which may be falsely elevated in the setting of ESRD and anemia regimen at home - Lantus 15 units in AM and Novolog w/ meals. compliance questionable. appreciate pharmacy and DM education consultations. Will again need close f/u with Endocrine (3) Hyperlipidemia LDL goal <70: continue Lipitor (4) End stage renal disease on dialysis: ESRD on HD, Thursday, Thursday and Thursday. on HD for 5-6 years now - due to diabetic nephropathy RUE AV fistula in place continue phosphate binders-not on current med list-will order -continue lisinopril appreciate nephrology assistance (5) Hypothyroidism (acquired): On levothyroxine 200 mcg p.o. daily most recent TSH wnl but was >500 not that long ago (6) Hypertension: Labile-was elevated, back on beta xavier which was changed to metoprolol 50 bid -continue lisinopril BPs becoming low again and orthostatic mildly -restarting fludrocortisone (7) Orthostasis: by history on midodrine and fludrocortisone at home but BPs high here and both were held Now lower BPs as above and mildly +orthostatics, has h/o syncope previous admission when fludrocortisone held -restart fludrocortisone as above -continue to hold midodrine (8) Nausea and vomiting: CT abd/pelvis earlier this months w/o acute pathology significance of modestly elevated lipase uncertain seen by GI - EGD planned for Thursday if EGD negative consider outpatient gastric emptying study to r/o gastroparesis in meantime, continue reglan 5mg IV q6h also consider CT head - r/o [employer] causes of nausea/emesis await EGD on Thursday -continue Protonix, add on Zantac today for persistent burning with eating (9) Anxiety and depression: resumed effexor-but is actually on 225mg daily-increased dose today (10) DVT prophylaxis: continue heparin SQ FEN-add back thiamine from home Dispo-remain on tele Subjective Feeling a little nauseated after eating some cranberry sauce for lunch, no vomiting. SHe is moving her bowels. Feels a burning in her lower chest "like something is stuck" but no abd pain. Denies SOB or Chest pain. Glucose finally down and weaned off insulin gtt again Tele with NSR rates 60s-80s Review of Systems Review of Systems: All systems reviewed & are unremarkable except as noted in HPI & below Physical Exam Constitutional: WD/WN, vitals as above Eyes: PERRL, conjunctivae normal, anicteric sclerae ENMT: external ear and nose normal, oropharynx normal Neck: trachea midline, no thyromegaly Respiratory: normal respiratory effort, lungs clear to auscultation Cardiovascular: RRR, no murmur, no edema Gastrointestinal (Abdomen): normal bowel sounds, soft, nontender, no hepatosplenomegaly Musculoskeletal: Extremities: extremities normal to inspection; no cyanosis and no clubbing Skin: no rashes, warm and dry Neurologic: moves all extremities and awake; no focal motor deficits Psychiatric: A+Ox3, euthymic affect Results & Data Vital Signs (Past 12 Hours) Vital Signs Temp Pulse Pulse Pulse Resp BP Pulse Ox 05/01/19 10:33 36.8 C 69 18 107/63 99 05/01/19 08:00 85 05/01/19 07:04 36.7 C 71 15 138/56 L 100 05/01/19 03:03 36.8 C 74 15 116/61 99 Laboratory Results 05/01/19 05/01/19 05/01/19 Range/Units 11:24 10:29 09:33 WBC (4.8-10.8) K/uL RBC (4.2-5.4) M/uL Hgb (12.0-16.0) g/dL Hct (37-47) % MCV (80-100) fL MCH (25-34) pg MCHC (32-36) g/dL RDW Std Deviation (36.4-46.3) fL RDW Coeff of Erica (11.5-14.5) % Plt Count (130-400) K/uL MPV (7.4-10.4) fL Immature Gran % (Auto) % Neut % (Auto) % Lymph % (Auto) % [place] % (Auto) % Eos % (Auto) % Baso % (Auto) % Immature Gran # (Auto) (0.00-0.02) K/uL Neut # (Auto) (1.4-6.5) K/uL Lymph # (Auto) (1.2-3.4) K/uL [place] # (Auto) (0.11-0.59) K/uL Eos # (Auto) (0-0.5) K/uL Baso # (Auto) (0-0.2) K/uL Sodium (136-145) mmol/L Potassium (3.5-5.1) mmol/L Chloride (98-107) mmol/L Carbon Dioxide (21-32) mmol/L Anion Gap (3-11) BUN (7-18) mg/dl Creatinine (0.6-1.2) mg/dl Est Cr Clr Drug Dosing ml/min Est GFR ( Amer) Est GFR (Non-Af Amer) BUN/Creatinine Ratio (10-20) Glucose (70-99) mg/dl POC Glucose 181 H 159 H 201 H (70-99) Calcium (8.5-10.1) mg/dl Total Bilirubin (0.2-1) mg/dl AST (15-37) U/L ALT (12-78) U/L Alkaline Phosphatase (45-117) U/L Total Protein (6.4-8.2) gm/dl Albumin (3.4-5.0) gm/dl Globulin (2.5-4.0) gm/dl Albumin/Globulin Ratio (0.9-2) Lipase (73-393) U/L U Marijuana THC Carboxy (CUTOFF=5) NG/ML 05/01/19 05/01/19 05/01/19 Range/Units 08:24 06:58 06:46 WBC 5.95 (4.8-10.8) K/uL RBC 3.27 L (4.2-5.4) M/uL Hgb 11.4 L (12.0-16.0) g/dL Hct 31.8 L (37-47) % MCV 97.2 (80-100) fL MCH 34.9 H (25-34) pg MCHC 35.8 (32-36) g/dL RDW Std Deviation 45.1 (36.4-46.3) fL RDW Coeff of Erica 12.7 (11.5-14.5) % Plt Count 136 (130-400) K/uL MPV 11.7 H (7.4-10.4) fL Immature Gran % (Auto) 0.3 % Neut % (Auto) 62.4 % Lymph % (Auto) 21.0 % [place] % (Auto) 13.6 % Eos % (Auto) 2.2 % Baso % (Auto) 0.5 % Immature Gran # (Auto) 0.02 (0.00-0.02) K/uL Neut # (Auto) 3.71 (1.4-6.5) K/uL Lymph # (Auto) 1.25 (1.2-3.4) K/uL [place] # (Auto) 0.81 H (0.11-0.59) K/uL Eos # (Auto) 0.13 (0-0.5) K/uL Baso # (Auto) 0.03 (0-0.2) K/uL Sodium (136-145) mmol/L Potassium (3.5-5.1) mmol/L Chloride (98-107) mmol/L Carbon Dioxide (21-32) mmol/L Anion Gap (3-11) BUN (7-18) mg/dl Creatinine (0.6-1.2) mg/dl Est Cr Clr Drug Dosing ml/min Est GFR ( Amer) Est GFR (Non-Af Amer) BUN/Creatinine Ratio (10-20) Glucose (70-99) mg/dl POC Glucose 211 H 204 H (70-99) Calcium (8.5-10.1) mg/dl Total Bilirubin (0.2-1) mg/dl AST (15-37) U/L ALT (12-78) U/L Alkaline Phosphatase (45-117) U/L Total Protein (6.4-8.2) gm/dl Albumin (3.4-5.0) gm/dl Globulin (2.5-4.0) gm/dl Albumin/Globulin Ratio (0.9-2) Lipase (73-393) U/L U Marijuana THC Carboxy (CUTOFF=5) NG/ML 05/01/19 05/01/19 05/01/19 Range/Units 06:46 05:58 05:03 WBC (4.8-10.8) K/uL RBC (4.2-5.4) M/uL Hgb (12.0-16.0) g/dL Hct (37-47) % MCV (80-100) fL MCH (25-34) pg MCHC (32-36) g/dL RDW Std Deviation (36.4-46.3) fL RDW Coeff of Erica (11.5-14.5) % Plt Count (130-400) K/uL MPV (7.4-10.4) fL Immature Gran % (Auto) % Neut % (Auto) % Lymph % (Auto) % [place] % (Auto) % Eos % (Auto) % Baso % (Auto) % Immature Gran # (Auto) (0.00-0.02) K/uL Neut # (Auto) (1.4-6.5) K/uL Lymph # (Auto) (1.2-3.4) K/uL [place] # (Auto) (0.11-0.59) K/uL Eos # (Auto) (0-0.5) K/uL Baso # (Auto) (0-0.2) K/uL Sodium 133 L (136-145) mmol/L Potassium 3.3 L (3.5-5.1) mmol/L Chloride 99 (98-107) mmol/L Carbon Dioxide 23 (21-32) mmol/L Anion Gap 11.0 (3-11) BUN 24 H (7-18) mg/dl Creatinine 3.56 H D (0.6-1.2) mg/dl Est Cr Clr Drug Dosing 13.3 ml/min Est GFR ( Amer) 15.2 Est GFR (Non-Af Amer) 13.1 BUN/Creatinine Ratio 6.7 L (10-20) Glucose 188 H (70-99) mg/dl POC Glucose 118 H 95 (70-99) Calcium 8.0 L (8.5-10.1) mg/dl Total Bilirubin 0.5 (0.2-1) mg/dl AST 33 (15-37) U/L ALT 38 (12-78) U/L Alkaline Phosphatase 144 H (45-117) U/L Total Protein 5.4 L (6.4-8.2) gm/dl Albumin 2.4 L (3.4-5.0) gm/dl Globulin 3.0 (2.5-4.0) gm/dl Albumin/Globulin Ratio 0.8 L (0.9-2) Lipase 552 H (73-393) U/L U Marijuana THC Carboxy (CUTOFF=5) NG/ML 05/01/19 05/01/19 05/01/19 Range/Units 03:58 02:59 01:58 WBC (4.8-10.8) K/uL RBC (4.2-5.4) M/uL Hgb (12.0-16.0) g/dL Hct (37-47) % MCV (80-100) fL MCH (25-34) pg MCHC (32-36) g/dL RDW Std Deviation (36.4-46.3) fL RDW Coeff of Erica (11.5-14.5) % Plt Count (130-400) K/uL MPV (7.4-10.4) fL Immature Gran % (Auto) % Neut % (Auto) % Lymph % (Auto) % [place] % (Auto) % Eos % (Auto) % Baso % (Auto) % Immature Gran # (Auto) (0.00-0.02) K/uL Neut # (Auto) (1.4-6.5) K/uL Lymph # (Auto) (1.2-3.4) K/uL [place] # (Auto) (0.11-0.59) K/uL Eos # (Auto) (0-0.5) K/uL Baso # (Auto) (0-0.2) K/uL Sodium (136-145) mmol/L Potassium (3.5-5.1) mmol/L Chloride (98-107) mmol/L Carbon Dioxide (21-32) mmol/L Anion Gap (3-11) BUN (7-18) mg/dl Creatinine (0.6-1.2) mg/dl Est Cr Clr Drug Dosing ml/min Est GFR ( Amer) Est GFR (Non-Af Amer) BUN/Creatinine Ratio (10-20) Glucose (70-99) mg/dl POC Glucose 141 H 168 H 300 H (70-99) Calcium (8.5-10.1) mg/dl Total Bilirubin (0.2-1) mg/dl AST (15-37) U/L ALT (12-78) U/L Alkaline Phosphatase (45-117) U/L Total Protein (6.4-8.2) gm/dl Albumin (3.4-5.0) gm/dl Globulin (2.5-4.0) gm/dl Albumin/Globulin Ratio (0.9-2) Lipase (73-393) U/L U Marijuana THC Carboxy (CUTOFF=5) NG/ML 05/01/19 04/30/19 04/30/19 Range/Units 00:59 23:59 22:58 WBC (4.8-10.8) K/uL RBC (4.2-5.4) M/uL Hgb (12.0-16.0) g/dL Hct (37-47) % MCV (80-100) fL MCH (25-34) pg MCHC (32-36) g/dL RDW Std Deviation (36.4-46.3) fL RDW Coeff of Erica (11.5-14.5) % Plt Count (130-400) K/uL MPV (7.4-10.4) fL Immature Gran % (Auto) % Neut % (Auto) % Lymph % (Auto) % [place] % (Auto) % Eos % (Auto) % Baso % (Auto) % Immature Gran # (Auto) (0.00-0.02) K/uL Neut # (Auto) (1.4-6.5) K/uL Lymph # (Auto) (1.2-3.4) K/uL [place] # (Auto) (0.11-0.59) K/uL Eos # (Auto) (0-0.5) K/uL Baso # (Auto) (0-0.2) K/uL Sodium (136-145) mmol/L Potassium (3.5-5.1) mmol/L Chloride (98-107) mmol/L Carbon Dioxide (21-32) mmol/L Anion Gap (3-11) BUN (7-18) mg/dl Creatinine (0.6-1.2) mg/dl Est Cr Clr Drug Dosing ml/min Est GFR ( Amer) Est GFR (Non-Af Amer) BUN/Creatinine Ratio (10-20) Glucose (70-99) mg/dl POC Glucose 334 H* 401 H* 475 H* (70-99) Calcium (8.5-10.1) mg/dl Total Bilirubin (0.2-1) mg/dl AST (15-37) U/L ALT (12-78) U/L Alkaline Phosphatase (45-117) U/L Total Protein (6.4-8.2) gm/dl Albumin (3.4-5.0) gm/dl Globulin (2.5-4.0) gm/dl Albumin/Globulin Ratio (0.9-2) Lipase (73-393) U/L U Marijuana THC Carboxy (CUTOFF=5) NG/ML 04/30/19 04/30/19 04/30/19 Range/Units 22:04 20:35 19:55 WBC (4.8-10.8) K/uL RBC (4.2-5.4) M/uL Hgb (12.0-16.0) g/dL Hct (37-47) % MCV (80-100) fL MCH (25-34) pg MCHC (32-36) g/dL RDW Std Deviation (36.4-46.3) fL RDW Coeff of Erica (11.5-14.5) % Plt Count (130-400) K/uL MPV (7.4-10.4) fL Immature Gran % (Auto) % Neut % (Auto) % Lymph % (Auto) % [place] % (Auto) % Eos % (Auto) % Baso % (Auto) % Immature Gran # (Auto) (0.00-0.02) K/uL Neut # (Auto) (1.4-6.5) K/uL Lymph # (Auto) (1.2-3.4) K/uL [place] # (Auto) (0.11-0.59) K/uL Eos # (Auto) (0-0.5) K/uL Baso # (Auto) (0-0.2) K/uL Sodium (136-145) mmol/L Potassium (3.5-5.1) mmol/L Chloride (98-107) mmol/L Carbon Dioxide (21-32) mmol/L Anion Gap (3-11) BUN (7-18) mg/dl Creatinine (0.6-1.2) mg/dl Est Cr Clr Drug Dosing ml/min Est GFR ( Amer) Est GFR (Non-Af Amer) BUN/Creatinine Ratio (10-20) Glucose (70-99) mg/dl POC Glucose 542 H* 535 H* 500 H* (70-99) Calcium (8.5-10.1) mg/dl Total Bilirubin (0.2-1) mg/dl AST (15-37) U/L ALT (12-78) U/L Alkaline Phosphatase (45-117) U/L Total Protein (6.4-8.2) gm/dl Albumin (3.4-5.0) gm/dl Globulin (2.5-4.0) gm/dl Albumin/Globulin Ratio (0.9-2) Lipase (73-393) U/L U Marijuana THC Carboxy (CUTOFF=5) NG/ML 04/30/19 04/30/19 04/30/19 Range/Units 19:54 18:29 18:27 WBC (4.8-10.8) K/uL RBC (4.2-5.4) M/uL Hgb (12.0-16.0) g/dL Hct (37-47) % MCV (80-100) fL MCH (25-34) pg MCHC (32-36) g/dL RDW Std Deviation (36.4-46.3) fL RDW Coeff of Erica (11.5-14.5) % Plt Count (130-400) K/uL MPV (7.4-10.4) fL Immature Gran % (Auto) % Neut % (Auto) % Lymph % (Auto) % [place] % (Auto) % Eos % (Auto) % Baso % (Auto) % Immature Gran # (Auto) (0.00-0.02) K/uL Neut # (Auto) (1.4-6.5) K/uL Lymph # (Auto) (1.2-3.4) K/uL [place] # (Auto) (0.11-0.59) K/uL Eos # (Auto) (0-0.5) K/uL Baso # (Auto) (0-0.2) K/uL Sodium (136-145) mmol/L Potassium (3.5-5.1) mmol/L Chloride (98-107) mmol/L Carbon Dioxide (21-32) mmol/L Anion Gap (3-11) BUN (7-18) mg/dl Creatinine (0.6-1.2) mg/dl Est Cr Clr Drug Dosing ml/min Est GFR ( Amer) Est GFR (Non-Af Amer) BUN/Creatinine Ratio (10-20) Glucose (70-99) mg/dl POC Glucose 496 H* 493 H* 480 H* (70-99) Calcium (8.5-10.1) mg/dl Total Bilirubin (0.2-1) mg/dl AST (15-37) U/L ALT (12-78) U/L Alkaline Phosphatase (45-117) U/L Total Protein (6.4-8.2) gm/dl Albumin (3.4-5.0) gm/dl Globulin (2.5-4.0) gm/dl Albumin/Globulin Ratio (0.9-2) Lipase (73-393) U/L U Marijuana THC Carboxy (CUTOFF=5) NG/ML 04/30/19 04/30/19 04/30/19 Range/Units 16:38 16:37 12:57 WBC (4.8-10.8) K/uL RBC (4.2-5.4) M/uL Hgb (12.0-16.0) g/dL Hct (37-47) % MCV (80-100) fL MCH (25-34) pg MCHC (32-36) g/dL RDW Std Deviation (36.4-46.3) fL RDW Coeff of Erica (11.5-14.5) % Plt Count (130-400) K/uL MPV (7.4-10.4) fL Immature Gran % (Auto) % Neut % (Auto) % Lymph % (Auto) % [place] % (Auto) % Eos % (Auto) % Baso % (Auto) % Immature Gran # (Auto) (0.00-0.02) K/uL Neut # (Auto) (1.4-6.5) K/uL Lymph # (Auto) (1.2-3.4) K/uL [place] # (Auto) (0.11-0.59) K/uL Eos # (Auto) (0-0.5) K/uL Baso # (Auto) (0-0.2) K/uL Sodium (136-145) mmol/L Potassium (3.5-5.1) mmol/L Chloride (98-107) mmol/L Carbon Dioxide (21-32) mmol/L Anion Gap (3-11) BUN (7-18) mg/dl Creatinine (0.6-1.2) mg/dl Est Cr Clr Drug Dosing ml/min Est GFR ( Amer) Est GFR (Non-Af Amer) BUN/Creatinine Ratio (10-20) Glucose (70-99) mg/dl POC Glucose 421 H* 432 H* 176 H (70-99) Calcium (8.5-10.1) mg/dl Total Bilirubin (0.2-1) mg/dl AST (15-37) U/L ALT (12-78) U/L Alkaline Phosphatase (45-117) U/L Total Protein (6.4-8.2) gm/dl Albumin (3.4-5.0) gm/dl Globulin (2.5-4.0) gm/dl Albumin/Globulin Ratio (0.9-2) Lipase (73-393) U/L U Marijuana THC Carboxy (CUTOFF=5) NG/ML 04/28/19 Range/Units 04:30 WBC (4.8-10.8) K/uL RBC (4.2-5.4) M/uL Hgb (12.0-16.0) g/dL Hct (37-47) % MCV (80-100) fL MCH (25-34) pg MCHC (32-36) g/dL RDW Std Deviation (36.4-46.3) fL RDW Coeff of Erica (11.5-14.5) % Plt Count (130-400) K/uL MPV (7.4-10.4) fL Immature Gran % (Auto) % Neut % (Auto) % Lymph % (Auto) % [place] % (Auto) % Eos % (Auto) % Baso % (Auto) % Immature Gran # (Auto) (0.00-0.02) K/uL Neut # (Auto) (1.4-6.5) K/uL Lymph # (Auto) (1.2-3.4) K/uL [place] # (Auto) (0.11-0.59) K/uL Eos # (Auto) (0-0.5) K/uL Baso # (Auto) (0-0.2) K/uL Sodium (136-145) mmol/L Potassium (3.5-5.1) mmol/L Chloride (98-107) mmol/L Carbon Dioxide (21-32) mmol/L Anion Gap (3-11) BUN (7-18) mg/dl Creatinine (0.6-1.2) mg/dl Est Cr Clr Drug Dosing ml/min Est GFR ( Amer) Est GFR (Non-Af Amer) BUN/Creatinine Ratio (10-20) Glucose (70-99) mg/dl POC Glucose (70-99) Calcium (8.5-10.1) mg/dl Total Bilirubin (0.2-1) mg/dl AST (15-37) U/L ALT (12-78) U/L Alkaline Phosphatase (45-117) U/L Total Protein (6.4-8.2) gm/dl Albumin (3.4-5.0) gm/dl Globulin (2.5-4.0) gm/dl Albumin/Globulin Ratio (0.9-2) Lipase (73-393) U/L U Marijuana THC Carboxy 15 A (CUTOFF=5) NG/ML (1) DKA (diabetic ketoacidoses) Diabetes mellitus complication detail: without coma Diabetes mellitus type: type 1 Qualified Code(s): E10.10 - Type 1 diabetes mellitus with ketoacidosis without coma (2) Diabetes mellitus type 1 Diabetes mellitus complication status: with kidney complications Diabetes mellitus complication detail: with chronic kidney disease Chronic kidney disease stage: on chronic dialysis Qualified Code(s): E10.22 - Type 1 diabetes mellitus with diabetic chronic kidney disease; N18.6 - End stage renal disease; Z99.2 - Dependence on renal dialysis (3) Hypertension Hypertension type: essential hypertension Qualified Code(s): I10 - Essential (primary) hypertension (4) Nausea and vomiting Vomiting type: unspecified Vomiting Intractability: intractable Qualified Code(s): R11.2 - Nausea with vomiting, unspecified
[2019-05-01] MEDS: ONDANSETRON INJ 2 MG/ML 2 ML VIAL IV PRN (12:43)
[2019-05-01] MEDS: POTASSIUM CHLORIDE 20 MEQ TABCR PO STA ×2 (13:25→16:01)
[2019-05-01] MEDS: THIAMINE HCL 100 MG TAB PO SCH (13:48)
[2019-05-01] MEDS: VENLAFAXINE HCL XR 75 MG CAPXR PO SCH (13:48)
--- NOTE | 2019-05-01 14:40 | Pharmacy Report ---
Pharmacy Glycemic Short Note 2 - Date of Service May 01, 2019 - Glycemic Short BSG Results (Last 24 hours): 04/30/19 04/30/19 04/30/19 16:37 16:38 18:27 Glucose POC Glucose 432 H* 421 H* 480 H* 04/30/19 04/30/19 04/30/19 18:29 19:54 19:55 Glucose POC Glucose 493 H* 496 H* 500 H* 04/30/19 04/30/19 04/30/19 20:35 22:04 22:58 Glucose POC Glucose 535 H* 542 H* 475 H* 04/30/19 05/01/19 05/01/19 23:59 00:59 01:58 Glucose POC Glucose 401 H* 334 H* 300 H 05/01/19 05/01/19 05/01/19 02:59 03:58 05:03 Glucose POC Glucose 168 H 141 H 95 05/01/19 05/01/19 05/01/19 05:58 06:46 06:58 Glucose 188 H POC Glucose 118 H 204 H 05/01/19 05/01/19 05/01/19 08:24 09:33 10:29 Glucose POC Glucose 211 H 201 H 159 H 05/01/19 11:24 Glucose POC Glucose 181 H OUTPATIENT ANTIDIABETIC REGIMEN: * Lantus 16 units Daily * Novolog sliding scale ASSESSMENT: * Blood sugars cristiane into 500s yesterday evening, insulin drip was started and ran until 1030 today rates ranging 1.3-3.7units/hr * Lantus restarted and overlapped with insulin drip x 4 hours * Will give additional lantus tonight if BSG remains over 180mg/dl * Accuchecks overnight too to ensure better glycemic control * Blood sugar prior to lunch good at 181mg/dl * Recheck almost 2 hours after lunch dose of Novolog was given = 281mg/dl - will give additional SQ correctional dose now prior to pre-dinner dose. PLAN FOR INPATIENT GLYCEMIC CONTROL: * Discontinue insulin drip at 1030 today * Basal insulin * Lantus 16 units SQ daily - started at 0700 today * Lantus 5 units SQ HS tonight for BSG > 180mg/dl * Bolus insulin * NovoLog per scale ACHS or Q6hrs while NPO & overnight at 0000 and 0400 * Goal Range: Low 120 mg/dL - High 150 mg/dL (for pt with tendency for hypoglycemia) * TIGHTEN: Correction Factor: 20 mg/dL/unit * TIGHTEN: Nutritional / Prandial insulin per carb ratio of 1 unit per 6 grams CHO consumed * Give additional dose now at 1530 for BSG 281mg/dl PLAN FOR DISCHARGE: * Patient has had 3 admissions over the past month for DKA - patient needs better DM Self care education and outpatient control.
[2019-05-01] MEDS ORDERED: INSULIN ASPART 100 UNITS/ML 3 ML PEN SC ONE (15:30)
[2019-05-01] MEDS ORDERED: POTASSIUM CHLORIDE 20 MEQ/15 ML UDC PO ONE (16:15)
[2019-05-01] MEDS ORDERED: ATORVASTATIN 40 MG TAB PO SCH (21:00)
[2019-05-02] MEDS: INSULIN ASPART 100 UNITS/ML 3 ML PEN SC SCH ×4 (00:08→16:59)
[2019-05-02] MEDS: METOCLOPRAMIDE HCL INJ 5 MG/ML 2 ML VIAL IV SCH ×3 (03:12→15:08)
[2019-05-02] MEDS ORDERED: METOPROLOL TARTRATE 1 MG/ML VIAL IV STA (03:20)
[2019-05-02] MEDS: DEXTROSE 50% 50 ML SYRINGE IV PRN (04:23)
[2019-05-02] MEDS: LEVOTHYROXINE SODIUM 100 MCG TABLET PO SCH (06:05)
[2019-05-02] MEDS ORDERED: SODIUM CHLORIDE 0.9% 1000ML 1,000 ML IV PRN (07:00)
[2019-05-02] MEDS ORDERED: SEVELAMER HCL 800 MG TABLET PO SCH (07:30)
[2019-05-02] MEDS ORDERED: PROPOFOL IV EMULSION 10 MG/ML 20 ML VIAL IV ONE (08:17)
[2019-05-02] MEDS ORDERED: LIDOCAINE HCL 2% 2 ML VIAL/AMP(20MG/ML) INFIL ONE (08:17)
--- NOTE | 2019-05-02 08:45 | Anesthesiology Consultation ---
Date of Service May 02, 2019 Assessment & Plan Chart Review Chart Review: Acceptable Risk for Surgery and Patient NOT seen in Pre Admission Testing Consults Requested none ASA ASA4 Proposed Anesthesia Anesthesia Type: MAC Risk / Benefits Reviewed With: PT / POA / Parent / Guardian, Accepts Plan and Informed Consent Obtained History Surgery Operation Date: 05/02/19 08:30 Proposed Procedures p Esophagogastroduodenoscopy Dr Dutton - Diana Dutton Height/Weight Height: 5 ft 3 in Weight: 51.1 kg Allergies Allergy/AdvReac Type Severity Reaction Status Date / Time orange juice Allergy Mild Rash Verified 05/02/19 08:47 codeine Allergy Unknown Verified 05/02/19 08:47 ibuprofen Allergy Hives Verified 05/02/19 08:47 shellfish derived Allergy Hives Verified 05/02/19 08:47 strawberry Allergy ALL Verified 05/02/19 08:47 BERRIES --> Anaphylaxis tomato AdvReac Unknown Verified 05/02/19 08:47 Medications Home Medications Medication Instructions Recorded Confirmed Last Taken furosemide 40 mg PO 2XWK 01/21/19 04/28/19 04/19/19 venlafaxine 150 mg PO QAM 01/21/19 04/28/19 04/19/19 Novolog Flexpen U-100 Insulin See Rx Instructions .ROUTE .COMPLEX 04/02/19 04/28/19 04/19/19 atorvastatin 40 mg PO QPM 04/02/19 04/28/19 04/19/19 fludrocortisone 0.1 mg PO DAILY 04/02/19 04/28/19 04/19/19 tramadol 50 mg PO BID PRN 04/02/19 04/28/19 04/19/19 venlafaxine 75 mg PO QAM 04/02/19 04/28/19 04/19/19 folic acid 1 mg PO QAM #30 tab 04/08/19 04/28/19 04/19/19 labetalol 100 mg PO BID #30 tab 04/08/19 04/28/19 04/19/19 midodrine 1.25 mg PO TID@0800,1200,1700 #90 04/09/19 04/28/19 04/19/19 tab Lantus Solostar U-100 Insulin 16 unit SUBCUT QAM 04/13/19 04/28/19 04/19/19 docusate sodium 100 mg capsule 100 mg PO Q3D cap 04/13/19 04/28/19 04/19/19 levothyroxine 200 mcg PO QAM 04/13/19 04/28/19 04/19/19 pyridoxine (vitamin B6) 100 mg 100 mg PO QAM tab 04/13/19 04/28/19 04/19/19 tablet sevelamer carbonate 800 mg tablet 800 mg PO QAM tab 04/13/19 04/28/19 04/19/19 thiamine HCl (vitamin B1) 250 mg 250 mg PO QAM tab 04/13/19 04/28/19 04/19/19 tablet Active Medications Generic Name Dose Route Start Last Admin Trade Name Freq PRN Reason Stop Dose Admin Acetaminophen 650 mg 04/29/19 13:44 05/01/19 00:44 Tylenol PO 05/29/19 13:43 650 mg Q6 PRN Administration Fever Atorvastatin Calcium 40 mg 05/01/19 21:00 05/01/19 20:34 Lipitor PO 05/31/19 20:59 40 mg QPM DELFINO Administration Dextrose 25 - 50 ml 04/28/19 02:00 05/02/19 04:23 Dextrose 50% IV 05/28/19 01:59 50 ml UD PRN Administration Hypoglycemia Protocol Protocol Diphenhydramine HCl 25 mg 04/30/19 21:18 04/30/19 22:12 Benadryl Capsule PO 05/30/19 21:17 25 mg HS PRN Administration Insomnia Fludrocortisone Acetate 0.1 mg 05/01/19 09:30 05/01/19 11:38 Florinef PO 05/31/19 09:29 0.1 mg DAILY DELFINO Administration Folic Acid 1 mg 05/01/19 09:30 05/01/19 11:38 Folvite PO 05/31/19 09:29 1 mg QAM DELFINO Administration Glucose 4 - 8 tabs 04/28/19 02:00 05/02/19 04:43 Dex4 Glucose PO 05/28/19 01:59 4 tabs UD PRN Administration Hypoglycemia Protocol Protocol Heparin Sodium (Porcine) 5,000 units 05/01/19 09:00 05/01/19 20:35 Heparin Sodium (Porcine) SQ 05/31/19 08:59 5,000 units Q12 DELFINO Administration Insulin Aspart 0 units 05/01/19 07:30 05/01/19 20:36 Novolog Flexpen SC 05/31/19 07:29 12 units ACHS DELFINO Administration Protocol Insulin Glargine 16 units 05/01/19 07:15 05/01/19 07:17 Lantus Solostar Pen SC 05/31/19 07:14 16 units DAILY DELFINO Administration Protocol Insulin Glargine 0 units 05/01/19 21:00 05/01/19 20:35 Lantus Solostar Pen SC 05/31/19 20:59 5 units HS DELFINO Administration Protocol Levothyroxine Sodium 200 mcg 04/30/19 06:30 05/02/19 06:05 Synthroid PO 05/30/19 06:29 200 mcg DAILYBB DELFINO Administration Lisinopril 5 mg 04/29/19 13:45 05/01/19 08:09 Zestril PO 05/29/19 13:44 5 mg QAM DELFINO Administration Metoclopramide HCl 5 mg 04/30/19 15:00 05/02/19 03:12 Reglan IV 05/30/19 14:59 5 mg Q6H DELFINO Administration Metoprolol Tartrate 50 mg 04/30/19 21:00 05/01/19 20:37 Lopressor PO 05/30/19 20:59 50 mg BID DELFINO Administration Ondansetron HCl 4 mg 04/28/19 05:01 05/01/19 12:43 Zofran IV 05/28/19 05:00 4 mg Q6H PRN Administration Nausea Pantoprazole Sodium 40 mg 04/28/19 10:15 05/01/19 08:10 Protonix PO 05/28/19 10:14 40 mg QAM DELFINO Administration Ranitidine HCl 150 mg 05/01/19 12:45 05/01/19 13:48 Zantac PO 05/31/19 12:44 150 mg HS DELFINO Administration Thiamine HCl 250 mg 05/01/19 12:45 05/01/19 13:48 Vitamin B-1 PO 05/31/19 12:44 250 mg QAM DELFINO Administration Venlafaxine HCl 150 mg 05/01/19 09:00 05/01/19 08:12 Effexor Extended Release PO 05/31/19 08:59 150 mg QAM DELFINO Administration Venlafaxine HCl 75 mg 05/01/19 12:45 05/01/19 13:48 Effexor Extended Release PO 05/31/19 12:44 75 mg QAM DELFINO Administration NPO Date Last Intake of Fluids: 05/01/19 Time Last Intake of Fluids: 23:00 Date Last Intake of Solids: 05/01/19 Time Last Intake of Solids: 18:00 Past Medical History Medical History Diabetes mellitus type 1, uncontrolled (Acute) Diabetic peripheral neuropathy associated with type 1 diabetes mellitus (Acute) Dyslipidemia (Acute) Shawna's thyroiditis (Acute) Proliferative diabetic retinopathy associated with type 1 diabetes mellitus (Acute) DKA (diabetic ketoacidoses) (Acute) TREATED INPT AT [facility] 04/03/2019. THIS AM GLUCOSE 200. A-V fistula (Chronic) RIGHT ARM Chronic kidney disease (Chronic) Diabetes mellitus type 1 (Chronic) GERD (gastroesophageal reflux disease) (Chronic) Hemodialysis patient (Chronic) M,W,F @ [facility] ([place]) Anemia Anxiety Depression Hypertension Hypothyroidism Osteoarthritis Osteoporosis Exercise / Class Metabolic Activity III < 4 Walking/Shop/Light housework Past Family History Family History Father Myocardial infarction acute Coronary heart disease Mother Myocardial infarction Coronary heart disease Sister Coronary heart disease Breast cancer Ovarian cancer Past Surgical History Surgical History History of appendectomy History of section History of cholecystectomy History of colonoscopy History of esophagogastroduodenoscopy (EGD) History of hysterectomy PIERCE WITH BSO History of open reduction and internal fixation (ORIF) procedure RIGHT HIP RIGHT WRIST LEFT ANKLE Past Anesthesia History No Hx of Anesthesia Complications and No Family Hx of Anesthesia Complications History of PONV No Hx of PONV and No Hx of Motion Sickness Social History Smoking Status: Former smoker (quit x 5 years) tobacco type: cigarettes Hx Alcohol Use: No Hx Substance Use: Yes substance use type: marijuana Last Used Substance: Unknown Last Used Substance Other:: reports uses monthly Physical Exam Vital Signs Last Vital Signs Temp 34.7 C L 05/02/19 08:22 Pulse 61 05/02/19 07:41 Resp 16 05/02/19 07:41 BP 120/70 05/02/19 07:41 Pulse Ox 99 05/02/19 07:41 Constitutional not obese ENMT Mouth: + edentulous Thyromental Distance: > or= 3.5 Finger Breadths Mallampati Class: II Neck normal visual inspection and trachea midline; neck extension not limited Respiratory normal respiratory effort Auscultation: lungs clear to auscultation bilaterally Cardiovascular Rate/Rhythm: regular rate and regular rhythm Heart Sounds: no murmur Vessels: no carotid bruit Musculoskeletal Spine: normal cervical ROM Neurologic moves all extremities Motor/Sensory: + sensory deficit (diabetic PN) Psychiatric Orientation: alert and oriented x 3 Testing Electrocardiogram Date: 04/30/19 Findings: + NSR @ (at 85;w/occas. PVC's;NS ST T wave changes;prolonged QT) Chest X-Ray Date: 04/28/19 Findings: + NAD and + other (chronic granulomatous changes;CV catheter in place)
--- NOTE | 2019-05-02 08:47 | Pharmacy Report ---
Pharmacy Glycemic Short Note 2 - Date of Service May 02, 2019 - Glycemic Short BSG Results (Last 24 hours): 05/01/19 05/01/19 05/01/19 09:33 10:29 11:24 POC Glucose 201 H 159 H 181 H 05/01/19 05/01/19 05/01/19 15:24 16:21 20:25 POC Glucose 281 H 236 H 399 H* 05/01/19 05/02/19 05/02/19 20:27 00:06 04:21 POC Glucose 388 H* 172 H 18 L* 05/02/19 05/02/19 05/02/19 04:22 04:38 04:57 POC Glucose 19 L* 64 L* 77 05/02/19 07:16 POC Glucose 143 H OUTPATIENT ANTIDIABETIC REGIMEN: * Lantus 16 units Daily * Novolog 4 units with meals + sliding scale * A1c = 9.5% * However, this result is likely somewhat unreliable in ESRD patients d/t interactions between the A1c analyzing technique and high levels of urea in ESRD, reduced RBC life span, iron deficiency anemia, and EPO administration. HbA1c > 7.5% in ESRD patient may overestimate the extent of hyperglycemia in ESRD patients. ASSESSMENT: 05/02 * Ms. Conner has continued to have labile blood sugars. She was as high as 388 mg/dL at HS and then dropped to 18 mg/dL by 4 am. The severe hypoglycemia was only accompanied by diaphoresis. Patient was conversing and alert and oriented x 4. She was treated with dextrose 50% and 4 glucose tabs and BSG had increased to 77 mg/dL and then 143 mg/dL by this AM. * She did receive the additional 5 units of Lantus last night for elevated BSG and quite a few doses of Novolog that may have stacked as well. She did not receive dialysis yesterday so insulin pharmacodynamics would have been different with increasing SCr. * Hyperglycemia was occurring more throughout the day and not overnight so I believe her outpatient dose of Lantus is most likely correct, she just needs tighter carb coverage. * At this point, will plan to go back to the outpatient dose of Lantus 16 units. This was given while patient was in dialysis. * Novolog correction factor will be loosened and carb ratio will be tightened, so that she receives more prandial coverage but does not drop too quickly from too aggressive correctional insulin. * I spoke with Dr. Sosa today to gain some more insight on her since he has seen her once or twice as an outpatient. He did not recommend any drastic changes with the insulin, just to remember to be cautious with the stacking of insulin in a dialysis patient. 05/01 * Blood sugars cristiane into 500s yesterday evening, insulin drip was started and ran until 1030 today rates ranging 1.3-3.7units/hr * Lantus restarted and overlapped with insulin drip x 4 hours * Will give additional lantus tonight if BSG remains over 180mg/dl * Accuchecks overnight too to ensure better glycemic control * Blood sugar prior to lunch good at 181mg/dl * Recheck almost 2 hours after lunch dose of Novolog was given = 281mg/dl - will give additional SQ correctional dose now prior to pre-dinner dose. PLAN FOR INPATIENT GLYCEMIC CONTROL: * Basal insulin * Decrease: Lantus 16 units SQ daily (outpatient dose) * Bolus insulin * NovoLog per scale ACHS or Q6hrs while NPO & overnight at 0200 due to recently fluctuating BSGs * Goal Range: Low 120 mg/dL - High 150 mg/dL (for pt with tendency for hypoglycemia) * LOOSEN: Correction Factor: 30 mg/dL/unit * LOOSEN: Nutritional / Prandial insulin per carb ratio of 1 unit per 8 grams CHO consumed (tightened from 1 unit per 10 that patient was on pr eviously) PLAN FOR DISCHARGE: * Patient has had 3 admissions over the past month for DKA - patient needs better DM Self care education and outpatient control. * Would recommend discharging on the following: * Lantus 16 units daily * Novolog 4 units with meals + sliding scale * If patient discharged early this week, would be able to get in with Katya eisenberg educator) at [facility] on . Dr. Sosa will be out of town for remainder of the week.
[2019-05-02] MEDS ORDERED: ATROPINE SULFATE 0.1 MG/ML 10ML SYR IV PRN (08:48)
[2019-05-02] MEDS ORDERED: ePHEDrine sulfate 50 MG/ML AMP IV PRN (08:48)
[2019-05-02 08:56] LABS: Albumin Globulin Ratio 0.7 (0.9-2); Albumin Level 2.2 gm/dl (3.4-5.0); BUN Creatinine Ratio 6.7 (10-20); Bilirubin,Total 0.4 mg/dl (0.2-1); Calcium 8.3 mg/dl (8.5-10.1); Creatinine Clr Calc Pharmacy 8.9 ml/min; Est GFR (African American) 9.3; Globulin 3.2 gm/dl (2.5-4.0); Potassium 3.6 mmol/L (3.5-5.1); Total Protein 5.4 gm/dl (6.4-8.2)
--- NOTE | 2019-05-02 09:01 | History & Physical Report ---
Date of Service May 02, 2019 Assessment & Plan (1) Nausea and vomiting: EGD today History of Present Illness Primary Care Provider: Fiorella Vela MD Allergies Allergy/AdvReac Type Severity Reaction Status Date / Time orange juice Allergy Mild Rash Verified 05/02/19 08:47 codeine Allergy Unknown Verified 05/02/19 08:47 ibuprofen Allergy Hives Verified 05/02/19 08:47 shellfish derived Allergy Hives Verified 05/02/19 08:47 strawberry Allergy ALL Verified 05/02/19 08:47 BERRIES --> Anaphylaxis tomato AdvReac Unknown Verified 05/02/19 08:47 Home Medications Home Medications Medication Instructions Recorded Confirmed Type furosemide 40 mg PO 2XWK 01/21/19 04/28/19 History venlafaxine 150 mg PO QAM 01/21/19 04/28/19 History Novolog Flexpen U-100 Insulin See Rx Instructions .ROUTE .COMPLEX 04/02/19 04/28/19 History atorvastatin 40 mg PO QPM 04/02/19 04/28/19 History fludrocortisone 0.1 mg PO DAILY 04/02/19 04/28/19 History tramadol 50 mg PO BID PRN 04/02/19 04/28/19 History venlafaxine 75 mg PO QAM 04/02/19 04/28/19 History folic acid 1 mg PO QAM #30 tab 04/08/19 04/28/19 Rx labetalol 100 mg PO BID #30 tab 04/08/19 04/28/19 Rx midodrine 1.25 mg PO TID@0800,1200,1700 #90 04/09/19 04/28/19 Rx tab Lantus Solostar U-100 Insulin 16 unit SUBCUT QAM 04/13/19 04/28/19 History docusate sodium 100 mg capsule 100 mg PO Q3D cap 04/13/19 04/28/19 History levothyroxine 200 mcg PO QAM 04/13/19 04/28/19 History pyridoxine (vitamin B6) 100 mg 100 mg PO QAM tab 04/13/19 04/28/19 History tablet sevelamer carbonate 800 mg tablet 800 mg PO QAM tab 04/13/19 04/28/19 History thiamine HCl (vitamin B1) 250 mg 250 mg PO QAM tab 04/13/19 04/28/19 History tablet Past Med/Surg History Medical History Diabetes mellitus type 1, uncontrolled (Acute) Diabetic peripheral neuropathy associated with type 1 diabetes mellitus (Acute) Dyslipidemia (Acute) Shawna's thyroiditis (Acute) Proliferative diabetic retinopathy associated with type 1 diabetes mellitus (Acute) DKA (diabetic ketoacidoses) (Acute) TREATED INPT AT [facility] 04/03/2019. THIS AM GLUCOSE 200. A-V fistula (Chronic) RIGHT ARM Chronic kidney disease (Chronic) Diabetes mellitus type 1 (Chronic) GERD (gastroesophageal reflux disease) (Chronic) Hemodialysis patient (Chronic) M,W,F @ [facility] ([place]) Anemia Anxiety Depression Hypertension Hypothyroidism Osteoarthritis Osteoporosis Surgical History History of appendectomy History of section History of cholecystectomy History of colonoscopy History of esophagogastroduodenoscopy (EGD) History of hysterectomy PIERCE WITH BSO History of open reduction and internal fixation (ORIF) procedure RIGHT HIP RIGHT WRIST LEFT ANKLE Family History Father Myocardial infarction acute Coronary heart disease Mother Myocardial infarction Coronary heart disease Sister Coronary heart disease Breast cancer Ovarian cancer Social History Preferred Language: Albanian Communication Ability: Effective Manager Drug Safety Required: No Beliefs That Will Affect Care: None Current Living Situation: Spouse Other Information That Helps Us Care for You: No Feels Safe at Home: Declines to Answer Smoking Status: Former smoker (quit x 5 years) Tobacco Type: cigarettes Age Started Using Tobacco: 20 Age Quit Using Tobacco: 59 packs per day: 1 Second Hand Exposure: No Hx Alcohol Use: No Hx Substance Use: Yes substance use type: marijuana Last Used Substance: Unknown Last Used Substance Other:: reports uses monthly Physical Exam Vital Signs (Past 24 Hours): Last Vital Signs Temp 34.7 C L 05/02/19 08:42 Pulse 65 05/02/19 08:42 Resp 16 05/02/19 07:41 BP 164/97 H 05/02/19 08:42 Pulse Ox 100 05/02/19 08:42 Constitutional: WD/WN, vitals as above Respiratory: normal respiratory effort, lungs clear to auscultation Cardiovascular: RRR, no murmur, no edema Gastrointestinal (Abdomen): normal bowel sounds, soft, nontender, no hepatosplenomegaly Code Status & VTE Plan VTE Prophylaxis Plan VTE Prophylaxis will be ordered: Yes (1) Nausea and vomiting Vomiting type: unspecified Vomiting Intractability: intractable Qualified Code(s): R11.2 - Nausea with vomiting, unspecified
--- NOTE | 2019-05-02 09:22 | GI REPORT ---
Patient Name: Shanda Conner Procedure Date: 05/02/2019 9:06 AM Date of : 1955 Admit Type: Inpatient Age: 63 Gender: Female Attending MD: Diana Dutton DO Procedure: Upper GI endoscopy Providers: Diana Dutton DO Referring MD: Referred Self, Ingrid Lai Md Indications: Nausea with vomiting Medicines: Propofol per Anesthesia Complications: No immediate complications. Estimated blood loss: Minimal. Estimated Blood Loss: Estimated blood loss: none. Procedure: Pre-Anesthesia Assessment: - Prior to the procedure, a History and Physical was performed, and patient medications, allergies and sensitivities were reviewed. The patient's tolerance of previous anesthesia was reviewed. - The risks and benefits of the procedure and the sedation options and risks were discussed with the patient. All questions were answered and informed consent was obtained. - Patient identification and proposed procedure were verified prior to the procedure by the physician and the nurse. The procedure was verified in the pre-procedure area in the procedure room. - Mental Status Examination: alert and oriented. Airway Examination: normal oropharyngeal airway and neck mobility. Respiratory Examination: clear to auscultation. CV Examination: normal. Abdominal Examination: bowel sounds present, abdomen soft and non-tender, no masses or organomegaly noted. - ASA Grade Assessment: IV - A patient with severe systemic disease that is a constant threat to life. After obtaining informed consent, the endoscope was passed under direct vision. Throughout the procedure, the patient's blood pressure, pulse, and oxygen saturations were monitored continuously. The Endoscope was introduced through the mouth, and advanced to the second part of duodenum. The upper GI endoscopy was accomplished without difficulty. The patient tolerated the procedure well. Findings: Savary-Laguerre Grade III (circumferential lesion, erosive or exudative) esophagitis with no bleeding was found in the lower third of the esophagus. Diffuse moderate inflammation characterized by congestion (edema) and erythema was found in the entire examined stomach. Biopsies were taken with a cold forceps for Helicobacter pylori testing. Verification of patient identification for the specimen was done by the physician and nurse using the patient's name and date. Estimated blood loss was minimal. The examined duodenum was normal. Impression: - Savary-Laguerre Grade III erosive esophagitis. - Gastritis. Biopsied. - Normal examined duodenum. Recommendation: - Await pathology results. - Follow an antireflux regimen. - Use a proton pump inhibitor PO BID. - Repeat upper endoscopy in 8 weeks to check healing. - [facility]. Diana Dutton D.O. Diana Dutton DO 05/02/2019 9:21:59 AM This report has been signed electronically. Note Initiated On: 05/02/2019 9:06 AM Number of Addenda: 0 I attest to the content of the Intraoperative Record and orders documented therein, exceptions below {[id number]}
--- NOTE | 2019-05-02 09:52 | Anesthesiology Progress Note ---
Date of Service May 02, 2019 Anesthesia Post Procedure Vital Signs Vital Signs: Temp Pulse Pulse Pulse Resp BP BP 05/02/19 09:36 62 16 154/76 H 05/02/19 09:21 36.8 C 58 L 14 98/61 L 05/02/19 08:42 34.7 C L 65 164/97 H 05/02/19 08:22 34.7 C L 05/02/19 08:00 58 L 05/02/19 07:41 61 16 120/70 05/02/19 05:00 175/89 H 05/02/19 04:28 82 190/80 H 05/02/19 02:40 36.3 C L 83 16 193/95 H 05/02/19 00:28 153/73 H 05/01/19 23:20 37.0 C 75 16 185/79 H 05/01/19 19:00 36.8 C 82 18 159/62 H 05/01/19 16:00 80 05/01/19 15:32 37.3 C 77 19 170/74 H 05/01/19 10:33 36.8 C 69 18 107/63 Pulse Ox 05/02/19 09:36 100 05/02/19 09:21 100 05/02/19 08:42 100 05/02/19 08:22 05/02/19 08:00 05/02/19 07:41 99 05/02/19 05:00 05/02/19 04:28 05/02/19 02:40 99 05/02/19 00:28 05/01/19 23:20 98 05/01/19 19:00 99 05/01/19 16:00 05/01/19 15:32 98 05/01/19 10:33 99 Pain Intensity Abdomen: Pain Intensity: 0 Bilateral Back: Pain Intensity: 5 Transfer of Care Handoff Completed per policy Notes Mental Status: alert / awake / arousable Patient Amnestic to Procedure: Yes Nausea / Vomiting: adequately controlled Pain: adequately controlled Airway Patency, RR, SpO2: stable & adequate BP & HR: stable & adequate Hydration State: stable & adequate Anesthetic Complications: no major complications apparent
[2019-05-02] MEDS ORDERED: HydrALAZINE HCL 20 MG/ML VIAL IV STA (09:53)
[2019-05-02] MEDS ORDERED: INSULIN GLARGINE SOLOSTAR 100 UNITS/ML 3 ML PEN SC SCH (11:30)
--- NOTE | 2019-05-02 12:36 | Nephrology Progress Note ---
Date of Service May 02, 2019 Assessment & Plan (1) End stage renal disease on dialysis: 63-year-old female w/ ESRD on IHD, admitted to the hospital with DKA. This is the 3rd episode of DKA over last one month. EGD performed this hospitalization reveals diffuse gastritis and esophagitis. -- Dialysis this afternoon was terminated after 90 min due to clotting of the circuit -- Stat duplex reveals thrombosis of AVF -- Will ask primary service to coordinate transfer to medical center w/ IR and vascular surgery support for thrombectomy Subjective Mrs. Conner was seen & examined in her hospital room this morning. She had just returned from EGD. She reports continued GERD symptoms Review of Systems Constitutional: no fever Respiratory: no dyspnea Cardiovascular: no chest pain and no palpitations Gastrointestinal: no abdominal pain, no vomiting and no diarrhea/loose stools Physical Exam Constitutional: not in distress Eyes: PERRL, conjunctivae normal, anicteric sclerae Neck: trachea midline, no thyromegaly Respiratory: normal respiratory effort, lungs clear to auscultation no respiratory distress Cardiovascular: RRR, no murmur, no edema Gastrointestinal (Abdomen): normal bowel sounds, soft, nontender, no hepatosplenomegaly Results & Data Vital Signs (Past 12 Hours) Vital Signs Temp Pulse Pulse Pulse Resp BP BP 05/02/19 10:45 35.3 C L 71 05/02/19 10:25 35.3 C L 72 18 154/81 H 05/02/19 09:51 63 16 185/89 H 05/02/19 09:36 62 16 154/76 H 05/02/19 09:21 36.8 C 58 L 14 98/61 L 05/02/19 08:42 34.7 C L 65 164/97 H 05/02/19 08:22 34.7 C L 05/02/19 08:00 58 L 05/02/19 07:41 61 16 120/70 05/02/19 05:00 175/89 H 05/02/19 04:28 82 190/80 H 05/02/19 02:40 36.3 C L 83 16 193/95 H Pulse Ox 05/02/19 10:45 05/02/19 10:25 100 05/02/19 09:51 100 05/02/19 09:36 100 05/02/19 09:21 100 05/02/19 08:42 100 05/02/19 08:22 05/02/19 08:00 05/02/19 07:41 99 05/02/19 05:00 05/02/19 04:28 05/02/19 02:40 99 Laboratory Results Laboratory Tests 05/01/19 06:46 WBC 5.95 Hgb 11.4 L Hct 31.8 L Plt Count 136 Laboratory Tests 05/02/19 07:49 Sodium 135 L Potassium 3.6 Chloride 100 Carbon Dioxide 23 BUN 36 H Creatinine 5.33 H* D Glucose 154 H
[2019-05-02] MEDS: HEPARIN SOD 5,000 UNIT/0.5 ML VIAL SQ SCH (13:33)
[2019-05-02] MEDS: METOPROLOL TARTRATE 50 MG TAB PO SCH (13:43)
[2019-05-02] MEDS: VENLAFAXINE HCL XR 75 MG CAPXR PO SCH (13:43)
[2019-05-02] MEDS: LISINOPRIL 5 MG TAB PO SCH (13:44)
[2019-05-02] MEDS: FLUDROCORTISONE ACETATE 0.1 MG TAB PO SCH (13:44)
[2019-05-02] MEDS: VENLAFAXINE HCL XR 150 MG CAPXR PO SCH (13:44)
[2019-05-02] MEDS: THIAMINE HCL 100 MG TAB PO SCH (13:53)
[2019-05-02] MEDS: FOLIC ACID 1 MG TAB PO SCH (13:53)
[2019-05-02] MEDS: PANTOprazole 40 MG TAB PO SCH (13:54)
--- NOTE | 2019-05-02 17:07 | Discharge Summary ---
Date of Service May 02, 2019 Admission HPI Per Admitting Provider The patient is a 63-year-old female with past medical history including ESRD on HD Thursday, Thursday and Thursday, with most recent hospital admissions from 04/03- 04/09 for DKA with gastroenteritis, and 04/20-04/22 was admitted to the intensive care unit with DKA and possible GI bleed. She is again diagnosed in the emergency department with DKA, and is being admitted to the ICU due to associated hypotension from septic shock. Principal Diagnosis DKA, Thrombosed AV Fistula ESRD on HD Discharge Exam Constitutional + thin; no acute distress Eyes PERRL, conjunctivae normal, anicteric sclerae Neck trachea midline, no thyromegaly Respiratory normal respiratory effort, lungs clear to auscultation Cardiovascular Rate/Rhythm: regular rate and regular rhythm Heart Sounds: no murmur Extremities: + AV fistula (RUE, no thrill or bruit noted); no edema Gastrointestinal (Abdomen) normal bowel sounds, soft, nontender, no hepatosplenomegaly Musculoskeletal Extremities: extremities normal to inspection; no cyanosis and no clubbing Skin no rashes, warm and dry Neurologic moves all extremities and awake; no focal motor deficits Psychiatric A+Ox3, euthymic affect Discharge Data Allergies Allergy/AdvReac Type Severity Reaction Status Date / Time orange juice Allergy Mild Rash Verified 05/02/19 08:47 codeine Allergy Unknown Verified 05/02/19 08:47 ibuprofen Allergy Hives Verified 05/02/19 08:47 shellfish derived Allergy Hives Verified 05/02/19 08:47 strawberry Allergy ALL Verified 05/02/19 08:47 BERRIES --> Anaphylaxis tomato AdvReac Unknown Verified 05/02/19 08:47 Consultations 04/28/19 01:31 ED Decision to Admit Stat 04/28/19 04:00 Consult Case Management - Discharge Planning Routine Consult Military Cook Routine 04/28/19 05:39 Consult Nephrology Routine 04/29/19 18:32 Consult Gastroenterology Routine 05/02/19 17:04 Burn CD for patient Stat Procedures Performed Operation Date: 05/02/19 08:30 Actual Procedures p EGD Biopsy Cytology - Diana Dutton Ordered Studies 05/02/19 14:30 US arterial duplex UE RT Stat CXR x 2 Hospital Course (1) DKA (diabetic ketoacidoses): Resolved. s/p insulin drip protocol. This is the third admission for DKA for the patient this month. Previous admissions: 04/03-04/09, and 04/20-04/22. glycemic management consult requested and appreciated. Was back on insulin gtt again on 04/30 and now weaned off again Continues to have a closed gap but with extremely labile glucose/brittle diabetes. Glucose labile from 19 this AM to 400 currently -COntinues on Lantus 16 units daily and Novolog supplemental insulin qachs and at 0200 Will require very close monitoring (2) Diabetes mellitus type 1: see above in "DKA" last 4 hemoglobin a1c levels >9% which may be falsely elevated in the setting of ESRD and anemia regimen at home - Lantus 15 units in AM and Novolog w/ meals. compliance questionable. appreciate pharmacy and DM education consultations. Will again need close f/u with Endocrine after discharge (3) Thrombosis of arteriovenous dialysis fistula: Now with acute thrombosis of RUE AVF noted during HD on 05/02/19. Was functioning and with thrill and bruit just prior to that. US confirms thrombosis No Vascular Surgery available here--> thank you to Dr. Mann and Dr. Kevin of V[facility] for accepting her at [facility] for urgent thrombectomy (4) Hyperlipidemia LDL goal <70: continue Lipitor (5) End stage renal disease on dialysis: ESRD on HD, Thursday, Thursday and Thursday. on HD for 5-6 years now - due to diabetic nephropathy RUE AV fistula in place and now thrombosed acutely as above continue phosphate binders -continue lisinopril appreciate nephrology assistance -Was able to complete part of HD today and had 1/2 L removed of fluid before AVF thrombosed (6) Hypothyroidism (acquired): On levothyroxine 200 mcg p.o. daily most recent TSH wnl but was >500 not that long prior to that (7) Hypertension: Labile-was elevated initially, started back on beta xavier which was changed to metoprolol 50 bid -continue lisinopril BPs becoming low again and orthostatic mildly -restarted fludrocortisone for low BPs to avoid adrenal crisis as has been on for quite some time (8) Orthostasis: WIth h/o syncope here on previous hospitalizations when fludrocortisone held on midodrine and fludrocortisone at home but BPs high here and both were held initially, now back on fludrocortisone as above -would permanently dc midodrine (9) Nausea and vomiting: CT abd/pelvis earlier this months w/o acute pathology significance of modestly elevated lipase uncertain seen by GI - EGD with eropsive esophagitis and gastritis, biopsies taken on 05/02- will need follow up N/V improved now and may have been related to multiple and prolonged episodes of DKA -consider outpatient gastric emptying study to r/o gastroparesis -in meantime, continue reglan 5mg IV q6h also consider CT head - r/o [employer]IDE causes of nausea/emesis -continue Protonix and increase to bid -needs repeat EGD in 8 weeks with [facility] -continue on Zantac (10) Anxiety and depression: -continue effexor 225mg daily (11) Diabetic Charcot foot: Has indwelling hardware in foot/ankle that needs to be removed and is starting to come out through the skin, With Charcot foot/ankle Was scheduled to have Surgery to remove hardware this week-spoke with her Surgeon--> Telecom Assistant Dr. Jesus Sarkar at ph # [phone] if needs to be contacted in the future No evidence of infection there at this time (12) DVT prophylaxis: continue heparin SQ FEN-continue thiamine from home Dispo-stable for transfer to [facility] for thrombectomy Total Time Total Time Spent Total Time Spent (In Minutes): >30 min Total Time Includes: Examination of the Patient, Discharge Planning, Medication Reconciliation and Communication With Other Providers (Nephrology) Discharge Plan Discharge Items Patient Disposition: Transfer Acute Care Hospital Reason For Visit: DKA, SEPTIC SHOCK Discharge Diagnosis: DKA, Thrombosed AVF Condition: Fair Discharge Goals: Diagnostic testing, Improve disease control, Learn about illness and Therapeutic intervention Activity: Resume your previous activity Lifting: None Bathing: No limitations Exercise/Sports: Rest today Non-emergency contact: Primary Care Provider and [employer] Call non-emergency contact if: you have any medication questions and your symptoms worsen Follow-up/Referrals: Fiorella Vela MD [Primary Care Provider] - Diet: Carb Count or DM1 Addtl Provider Instructions: Transferred to [facility] Prescriptions: New pantoprazole 40 mg Tablet,Delayed Release (Dr/Ec) 40 mg PO BID Qty: 60 RF: 0 ranitidine HCl 150 mg Tablet 150 mg PO HS Qty: 30 RF: 0 metoprolol tartrate 50 mg Tablet 50 mg PO BID Qty: 60 RF: 0 lisinopril [Zestril] 5 mg Tablet 5 mg PO QAM Qty: 30 RF: 0 Continued sevelamer carbonate 800 mg tablet 800 mg PO QAM RF: 0 thiamine HCl (vitamin B1) 250 mg tablet 250 mg PO QAM RF: 0 pyridoxine (vitamin B6) 100 mg tablet 100 mg PO QAM RF: 0 docusate sodium 100 mg capsule 100 mg PO Q3D RF: 0 levothyroxine 200 mcg Tablet 200 mcg PO QAM RF: 0 Lantus Solostar U-100 Insulin 100 unit/mL (3 mL) insulin pen 16 unit SUBCUT QAM RF: 0 atorvastatin 40 mg tablet 40 mg PO QPM RF: 0 venlafaxine 75 mg capsule,extended release 24hr 75 mg PO QAM RF: 0 tramadol 50 mg tablet 50 mg PO BID PRN (Reason: Pain) RF: 0 fludrocortisone 0.1 mg tablet 0.1 mg PO DAILY RF: 0 Novolog Flexpen U-100 Insulin 100 unit/mL (3 mL) Insulin Pen See Rx Instructions .ROUTE .COMPLEX RF: 0 folic acid 1 mg Tablet 1 mg PO QAM Qty: 30 RF: 0 furosemide 40 mg tablet 40 mg PO 2XWK RF: 0 venlafaxine 150 mg capsule,extended release 24hr 150 mg PO QAM RF: 0 Discontinued labetalol 100 mg Tablet 100 mg PO BID Qty: 30 RF: 0 midodrine 2.5 mg Tablet 1.25 mg PO TID@0800,1200,1700 Qty: 90 RF: 0 Stand-Alone Forms: [facility] Discharge Orders: Discharge Order (Routine); Ordered 05/02/19 Ordered By: Ingrid Lai Admission Data Admit Date/Time: 04/28/19 01:48 Attending Provider: Ingrid Lai Admit Provider: Jagdish Sanchez Primary Care Provider: Fiorella Vela Other Providers: Jagdish Sanchez ; Yomaira Muller ; Ada Gardner ; Jb Ferraro ; Justice Wilkinson ; Monet Bundy ; Hayden Ortiz ; Radha Vazquez ; Pita Rowan ; Rina Anderson ; Aguilar Springer ; Jose Boyce ; Candie Vivar ; Diana Dutton ; Maxine Lagunas ; Tawana Preciado ; Darvin Nuñez Service: Telemetry Other Interventions: Discharge Summary Assessment (RN) Last Done: 05/02/19 10:10 Pending Studies at Discharge: No
--- NOTE | 2019-05-02 17:47 | Ultrasound Report ---
US arterial duplex UE RT CLINICAL HISTORY: assess for AVF thrombosis. COMPARISON STUDY: None. FINDINGS: Real-time sonographic imaging of the right upper extremity fistula was performed with repre sentative images mid up. The distal right brachial artery anastomosis is patent. However, the remaini ng segments of the fistula are completely thrombosed. IMPRESSION: Thrombosed right upper extremity fistula. Electronically signed by: Gino Joyce M.D. 05/02/2019 5:46 PM
[2019-05-02] MEDS ORDERED: PANTOprazole 40 MG TAB PO SCH (21:00)
[2019-05-03] MEDS ORDERED: INSULIN ASPART 100 UNITS/ML 3 ML PEN SC SCH (02:00)
== END 2019-05-02 19:00 | disposition short-term general hospital (02) | DRG 871 ==
LOC: ED 00:41 → 1E 01:48 → SUATTDRO 01:48 → 1E 03:15 → 2S 04-29 18:09

== ENCOUNTER 2020-02-12 12:58 | Inpatient (IN) ==
[2020-02-12] MEDS ORDERED: SODIUM CHLORIDE 0.9% 500 ML IV SCH (13:30)
[2020-02-12 13:40] LABS: iSTAT Creatinine 5.9 mg/dl (0.6-1.3); iSTAT Hemoglobin 11.6 g/dl (12.0-16.0); iSTAT Ionized Calcium 1.04 mmol/l (1.12-1.32); iSTAT Potassium 4.3 mmol/L (3.3-5.0)
[2020-02-12 13:43] LABS: Basophils # (auto) 0.03 K/uL (0-0.2); Basophils % (auto) 0.4 %; Eosinophils # (auto) 0.02 K/uL (0-0.5); Eosinophils % (auto) 0.2 %; Hematocrit (blood only) 32.7 % (37-47); Hemoglobin 10.8 g/dL (12.0-16.0); Immature Granulocytes # (auto) 0.01 K/uL (0.00-0.02); Immature Granulocytes % (auto) 0.1 %; Lymphocytes % (auto) 8.4 %; Mean Corpuscular Hemoglobin 30.9 pg (25-34); Mean Corpuscular Volume 93.4 fL (80-100); Mean Platelet Volume 11.7 fL (7.4-10.4); Monocytes # (auto) 0.94 K/uL (0.11-0.59); Monocytes % (auto) 11.2 %; Neutrophils # (auto) 6.66 K/uL (1.4-6.5); Neutrophils % (auto) 79.7 %; Platelet Count 228 K/uL (130-400); RDW Coefficient of Variation 16.4 % (11.5-14.5); RDW Standard Deviation 55.9 fL (36.4-46.3); White Blood Count 8.36 K/uL (4.8-10.8)
--- NOTE | 2020-02-12 13:46 | CT Scan Report ---
CT head/brain wo con CLINICAL HISTORY: Acute change in mental status COMPARISON STUDY: No previous studies for comparison. TECHNIQUE: Axial CT of the brain is performed from the vertex to the skull base. IV contrast was not administered for this examination. A dose lowering technique was utilized adhering to the principles of ALARA. CT DOSE: 709.48 mGy.cm FINDINGS: No intra or extra-axial mass lesions are visualized. There is no CT evidence of acute cortical infarc tion. There is no evidence of midline shift. There is no acute hemorrhage. No calvarial fractures ar e visualized. There are patchy white matter hypodensities likely on a small vessel basis. There is no evidence of pathologic ventricular dilatation. There is no evidence of acute sinusitis IMPRESSION: No acute intracranial findings ACT 112: Negative or not required by law. Electronically signed by: Vicente Cuevas M.D. 02/12/2020 1:44 PM
[2020-02-12 14:03] LABS: Appearance Urine Cloudy (Clear); Bilirubin Urine Negative (Negative); Blood Urine Trace (Negative); Color Urine Yellow; Glucose Urine UA 3+ (Negative); Ketones Urine Trace (Negative); Leukocyte Esterase Urine Trace (Negative); Nitrite Urine Negative (Negative); Protein Urine 1+ (Negative); Specific Gravity Urine 1.023 (1.000-1.030); Urobilinogen Urine Negative (Negative)
[2020-02-12 14:12] LABS: Epithelial Cell Urine Auto >30 /lpf (0-5)
[2020-02-12 14:13] LABS: Bacteria Urine Automated 2+ (Negative); RBC Urine Automated >30 /hpf (0-4); WBC Urine Automated >30 /hpf (0-5)
[2020-02-12 14:13] LABS: BUN Creatinine Ratio 10.3 (10-20); Calcium 8.4 mg/dl (8.5-10.1); Creatinine Clr Calc Pharmacy 8.3 ml/min; Est GFR (African American) 8.3; Est GFR (Non-African American) 7.2; Potassium 4.2 mmol/L (3.5-5.1)
[2020-02-12] MEDS ORDERED: GLUCOSE 40% GEL 15 GM TUBE PO PRN (14:17)
[2020-02-12] MEDS ORDERED: GLUCOSE 10 TABS/TUBE PO PRN (14:17)
[2020-02-12] MEDS ORDERED: GLUCAGON FOR INJ 1 MG VIAL SQ PRN (14:17)
[2020-02-12] MEDS ORDERED: DKA GOAL RANGE 150-250 mg/dl ONE ×2 (14:17→15:55)
[2020-02-12] MEDS ORDERED: ED DKA INSULIN DRIP ONE (14:17)
--- NOTE | 2020-02-12 14:25 | XRay Report ---
XR chest 1V portable CLINICAL HISTORY: Acute change in mental status COMPARISON STUDY: 04/28/2019 FINDINGS: The heart is mildly enlarged. There is no failure. There is no focal pulmonary consolidatio n. There are no pleural effusions. There are scattered calcified granulomas. There are calcified medi astinal and hilar lymph nodes, consistent with prior granulomatous disease. There is calcification of mitral valve annulus.[ IMPRESSION: No active disease in the chest. ACT 112: Negative or not required by law. Electronically signed by: Vicente Cuevas M.D. 02/12/2020 2:23 PM
[2020-02-12] MEDS ORDERED: INSULIN REGULAR 250 UNITS in SODIUM CHLORIDE 0.9% 247.5 ML IV SCH ×2 (14:30→15:55)
[2020-02-12 14:35] LABS: Beta-Hydroxybutyrate 11.88 mg/dl (0.2-2.81)
--- NOTE | 2020-02-12 15:00 | History & Physical Report ---
Date of Service February 12, 2020 Assessment & Plan (1) Hyperglycemia: Clinical picture appears to be more HHC with a possible mild component of DKA considering small anion gap along with mildly elevated beta hydroxybutyrate acid. I do agree with starting an insulin drip and monitoring sugars per protocol. We will keep the patient n.p.o. for now until she becomes more alert and sugars become controlled, can then advance diet to an ADA diet. Start IV fluids, patient does not appear to be fluid overloaded at this time but she is a hemodialysis patient. Monitor mental status to note for improvement. Check blood cultures and procalcitonin to rule out possible underlying infection altho ugh this also seems less likely. (2) ESRD (end stage renal disease) on dialysis: Patient is due for next hemodialysis tomorrow 02/12. The niece is not aware of her outpatient blind hooker is. I do see she has seen Dr. Jenkins as an inpatient on a previous admission and he has been consulted for further management. (3) Shawna's thyroiditis: Thyroxine 20 mcg daily, continue this when the patient comes more alert. (4) Hypertension: Patient is furosemide. It also appears she is adrenal and fludrocortisone, possible diagnosis of orthostasis. We can continue as well her blood pressure remained stable. History of Present Illness Primary Care Provider: Fiorella Vela MD This is a 62-year-old female with past medical history of end-stage renal disease, on hemodialysis Thursday, diabetes type 2, Charcot foot with recent surgery/hardware, that presents today with acute change in mental status. Patient cannot provide any history but is accompanied by her niece who has some details. Patient's last hemodialysis session was on Thursday. The niece tells me that she seemed very tired and lethargic after this which is not necessarily uncommon. Sometimes she will skip meals and go straight to sleep. The next day the needs to communicate with the patient she complained of a headache along with some lethargy. She says that the patient told her that she had taken all her medications but sometimes she is not truthful about this. She again saw the patient earlier today around 11 AM. She found the patient was very lethargic and seemed to be confused. She used a glucometer to take her blood sugar but the meter only read high. She had the patient 19 units of NovoLog and then rechecked but the meter still was registering is high. At this point she called EMS and the patient was brought to the emergency room. In the ER, POC glucose was still too high to read, BMP showed a sugar of 711. There was an anion gap of 13. Insulin drip was ordered but has not yet been administered. That he says told me that this is happened in the past, the patient will get hemodialysis and will have a blood sugar that is either way too high or way too low. The patient for me was very lethargic. She was arousable. She seemed to be oriented only to her name but would not answer many questions. Vital signs are otherwise stable with good blood pressure and O2 saturation. Plan is admit the patient on insulin drip for DKA versus HHS. Allergies Allergy/AdvReac Type Severity Reaction Status Date / Time blackberry Allergy Severe Anaphylaxis Verified 12/05/19 14:22 blueberry Allergy Severe Anaphylaxis Verified 12/05/19 14:22 raspberry Allergy Severe Anaphylaxis Verified 12/05/19 14:22 strawberry Allergy Severe ALL Verified 12/05/19 14:22 BERRIES --> Anaphylaxis codeine Allergy Intermediate Vomiting Verified 12/05/19 14:22 ibuprofen Allergy Intermediate VOMITING Verified 12/05/19 14:22 AND LIP SWELLING orange juice Allergy Mild Rash Verified 12/05/19 14:22 Home Medications Home Medications Medication Instructions Recorded Confirmed Type thiamine HCl (vitamin B1) 250 mg 250 mg PO QAM tab 04/13/19 02/12/20 History tablet atorvastatin 40 mg tablet 40 mg PO QPM #90 tab 05/10/19 02/12/20 Rx pyridoxine (vitamin B6) 100 mg 100 mg PO QAM 05/12/19 02/12/20 History tablet Lantus Solostar U-100 Insulin 16 unit SUBCUT QAM 05/24/19 02/12/20 History levothyroxine 125 mcg capsule 125 mcg PO QAM 08/16/19 02/12/20 History blood sugar diagnostic [FreeStyle 08/19/19 11/25/19 History Lite Strips] fludrocortisone 0.1 mg PO QPM 08/19/19 02/12/20 History insulin aspart U-100 [Novolog 1 unit SUBCUT AC 08/19/19 02/12/20 History Flexpen U-100 Insulin] midodrine 2.5 mg PO TID 08/19/19 02/12/20 History furosemide 40 mg PO 2XWK 11/16/19 02/12/20 History escitalopram oxalate 20 mg tablet 20 mg PO DAILY #30 tab 11/25/19 02/12/20 Rx lorazepam 0.5 mg tablet 0.5 mg PO DAILY PRN #15 tab 11/25/19 02/12/20 Rx ciprofloxacin HCl 500 mg PO BID 02/12/20 02/12/20 History diphenhydramine HCl [Benadryl 25 mg PO HS PRN 02/12/20 02/12/20 History Allergy] doxycycline hyclate 100 mg PO BID 02/12/20 02/12/20 History vit B,C-iron elx-DC-B5-zinc ox 1 tab PO DAILY 02/12/20 02/12/20 History [ProRenal] Past Med/Surg History Social History Preferred Language: Turkmen Communication Ability: Effective Umbrella Tipper Hand Required: No Beliefs That Will Affect Care: None Current Living Situation: Spouse Feels Safe at Home: Yes Smoking Status: Former smoker Tobacco Type: cigarettes ; Age Started Using Tobacco: 20 ; Age Quit Using Tobacco: 61 ; packs per day: 1 ; Second Hand Exposure: No ; Hx Alcohol Use: No Hx Substance Use: Yes (smokes marijuana 2x a week) substance use type: marijuana Substance Use Type Other:: MEDICAL MARIJUANA- SMOKES AT HS Last Used Substance: Unknown Review of Systems Review of Systems: Unobtainable due to reduced consciousness Physical Exam Constitutional: + altered mental status and + lethargic; no acute distress Neck: trachea midline, no thyromegaly Respiratory: normal respiratory effort Auscultation: lungs clear to auscultation bilaterally; no crackles, no rales, no rhonchi and no wheezes Limited exam Cardiovascular: Rate/Rhythm: regular rate and regular rhythm Heart Sounds: normal S1 and normal S2 Limited exam Gastrointestinal (Abdomen): Inspection/Auscultation: abdomen normal to inspection Percussion/Palpation: abdomen soft; abdomen nontender, no guarding, abdomen not rigid and no hepatosplenomegaly Musculoskeletal: Left lower extremity with 1+ nonpitting edema, evidence of hardware. There are no open lesions or wounds on either foot. No erythema. Skin: no rashes, warm and dry Psychiatric: Orientation: oriented to person; + not alert, + not oriented to place and + not oriented to time Results & Data Vital Signs (Past 12 Hours) Vital Signs Temp Pulse Pulse Resp BP BP Pulse Ox 02/12/20 14:25 83 18 148/76 H 96 02/12/20 13:50 83 16 162/81 H 96 02/12/20 13:12 96 02/12/20 13:08 36.4 C L 87 18 153/76 H 96 Laboratory Results WBCs of 8.3, hemoglobin 10.8, hematocrit of 32.7, platelets of 288. Sodium of 126. This corrects to 136 with hyperglycemia. Potassium 4.2, chloride of 90,, dioxide 23, BUN of 60, creatinine 5.18. Initial glucose is 711. Initial POC glucose is unreadable, repeat showed 681. Calcium 8.4 with an ionized calcium of 1.04. Beta hydroxybutyrate acid is 1.88. Urinalysis is grossly abnormal with WBCs and RBCs too numerous to count, 2+ bacteria. Nitrite negative with only trace leuk esterases. Diagnostic Findings XR chest 1V portable CLINICAL HISTORY: Acute change in mental status COMPARISON STUDY: 04/28/2019 FINDINGS: The heart is mildly enlarged. There is no failure. There is no focal pulmonary consolidation. There are no pleural effusions. There are scattered calcified granulomas. There are calcified mediastinal and hilar lymph nodes, consistent with prior granulomatous disease. There is calcification of mitral valve annulus.[ IMPRESSION: No active disease in the chest. --- CT head/brain wo con CLINICAL HISTORY: Acute change in mental status COMPARISON STUDY: No previous studies for comparison. TECHNIQUE: Axial CT of the brain is performed from the vertex to the skull base. IV contrast was not administered for this examination. A dose lowering technique was utilized adhering to the principles of ALARA. CT DOSE: 709.48 mGy.cm FINDINGS: No intra or extra-axial mass lesions are visualized. There is no CT evidence of acute cortical infarction. There is no evidence of midline shift. There is no acute hemorrhage. No calvarial fractures are visualized. There are patchy white matter hypodensities likely on a small vessel basis. There is no evidence of pathologic ventricular dilatation. There is no evidence of acute sinusitis IMPRESSION: No acute intracranial findings PG Care Time/CCT Total # of Minutes Spent Total Time Spent with Patient: Total time spent is greater than 50% in coordination of care (as documented) at patient's floor/unit and/or counseling patient: Coding Level of Care Code 97874 Initial Inpt Care Lvl 3 Diagnoses Hyperglycemia R73.9 ESRD (end stage renal disease) on dialysis N18.6; Z99.2 Shawna's thyroiditis E06.3 Hypertension I10 Hypertension type: essential hypertension (1) Hypertension Hypertension type: essential hypertension Qualified Code(s): I10 - Essential (primary) hypertension
[2020-02-12] MEDS ORDERED: INFLUENZA ADMINISTRATION CHARGE ONE (15:35)
[2020-02-12] MEDS ORDERED: PNEUMOCOCCAL POLYSACCHARIDES 25 MCG/0.5 ML VIAL/SYR IM ONE (15:35)
[2020-02-12] MEDS ORDERED: INFLUENZA VIRUS QUAD VACCINE 0.5 ML SYR IM ONE (15:35)
[2020-02-12] MEDS ORDERED: PNEUMOCOCCAL ADMINISTRATION CHARGE ONE (15:35)
[2020-02-12] MEDS ORDERED: ACETAMINOPHEN 325 MG TAB PO PRN (15:55)
[2020-02-12] MEDS ORDERED: ONDANSETRON INJ 2 MG/ML 2 ML VIAL IV PRN (15:55)
[2020-02-12] MEDS ORDERED: SODIUM CHLORIDE 0.9% 1000ML 1,000 ML IV SCH (15:55)
[2020-02-12] MEDS ORDERED: INSULIN ASPART 100 UNITS/ML 3 ML PEN SC SCH (16:30)
[2020-02-12 17:17] LABS: BUN Creatinine Ratio 11.1 (10-20); Calcium 8.6 mg/dl (8.5-10.1); Creatinine Clr Calc Pharmacy 8.4 ml/min; Est GFR (African American) 8.4; Est GFR (Non-African American) 7.3; Magnesium 2.5 mg/dl (1.8-2.4); Phosphorus 6.3 mg/dl (2.5-4.9); Potassium 4.5 mmol/L (3.5-5.1)
[2020-02-12 17:31] LABS: Beta-Hydroxybutyrate 1.67 mg/dl (0.2-2.81)
[2020-02-12] MEDS: INSULIN ASPART 100 UNITS/ML 3 ML PEN SC SCH ×2 (17:37→23:15)
[2020-02-12] MEDS: MIDODRINE HCL 2.5 MG TAB PO SCH (17:52)
--- NOTE | 2020-02-12 18:28 | Emergency Department Note ---
History of Present Illness General Chief complaint: Hyperglycemia Stated complaint: hyperglycemia Time Seen by Provider: 02/12/20 13:09 History of Present Illness Provider complaint: Hyperglycemia altered mental status Onset (ago): day(s) 1 64-year-old female end-stage renal disease on hemodialysis Thursday, Thursday, Thursday, presents to the emergency department with altered mental status and hypoglycemia. Per EMS who brought the patient in her blood sugar was so high that the glucometer cannot read. Patient is alert but confused and is unable to give history at this time. Home Medications Home Medications Medication Instructions Recorded Confirmed Type thiamine HCl (vitamin B1) 250 mg 250 mg PO QAM tab 04/13/19 02/12/20 History tablet atorvastatin 40 mg tablet 40 mg PO QPM #90 tab 05/10/19 02/12/20 Rx pyridoxine (vitamin B6) 100 mg 100 mg PO QAM 05/12/19 02/12/20 History tablet Lantus Solostar U-100 Insulin 16 unit SUBCUT QAM 05/24/19 02/12/20 History levothyroxine 125 mcg capsule 125 mcg PO QAM 08/16/19 02/12/20 History blood sugar diagnostic [FreeStyle 08/19/19 11/25/19 History Lite Strips] fludrocortisone 0.1 mg PO QPM 08/19/19 02/12/20 History insulin aspart U-100 [Novolog 1 unit SUBCUT AC 08/19/19 02/12/20 History Flexpen U-100 Insulin] midodrine 2.5 mg PO TID 08/19/19 02/12/20 History furosemide 40 mg PO 2XWK 11/16/19 02/12/20 History escitalopram oxalate 20 mg tablet 20 mg PO DAILY #30 tab 11/25/19 02/12/20 Rx lorazepam 0.5 mg tablet 0.5 mg PO DAILY PRN #15 tab 11/25/19 02/12/20 Rx ciprofloxacin HCl 500 mg PO BID 02/12/20 02/12/20 History diphenhydramine HCl [Benadryl 25 mg PO HS PRN 02/12/20 02/12/20 History Allergy] doxycycline hyclate 100 mg PO BID 02/12/20 02/12/20 History vit B,C-iron [id number]-zinc ox 1 tab PO DAILY 02/12/20 02/12/20 History [ProRenal] Allergies Allergy/AdvReac Type Severity Reaction Status Date / Time blackberry Allergy Severe Anaphylaxis Verified 12/05/19 14:22 blueberry Allergy Severe Anaphylaxis Verified 12/05/19 14:22 raspberry Allergy Severe Anaphylaxis Verified 12/05/19 14:22 strawberry Allergy Severe ALL Verified 12/05/19 14:22 BERRIES --> Anaphylaxis codeine Allergy Intermediate Vomiting Verified 12/05/19 14:22 ibuprofen Allergy Intermediate VOMITING Verified 12/05/19 14:22 AND LIP SWELLING orange juice Allergy Mild Rash Verified 12/05/19 14:22 Past Med/Surg History Medical History A-V fistula (Chronic) RIGHT ARM Anemia Anxiety (Chronic) Crohns disease Depression Diabetes mellitus type 1 (Chronic) Diabetic Charcot foot (Chronic) Diabetic peripheral neuropathy associated with type 1 diabetes mellitus (Acute) DKA (diabetic ketoacidoses) (Acute) TREATED INPT AT [facility] 03/2019. 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 Surgical History History of ankle surgery 06/01/19--left--hardware removed History of appendectomy History of section History of cholecystectomy History of colonoscopy History of esophagogastroduodenoscopy (EGD) History of hysterectomy PIERCE WITH BSO History of open reduction and internal fixation (ORIF) procedure RIGHT HIP RIGHT WRIST LEFT ANKLE S/P arteriovenous (AV) fistula creation RIGHT ARM X2 Status post left foot surgery 08/2019--hardware in place Family History Father Myocardial infarction acute Coronary heart disease Mother Myocardial infarction Coronary heart disease Sister Coronary heart disease Breast cancer Ovarian cancer Social History Preferred Language: Maltese Communication Ability: Effective Physical Education Aide Required: No Beliefs That Will Affect Care: None Current Living Situation: Spouse Feels Safe at Home: Yes Smoking Status: Former smoker Tobacco Type: cigarettes ; Age Started Using Tobacco: 20 ; Age Quit Using Tobacco: 61 ; packs per day: 1 ; Second Hand Exposure: No ; Hx Alcohol Use: No Hx Substance Use: Yes (smokes marijuana 2x a week) substance use type: marijuana Substance Use Type Other:: MEDICAL MARIJUANA- SMOKES AT HS Last Used Substance: Unknown Review of Systems Unobtainable due to cognitive status Physical Exam Vital Signs Vital Signs - 24 hr 02/12/20 13:08 02/12/20 13:12 02/12/20 13:50 Temperature 36.4 C L Temperature Source Oral Pulse Rate 87 Pulse Rate [Right Finger] 83 Respiratory Rate 18 16 Blood Pressure 153/76 H Blood Pressure [Left Arm] 162/81 H Blood Pressure Mean 101 Blood Pressure Mean [Left Arm] 108 Pulse Oximetry 96 96 96 Oxygen Delivery Method Room Air Room Air Room Air Sepsis Recent Fever Within 48 Hours No Sepsis New/Unexplained Change in Mental Status No Sepsis Action Taken by Nursing No Action Required 02/12/20 14:25 Temperature Temperature Source Pulse Rate Pulse Rate [Right Finger] 83 Respiratory Rate 18 Blood Pressure Blood Pressure [Left Arm] 148/76 H Blood Pressure Mean Blood Pressure Mean [Left Arm] 100 Pulse Oximetry 96 Oxygen Delivery Method Room Air Sepsis Recent Fever Within 48 Hours Sepsis New/Unexplained Change in Mental Status Sepsis Action Taken by Nursing Physical Exam GENERAL: distressed. HENT: Exam performed. -Head: Normocephalic and atraumatic. -Right Ear: External ear normal. No mastoid tenderness. -Left Ear: External ear normal. No mastoid tenderness. -Mouth/Throat: The oropharynx is clear and moist. No trismus in the jaw. No dental abscesses or uvula swelling. No oropharyngeal exudate or tonsillar abscesses. EYES: Conjunctivae and EOM are normal. Pupils are equal, round, and reactive to light. Right eye exhibits no discharge. Left eye exhibits no discharge. No scleral icterus. NECK: Supple. CV: Normal rate, regular rhythm, normal heart sounds and intact distal pulses. There is no peripheral edema. Palpable radial pulses bue. PULM/CHEST: Effort normal and breath sounds normal. No respiratory distress. No stridor. She has no wheezes. She has no rales. -Chest Wall: She exhibits no tenderness. ABD: The abdomen is soft. Bowel sounds are normal. She has no distension. No mass is present. There is no tenderness. There is no rebound, no guarding, no Berry's sign and no tenderness at McBurney's point. Rovsig negative MUSC/SKEL: Right upper extremity fistula with palpable thrill. LYMPH: No cervical adenopathy. NEURO: She is alert and oriented to place only. Motor and sensation grossly intact SKIN: Skin is warm and dry. She is not diaphoretic. Course Course 1320: The patient was evaluated in room B11B. [facility] critical high here and unable to be read. It is thought that the patient could be suffering from DKA or HHS. Given the patient is due for dialysis tomorrow morning, no aggressive IV hydration will be given to the patient. 1350: Family members at bedside. The niece states that the patient was confused this morning and they gave her 19 units of NovoLog at 11 AM because her blood sugar on their home glucometer was critical high and unable to be read. 1500: Vital signs stable. Imaging within normal limits. Creatinine is elevated at 5.75. This thought to be baseline given the patient is due to for dialysis tomorrow. The patient's anion gap is 13 with a sugar greater than 700. Patient will be started on insulin drip without bolus at this time. She will be admitted to the hospitalist team of Claire Read. Administered Medications Insulin Human Regular 250 (units/ Sodium Chloride) 250 mls @ 5.9 mls/hr IV .Q24H [facility]; Protocol Stop: 03/13/20 14:29 Last Titration: 02/12/20 18:05 Dose: 5.7 units/hr, 5.7 mls/hr Documented by: [id number] Cosigned by: [id number] Titration: 02/12/20 17:08 Dose: 7.1 units/hr, 7.1 mls/hr Documented by: [id number] Cosigned by: [id number] Titration: 02/12/20 15:59 Dose: 7.1 units/hr, 7.1 mls/hr Documented by: [id number] Cosigned by: [id number] Admin: 02/12/20 14:52 Dose: 5.9 units/hr, 5.9 mls/hr Documented by: [id number] Cosigned by: [id number] Insulin Aspart (Novolog Flexpen) 0 units SC ACHS [facility] Stop: 03/13/20 16:29 Last Admin: 02/12/20 17:37 Dose: Not Given Documented by: [id number] Cosigned by: [id number] Midodrine (Proamatine) 2.5 mg PO TID@0800,1200,1700 [facility] Stop: 03/13/20 17:59 Last Admin: 02/12/20 17:52 Dose: Not Given Documented by: [id number] Discontinued Medications Sodium Chloride (Nss) 500 mls @ 75 mls/hr IV .Q6H40M DELFINO Stop: 03/13/20 13:29 Last Infusion: 02/12/20 17:39 Dose: 0 mls/hr Documented by: [id number] Infusion: 02/12/20 14:27 Dose: 75 mls/hr Documented by: [id number] Admin: 02/12/20 13:52 Dose: 75 mls/hr Documented by: [id number] Miscellaneous (Insulin Protocol Dka Goal Range) 1 ea N/A ONE ONE Stop: 02/12/20 14:18 Last Admin: 02/12/20 14:52 Dose: 1 ea Documented by: [id number] Miscellaneous (Insulin Protocol Dka Goal Range) 1 ea N/A ONE ONE Stop: 02/12/20 15:56 Last Admin: 02/12/20 17:37 Dose: 1 ea Documented by: [id number] Critical Care Time Critical Care Time: Yes Total Critical Care Time: 62 I have personally spent greater than 62 minutes of critical care time in the direct management of this patient. This includes bedside care, interpretation of diagnostic studies, and testing, discussion with consultants, patient, and family members, and other required patient management activities. This 62 minutes is in excess of all separately billable procedures. Medical Decision Making Laboratory Data Result diagrams: 02/12/20 13:20 02/12/20 16:35 Lab Results 02/12/20 02/12/20 02/12/20 Range/Units 13:03 13: 13:20 WBC 8.36 (4.8-10.8) K/uL RBC 3.50 L (4.2-5.4) M/uL Hgb 10.8 L (12.0-16.0) g/dL POC Hgb (12.0-16.0) g/dl Hct 32.7 L (37-47) % POC Hct (37-47) % MCV 93.4 (80-100) fL MCH 30.9 (25-34) pg MCHC 33.0 (32-36) g/dL RDW Std Deviation 55.9 H (36.4-46.3) fL RDW Coeff of Erica 16.4 H (11.5-14.5) % Plt Count 228 (130-400) K/uL MPV 11.7 H (7.4-10.4) fL Immature Gran % (Auto) 0.1 % Neut % (Auto) 79.7 % Lymph % (Auto) 8.4 % [place] % (Auto) 11.2 % Eos % (Auto) 0.2 % Baso % (Auto) 0.4 % Immature Gran # (Auto) 0.01 (0.00-0.02) K/uL Neut # (Auto) 6.66 H (1.4-6.5) K/uL Lymph # (Auto) 0.70 L (1.2-3.4) K/uL [place] # (Auto) 0.94 H (0.11-0.59) K/uL Eos # (Auto) 0.02 (0-0.5) K/uL Baso # (Auto) 0.03 (0-0.2) K/uL POC Sodium (135-144) mmol/L Sodium 126 L (136-145) mmol/L POC Potassium (3.3-5.0) mmol/L Potassium 4.2 (3.5-5.1) mmol/L POC Chloride (101-112) mmol/L Chloride 90 L (98-107) mmol/L Carbon Dioxide 23 (21-32) mmol/L POC Total CO2 (24-31) mEq/l Anion Gap 13.0 H (3-11) POC Anion Gap (16-25) mmol/L POC BUN (7-18) mg/dl BUN 60 H (7-18) mg/dl Creatinine 5.82 H* (0.6-1.2) mg/dl POC Creatinine (0.6-1.3) mg/dl Est Cr Clr Drug Dosing 8.3 ml/min Est GFR ( Amer) 8.3 Est GFR (Non-Af Amer) 7.2 BUN/Creatinine Ratio 10.3 (10-20) Glucose 711 H* (70-99) mg/dl POC Glucose > 600 H* (70-99) mg/dl POC Glucose (other) (70-99) mg/dl Osmolality (280-300) mOsm/kg Calcium 8.4 L (8.5-10.1) mg/dl POC Ioniz Calcium Aj (1.12-1.32) mmol/l Beta-Hydroxybutyric Acd 11.88 H (0.2-2.81) mg/dl Urine Color Urine Appearance (Clear) Urine pH (4.5-7.5) Ur Specific [place] (1.000-1.030) Urine Protein (Negative) Urine Glucose (UA) (Negative) Urine Ketones (Negative) Urine Blood (Negative) Urine Nitrite (Negative) Urine Bilirubin (Negative) Urine Urobilinogen (Negative) Ur Leukocyte Esterase (Negative) Urine WBC (Auto) (0-5) /hpf Urine RBC (Auto) (0-4) /hpf U Hyaline Cast (Auto) U Epithel Cells (Auto) (0-5) /lpf Urine Bacteria (Auto) (Negative) Urine Yeast (None Prsent) 02/12/20 02/12/20 02/12/20 Range/Units 13:20 13:27 13:50 WBC (4.8-10.8) K/uL RBC (4.2-5.4) M/uL Hgb (12.0-16.0) g/dL POC Hgb 11.6 L (12.0-16.0) g/dl Hct (37-47) % POC Hct 34 L (37-47) % MCV (80-100) fL MCH (25-34) pg MCHC (32-36) g/dL RDW Std Deviation (36.4-46.3) fL RDW Coeff of Erica (11.5-14.5) % Plt Count (130-400) K/uL MPV (7.4-10.4) fL Immature Gran % (Auto) % Neut % (Auto) % Lymph % (Auto) % [place] % (Auto) % Eos % (Auto) % Baso % (Auto) % Immature Gran # (Auto) (0.00-0.02) K/uL Neut # (Auto) (1.4-6.5) K/uL Lymph # (Auto) (1.2-3.4) K/uL [place] # (Auto) (0.11-0.59) K/uL Eos # (Auto) (0-0.5) K/uL Baso # (Auto) (0-0.2) K/uL POC Sodium 126 L (135-144) mmol/L Sodium (136-145) mmol/L POC Potassium 4.3 (3.3-5.0) mmol/L Potassium (3.5-5.1) mmol/L POC Chloride 90 L (101-112) mmol/L Chloride (98-107) mmol/L Carbon Dioxide (21-32) mmol/L POC Total CO2 24 (24-31) mEq/l Anion Gap (3-11) POC Anion Gap 17.0 (16-25) mmol/L POC BUN 48 H (7-18) mg/dl BUN (7-18) mg/dl Creatinine (0.6-1.2) mg/dl POC Creatinine 5.9 H* (0.6-1.3) mg/dl Est Cr Clr Drug Dosing ml/min Est GFR ( Amer) Est GFR (Non-Af Amer) BUN/Creatinine Ratio (10-20) Glucose (70-99) mg/dl POC Glucose (70-99) mg/dl POC Glucose (other) 681 H* (70-99) mg/dl Osmolality 327 H (280-300) mOsm/kg Calcium (8.5-10.1) mg/dl POC Ioniz Calcium Aj 1.04 L (1.12-1.32) mmol/l Beta-Hydroxybutyric Acd (0.2-2.81) mg/dl Urine Color Yellow Urine Appearance Cloudy A (Clear) Urine pH 5.0 (4.5-7.5) Ur Specific [place] 1.023 (1.000-1.030) Urine Protein 1+ H (Negative) Urine Glucose (UA) 3+ H (Negative) Urine Ketones Trace H (Negative) Urine Blood Trace H (Negative) Urine Nitrite Negative (Negative) Urine Bilirubin Negative (Negative) Urine Urobilinogen Negative (Negative) Ur Leukocyte Esterase Trace H (Negative) Urine WBC (Auto) >30 H (0-5) /hpf Urine RBC (Auto) >30 H (0-4) /hpf U Hyaline Cast (Auto) Not Reportable U Epithel Cells (Auto) >30 H (0-5) /lpf Urine Bacteria (Auto) 2+ H (Negative) Urine Yeast Budding w/ Hyphae A (None Prsent) Imaging Data Radiologist's Impression: CT head/brain wo con CLINICAL HISTORY: Acute change in mental status COMPARISON STUDY: No previous studies for comparison. TECHNIQUE: Axial CT of the brain is performed from the vertex to the skull base. IV contrast was not administered for this examination. A dose lowering technique was utilized adhering to the principles of ALARA. CT DOSE: 709.48 mGy.cm FINDINGS: No intra or extra-axial mass lesions are visualized. There is no CT evidence of acute cortical infarction. There is no evidence of midline shift. There is no acute hemorrhage. No calvarial fractures are visualized. There are patchy white matter hypodensities likely on a small vessel basis. There is no evidence of pathologic ventricular dilatation. There is no evidence of acute sinusitis IMPRESSION: No acute intracranial findings ACT 112: Negative or not required by law. Electronically signed by: Vicente Cuevas M.D. 02/12/2020 1:44 PM Dictated: 02/12/20 1343 Transcribed: 02/12/20 1343 XR chest 1V portable CLINICAL HISTORY: Acute change in mental status COMPARISON STUDY: 04/28/2019 FINDINGS: The heart is mildly enlarged. There is no failure. There is no focal pulmonary consolidation. There are no pleural effusions. There are scattered calcified granulomas. There are calcified mediastinal and hilar lymph nodes, consistent with prior granulomatous disease. There is calcification of mitral valve annulus.[ IMPRESSION: No active disease in the chest. ACT 112: Negative or not required by law. Electronically signed by: Vicente Cuevas M.D. 02/12/2020 2:23 PM Dictated: 02/12/20 1422 Transcribed: 02/12/20 1422 ECG Data Indication: + altered mental status Rate (beats per minute): 86 Rhythm: + normal sinus ECG Intervals/blocks: + Normal QT, + Normal MO and + Normal QT-c Additional Comments: Sinus Rhythym. Rate 86. MO QRS and Qtc intervals within normal limits. No ST elevation or ST depression [facility] Narrative 1320: The patient was evaluated in room B11B. Patient's POC glucose in the emergency department is critical high here and unable to be read. It is thought that the patient could be suffering from DKA or HHS. Given the patient is due for dialysis tomorrow morning, no aggressive IV hydration will be given to the patient. 1350: Family members at bedside. The niece states that the patient was confused this morning and they gave her 19 units of NovoLog at 11 AM because her blood sugar on their home glucometer was critical high and unable to be read. 1500: Vital signs stable. Imaging within normal limits. Creatinine is elevated at 5.75. This thought to be baseline given the patient is due to for dialysis tomorrow. The patient's anion gap is 13 with a sugar greater than 700. Patient will be started on insulin drip without bolus at this time. She will be admitted to the hospitalist team of Claire Read. Impression & Plan DKA (diabetic ketoacidoses), End stage renal disease on dialysis Discharge Plan Visit Data *Final* Discharge Date/Time: 02/12/20 15:40 Chief Complaint: Hyperglycemia Stated Complaint: hyperglycemia ED Provider: Hal Mcguire Discharge Problem: DKA (diabetic ketoacidoses), End stage renal disease on dialysis Patient Disposition: Admitted As Inpatient Discharge Instructions Interventions: ED Discharge Assessment Last Done: 02/12/20 15:40 Discharge Problem: DKA (diabetic ketoacidoses) Qualifiers: Diabetes mellitus type: other specified (including [place]) Diabetes mellitus complication detail: without coma Qualified Code(s): E13.10 - Other specified diabetes mellitus with ketoacidosis without coma
[2020-02-12] MEDS: DEXTROSE 50% 50 ML SYRINGE IV PRN ×3 (20:09→23:09)
[2020-02-12 20:31] LABS: BUN Creatinine Ratio 10.8 (10-20); Calcium 9.1 mg/dl (8.5-10.1); Creatinine Clr Calc Pharmacy 8.4 ml/min; Est GFR (African American) 8.5; Est GFR (Non-African American) 7.3; Magnesium 2.5 mg/dl (1.8-2.4); Phosphorus 5.8 mg/dl (2.5-4.9); Potassium 4.1 mmol/L (3.5-5.1)
[2020-02-12] MEDS ORDERED: PHARMACY GLYCEMIC MGMT CONSULT PRN (21:50)
[2020-02-12] MEDS: ATORVASTATIN 40 MG TAB PO SCH (22:12)
[2020-02-12] MEDS: FLUDROCORTISONE ACETATE 0.1 MG TAB PO SCH (22:12)
[2020-02-12] MEDS: HEPARIN SOD 5,000 UNIT/0.5 ML VIAL SQ SCH (22:12)
--- NOTE | 2020-02-12 22:22 | Pharmacy Report ---
Pharmacy Glycemic Short Note 2 - Date of Service February 12, 2020 - Glycemic Short BSG Results (Last 24 hours): 02/12/20 02/12/20 02/12/20 13:03 13:20 13:27 Glucose 711 H* POC Glucose > 600 H* POC Glucose (other) 681 H* 02/12/20 02/12/20 02/12/20 15:52 16:35 17:05 Glucose 475 H* POC Glucose 490 H* 384 H* POC Glucose (other) 02/12/20 02/12/20 02/12/20 18:02 19:01 19:55 Glucose 96 POC Glucose 297 H 160 H POC Glucose (other) 02/12/20 02/12/20 02/12/20 20:05 20:26 21:00 Glucose POC Glucose 70 170 H 112 H POC Glucose (other) 02/12/20 02/12/20 02/12/20 21:22 21:45 21:46 Glucose POC Glucose 90 63 L* 61 L* POC Glucose (other) 02/12/20 22:04 Glucose POC Glucose 109 H POC Glucose (other) ASSESSMENT: * Shanda is a 64 yo T1DM female admitted with severe hyperglycemia and altered mental status * BSG of 681 mg/dL upon arrival with slight elevation in anion gap (13) and normal bicarb. Patient was started on IV insulin infusion. Hyperglycemia resolved quickly resulted in hypoglycemia. BSG of 61 mg/dL was treated with 1/2 amp of D50%. IV insulin infusion placed on hold. PLAN FOR INPATIENT GLYCEMIC CONTROL: * Basal insulin * on hold until BSG > 140 mg/dL x 2 consecutive checks * if resumed overnight, rec starting with Lantus 13 units SQ * Bolus insulin * NovoLog per scale ACHS or Q6hrs while NPO * Goal Range: Low 120 mg/dL - High 150 mg/dL * Correction Factor: 30 mg/dL/unit * Nutritional / Prandial insulin per carb ratio of 1 unit per 10 grams CHO consumed PLAN FOR DISCHARGE: * to be determined
[2020-02-12] MEDS: NORMOSOL-R 1,000 ML IV SCH (23:13)
[2020-02-13] MEDS: INSULIN ASPART 100 UNITS/ML 3 ML PEN SC SCH ×9 (00:15→20:24)
[2020-02-13 00:35] LABS: BUN Creatinine Ratio 10.8 (10-20); Calcium 8.4 mg/dl (8.5-10.1); Creatinine Clr Calc Pharmacy 8.3 ml/min; Est GFR (African American) 8.3; Est GFR (Non-African American) 7.2; Magnesium 2.3 mg/dl (1.8-2.4); Phosphorus 6.2 mg/dl (2.5-4.9); Potassium 4.2 mmol/L (3.5-5.1)
[2020-02-13] MEDS: DEXTROSE 50% 50 ML SYRINGE IV PRN (01:35)
[2020-02-13 04:00] LABS: Basophils # (auto) 0.05 K/uL (0-0.2); Basophils % (auto) 0.6 %; Eosinophils # (auto) 0.53 K/uL (0-0.5); Eosinophils % (auto) 6.1 %; Hematocrit (blood only) 31.7 % (37-47); Hemoglobin 10.8 g/dL (12.0-16.0); Immature Granulocytes # (auto) 0.02 K/uL (0.00-0.02); Immature Granulocytes % (auto) 0.2 %; Lymphocytes # (auto) 1.56 K/uL (1.2-3.4); Lymphocytes % (auto) 18.1 %; Mean Corpuscular Hemoglobin 30.5 pg (25-34); Mean Corpuscular Hgb Conc 34.1 g/dL (32-36); Mean Corpuscular Volume 89.5 fL (80-100); Mean Platelet Volume 11.2 fL (7.4-10.4); Monocytes # (auto) 0.72 K/uL (0.11-0.59); Monocytes % (auto) 8.4 %; Neutrophils # (auto) 5.74 K/uL (1.4-6.5); Neutrophils % (auto) 66.6 %; Platelet Count 228 K/uL (130-400); RDW Coefficient of Variation 16.1 % (11.5-14.5); RDW Standard Deviation 52.7 fL (36.4-46.3); Red Blood Count 3.54 M/uL (4.2-5.4); White Blood Count 8.62 K/uL (4.8-10.8)
[2020-02-13 04:52] LABS: BUN Creatinine Ratio 10.2 (10-20); Calcium 8.4 mg/dl (8.5-10.1); Creatinine Clr Calc Pharmacy 7.9 ml/min; Est GFR (African American) 7.8; Est GFR (Non-African American) 6.8; Magnesium 2.3 mg/dl (1.8-2.4); Phosphorus 6.4 mg/dl (2.5-4.9); Potassium 4.4 mmol/L (3.5-5.1)
[2020-02-13] MEDS: NORMOSOL-R 1,000 ML IV SCH (05:15)
[2020-02-13] MEDS: LEVOTHYROXINE SODIUM 125 MCG TABLET PO SCH ×2 (05:58→09:33)
[2020-02-13 06:28] LABS: Estimated Average Glucose 286 mg/dl; Hemoglobin A1C 11.6 % (4.5-5.6)
[2020-02-13 08:56] LABS: BUN Creatinine Ratio 10.4 (10-20); Calcium 8.7 mg/dl (8.5-10.1); Creatinine Clr Calc Pharmacy 7.9 ml/min; Est GFR (African American) 7.8; Est GFR (Non-African American) 6.7; Magnesium 2.4 mg/dl (1.8-2.4); Phosphorus 6.1 mg/dl (2.5-4.9); Potassium 4.1 mmol/L (3.5-5.1)
[2020-02-13] MEDS ORDERED: SODIUM CHLORIDE 0.9% 1000ML 1,000 ML IV PRN (08:58)
[2020-02-13] MEDS ORDERED: FUROSEMIDE 40 MG TAB PO SCH (09:00)
[2020-02-13] MEDS ORDERED: INSULIN GLARGINE SOLOSTAR 100 UNITS/ML 3 ML PEN SQ SCH (09:00)
--- NOTE | 2020-02-13 09:24 | Nephrology Consultation ---
Date of Consultation February 13, 2020 Assessment & Plan (1) ESRD (end stage renal disease) on dialysis: Due to diabetic nephropathy. On HD MWF via AVF. Orders for HD today have been entered into the EMR and reviewed with the dialysis nurse. Outpatient Rx 3.5 hrs, 180 optiflux, 350/800, 2K. EDW 54.5 kg. BP and volume status are acceptable. Electrolytes are within normal limits. Clearance goals reviewed for treatment. Furosemide dosing QTT (non-dialysis days) verified by nurse. (2) Hyperglycemia: Secondary to missed insulin at home. No infection otherwise identified. Cultures pending. (3) Orthostasis: Remains on midodrine 2.5 TID. (4) Anemia: Chronic, stable. EPO held due to Hgb >10. (5) Hypertension: BP acceptable. Complex history: remains on midodrine for chronic orthostatic hypotension attributed to autonomic insufficiency. History of Present Illness Reason for Consultation: ESRD on HD Requesting Physician: Doyle Ferraro DO Attending Physician: Doyle Ferraro DO History of Present Illness Mrs. Shanda Conner is a 64-year-old female with diabetes mellitus type 1, depression, Charcot joint of left foot, diabetic neuropathy, hypothyroidism, Shawna's thyroiditis, diabetic retinopathy, frequent falls, hypertension, GERD, orthostatic hypotension from presumed autonomic insufficiency, and dyslipidemia. She is on MWF HD at [facility] under the care of Dr. Gardner. Shanda dialyzes via a right upper extremity AVF. Her last outpatient HD treatment was on Thursday. Unfortunately, over the weekend, she developed nausea and some vomiting. She was not eating and therefore had reduced the amount of insulin that she was taking. Shanda cannot remember how much she took. She became increasingly confused over the next 24 hours and her niece contacted EMS. Shanda was brought to the ER yesterday with MS changes and severe hyperglycemia. She has not fevers. She denies any abdominal pain, nausea, or diarrhea at this time. She has not eaten in over 24 hours. Blood glucose control improved with insulin therapy. Cultures pending. Allergies Allergy/AdvReac Type Severity Reaction Status Date / Time blackberry Allergy Severe Anaphylaxis Verified 12/05/19 14:22 blueberry Allergy Severe Anaphylaxis Verified 12/05/19 14:22 raspberry Allergy Severe Anaphylaxis Verified 12/05/19 14:22 strawberry Allergy Severe ALL Verified 12/05/19 14:22 BERRIES --> Anaphylaxis codeine Allergy Intermediate Vomiting Verified 12/05/19 14:22 ibuprofen Allergy Intermediate VOMITING Verified 12/05/19 14:22 AND LIP SWELLING orange juice Allergy Mild Rash Verified 12/05/19 14:22 Home Medications Home Medications Medication Instructions Recorded Confirmed Type thiamine HCl (vitamin B1) 250 mg 250 mg PO QAM tab 04/13/19 02/12/20 History tablet atorvastatin 40 mg tablet 40 mg PO QPM #90 tab 05/10/19 02/12/20 Rx pyridoxine (vitamin B6) 100 mg 100 mg PO QAM 05/12/19 02/12/20 History tablet Lantus Solostar U-100 Insulin 16 unit SUBCUT QAM 05/24/19 02/12/20 History levothyroxine 125 mcg capsule 125 mcg PO QAM 08/16/19 02/12/20 History blood sugar diagnostic [FreeStyle 08/19/19 11/25/19 History Lite Strips] fludrocortisone 0.1 mg PO QPM 08/19/19 02/12/20 History insulin aspart U-100 [Novolog 1 unit SUBCUT AC 08/19/19 02/12/20 History Flexpen U-100 Insulin] midodrine 2.5 mg PO TID 08/19/19 02/12/20 History furosemide 40 mg PO 2XWK 11/16/19 02/12/20 History escitalopram oxalate 20 mg tablet 20 mg PO DAILY #30 tab 11/25/19 02/12/20 Rx lorazepam 0.5 mg tablet 0.5 mg PO DAILY PRN #15 tab 11/25/19 02/12/20 Rx ciprofloxacin HCl 500 mg PO BID 02/12/20 02/12/20 History diphenhydramine HCl [Benadryl 25 mg PO HS PRN 02/12/20 02/12/20 History Allergy] doxycycline hyclate 100 mg PO BID 02/12/20 02/12/20 History vit B,C-iron [id number]-zinc ox 1 tab PO DAILY 02/12/20 02/12/20 History [ProRenal] Patient History Medical History A-V fistula (Chronic) RIGHT ARM Anemia Anxiety (Chronic) Crohns disease Depression Diabetes mellitus type 1 (Chronic) Diabetic Charcot foot (Chronic) Diabetic peripheral neuropathy associated with type 1 diabetes mellitus (Acute) DKA (diabetic ketoacidoses) (Acute) TREATED INPT AT [facility] 03/2019. 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 Surgical History History of ankle surgery 06/01/19--left--hardware removed History of appendectomy History of section History of cholecystectomy History of colonoscopy History of esophagogastroduodenoscopy (EGD) History of hysterectomy PIERCE WITH BSO History of open reduction and internal fixation (ORIF) procedure RIGHT HIP RIGHT WRIST LEFT ANKLE S/P arteriovenous (AV) fistula creation RIGHT ARM X2 Status post left foot surgery 08/2019--hardware in place Family History Father Myocardial infarction acute Coronary heart disease Mother Myocardial infarction Coronary heart disease Sister Coronary heart disease Breast cancer Ovarian cancer Social History Preferred Language: Frisian Communication Ability: Effective Lead Trainer Required: No Beliefs That Will Affect Care: None Current Living Situation: Spouse Feels Safe at Home: Yes Smoking Status: Former smoker Tobacco Type: cigarettes ; Age Started Using Tobacco: 20 ; Age Quit Using Tobacco: 61 ; packs per day: 1 ; Second Hand Exposure: No ; Hx Alcohol Use: No Hx Substance Use: Yes (smokes marijuana 2x a week) substance use type: marijuana Substance Use Type Other:: MEDICAL MARIJUANA- SMOKES AT HS Last Used Substance: Unknown Review of Systems Constitutional: + weakness; no fever, no chills and no fatigue Eyes: no problem reported Ear, Nose, Mouth, Throat: no dysphagia and no problem reported Respiratory: + cough; no chest congestion and no dyspnea Cardiovascular: no chest pain, no dyspnea and no problem reported Gastrointestinal: as per Subjective / HPI Genitourinary: no problem reported Musculoskeletal: no problem reported Integumentary: no problem reported Neurologic: no problem reported Psychiatric: no problem reported Endocrine: no problem reported Hematologic / Lymphatic: no problem reported Physical Exam Constitutional: well developed, + thin and + frail appearing; no acute distress Eyes: + anicteric sclerae; no corneal abnormality ENMT: Mouth: no oral mucosal abnormality and oral mucous membranes not dry Neck: normal visual inspection and trachea midline Respiratory: normal respiratory effort Auscultation: lungs clear to auscultation bilaterally Cardiovascular: Rate/Rhythm: regular rate Heart Sounds: normal S1 and normal S2 Extremities: + AV fistula; no edema Gastrointestinal (Abdomen): Percussion/Palpation: abdomen soft; abdomen nontender Musculoskeletal: Extremities: no cyanosis and no clubbing Skin: normal turgor; no lesions Neurologic: Motor/Sensory: no tremor and no asterixis Psychiatric: Orientation: alert and oriented x 3 Results & Data Vital Signs (Past 12 Hours) Vital Signs Temp Pulse Resp BP Pulse Ox 02/13/20 07:02 36.7 C 86 16 132/64 100 02/13/20 03:02 36.7 C 86 16 133/72 100 02/12/20 23:00 36.7 C 85 18 124/60 92 Laboratory Results Laboratory Results - last 24 hr 02/12/20 02/12/20 02/12/20 13:03 13:20 13:20 WBC 8.36 RBC 3.50 L Hgb 10.8 L POC Hgb Hct 32.7 L POC Hct MCV 93.4 MCH 30.9 MCHC 33.0 RDW Std Deviation 55.9 H RDW Coeff of Erica 16.4 H Plt Count 228 MPV 11.7 H Immature Gran % (Auto) 0.1 Neut % (Auto) 79.7 Lymph % (Auto) 8.4 Haywood % (Auto) 11.2 Eos % (Auto) 0.2 Baso % (Auto) 0.4 Immature Gran # (Auto) 0.01 Neut # (Auto) 6.66 H Lymph # (Auto) 0.70 L Haywood # (Auto) 0.94 H Eos # (Auto) 0.02 Baso # (Auto) 0.03 VBG pH POC Sodium Sodium 126 L POC Potassium Potassium 4.2 POC Chloride Chloride 90 L Carbon Dioxide 23 POC Total CO2 Anion Gap 13.0 H POC Anion Gap POC BUN BUN 60 H Creatinine 5.82 H* POC Creatinine Est Cr Clr Drug Dosing 8.3 Est GFR ( Amer) 8.3 Est GFR (Non-Af Amer) 7.2 BUN/Creatinine Ratio 10.3 Glucose 711 H* POC Glucose > 600 H* POC Glucose (other) Estimat Average Glucose Hemoglobin A1c Osmolality Calcium 8.4 L POC Ioniz Calcium Aj Phosphorus Magnesium Beta-Hydroxybutyric Acd 11.88 H Procalcitonin Specimen Hemolysis Urine Color Urine Appearance Urine pH Ur Specific [place] Urine Protein Urine Glucose (UA) Urine Ketones Urine Blood Urine Nitrite Urine Bilirubin Urine Urobilinogen Ur Leukocyte Esterase Urine WBC (Auto) Urine RBC (Auto) U Hyaline Cast (Auto) U Epithel Cells (Auto) Urine Bacteria (Auto) Urine Yeast Nasal Screen MRSA (PCR) 02/12/20 02/12/20 02/12/20 13:20 13:27 13:50 WBC RBC Hgb POC Hgb 11.6 L Hct POC Hct 34 L MCV MCH MCHC RDW Std Deviation RDW Coeff of Erica Plt Count MPV Immature Gran % (Auto) Neut % (Auto) Lymph % (Auto) Haywood % (Auto) Eos % (Auto) Baso % (Auto) Immature Gran # (Auto) Neut # (Auto) Lymph # (Auto) Haywood # (Auto) Eos # (Auto) Baso # (Auto) VBG pH POC Sodium 126 L Sodium POC Potassium 4.3 Potassium POC Chloride 90 L Chloride Carbon Dioxide POC Total CO2 24 Anion Gap POC Anion Gap 17.0 POC BUN 48 H BUN Creatinine POC Creatinine 5.9 H* Est Cr Clr Drug Dosing Est GFR ( Amer) Est GFR (Non-Af Amer) BUN/Creatinine Ratio Glucose POC Glucose POC Glucose (other) 681 H* Estimat Average Glucose Hemoglobin A1c Osmolality 327 H Calcium POC Ioniz Calcium Aj 1.04 L Phosphorus Magnesium Beta-Hydroxybutyric Acd Procalcitonin Specimen Hemolysis Urine Color Yellow Urine Appearance Cloudy A Urine pH 5.0 Ur Specific [place] 1.023 Urine Protein 1+ H Urine Glucose (UA) 3+ H Urine Ketones Trace H Urine Blood Trace H Urine Nitrite Negative Urine Bilirubin Negative Urine Urobilinogen Negative Ur Leukocyte Esterase Trace H Urine WBC (Auto) >30 H Urine RBC (Auto) >30 H U Hyaline Cast (Auto) Not Reportable U Epithel Cells (Auto) >30 H Urine Bacteria (Auto) 2+ H Urine Yeast Budding w/ Hyphae A Nasal Screen MRSA (PCR) 02/12/20 02/12/20 02/12/20 15:52 16:35 16:35 WBC RBC Hgb POC Hgb Hct POC Hct MCV MCH MCHC RDW Std Deviation RDW Coeff of Erica Plt Count MPV Immature Gran % (Auto) Neut % (Auto) Lymph % (Auto) Haywood % (Auto) Eos % (Auto) Baso % (Auto) Immature Gran # (Auto) Neut # (Auto) Lymph # (Auto) Haywood # (Auto) Eos # (Auto) Baso # (Auto) VBG pH POC Sodium Sodium 127 L POC Potassium Potassium 4.5 POC Chloride Chloride 91 L Carbon Dioxide 24 POC Total CO2 Anion Gap 12.0 H POC Anion Gap POC BUN BUN 64 H Creatinine 5.75 H* POC Creatinine Est Cr Clr Drug Dosing 8.4 Est GFR ( Amer) 8.4 Est GFR (Non-Af Amer) 7.3 BUN/Creatinine Ratio 11.1 Glucose 475 H* POC Glucose 490 H* POC Glucose (other) Estimat Average Glucose Hemoglobin A1c Osmolality Calcium 8.6 POC Ioniz Calcium Aj Phosphorus 6.3 H Magnesium 2.5 H Beta-Hydroxybutyric Acd 1.67 Procalcitonin 4.07 H Specimen Hemolysis Urine Color Urine Appearance Urine pH Ur Specific [place] Urine Protein Urine Glucose (UA) Urine Ketones Urine Blood Urine Nitrite Urine Bilirubin Urine Urobilinogen Ur Leukocyte Esterase Urine WBC (Auto) Urine RBC (Auto) U Hyaline Cast (Auto) U Epithel Cells (Auto) Urine Bacteria (Auto) Urine Yeast Nasal Screen MRSA (PCR) 02/12/20 02/12/20 02/12/20 16:35 17:05 18:02 WBC RBC Hgb POC Hgb Hct POC Hct MCV MCH MCHC RDW Std Deviation RDW Coeff of Erica Plt Count MPV Immature Gran % (Auto) Neut % (Auto) Lymph % (Auto) Haywood % (Auto) Eos % (Auto) Baso % (Auto) Immature Gran # (Auto) Neut # (Auto) Lymph # (Auto) Haywood # (Auto) Eos # (Auto) Baso # (Auto) VBG pH 7.29 L POC Sodium Sodium POC Potassium Potassium POC Chloride Chloride Carbon Dioxide POC Total CO2 Anion Gap POC Anion Gap POC BUN BUN Creatinine POC Creatinine Est Cr Clr Drug Dosing Est GFR ( Amer) Est GFR (Non-Af Amer) BUN/Creatinine Ratio Glucose POC Glucose 384 H* 297 H POC Glucose (other) Estimat Average Glucose Hemoglobin A1c Osmolality Calcium POC Ioniz Calcium Aj Phosphorus Magnesium Beta-Hydroxybutyric Acd Procalcitonin Specimen Hemolysis Urine Color Urine Appearance Urine pH Ur Specific [place] Urine Protein Urine Glucose (UA) Urine Ketones Urine Blood Urine Nitrite Urine Bilirubin Urine Urobilinogen Ur Leukocyte Esterase Urine WBC (Auto) Urine RBC (Auto) U Hyaline Cast (Auto) U Epithel Cells (Auto) Urine Bacteria (Auto) Urine Yeast Nasal Screen MRSA (PCR) 02/12/20 02/12/20 02/12/20 19:01 19:55 19:55 WBC RBC Hgb POC Hgb Hct POC Hct MCV MCH MCHC RDW Std Deviation RDW Coeff of Erica Plt Count MPV Immature Gran % (Auto) Neut % (Auto) Lymph % (Auto) Haywood % (Auto) Eos % (Auto) Baso % (Auto) Immature Gran # (Auto) Neut # (Auto) Lymph # (Auto) Haywood # (Auto) Eos # (Auto) Baso # (Auto) VBG pH 7.38 POC Sodium Sodium 132 L POC Potassium Potassium 4.1 POC Chloride Chloride 96 L Carbon Dioxide 27 POC Total CO2 Anion Gap 9.0 POC Anion Gap POC BUN BUN 62 H Creatinine 5.74 H* POC Creatinine Est Cr Clr Drug Dosing 8.4 Est GFR ( Amer) 8.5 Est GFR (Non-Af Amer) 7.3 BUN/Creatinine Ratio 10.8 Glucose 96 POC Glucose 160 H POC Glucose (other) Estimat Average Glucose Hemoglobin A1c Osmolality Calcium 9.1 POC Ioniz Calcium Aj Phosphorus 5.8 H Magnesium 2.5 H Beta-Hydroxybutyric Acd Procalcitonin Specimen Hemolysis Urine Color Urine Appearance Urine pH Ur Specific [place] Urine Protein Urine Glucose (UA) Urine Ketones Urine Blood Urine Nitrite Urine Bilirubin Urine Urobilinogen Ur Leukocyte Esterase Urine WBC (Auto) Urine RBC (Auto) U Hyaline Cast (Auto) U Epithel Cells (Auto) Urine Bacteria (Auto) Urine Yeast Nasal Screen MRSA (PCR) 02/12/20 02/12/20 02/12/20 20:05 20:26 21:00 WBC RBC Hgb POC Hgb Hct POC Hct MCV MCH MCHC RDW Std Deviation RDW Coeff of Erica Plt Count MPV Immature Gran % (Auto) Neut % (Auto) Lymph % (Auto) Haywood % (Auto) Eos % (Auto) Baso % (Auto) Immature Gran # (Auto) Neut # (Auto) Lymph # (Auto) Haywood # (Auto) Eos # (Auto) Baso # (Auto) VBG pH POC Sodium Sodium POC Potassium Potassium POC Chloride Chloride Carbon Dioxide POC Total CO2 Anion Gap POC Anion Gap POC BUN BUN Creatinine POC Creatinine Est Cr Clr Drug Dosing Est GFR ( Amer) Est GFR (Non-Af Amer) BUN/Creatinine Ratio Glucose POC Glucose 70 170 H 112 H POC Glucose (other) Estimat Average Glucose Hemoglobin A1c Osmolality Calcium POC Ioniz Calcium Aj Phosphorus Magnesium Beta-Hydroxybutyric Acd Procalcitonin Specimen Hemolysis Urine Color Urine Appearance Urine pH Ur Specific [place] Urine Protein Urine Glucose (UA) Urine Ketones Urine Blood Urine Nitrite Urine Bilirubin Urine Urobilinogen Ur Leukocyte Esterase Urine WBC (Auto) Urine RBC (Auto) U Hyaline Cast (Auto) U Epithel Cells (Auto) Urine Bacteria (Auto) Urine Yeast Nasal Screen MRSA (PCR) 02/12/20 02/12/20 02/12/20 21:22 21:45 21:46 WBC RBC Hgb POC Hgb Hct POC Hct MCV MCH MCHC RDW Std Deviation RDW Coeff of Erica Plt Count MPV Immature Gran % (Auto) Neut % (Auto) Lymph % (Auto) Haywood % (Auto) Eos % (Auto) Baso % (Auto) Immature Gran # (Auto) Neut # (Auto) Lymph # (Auto) Haywood # (Auto) Eos # (Auto) Baso # (Auto) VBG pH POC Sodium Sodium POC Potassium Potassium POC Chloride Chloride Carbon Dioxide POC Total CO2 Anion Gap POC Anion Gap POC BUN BUN Creatinine POC Creatinine Est Cr Clr Drug Dosing Est GFR ( Amer) Est GFR (Non-Af Amer) BUN/Creatinine Ratio Glucose POC Glucose 90 63 L* 61 L* POC Glucose (other) Estimat Average Glucose Hemoglobin A1c Osmolality Calcium POC Ioniz Calcium Aj Phosphorus Magnesium Beta-Hydroxybutyric Acd Procalcitonin Specimen Hemolysis Urine Color Urine Appearance Urine pH Ur Specific [place] Urine Protein Urine Glucose (UA) Urine Ketones Urine Blood Urine Nitrite Urine Bilirubin Urine Urobilinogen Ur Leukocyte Esterase Urine WBC (Auto) Urine RBC (Auto) U Hyaline Cast (Auto) U Epithel Cells (Auto) Urine Bacteria (Auto) Urine Yeast Nasal Screen MRSA (PCR) 02/12/20 02/12/20 02/12/20 22:04 23:01 23:57 WBC RBC Hgb POC Hgb Hct POC Hct MCV MCH MCHC RDW Std Deviation RDW Coeff of Erica Plt Count MPV Immature Gran % (Auto) Neut % (Auto) Lymph % (Auto) Haywood % (Auto) Eos % (Auto) Baso % (Auto) Immature Gran # (Auto) Neut # (Auto) Lymph # (Auto) [place]wood # (Auto) Eos # (Auto) Baso # (Auto) VBG pH POC Sodium Sodium POC Potassium Potassium POC Chloride Chloride Carbon Dioxide POC Total CO2 Anion Gap POC Anion Gap POC BUN BUN Creatinine POC Creatinine Est Cr Clr Drug Dosing Est GFR ( Amer) Est GFR (Non-Af Amer) BUN/Creatinine Ratio Glucose POC Glucose 109 H 71 103 H POC Glucose (other) Estimat Average Glucose Hemoglobin A1c Osmolality Calcium POC Ioniz Calcium Aj Phosphorus Magnesium Beta-Hydroxybutyric Acd Procalcitonin Specimen Hemolysis Urine Color Urine Appearance Urine pH Ur Specific [place] Urine Protein Urine Glucose (UA) Urine Ketones Urine Blood Urine Nitrite Urine Bilirubin Urine Urobilinogen Ur Leukocyte Esterase Urine WBC (Auto) Urine RBC (Auto) U Hyaline Cast (Auto) U Epithel Cells (Auto) Urine Bacteria (Auto) Urine Yeast Nasal Screen MRSA (PCR) 02/13/20 02/13/20 02/13/20 00:02 00:02 00:53 WBC RBC Hgb POC Hgb Hct POC Hct MCV MCH MCHC RDW Std Deviation RDW Coeff of Erica Plt Count MPV Immature Gran % (Auto) Neut % (Auto) Lymph % (Auto) [place]wood % (Auto) Eos % (Auto) Baso % (Auto) Immature Gran # (Auto) Neut # (Auto) Lymph # (Auto) [place]wood # (Auto) Eos # (Auto) Baso # (Auto) VBG pH 7.40 POC Sodium Sodium 132 L POC Potassium Potassium 4.2 POC Chloride Chloride 97 L Carbon Dioxide 26 POC Total CO2 Anion Gap 10.0 POC Anion Gap POC BUN BUN 63 H Creatinine 5.83 H* POC Creatinine Est Cr Clr Drug Dosing 8.3 Est GFR ( Amer) 8.3 Est GFR (Non-Af Amer) 7.2 BUN/Creatinine Ratio 10.8 Glucose 103 H POC Glucose 77 POC Glucose (other) Estimat Average Glucose Hemoglobin A1c Osmolality Calcium 8.4 L POC Ioniz Calcium Aj Phosphorus 6.2 H Magnesium 2.3 Beta-Hydroxybutyric Acd Procalcitonin Specimen Hemolysis Urine Color Urine Appearance Urine pH Ur Specific [place] Urine Protein Urine Glucose (UA) Urine Ketones Urine Blood Urine Nitrite Urine Bilirubin Urine Urobilinogen Ur Leukocyte Esterase Urine WBC (Auto) Urine RBC (Auto) U Hyaline Cast (Auto) U Epithel Cells (Auto) Urine Bacteria (Auto) Urine Yeast Nasal Screen MRSA (PCR) 02/13/20 02/13/20 02/13/20 01:30 01:31 01:48 WBC RBC Hgb POC Hgb Hct POC Hct MCV MCH MCHC RDW Std Deviation RDW Coeff of Erica Plt Count MPV Immature Gran % (Auto) Neut % (Auto) Lymph % (Auto) [place]wood % (Auto) Eos % (Auto) Baso % (Auto) Immature Gran # (Auto) Neut # (Auto) Lymph # (Auto) [place]wood # (Auto) Eos # (Auto) Baso # (Auto) VBG pH POC Sodium Sodium POC Potassium Potassium POC Chloride Chloride Carbon Dioxide POC Total CO2 Anion Gap POC Anion Gap POC BUN BUN Creatinine POC Creatinine Est Cr Clr Drug Dosing Est GFR ( Amer) Est GFR (Non-Af Amer) BUN/Creatinine Ratio Glucose POC Glucose 69 L* 145 H POC Glucose (other) Estimat Average Glucose Hemoglobin A1c Osmolality Calcium POC Ioniz Calcium Aj Phosphorus Magnesium Beta-Hydroxybutyric Acd Procalcitonin Specimen Hemolysis Urine Color Urine Appearance Urine pH Ur Specific [place] Urine Protein Urine Glucose (UA) Urine Ketones Urine Blood Urine Nitrite Urine Bilirubin Urine Urobilinogen Ur Leukocyte Esterase Urine WBC (Auto) Urine RBC (Auto) U Hyaline Cast (Auto) U Epithel Cells (Auto) Urine Bacteria (Auto) Urine Yeast Nasal Screen MRSA (PCR) Negative 02/13/20 02/13/20 02/13/20 03:08 03:46 03:46 WBC RBC Hgb POC Hgb Hct POC Hct MCV MCH MCHC RDW Std Deviation RDW Coeff of Erica Plt Count MPV Immature Gran % (Auto) Neut % (Auto) Lymph % (Auto) [place] % (Auto) Eos % (Auto) Baso % (Auto) Immature Gran # (Auto) Neut # (Auto) Lymph # (Auto) [place]wood # (Auto) Eos # (Auto) Baso # (Auto) VBG pH 7.37 POC Sodium Sodium 132 L POC Potassium Potassium 4.4 POC Chloride Chloride 97 L Carbon Dioxide 25 POC Total CO2 Anion Gap 10.0 POC Anion Gap POC BUN BUN 62 H Creatinine 6.11 H* POC Creatinine Est Cr Clr Drug Dosing 7.9 Est GFR ( Amer) 7.8 Est GFR (Non-Af Amer) 6.8 BUN/Creatinine Ratio 10.2 Glucose 97 POC Glucose 98 POC Glucose (other) Estimat Average Glucose Hemoglobin A1c Osmolality Calcium 8.4 L POC Ioniz Calcium Aj Phosphorus 6.4 H Magnesium 2.3 Beta-Hydroxybutyric Acd Procalcitonin Specimen Hemolysis Urine Color Urine Appearance Urine pH Ur Specific [place] Urine Protein Urine Glucose (UA) Urine Ketones Urine Blood Urine Nitrite Urine Bilirubin Urine Urobilinogen Ur Leukocyte Esterase Urine WBC (Auto) Urine RBC (Auto) U Hyaline Cast (Auto) U Epithel Cells (Auto) Urine Bacteria (Auto) Urine Yeast Nasal Screen MRSA (PCR) 02/13/20 02/13/20 02/13/20 03:46 03:46 04:06 WBC 8.62 RBC 3.54 L Hgb 10.8 L POC Hgb Hct 31.7 L POC Hct MCV 89.5 MCH 30.5 MCHC 34.1 RDW Std Deviation 52.7 H RDW Coeff of Erica 16.1 H Plt Count 228 MPV 11.2 H Immature Gran % (Auto) 0.2 Neut % (Auto) 66.6 Lymph % (Auto) 18.1 [place]wood % (Auto) 8.4 Eos % (Auto) 6.1 Baso % (Auto) 0.6 Immature Gran # (Auto) 0.02 Neut # (Auto) 5.74 Lymph # (Auto) 1.56 Haywood # (Auto) 0.72 H Eos # (Auto) 0.53 H Baso # (Auto) 0.05 VBG pH POC Sodium Sodium POC Potassium Potassium POC Chloride Chloride Carbon Dioxide POC Total CO2 Anion Gap POC Anion Gap POC BUN BUN Creatinine POC Creatinine Est Cr Clr Drug Dosing Est GFR ( Amer) Est GFR (Non-Af Amer) BUN/Creatinine Ratio Glucose POC Glucose 98 POC Glucose (other) Estimat Average Glucose 286 Hemoglobin A1c 11.6 H Osmolality Calcium POC Ioniz Calcium Aj Phosphorus Magnesium Beta-Hydroxybutyric Acd Procalcitonin Specimen Hemolysis Urine Color Urine Appearance Urine pH Ur Specific [place] Urine Protein Urine Glucose (UA) Urine Ketones Urine Blood Urine Nitrite Urine Bilirubin Urine Urobilinogen Ur Leukocyte Esterase Urine WBC (Auto) Urine RBC (Auto) U Hyaline Cast (Auto) U Epithel Cells (Auto) Urine Bacteria (Auto) Urine Yeast Nasal Screen MRSA (PCR) 02/13/20 02/13/20 02/13/20 05:16 06:02 07:00 WBC RBC Hgb POC Hgb Hct POC Hct MCV MCH MCHC RDW Std Deviation RDW Coeff of Erica Plt Count MPV Immature Gran % (Auto) Neut % (Auto) Lymph % (Auto) [place] % (Auto) Eos % (Auto) Baso % (Auto) Immature Gran # (Auto) Neut # (Auto) Lymph # (Auto) [place]wood # (Auto) Eos # (Auto) Baso # (Auto) VBG pH POC Sodium Sodium POC Potassium Potassium POC Chloride Chloride Carbon Dioxide POC Total CO2 Anion Gap POC Anion Gap POC BUN BUN Creatinine POC Creatinine Est Cr Clr Drug Dosing Est GFR ( Amer) Est GFR (Non-Af Amer) BUN/Creatinine Ratio Glucose POC Glucose 85 98 108 H POC Glucose (other) Estimat Average Glucose Hemoglobin A1c Osmolality Calcium POC Ioniz Calcium Aj Phosphorus Magnesium Beta-Hydroxybutyric Acd Procalcitonin Specimen Hemolysis Urine Color Urine Appearance Urine pH Ur Specific [place] Urine Protein Urine Glucose (UA) Urine Ketones Urine Blood Urine Nitrite Urine Bilirubin Urine Urobilinogen Ur Leukocyte Esterase Urine WBC (Auto) Urine RBC (Auto) U Hyaline Cast (Auto) U Epithel Cells (Auto) Urine Bacteria (Auto) Urine Yeast Nasal Screen MRSA (PCR) 02/13/20 02/13/20 02/13/20 07:44 07:44 08:09 WBC RBC Hgb POC Hgb Hct POC Hct MCV MCH MCHC RDW Std Deviation RDW Coeff of Erica Plt Count MPV Immature Gran % (Auto) Neut % (Auto) Lymph % (Auto) [place] % (Auto) Eos % (Auto) Baso % (Auto) Immature Gran # (Auto) Neut # (Auto) Lymph # (Auto) [place]wood # (Auto) Eos # (Auto) Baso # (Auto) VBG pH 7.41 POC Sodium Sodium 132 L POC Potassium Potassium 4.1 POC Chloride Chloride 97 L Carbon Dioxide 25 POC Total CO2 Anion Gap 10.0 POC Anion Gap POC BUN BUN 64 H Creatinine 6.13 H* POC Creatinine Est Cr Clr Drug Dosing 7.9 Est GFR ( Amer) 7.8 Est GFR (Non-Af Amer) 6.7 BUN/Creatinine Ratio 10.4 Glucose 129 H POC Glucose 149 H POC Glucose (other) Estimat Average Glucose Hemoglobin A1c Osmolality Calcium 8.7 POC Ioniz Calcium Aj Phosphorus 6.1 H Magnesium 2.4 Beta-Hydroxybutyric Acd Procalcitonin Specimen Hemolysis Urine Color Urine Appearance Urine pH Ur Specific [place] Urine Protein Urine Glucose (UA) Urine Ketones Urine Blood Urine Nitrite Urine Bilirubin Urine Urobilinogen Ur Leukocyte Esterase Urine WBC (Auto) Urine RBC (Auto) U Hyaline Cast (Auto) U Epithel Cells (Auto) Urine Bacteria (Auto) Urine Yeast Nasal Screen MRSA (PCR) 02/13/20 09:10 WBC RBC Hgb POC Hgb Hct POC Hct MCV MCH MCHC RDW Std Deviation RDW Coeff of Erica Plt Count MPV Immature Gran % (Auto) Neut % (Auto) Lymph % (Auto) Haywood % (Auto) Eos % (Auto) Baso % (Auto) Immature Gran # (Auto) Neut # (Auto) Lymph # (Auto) Haywood # (Auto) Eos # (Auto) Baso # (Auto) VBG pH POC Sodium Sodium POC Potassium Potassium POC Chloride Chloride Carbon Dioxide POC Total CO2 Anion Gap POC Anion Gap POC BUN BUN Creatinine POC Creatinine Est Cr Clr Drug Dosing Est GFR ( Amer) Est GFR (Non-Af Amer) BUN/Creatinine Ratio Glucose POC Glucose 151 H POC Glucose (other) Estimat Average Glucose Hemoglobin A1c Osmolality Calcium POC Ioniz Calcium Aj Phosphorus Magnesium Beta-Hydroxybutyric Acd Procalcitonin Specimen Hemolysis Urine Color Urine Appearance Urine pH Ur Specific Giltner Urine Protein Urine Glucose (UA) Urine Ketones Urine Blood Urine Nitrite Urine Bilirubin Urine Urobilinogen Ur Leukocyte Esterase Urine WBC (Auto) Urine RBC (Auto) U Hyaline Cast (Auto) U Epithel Cells (Auto) Urine Bacteria (Auto) Urine Yeast Nasal Screen MRSA (PCR) PG Care Time/CCT Total # of Minutes Spent Total Time Spent with Patient: Total time spent is greater than 50% in coordination of care (as documented) at patient's floor/unit and/or counseling patient: Coding Level of Care Code 55373 Inpt Consult Level 4 Diagnoses ESRD (end stage renal disease) on dialysis N18.6; Z99.2 Hyperglycemia R73.9 Orthostasis I95.1 Anemia D64.9 Hypertension I10 Hypertension type: essential hypertension (1) Hypertension Hypertension type: essential hypertension Qualified Code(s): I10 - Essential (primary) hypertension
[2020-02-13] MEDS: HEPARIN SOD 5,000 UNIT/0.5 ML VIAL SQ SCH ×2 (09:30→20:26)
[2020-02-13] MEDS ORDERED: INSULIN GLARGINE SOLOSTAR 100 UNITS/ML 3 ML PEN SC SCH (09:30)
[2020-02-13] MEDS: ESCITALOPRAM OXALATE 20 MG TAB PO SCH (09:31)
[2020-02-13] MEDS: NEPHROCAPS PO SCH (09:31)
[2020-02-13] MEDS: MIDODRINE HCL 2.5 MG TAB PO SCH ×3 (09:33→18:13)
[2020-02-13] MEDS ORDERED: LORazepam 0.5 MG TAB PO STA (11:54)
[2020-02-13] MEDS ORDERED: Nursing to Pharmacy Communication ONE (12:00)
[2020-02-13 12:44] LABS: BUN Creatinine Ratio 9.6 (10-20); Calcium 8.9 mg/dl (8.5-10.1); Creatinine Clr Calc Pharmacy 7.4 ml/min; Est GFR (African American) 7.2; Est GFR (Non-African American) 6.2; Magnesium 2.6 mg/dl (1.8-2.4); Phosphorus 5.9 mg/dl (2.5-4.9); Potassium 4.1 mmol/L (3.5-5.1)
--- NOTE | 2020-02-13 13:10 | Discharge Summary ---
Date of Service February 14, 2020 Admission HPI Per Admitting Provider This is a 62-year-old female with past medical history of end-stage renal disease, on hemodialysis Thursday, diabetes type 2, Charcot foot with recent surgery/hardware, that presents today with acute change in mental status. Patient cannot provide any history but is accompanied by her niece who has some details. Patient's last hemodialysis session was on Thursday. The niece tells me that she seemed very tired and lethargic after this which is not necessarily uncommon. Sometimes she will skip meals and go straight to sleep. The next day the needs to communicate with the patient she complained of a headache along with some lethargy. She says that the patient told her that she had taken all her medications but sometimes she is not truthful about this. She again saw the patient earlier today around 11 AM. She found the patient was very lethargic and seemed to be confused. She used a glucometer to take her blood sugar but the meter only read high. She had the patient 19 units of NovoLog and then rechecked but the meter still was registering is high. At this point she called EMS and the patient was brought to the emergency room. In the ER, POC glucose was still too high to read, BMP showed a sugar of 711. There was an anion gap of 13. Insulin drip was ordered but has not yet been administered. That he says told me that this is happened in the past, the patient will get hemodialysis and will have a blood sugar that is either way too high or way too low. The patient for me was very lethargic. She was arousable. She seemed to be oriented only to her name but would not answer many questions. Vital signs are otherwise stable with good blood pressure and O2 saturation. Plan is admit the patient on insulin drip for DKA versus HHS. Principal Diagnosis Hyperglycemia Discharge Exam Constitutional WD/WN, vitals as above + thin Eyes PERRL, conjunctivae normal, anicteric sclerae ENMT external ear and nose normal, oropharynx normal Neck trachea midline, no thyromegaly Respiratory normal respiratory effort, lungs clear to auscultation Cardiovascular RRR, no murmur, no edema Gastrointestinal (Abdomen) normal bowel sounds, soft, nontender, no hepatosplenomegaly Musculoskeletal no cyanosis or clubbing, extremities motor strength 5/5 Skin no rashes, warm and dry Neurologic patellar DTR's 2+ bilat, sensation intact and PERRL, EOMI, accommodation nl, no face palsy, no dysarthria Psychiatric A+Ox3, euthymic affect Lymphatic no cervical or axillary lymphadenopathy Discharge Data Allergies Allergy/AdvReac Type Severity Reaction Status Date / Time blackberry Allergy Severe Anaphylaxis Verified 12/05/19 14:22 blueberry Allergy Severe Anaphylaxis Verified 12/05/19 14:22 raspberry Allergy Severe Anaphylaxis Verified 12/05/19 14:22 strawberry Allergy Severe ALL Verified 12/05/19 14:22 BERRIES --> Anaphylaxis codeine Allergy Intermediate Vomiting Verified 12/05/19 14:22 ibuprofen Allergy Intermediate VOMITING Verified 12/05/19 14:22 AND LIP SWELLING orange juice Allergy Mild Rash Verified 12/05/19 14:22 tomato Allergy Unknown Unknown Verified 02/13/20 11:35 Consultations 02/12/20 14:21 ED Decision to Admit Stat 02/12/20 15:55 Consult Nephrology Routine Ordered Studies 02/12/20 13:19 CT head/brain wo con Stat Hospital Course (1) Hyperglycemia: Clinical picture appears to be more HHC with a possible mild component of DKA considering small anion gap along with mildly elevated beta hydroxybutyrate acid. Initially treated with insulin drip, this was transitioned to Lantus and Novolog in the middle of the night as her sugars dropped quickly anion gap down to 13 and HCO3 normal on day 2 of admission the initial plan was to discharge her to home after her HD session in the afternoon however, her blood sugar dropped to 53 after dialysis, so we watched her one more night blood sugar stable on the morning of dialysis discussed plan for insulin on discharge, pharmacy helped Lantus 15 units daily Novolog 1 unit per 25 mg/dL over 150 mg/dL Novolog 1 unit per 10 grams of carbohydrates eaten Recommend patient develop sick day plan with outpatient provider to prevent this from occurring again. (2) ESRD (end stage renal disease) on dialysis: Patient received hemodialysis on 02/12, tolerated well plan to follow up on 02/14 for outpatient HD follows with Dr. 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 It also appears she is adrenal and fludrocortisone, possible diagnosis of orthostasis. We can continue as well her blood pressure remained stable. 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 she has been taking Cipro and Doxy to suppress infection her WBC was normal, never had a fever, certainly NO clinical signs of sepsis due to bacteremia discharged her to home on the Cipro and Doxy final culture was coag negative staph, felt to be a contaminant since the other culture showed no growth (7) Diabetic Charcot foot: as discussed above she has ongoing infection, infected hardware she said that she plans to get BKA on that side in the future if she is deemed appropriate candidate Total Time Total Time Spent Total Time Spent (In Minutes): 34 minutes Total Time Includes: Examination of the Patient, Discharge Planning and Medication Reconciliation Discharge Plan Discharge Items Patient Disposition: Home - Self-Care Reason For Visit: HYPERGLYCEMIA Discharge Diagnosis: Hyperglycemia Metabolic encephalopathy ESRD on HD Condition on Discharge: Good Goals: follow up for dialysis on Thursday follow insulin regimen, continue to check sugars 4 times a day please develop a plan with Dr. Sosa for "sick day" sugar control Activity: Resume your previous activity Non-emergency contact: Primary Care Provider Call non-emergency contact if: you have any medication questions, your symptoms worsen and you have a fever Follow-up/Referrals: Fiorella Vela MD [Primary Care Provider] - 02/20/20 11:30 am Diet: Carb Count or DM1 and Dialysis Renal Addtl Attending Provider Instructions: Medications: no major changes, see the recommendations from pharmacy in regards to insulin RECOMMENDATIONS FOR DISCHARGE: for management of diabetes per pharmacist HbA1C not reliable due to dialysis. Patient's BSGs can be difficult to manage and it appears that this episode of hyperglycemia occurred due to missed doses? Recommend: Lantus 15 units daily Novolog 1 unit per 25 mg/dL over 150 mg/dL Novolog 1 unit per 10 grams of carbohydrates eaten Recommend patient develop sick day plan with outpatient provider to prevent this from occurring again. Pending Studies at Discharge: No Stand-Alone Forms: My [employer], Smoking Cessation Medications and DC Order Prescriptions: Continued thiamine HCl (vitamin B1) 250 mg tablet 250 mg PO QAM RF: 0 atorvastatin 40 mg tablet 40 mg PO QPM Qty: 90 RF: 1 pyridoxine (vitamin B6) 100 mg tablet 100 mg PO QAM RF: 0 levothyroxine 125 mcg capsule 125 mcg PO QAM RF: 0 lorazepam [Ativan] 0.5 mg tablet 0.5 mg PO DAILY PRN (Reason: anxiety associated with dialysis.) Qty: 15 RF: 2 escitalopram oxalate [Lexapro] 20 mg tablet 20 mg PO DAILY Qty: 30 RF: 2 Lantus Solostar U-100 Insulin 100 unit/mL (3 mL) insulin pen 16 unit SUBCUT QAM RF: 0 furosemide 40 mg tablet 40 mg PO 2XWK RF: 0 (DME) blood sugar diagnostic [FreeStyle Lite Strips] Strip RF: 0 fludrocortisone 0.1 mg Tablet 0.1 mg PO QPM RF: 0 midodrine 2.5 mg tablet 2.5 mg PO TID RF: 0 insulin aspart U-100 [Novolog Flexpen U-100 Insulin] 100 unit/mL (3 mL) insulin pen 1 unit subcut AC RF: 0 doxycycline hyclate 100 mg capsule 100 mg PO BID RF: 0 ciprofloxacin HCl 500 mg tablet 500 mg PO BID RF: 0 ProRenal 8 mg iron-800 mcg-1,000 unit tablet 1 tab PO DAILY RF: 0 diphenhydramine HCl [Benadryl Allergy] 25 mg Tablet 25 mg PO HS PRN (Reason: Sleep) RF: 0 Discharge Orders: Discharge Order (Routine); Ordered 02/13/20 Ordered By: Doyle Ferraro Admission Data Admit Date/Time: 02/12/20 15:05 Attending Provider: Doyle Ferraro Admit Provider: Juan Read Primary Care Provider: Fiorella Vela Other Providers: Juan Read ; Александр Jenkins Other Interventions: Discharge Summary Assessment (RN) Last Done: 02/13/20 17:54 DC Date/Time DO NOT enter until pt leaves facility: 02/14/20 15:15 Coding Level of Care Code D/C Day Management >30 mins Diagnoses Hyperglycemia R73.9 ESRD (end stage renal disease) on dialysis N18.6; Z99.2 Shawna's thyroiditis E06.3 Hypertension I10 Hypertension type: essential hypertension Metabolic encephalopathy G93.41 Positive blood culture R78.81 Diabetic Charcot foot E11.610
--- NOTE | 2020-02-13 14:57 | Pharmacy Report ---
Glycemic Control Progress Note - Date of Service February 13, 2020 - Scope Glycemic Pharmacist consulted for glycemic control to write orders per [facility] inpatient glycemic control protocol. - Objective Accuchecks BSG(last 24 hours):: 02/12/20 02/12/20 02/12/20 15:52 16:35 17:05 Glucose 475 H* POC Glucose 490 H* 384 H* 02/12/20 02/12/20 02/12/20 18:02 19:01 19:55 Glucose 96 POC Glucose 297 H 160 H 02/12/20 02/12/20 02/12/20 20:05 20:26 21:00 Glucose POC Glucose 70 170 H 112 H 02/12/20 02/12/20 02/12/20 21:22 21:45 21:46 Glucose POC Glucose 90 63 L* 61 L* 02/12/20 02/12/20 02/12/20 22:04 23:01 23:57 Glucose POC Glucose 109 H 71 103 H 02/13/20 02/13/20 02/13/20 00:02 00:53 01:31 Glucose 103 H POC Glucose 77 69 L* 02/13/20 02/13/20 02/13/20 01:48 03:08 03:46 Glucose 97 POC Glucose 145 H 98 02/13/20 02/13/20 02/13/20 04:06 05:16 06:02 Glucose POC Glucose 98 85 98 02/13/20 02/13/20 02/13/20 07:00 07:44 08:09 Glucose 129 H POC Glucose 108 H 149 H 02/13/20 02/13/20 02/13/20 09:10 11:30 11:58 Glucose 264 H POC Glucose 151 H 258 H HbA1c:: Hemoglobin A1c 11.6 % (4.5-5.6) H 02/13/20 03:46 - Recent Pertinent Medications The patient is currently receiving: * IV insulin infusion that has been held since 02/12/2020 evening - Outpatient Anti-Diabetic Meds Lantus 16 units qAM plus Novolog - Assessment & Plan ASSESSMENT: * See progress note from 02/12/2020 for more background info, in short: * Pt receiving SQ basal bolus insulin regimen for hyperglycemia secondary to baseline DM (outpatient regimen on hold). * Patient is received an IV insulin infusion from admission until yesterday evening (infusion ran from 5.9 units/hr --> 1.7 units/hr --> then held rapidly). * BSGs ranging 61 - 681 mg/dl over the past 24hrs * Changes needed to insulin regimen: * AM Fasting BSG = 97 mg/dl. This is below goal range for patient based on inpatient targets and co-morbidities. Lantus was held until 2 consecutive BSGs above 140 mg/dL as uncertain if 19 units given prior to admission was Novolog or Lantus. * Post-prandial BSGs cannot be assessed. Start CF 30 CR 10. * Total daily dose = ? units. * Additional notes / comments: Insulin infusion held yesterday evening PLAN FOR INPATIENT GLYCEMIC CONTROL: * STARTING Lantus 13 units SQ daily * Continuing correction factor of 30 mg/dl/unit * Continuing carb ratio of 1 unit per 10 grams CHO consumed * Continuing goal range of Low 110 mg/dL - High 140 mg/dL RECOMMENDATIONS FOR DISCHARGE: * HbA1C not reliable due to dialysis. * Patient's BSGs can be difficult to manage and it appears that this episode of hyperglycemia occurred due to missed doses? * Recommend: * Lantus 15 units daily * Novolog 1 unit per 25 mg/dL over 150 mg/dL * Novolog 1 unit per 10 grams of carbohydrates eaten * Recommend patient develop sick day plan with outpatient provider to prevent this from occurring again. * Recommend close follow-up with provider while keeping BSGs. Thank you.
[2020-02-13] MEDS: HEPARIN SOD (PORCINE) 1000 UNIT/ML 10 ML VIAL IV SCH (17:23)
[2020-02-13] MEDS: CARBOHYDRATES FOR HYPOGLYCEMIA PO PRN ×3 (18:12→18:59)
[2020-02-13] MEDS: FLUDROCORTISONE ACETATE 0.1 MG TAB PO SCH (20:25)
[2020-02-13] MEDS: ATORVASTATIN 40 MG TAB PO SCH (20:25)
[2020-02-13] MEDS: TRAMADOL HCL 50 MG TABLET PO PRN (21:01)
--- NOTE | 2020-02-13 22:15 | Hospitalist Progress Note ---
Date of Service February 13, 2020 Assessment & Plan (1) Hyperglycemia: Clinical picture appears to be more HHC with a possible mild component of DKA considering small anion gap along with mildly elevated beta hydroxybutyrate acid treated initially with insulin infusion, gap closed, sugars down to 250s drip stopped last night now on Lantus and Novolog some hypoglycemia this evening, will follow sugars closely and plan to d/c in the morning (2) ESRD (end stage renal disease) on dialysis: tolerated HD on 02/12 will follow up on 02/14 with dialysis clinic (3) Shawna's thyroiditis: Thyroxine 20 mcg daily, continue this (4) Hypertension: Patient is furosemide. It also appears she is adrenal and fludrocortisone, possible diagnosis of orthostasis. We can continue as well her blood pressure remained stable. (5) Metabolic encephalopathy: probable, this is due to hyperglycemia, ESRD patient resolved with correction of hyperglycemia Admission and Anticipated Discharge Date Admission Date: February 12, 2020 Subjective patient feeling a lot better, mental capacity back to baseline sugars down to 250's at lunch time, ate her lunch she admits to being a very brittle diabetic HCO3 normal on morning [facility] d/w pharmacy about discharge, developed a plan for basal and bolus dosing initially planned to go home after HD this afternoon however, her post dialysis blood sugar was quite low in the 50's decided to watch her overnight to make sure she is stable Review of Systems Review of Systems: All systems reviewed & are unremarkable except as noted in HPI & below Constitutional: + fatigue and + weakness; no fever Respiratory: no cough and no dyspnea Cardiovascular: no chest pain and no edema Gastrointestinal: no abdominal pain, no nausea, no vomiting, no constipation and no diarrhea/loose stools Physical Exam Constitutional: WD/WN, vitals as above + thin Eyes: PERRL, conjunctivae normal, anicteric sclerae ENMT: external ear and nose normal, oropharynx normal Neck: trachea midline, no thyromegaly Respiratory: normal respiratory effort, lungs clear to auscultation Cardiovascular: RRR, no murmur, no edema Gastrointestinal (Abdomen): normal bowel sounds, soft, nontender, no hepatosplenomegaly Musculoskeletal: no cyanosis or clubbing, extremities motor strength 5/5 Skin: no rashes, warm and dry Neurologic: patellar DTR's 2+ bilat, sensation intact and PERRL, EOMI, accommodation nl, no face palsy, no dysarthria Psychiatric: A+Ox3, euthymic affect Lymphatic: no cervical or axillary lymphadenopathy Results & Data ([facility]) Vital Signs (Past 12 Hours) Vital Signs Temp Pulse Pulse Pulse Resp BP BP 02/13/20 18:56 36.8 C 99 H 19 146/78 H 02/13/20 17:54 37.0 C 88 75 16 121/60 02/13/20 17:41 90 153/70 H 02/13/20 17:38 37.0 C 88 121/60 02/13/20 17:20 86 121/62 02/13/20 17:00 88 126/70 02/13/20 16:40 88 126/62 02/13/20 16:20 88 136/65 02/13/20 16:00 91 H 121/54 L 02/13/20 15:57 37.0 C 85 16 135/67 02/13/20 15:41 88 127/70 02/13/20 15:06 85 02/13/20 15:00 83 132/61 02/13/20 14:30 37.0 C 85 85 135/67 02/13/20 11:54 36.9 C 75 20 129/69 02/13/20 11:42 Pulse Ox 02/13/20 18:56 97 02/13/20 17:54 98 02/13/20 17:41 02/13/20 17:38 02/13/20 17:20 02/13/20 17:00 02/13/20 16:40 02/13/20 16:20 02/13/20 16:00 02/13/20 15:57 98 02/13/20 15:41 02/13/20 15:06 02/13/20 15:00 02/13/20 14:30 02/13/20 11:54 96 02/13/20 11:42 98 Laboratory Results Laboratory Results - last 24 hr 02/12/20 02/12/20 02/13/20 23:01 23:57 00:02 WBC RBC Hgb Hct MCV MCH MCHC RDW Std Deviation RDW Coeff of Erica Plt Count MPV Immature Gran % (Auto) Neut % (Auto) Lymph % (Auto) [place] % (Auto) Eos % (Auto) Baso % (Auto) Immature Gran # (Auto) Neut # (Auto) Lymph # (Auto) [place] # (Auto) Eos # (Auto) Baso # (Auto) VBG pH Sodium 132 L Potassium 4.2 Chloride 97 L Carbon Dioxide 26 Anion Gap 10.0 BUN 63 H Creatinine 5.83 H* Est Cr Clr Drug Dosing 8.3 Est GFR ( Amer) 8.3 Est GFR (Non-Af Amer) 7.2 BUN/Creatinine Ratio 10.8 Glucose 103 H POC Glucose 71 103 H Estimat Average Glucose Hemoglobin A1c Calcium 8.4 L Phosphorus 6.2 H Magnesium 2.3 Specimen Hemolysis Nasal Screen MRSA (PCR) 02/13/20 02/13/20 02/13/20 00:02 00:53 01:30 WBC RBC Hgb Hct MCV MCH MCHC RDW Std Deviation RDW Coeff of Erica Plt Count MPV Immature Gran % (Auto) Neut % (Auto) Lymph % (Auto) [place] % (Auto) Eos % (Auto) Baso % (Auto) Immature Gran # (Auto) Neut # (Auto) Lymph # (Auto) [place] # (Auto) Eos # (Auto) Baso # (Auto) VBG pH 7.40 Sodium Potassium Chloride Carbon Dioxide Anion Gap BUN Creatinine Est Cr Clr Drug Dosing Est GFR ( Amer) Est GFR (Non-Af Amer) BUN/Creatinine Ratio Glucose POC Glucose 77 Estimat Average Glucose Hemoglobin A1c Calcium Phosphorus Magnesium Specimen Hemolysis Nasal Screen MRSA (PCR) Negative 02/13/20 02/13/20 02/13/20 01:31 01:48 03:08 WBC RBC Hgb Hct MCV MCH MCHC RDW Std Deviation RDW Coeff of Erica Plt Count MPV Immature Gran % (Auto) Neut % (Auto) Lymph % (Auto) [place] % (Auto) Eos % (Auto) Baso % (Auto) Immature Gran # (Auto) Neut # (Auto) Lymph # (Auto) [place] # (Auto) Eos # (Auto) Baso # (Auto) VBG pH Sodium Potassium Chloride Carbon Dioxide Anion Gap BUN Creatinine Est Cr Clr Drug Dosing Est GFR ( Amer) Est GFR (Non-Af Amer) BUN/Creatinine Ratio Glucose POC Glucose 69 L* 145 H 98 Estimat Average Glucose Hemoglobin A1c Calcium Phosphorus Magnesium Specimen Hemolysis Nasal Screen MRSA (PCR) 02/13/20 02/13/20 02/13/20 03:46 03:46 03:46 WBC 8.62 RBC 3.54 L Hgb 10.8 L Hct 31.7 L MCV 89.5 MCH 30.5 MCHC 34.1 RDW Std Deviation 52.7 H RDW Coeff of Erica 16.1 H Plt Count 228 MPV 11.2 H Immature Gran % (Auto) 0.2 Neut % (Auto) 66.6 Lymph % (Auto) 18.1 [place] % (Auto) 8.4 Eos % (Auto) 6.1 Baso % (Auto) 0.6 Immature Gran # (Auto) 0.02 Neut # (Auto) 5.74 Lymph # (Auto) 1.56 [place] # (Auto) 0.72 H Eos # (Auto) 0.53 H Baso # (Auto) 0.05 VBG pH 7.37 Sodium 132 L Potassium 4.4 Chloride 97 L Carbon Dioxide 25 Anion Gap 10.0 BUN 62 H Creatinine 6.11 H* Est Cr Clr Drug Dosing 7.9 Est GFR ( Amer) 7.8 Est GFR (Non-Af Amer) 6.8 BUN/Creatinine Ratio 10.2 Glucose 97 POC Glucose Estimat Average Glucose Hemoglobin A1c Calcium 8.4 L Phosphorus 6.4 H Magnesium 2.3 Specimen Hemolysis Nasal Screen MRSA (PCR) 02/13/20 02/13/20 02/13/20 03:46 04:06 05:16 WBC RBC Hgb Hct MCV MCH MCHC RDW Std Deviation RDW Coeff of Erica Plt Count MPV Immature Gran % (Auto) Neut % (Auto) Lymph % (Auto) [place] % (Auto) Eos % (Auto) Baso % (Auto) Immature Gran # (Auto) Neut # (Auto) Lymph # (Auto) [place] # (Auto) Eos # (Auto) Baso # (Auto) VBG pH Sodium Potassium Chloride Carbon Dioxide Anion Gap BUN Creatinine Est Cr Clr Drug Dosing Est GFR ( Amer) Est GFR (Non-Af Amer) BUN/Creatinine Ratio Glucose POC Glucose 98 85 Estimat Average Glucose 286 Hemoglobin A1c 11.6 H Calcium Phosphorus Magnesium Specimen Hemolysis Nasal Screen MRSA (PCR) 02/13/20 02/13/20 02/13/20 06:02 07:00 07:44 WBC RBC Hgb Hct MCV MCH MCHC RDW Std Deviation RDW Coeff of Erica Plt Count MPV Immature Gran % (Auto) Neut % (Auto) Lymph % (Auto) [place] % (Auto) Eos % (Auto) Baso % (Auto) Immature Gran # (Auto) Neut # (Auto) Lymph # (Auto) [place] # (Auto) Eos # (Auto) Baso # (Auto) VBG pH Sodium 132 L Potassium 4.1 Chloride 97 L Carbon Dioxide 25 Anion Gap 10.0 BUN 64 H Creatinine 6.13 H* Est Cr Clr Drug Dosing 7.9 Est GFR ( Amer) 7.8 Est GFR (Non-Af Amer) 6.7 BUN/Creatinine Ratio 10.4 Glucose 129 H POC Glucose 98 108 H Estimat Average Glucose Hemoglobin A1c Calcium 8.7 Phosphorus 6.1 H Magnesium 2.4 Specimen Hemolysis Nasal Screen MRSA (PCR) 02/13/20 02/13/20 02/13/20 07:44 08:09 09:10 WBC RBC Hgb Hct MCV MCH MCHC RDW Std Deviation RDW Coeff of Erica Plt Count MPV Immature Gran % (Auto) Neut % (Auto) Lymph % (Auto) [place] % (Auto) Eos % (Auto) Baso % (Auto) Immature Gran # (Auto) Neut # (Auto) Lymph # (Auto) [place] # (Auto) Eos # (Auto) Baso # (Auto) VBG pH 7.41 Sodium Potassium Chloride Carbon Dioxide Anion Gap BUN Creatinine Est Cr Clr Drug Dosing Est GFR ( Amer) Est GFR (Non-Af Amer) BUN/Creatinine Ratio Glucose POC Glucose 149 H 151 H Estimat Average Glucose Hemoglobin A1c Calcium Phosphorus Magnesium Specimen Hemolysis Nasal Screen MRSA (PCR) 02/13/20 02/13/20 02/13/20 11:30 11:58 11:58 WBC RBC Hgb Hct MCV MCH MCHC RDW Std Deviation RDW Coeff of Erica Plt Count MPV Immature Gran % (Auto) Neut % (Auto) Lymph % (Auto) [place] % (Auto) Eos % (Auto) Baso % (Auto) Immature Gran # (Auto) Neut # (Auto) Lymph # (Auto) [place] # (Auto) Eos # (Auto) Baso # (Auto) VBG pH 7.34 L Sodium 131 L Potassium 4.1 Chloride 95 L Carbon Dioxide 23 Anion Gap 13.0 H BUN 63 H Creatinine 6.53 H* D Est Cr Clr Drug Dosing 7.4 Est GFR ( Amer) 7.2 Est GFR (Non-Af Amer) 6.2 BUN/Creatinine Ratio 9.6 L Glucose 264 H POC Glucose 258 H Estimat Average Glucose Hemoglobin A1c Calcium 8.9 Phosphorus 5.9 H Magnesium 2.6 H Specimen Hemolysis Nasal Screen MRSA (PCR) 02/13/20 02/13/20 02/13/20 18:07 18:09 18:30 WBC RBC Hgb Hct MCV MCH MCHC RDW Std Deviation RDW Coeff of Erica Plt Count MPV Immature Gran % (Auto) Neut % (Auto) Lymph % (Auto) [place] % (Auto) Eos % (Auto) Baso % (Auto) Immature Gran # (Auto) Neut # (Auto) Lymph # (Auto) [place] # (Auto) Eos # (Auto) Baso # (Auto) VBG pH Sodium Potassium Chloride Carbon Dioxide Anion Gap BUN Creatinine Est Cr Clr Drug Dosing Est GFR ( Amer) Est GFR (Non-Af Amer) BUN/Creatinine Ratio Glucose POC Glucose 53 L* 57 L* 54 L* Estimat Average Glucose Hemoglobin A1c Calcium Phosphorus Magnesium Specimen Hemolysis Nasal Screen MRSA (PCR) 02/13/20 02/13/20 02/13/20 18:53 19:19 20:09 WBC RBC Hgb Hct MCV MCH MCHC RDW Std Deviation RDW Coeff of Erica Plt Count MPV Immature Gran % (Auto) Neut % (Auto) Lymph % (Auto) [place] % (Auto) Eos % (Auto) Baso % (Auto) Immature Gran # (Auto) Neut # (Auto) Lymph # (Auto) [place] # (Auto) Eos # (Auto) Baso # (Auto) VBG pH Sodium Potassium Chloride Carbon Dioxide Anion Gap BUN Creatinine Est Cr Clr Drug Dosing Est GFR ( Amer) Est GFR (Non-Af Amer) BUN/Creatinine Ratio Glucose POC Glucose 68 L* 104 H 154 H Estimat Average Glucose Hemoglobin A1c Calcium Phosphorus Magnesium Specimen Hemolysis Nasal Screen MRSA (PCR) Medications Administered Current Inpatient Medications Acetaminophen (Tylenol) 650 mg PO Q4H PRN PRN Reason: Pain or Fever Stop: 03/13/20 15:54 Last Admin: 02/13/20 10:28 Dose: 650 mg Documented by: Atorvastatin Calcium (Lipitor) 40 mg PO QPM DELFINO Stop: 03/13/20 20:59 Last Admin: 02/13/20 20:25 Dose: 40 mg Documented by: Dextrose (Dextrose 50%) 25 - 50 ml IV UD PRN; Protocol PRN Reason: Hypoglycemia Protocol Stop: 03/13/20 14:16 Last Admin: 02/13/20 01:35 Dose: 25 ml Documented by: Escitalopram Oxalate (Lexapro Tab) 20 mg PO DAILY DELFINO Stop: 03/14/20 08:59 Last Admin: 02/13/20 09:31 Dose: 20 mg Documented by: Fludrocortisone Acetate (Florinef) 0.1 mg PO QPM DELFINO Stop: 03/13/20 20:59 Last Admin: 02/13/20 20:25 Dose: 0.1 mg Documented by: Furosemide (Lasix) 40 mg PO TuTh@0900 DELFINO Stop: 03/15/20 08:59 Glucagon (Glucagen) 1 mg SQ UD PRN; Protocol PRN Reason: Hypoglycemia Protocol Stop: 03/13/20 14:16 Glucose (Dex4 Glucose) 4 - 8 tabs PO UD PRN; Protocol PRN Reason: Hypoglycemia Protocol Stop: 03/13/20 14:16 Glucose (Glucose 40%) 15 - 30 gm PO UD PRN; Protocol PRN Reason: Hypoglycemia Protocol Stop: 03/13/20 14:16 Heparin Sodium (Porcine) (Heparin Sodium (Porcine)) 5,000 units SQ Q12 DELFINO Stop: 03/13/20 20:59 Last Admin: 02/13/20 20:26 Dose: 5,000 units Documented by: Heparin Sodium (Porcine) (Heparin Iv Bolus) 1,000 units IV TODAY@1000,1100,1200 DELFINO Stop: 02/13/20 23:59 Last Admin: 02/13/20 17:23 Dose: Not Given Documented by: Insulin Aspart (Novolog Flexpen) 0 units SC ACHS DELFINO Stop: 03/14/20 11:29 Last Admin: 02/13/20 20:24 Dose: 1 units Documented by: Insulin Glargine (Lantus Solostar Pen) 13 units SC DAILY DELFINO Stop: 03/14/20 09:29 Last Admin: 02/13/20 09:31 Dose: 13 units Documented by: Levothyroxine Sodium (Synthroid) 125 mcg PO DAILYBB DELFINO Stop: 03/14/20 06:29 Last Admin: 02/13/20 09:33 Dose: 125 mcg Documented by: Midodrine (Proamatine) 2.5 mg PO TID@0800,1200,1700 DELFINO Stop: 03/13/20 17:59 Last Admin: 02/13/20 18:13 Dose: 2.5 mg Documented by: Miscellaneous (Carbohydrates For Hypoglycemia) 15 - 30 gm PO UD PRN PRN Reason: Hypoglycemia Protocol Stop: 03/13/20 14:16 Last Admin: 02/13/20 18:59 Dose: 15 gm Documented by: Miscellaneous Information (Consult Glycemic Management Pharmacy) 1 ea N/A UD PRN PRN Reason: Consult Stop: 03/13/20 21:49 Ondansetron HCl (Zofran) 4 mg IV Q6H PRN PRN Reason: Nausea Stop: 03/13/20 15:54 Tramadol HCl (Ultram) 50 mg PO Q4H PRN PRN Reason: Pain Stop: 03/14/20 20:37 Last Admin: 02/13/20 21:01 Dose: 50 mg Documented by: Vitamin B Complex/Folic Acid (Nephrocaps) 1 cap PO DAILY DELFINO Stop: 03/14/20 08:59 Last Admin: 02/13/20 09:31 Dose: 1 cap Documented by: PG Care Time/CCT Total # of Minutes Spent Total Time Spent with Patient: Total time spent is greater than 50% in coordination of care (as documented) at patient's floor/unit and/or counseling patient: Coding Level of Care Code 21435 Subseq Hosp Care Lvl 2 Diagnoses Hyperglycemia R73.9 ESRD (end stage renal disease) on dialysis N18.6; Z99.2 Shawna's thyroiditis E06.3 Hypertension I10 Hypertension type: essential hypertension Metabolic encephalopathy G93.41 (1) Hypertension Hypertension type: essential hypertension Qualified Code(s): I10 - Essential (primary) hypertension
--- NOTE | 2020-02-13 22:40 | Electrocardiogram Report ---
Test Reason : Blood Pressure : / mmHG Vent. Rate : 086 BPM Atrial Rate : 086 BPM P-R Int : 168 ms QRS Dur : 100 ms QT Int : 406 ms P-R-T Axes : 080 060 060 degrees QTc Int : 485 ms Normal sinus rhythm Normal ECG When compared with ECG of 30-APR-2019 07:01, Premature ventricular complexes are no longer Present Confirmed by Guero Fuentes ([id number]) on 02/13/2020 10:40:18 PM Referred By: REFERRED SELF Confirmed By:Guero Fuentes
[2020-02-14] MEDS: TRAMADOL HCL 50 MG TABLET PO PRN (04:09)
[2020-02-14] MEDS: LEVOTHYROXINE SODIUM 125 MCG TABLET PO SCH (05:33)
[2020-02-14] MEDS ORDERED: FUROSEMIDE 40 MG TAB PO SCH (09:00)
[2020-02-14] MEDS ORDERED: INSULIN GLARGINE SOLOSTAR 100 UNITS/ML 3 ML PEN SC SCH (09:00)
[2020-02-14] MEDS: INSULIN ASPART 100 UNITS/ML 3 ML PEN SC SCH ×2 (09:03→12:45)
[2020-02-14] MEDS: HEPARIN SOD 5,000 UNIT/0.5 ML VIAL SQ SCH (09:05)
[2020-02-14] MEDS: MIDODRINE HCL 2.5 MG TAB PO SCH ×2 (09:11→12:49)
[2020-02-14] MEDS: ESCITALOPRAM OXALATE 20 MG TAB PO SCH (09:12)
[2020-02-14] MEDS: NEPHROCAPS PO SCH (09:12)
--- NOTE | 2020-02-14 09:50 | Nephrology Progress Note ---
Date of Service February 14, 2020 Assessment & Plan (1) ESRD (end stage renal disease) on dialysis: Due to diabetic nephropathy. On HD MWF via [facility]. Resume outpatient schedule and Rx tomorrow post discharge. [facility] notified to expect patient. Shanda will be seen by fabrication supervisor at HD tomorrow. Outpatient Rx 3.5 hrs, 180 optiflux, 350/800, 2K. EDW 54.5 kg. BP and volume status are acceptable. Medications appropriate for kidney dysfunction. (2) Hyperglycemia: Improved with management. (3) Orthostasis: Remains on midodrine 2.5 TID. (4) Anemia: Chronic, stable. EPO held due to Hgb >10. (5) Hypertension: BP acceptable. Complex history: remains on midodrine for chronic orthostatic hypotension attributed to autonomic insufficiency. Subjective Blood glucose dropped post HD yesterday. Shanda feels well this morning. She plans to be discharged home today. Appetite is good. No fevers or chills. Breathing comfortably. Tolerated HD well. Net Uf 1 L. Review of Systems Review of Systems: All systems reviewed & are unremarkable except as noted in HPI & below Physical Exam Constitutional: well developed, + thin and + frail appearing; no acute distress Eyes: + anicteric sclerae; no corneal abnormality ENMT: Mouth: no oral mucosal abnormality and oral mucous membranes not dry Neck: normal visual inspection and trachea midline Respiratory: normal respiratory effort Auscultation: lungs clear to auscultation bilaterally Cardiovascular: Rate/Rhythm: regular rate Heart Sounds: normal S1 and normal S2 Extremities: + AV fistula; no edema Gastrointestinal (Abdomen): Percussion/Palpation: abdomen soft; abdomen nontender Musculoskeletal: Extremities: no cyanosis and no clubbing Skin: normal turgor; no lesions Neurologic: Motor/Sensory: no tremor and no asterixis Psychiatric: Orientation: alert and oriented x 3 Results & Data Vital Signs (Past 12 Hours) Vital Signs Temp Pulse Pulse Pulse Resp BP Pulse Ox 02/14/20 07:35 36.3 C L 91 H 18 119/71 99 02/14/20 04:00 36.3 C L 74 17 136/69 97 02/14/20 00:28 81 02/13/20 23:19 36.7 C 78 16 144/76 H 98 03/16/20 22:20 81 Laboratory Results Laboratory Results - last 24 hr 02/12/20 02/13/20 02/13/20 16:35 11:30 11:58 VBG pH Sodium 131 L Potassium 4.1 Chloride 95 L Carbon Dioxide 23 Anion Gap 13.0 H BUN 63 H Creatinine 6.53 H* D Est Cr Clr Drug Dosing 7.4 Est GFR ( Amer) 7.2 Est GFR (Non-Af Amer) 6.2 BUN/Creatinine Ratio 9.6 L Glucose 264 H POC Glucose 258 H Calcium 8.9 Phosphorus 5.9 H Magnesium 2.6 H Bld Cult Staph aureus PCR Negative Blood Culture MRSA PCR Negative 02/13/20 02/13/20 02/13/20 11:58 18:07 18:09 VBG pH 7.34 L Sodium Potassium Chloride Carbon Dioxide Anion Gap BUN Creatinine Est Cr Clr Drug Dosing Est GFR ( Amer) Est GFR (Non-Af Amer) BUN/Creatinine Ratio Glucose POC Glucose 53 L* 57 L* Calcium Phosphorus Magnesium Bld Cult Staph aureus PCR Blood Culture MRSA PCR 02/13/20 02/13/20 02/13/20 18:30 18:53 19:19 VBG pH Sodium Potassium Chloride Carbon Dioxide Anion Gap BUN Creatinine Est Cr Clr Drug Dosing Est GFR ( Amer) Est GFR (Non-Af Amer) BUN/Creatinine Ratio Glucose POC Glucose 54 L* 68 L* 104 H Calcium Phosphorus Magnesium Bld Cult Staph aureus PCR Blood Culture MRSA PCR 02/13/20 02/14/20 02/14/20 20:09 04:05 07:36 VBG pH Sodium Potassium Chloride Carbon Dioxide Anion Gap BUN Creatinine Est Cr Clr Drug Dosing Est GFR ( Amer) Est GFR (Non-Af Amer) BUN/Creatinine Ratio Glucose POC Glucose 154 H 90 170 H Calcium Phosphorus Magnesium Bld Cult Staph aureus PCR Blood Culture MRSA PCR PG Care Time/CCT Total # of Minutes Spent Total Time Spent with Patient: Total time spent is greater than 50% in coordination of care (as documented) at patient's floor/unit and/or counseling patient: Coding Level of Care Code 73417 Subseq Hosp Care Lvl 3 Diagnoses ESRD (end stage renal disease) on dialysis N18.6; Z99.2 Hyperglycemia R73.9 Orthostasis I95.1 Anemia D64.9 Hypertension I10 Hypertension type: essential hypertension (1) Hypertension Hypertension type: essential hypertension Qualified Code(s): I10 - Essential (primary) hypertension
--- NOTE | 2020-02-14 11:20 | Pharmacy Report ---
Glycemic Control Progress Note - Date of Service February 14, 2020 - Scope Glycemic Pharmacist consulted for glycemic control to write orders per [facility] inpatient glycemic control protocol. - Objective Accuchecks BSG(last 24 hours):: 02/13/20 02/13/20 02/13/20 11:30 11:58 18:07 Glucose 264 H POC Glucose 258 H 53 L* 02/13/20 02/13/20 02/13/20 18:09 18:30 18:53 Glucose POC Glucose 57 L* 54 L* 68 L* 02/13/20 02/13/20 02/14/20 19:19 20:09 04:05 Glucose POC Glucose 104 H 154 H 90 02/14/20 07:36 Glucose POC Glucose 170 H HbA1c:: Hemoglobin A1c 11.6 % (4.5-5.6) H 02/13/20 03:46 - Recent Pertinent Medications The patient is currently receiving: * Basal insulin: Lantus 13 units every 24 hours * Correctional Insulin: Novolog Correction per scale ACHS Goal Range: Low 120 mg/dL - High 150 mg/dL Correction Factor: 30 mg/dL/unit * Prandial insulin: Per carb ratio of 1 unit per 10 grams CHO consumed - Outpatient Anti-Diabetic Meds Lantus 16 units qAM Novolog - Assessment & Plan ASSESSMENT: * See progress note from 02/13/2020 for more background info, in short: * Pt receiving SQ basal bolus insulin regimen for hyperglycemia secondary to baseline DM (outpatient regimen on hold). * Patient is currently receiving an average of 26 units of insulin per day * 13 units of basal insulin * 13 units of prandial/correctional insulin * BSGs ranging 54 - 258 mg/dl over the past 24hrs * Changes needed to insulin regimen: * AM Fasting BSG = 170 mg/dl. This is slightly above goal range for patient based on inpatient targets and co-morbidities. Therefore Basal insulin will be increased slightly to 14 units qAM. * Post-prandial BSGs are in range therefore no changes needed to CF/CR. Patient had lower blood sugar after dialysis due to stacking. * Total daily dose = ~25 units. Continue regimen as mentioned above. PLAN FOR INPATIENT GLYCEMIC CONTROL: * Increasing Lantus to 14 units SQ qAM * Continuing correction factor of 30 mg/dl/unit * Continuing carb ratio of 1 unit per 10 grams CHO consumed * Continuing goal range of Low 120 mg/dL - High 150 mg/dL RECOMMENDATIONS FOR DISCHARGE: * see note from 02/13/2020 Thank you.
== END 2020-02-14 15:15 | disposition home or self-care (01) | DRG 637 ==
LOC: ED 12:58 → 2S 15:05 → SUATTDRO 15:05 → 2S 15:40

== ENCOUNTER 2020-08-03 10:42 | Inpatient (IN) ==
--- NOTE | 2020-06-19 14:29 | PAT Medication Instructions ---
Medication Instructions Date of Service June 19, 2020 Home Medications Medication Instructions Recorded blood sugar diagnostic #200 ea 02/20/20 atorvastatin 40 mg tablet 40 mg PO QPM #90 tab 04/04/20 escitalopram oxalate 20 mg tablet 20 mg PO DAILY #30 tab 04/04/20 insulin aspart U-100 100 unit/mL See Rx Instructions SQ .COMPLEX 04/04/20 (3 mL) subcutaneous pen #15 ml insulin glargine 100 unit/mL (3 16 units SQ DAILY #15 ml 04/04/20 mL) subcutaneous pen levothyroxine 125 mcg capsule 125 mcg PO QAM #30 cap 04/04/20 tramadol 50 mg tablet 50 mg PO BID PRN #60 tab 04/04/20 lorazepam 0.5 mg tablet 0.5 mg PO DAILY PRN #15 tab 05/09/20 furosemide 40 mg tablet 40 mg PO 2XWK #30 tab 06/01/20 thiamine HCl (vitamin B1) 250 mg tablet 250 mg PO QAM pyridoxine (vitamin B6) 100 mg tablet 100 mg PO QAM fludrocortisone 0.1 mg PO QPM midodrine 2.5 mg PO TID diphenhydramine HCl [Benadryl Allergy] 25 mg PO HS PRN atorvastatin 40 mg tablet 40 mg PO QPM escitalopram oxalate 20 mg tablet 20 mg PO DAILY insulin aspart U-100 100 unit/mL (3 mL) subcutaneous pen See Rx Instructions SQ .COMPLEX insulin glargine 100 unit/mL (3 mL) subcutaneous pen 16 units SQ DAILY levothyroxine 125 mcg capsule 125 mcg PO QAM tramadol 50 mg tablet 50 mg PO BID PRN lorazepam 0.5 mg tablet 0.5 mg PO DAILY PRN furosemide 40 mg tablet 40 mg PO 2XWK DO NOT take the morning of surgery thiamine HCl (vitamin B1) 250 mg tablet 250 mg PO QAM pyridoxine (vitamin B6) 100 mg tablet 100 mg PO QAM furosemide 40 mg tablet 40 mg PO 2XWK insulin aspart U-100 100 unit/mL (3 mL) subcutaneous pen See Rx Instructions SQ .COMPLEX Take morning of surgery With a small sip of water, OTHERWISE NOTHING TO EAT OR DRINK AFTER MIDNIGHT: midodrine 2.5 mg PO TID escitalopram oxalate 20 mg tablet 20 mg PO DAILY levothyroxine 125 mcg capsule 125 mcg PO QAM tramadol 50 mg tablet 50 mg PO BID PRN (okay to take up to 4 hours prior to surgery if needed) lorazepam 0.5 mg tablet 0.5 mg PO DAILY PRN (if needed) Take evening before surgery fludrocortisone 0.1 mg PO QPM midodrine 2.5 mg PO TID diphenhydramine HCl [Benadryl Allergy] 25 mg PO HS PRN (if needed) atorvastatin 40 mg tablet 40 mg PO QPM insulin aspart U-100 100 unit/mL (3 mL) subcutaneous pen See Rx Instructions SQ .COMPLEX levothyroxine 125 mcg capsule 125 mcg PO QAM tramadol 50 mg tablet 50 mg PO BID PRN (if needed) lorazepam 0.5 mg tablet 0.5 mg PO DAILY PRN (if needed) Insulin Dependent Diabetic Patients * Test your blood sugar the morning of surgery * If Blood Sugar is GREATER THAN 150, take HALF of your regular dose of: insulin glargine 100 unit/mL (3 mL) subcutaneous pen (8 units) * If Blood Sugar is LESS THAN 150, DO NOT TAKE ANY: insulin glargine 100 unit/mL (3 mL) subcutaneous pen Other Notes If you have any questions please call us at [phone] or [phone] or [phone] or [phone]
--- NOTE | 2020-06-19 14:38 | Anesthesiology Consultation ---
Date of Service June 19, 2020 Assessment & Plan (1) Encounter for pre-operative examination: Chart Review Chart Review: Pending: Refer to Additional Notes / Consult section (pending PCP and nephro clearance, preop Covid testing, and surgeon response re: surgery day being a dialysis day) and Patient seen in Pre Admission Testing Surgeon's office informed of abnormal UA and hyperglycemia. Awaiting surgeon ordered PCP clearance (scheduled 06/27) and nephro clearance (surgeon's office still scheduling). - Check BSG AM DOS Did speak with surgeon's office regarding patient having her surgery on a Thursday which is a dialysis day- surgeon's office will check with surgeon. Per PAT appt 06/19/20, pt denies any recent travel. Educated patient to follow up with surgeon's office regarding Covid testing. Educated on importance of self quarantining, social distancing and wearing mask in public both for the patient and household contacts. Left foot tibiotalar calcaneal fusion 09/21/19= Done uner [place] with LMA #4. Seen by endocrine 06/15/20= feels patient's comorbidities cannot be optimized unless under 24/7 jail care. Pt non compliant and endo feels no realistic way to help patient exists. Recommend that if BKA amputation done that jail placement may be needed post op to manage blood sugars. Pt non compliant with thyroid med in the past but has been more compliant recently. Teaching & Discussion Pre-Anesthesia Teaching/Discussion Notes: Instructed NPO after midnight before surgery,except medications with 15 cc of water. Medication instructions provided according to the PAT guidelines. History Surgery Operation Date: 07/06/20 11:25 Proposed Procedures p Left Leg Below Knee Amputation - Jose Pennington DO Height/Weight Height: 5 ft 2.7 in Weight: 54.2 kg Allergies Allergy/AdvReac Type Severity Reaction Status Date / Time blackberry Allergy Severe Anaphylaxis Verified 06/18/20 16:08 blueberry Allergy Severe Anaphylaxis Verified 06/18/20 16:08 raspberry Allergy Severe Anaphylaxis Verified 06/18/20 16:08 strawberry Allergy Severe ALL Verified 06/18/20 16:08 BERRIES --> Anaphylaxis codeine Allergy Intermediate Vomiting Verified 06/18/20 16:08 ibuprofen Allergy Intermediate VOMITING Verified 06/18/20 16:08 AND LIP SWELLING orange juice Allergy Mild Rash Verified 06/18/20 16:08 tomato Allergy Unknown Lip Verified 06/19/20 14:34 blistering Medications Home Medications Medication Instructions Recorded Confirmed Last Taken thiamine HCl (vitamin B1) 250 mg 250 mg PO QAM tab 04/13/19 06/18/20 02/12/20 tablet pyridoxine (vitamin B6) 100 mg 100 mg PO QAM 05/12/19 06/18/20 02/12/20 tablet fludrocortisone 0.1 mg PO QPM 08/19/19 06/18/20 02/11/20 midodrine 2.5 mg PO TID 08/19/19 06/18/20 12/04/19 diphenhydramine HCl [Benadryl 25 mg PO HS PRN 02/12/20 06/18/20 02/11/20 Allergy] blood sugar diagnostic #200 ea 02/20/20 06/15/20 Unknown atorvastatin 40 mg tablet 40 mg PO QPM #90 tab 04/04/20 06/18/20 Unknown escitalopram oxalate 20 mg tablet 20 mg PO DAILY #30 tab 04/04/20 06/18/20 Unknown insulin aspart U-100 100 unit/mL See Rx Instructions SQ .COMPLEX 04/04/20 06/18/20 Unknown (3 mL) subcutaneous pen #15 ml insulin glargine 100 unit/mL (3 16 units SQ DAILY #15 ml 04/04/20 06/18/20 Unknown mL) subcutaneous pen levothyroxine 125 mcg capsule 125 mcg PO QAM #30 cap 04/04/20 06/18/20 Unknown tramadol 50 mg tablet 50 mg PO BID PRN #60 tab 04/04/20 06/18/20 Unknown lorazepam 0.5 mg tablet 0.5 mg PO DAILY PRN #15 tab 05/09/20 06/18/20 Unknown furosemide 40 mg tablet 40 mg PO 2XWK #30 tab 06/01/20 06/18/20 Unknown Past Medical History Medical History (Updated 06/20/20 @ 12:03 by Alissa Contreras PA-C) A-V fistula RIGHT ARM Anemia Stable per patient Depression with anxiety Diabetes type 1, uncontrolled Sugar fluctuates Diabetic nephropathy associated with type 1 diabetes mellitus Dyslipidemia ESRD (end stage renal disease) on dialysis [facility] M, W, F. GERD (gastroesophageal reflux disease) Well controlled and stable with med Hypertension Hypothyroidism Follows with endo Osteoarthritis Osteoporosis Secondary hyperparathyroidism of renal origin Thrombosis of arteriovenous dialysis fistula REPAIRED - no issues with fistula at this time Exercise / Class Metabolic Activity II 4-5 Yardwork/Stairs/Walk up hill (one flight stairs- no chest pain or SOB- decreased activity due to left LE issue ) Past Family History Family History Father Coronary heart disease Myocardial infarction acute Mother Coronary heart disease Myocardial infarction Sister Ovarian cancer Coronary heart disease Breast cancer Other No family history of adverse response to anesthesia Past Surgical History Surgical History History of ankle surgery 06/01/19--left--hardware removed History of appendectomy History of section History of cholecystectomy History of colonoscopy History of esophagogastroduodenoscopy (EGD) History of hysterectomy PIERCE WITH BSO History of open reduction and internal fixation (ORIF) procedure RIGHT HIP RIGHT WRIST LEFT ANKLE S/P arteriovenous (AV) fistula creation RIGHT ARM X2 Status post left foot surgery 08/2019--hardware in place Past Anesthesia History No Hx of Anesthesia Complications and No Family Hx of Anesthesia Complications (with exception to sister- PONV ) History of PONV No Hx of PONV and No Hx of Motion Sickness Social History Smoking Status: Current every day smoker (Quit in 2013- restarted last week- 1 cig/week) tobacco type: cigarettes Do You Dip or Chew Tobacco: No Hx Alcohol Use: No Hx Substance Use: Yes substance use type: marijuana Substance Use Type Other:: MEDICAL MARIJUANA- SMOKES (vape pen) AT HS Last Used Substance: Hours (ago) Review of Systems Occ cough due to post nasal drip from allergies- mild Patient denies chest pain, shortness of breath, dyspnea on exertion, wheezing, palpitations. No hx of seizures, stroke, WI, apnea/snoring. No hx of blood clots or blood transfusions Physical Exam Vital Signs VITALS BP 119/68 P 84 TEMP 98.4 SP02 95% RESP 16 Constitutional no acute distress ENMT Mouth: no TMJ clicking Thyromental Distance: > or= 3.5 Finger Breadths (3.5) Mallampati Class: II Full set of dentures on top and bottom Neck neck extension not limited Respiratory normal respiratory effort; no respiratory distress Auscultation: lungs clear to auscultation bilaterally and + diminished lung sounds (significantly throughout); no wheezes Cardiovascular Rate/Rhythm: regular rate and regular rhythm Heart Sounds: no murmur Vessels: no carotid bruit Musculoskeletal Spine: no pain with cervical ROM Neurologic moves all extremities Psychiatric Orientation: alert Testing Laboratory Results 06/19/20 15:15 06/19/20 15:15 PT 10.2 Seconds (9.0-12.0) 06/19/20 15:15 INR 1.0 (0.9-1.1) 06/19/20 15:15 APTT 27.8 Seconds (21.0-31.0) 06/19/20 15:15 Blood Type AB Positive 06/19/20 15:15 Antibody Screen NEGATIVE 06/19/20 15:15 06/15/20= Hgb A1C: 11.4 TSH: 30.4 (improved from >150 on 04/11/20) 06/20/20= UA: 1+ protein, 2+ glucose, trace ketones, 2+ leukocyte esterase, >38 urine WBC. >30 urine epithelial cells, 2+ urine bacteria, budding urine yeast. Electrocardiogram Date: 02/12/20 Findings: + NSR @ (86) Chest X-Ray Date: 02/12/20 Findings: + NAD The heart is mildly enlarged. There is no failure. There is no focal pulmonary consolidation. There are no pleural effusions. There are scattered calcified granulomas. There are calcified mediastinal and hilar lymph nodes, consistent with prior granulomatous disease. There is calcification of mitral valve annulus Stress Test Date: 03/16/19 Type: DSE Resting EF: 45 to 50% Resting LV Function: Mildly reduced Resting RWMA: + none Negative DSE and EKG for myocardial ischemia at 57% MPHR. Left ventricle is borderline dilated. Mild/concentric LVH. Mild MR.
[2020-06-19 16:01] LABS: Basophils # (auto) 0.08 K/uL (0-0.2); Eosinophils # (auto) 0.56 K/uL (0-0.5); Eosinophils % (auto) 6.9 %; Hematocrit (blood only) 44.9 % (37-47); Hemoglobin 15.1 g/dL (12.0-16.0); Immature Granulocytes # (auto) 0.03 K/uL (0.00-0.02); Immature Granulocytes % (auto) 0.4 %; Lymphocytes # (auto) 1.63 K/uL (1.2-3.4); Mean Corpuscular Hemoglobin 32.9 pg (25-34); Mean Corpuscular Hgb Conc 33.6 g/dL (32-36); Mean Corpuscular Volume 97.8 fL (80-100); Monocytes % (auto) 8.6 %; Neutrophils # (auto) 5.14 K/uL (1.4-6.5); Neutrophils % (auto) 63.1 %; Platelet Count 206 K/uL (130-400); RDW Coefficient of Variation 15.1 % (11.5-14.5); RDW Standard Deviation 53.8 fL (36.4-46.3); Red Blood Count 4.59 M/uL (4.2-5.4); White Blood Count 8.14 K/uL (4.8-10.8)
[2020-06-19 16:16] LABS: Partial Thromboplastin Time 27.8 Seconds (21.0-31.0); Prothrombin Time 10.2 Seconds (9.0-12.0)
[2020-06-19 16:25] LABS: BUN Creatinine Ratio 5.8 (10-20); Calcium 9.1 mg/dl (8.5-10.1); Creatinine Clr Calc Pharmacy 7.6 ml/min; Est GFR (African American) 7.6; Est GFR (Non-African American) 6.6; Potassium 5.3 mmol/L (3.5-5.1)
--- NOTE | 2020-06-29 12:24 | Dialysis Progress Note ---
Date of Service June 29, 2020 Assessment & Plan (1) ESRD needing dialysis: Mrs. Conner is under my care for hemodialysis. She is scheduled for Orthopedic procedure 07/19. Please consult Nephrology during her hospitalization and we will provide dialysis during her stay. Dialysis should not preclude her operation but it is recommended that patient have consultation w/ her PCP and Cardiology for medical clearance/optimization prior to her surgery. Coding Level of Care Code None Diagnoses ESRD needing dialysis N18.6; Z99.2
--- NOTE | 2020-08-01 13:33 | History & Physical Report ---
Date of Service August 01, 2020 Assessment & Plan (1) Charcot's joint, unspecified site: Schedule left BKA for 08.03.2020. All potential risks, benefits, complications, alternatives, and rehab have been discussed with the patient and she wishes to proceed. Plan for ASA 81 mg Daily x 4 wks for DVT prophylaxis. (2) Presence of retained hardware: (3) Polyneuropathy, unspecified: (4) Charcot's joint arthropathy in type 1 diabetes mellitus: History of Present Illness Chief Complaint: left ankle pain and deformity Primary Care Provider: NO PCP This is a patient who suffered a left ankle fx ~6 years ago and had an ORIF done in [place], [place]. She later had 2 different procedures done, the last of them being a retrocalcaneal nail with pantalar fusion. The fusion did not heal. Options were given to the patient for surgical tx and she decided on a BKA on the left side. She is being set up for surgical management. Allergies Allergy/AdvReac Type Severity Reaction Status Date / Time blackberry Allergy Severe Anaphylaxis Verified 06/26/20 13:25 blueberry Allergy Severe Anaphylaxis Verified 06/26/20 13:25 raspberry Allergy Severe Anaphylaxis Verified 06/26/20 13:25 strawberry Allergy Severe ALL Verified 06/26/20 13:25 BERRIES --> Anaphylaxis codeine Allergy Intermediate Vomiting Verified 06/26/20 13:25 ibuprofen Allergy Intermediate VOMITING Verified 06/26/20 13:25 AND LIP SWELLING orange juice Allergy Mild Rash Verified 06/26/20 13:25 tomato Allergy Unknown Lip Verified 06/26/20 13:25 blistering Home Medications Home Medications Medication Instructions Recorded Confirmed Type thiamine HCl (vitamin B1) 250 mg 250 mg PO QAM tab 04/13/19 06/26/20 History tablet pyridoxine (vitamin B6) 100 mg 100 mg PO QAM 05/12/19 06/26/20 History tablet midodrine 2.5 mg PO TID 08/19/19 06/26/20 History diphenhydramine HCl [Benadryl 25 mg PO HS PRN 02/12/20 06/26/20 History Allergy] blood sugar diagnostic #200 ea 02/20/20 06/26/20 Rx atorvastatin 40 mg tablet 40 mg PO QPM #90 tab 04/04/20 06/26/20 Rx escitalopram oxalate 20 mg tablet 20 mg PO DAILY #30 tab 04/04/20 06/26/20 Rx insulin aspart U-100 100 unit/mL See Rx Instructions SQ .COMPLEX 04/04/20 06/26/20 Rx (3 mL) subcutaneous pen #15 ml levothyroxine 125 mcg capsule 125 mcg PO QAM #30 cap 04/04/20 06/26/20 Rx furosemide 40 mg tablet 40 mg PO 2XWK #30 tab 06/01/20 06/26/20 Rx ciprofloxacin HCl 500 mg tablet 500 mg PO BID #14 tab 06/20/20 06/26/20 Rx pantoprazole 20 mg tablet,delayed 20 mg PO DAILY #90 tab 07/05/20 Rx release insulin glargine 100 unit/mL (3 25 unit SQ DAILY #15 ml 07/11/20 07/11/20 Rx mL) subcutaneous pen lorazepam 0.5 mg tablet 0.5 mg PO DAILY PRN #15 tab 07/11/20 07/11/20 Rx fludrocortisone 0.1 mg tablet 0.1 mg PO QPM #90 tab 07/16/20 Rx tramadol 50 mg tablet 50 mg PO BID PRN #60 tab 07/16/20 Rx Past Med/Surg History Medical History (Updated 08/01/20 @ 13:27 by Abner Hickman PA-C) A-V fistula RIGHT ARM Anemia Stable per patient Depression with anxiety Diabetes type 1, uncontrolled Sugar fluctuates Diabetic nephropathy associated with type 1 diabetes mellitus Dyslipidemia ESRD (end stage renal disease) on dialysis [facility] M, W, F. GERD (gastroesophageal reflux disease) Well controlled and stable with med Hypertension Hypothyroidism Follows with endo Osteoarthritis Osteoporosis Secondary hyperparathyroidism of renal origin Thrombosis of arteriovenous dialysis fistula REPAIRED - no issues with fistula at this time Surgical History History of ankle surgery 06/01/19--left--hardware removed History of appendectomy History of section History of cholecystectomy History of colonoscopy History of esophagogastroduodenoscopy (EGD) History of hysterectomy PIERCE WITH BSO History of open reduction and internal fixation (ORIF) procedure RIGHT HIP RIGHT WRIST LEFT ANKLE S/P arteriovenous (AV) fistula creation RIGHT ARM X2 Status post left foot surgery 08/2019--hardware in place Family History Father Coronary heart disease Myocardial infarction acute Mother Coronary heart disease Myocardial infarction Sister Ovarian cancer Coronary heart disease Breast cancer Other No family history of adverse response to anesthesia Social History Smoking Status: Current every day smoker (Quit in 2013- restarted last week- 1 cig/week) Tobacco Type: Cigarettes Age Started Using Tobacco: 20; Age Quit Using Tobacco: 61; packs per day: 1; Smoking End Date: 2013; Second Hand Exposure: Yes; Do You Dip or Chew Tobacco: No; Tobacco Cessation Education Requested by Patient: No Hx Alcohol Use: No Hx Substance Use: Yes Last Used Substance: Hours (ago) Last Used Substance Other:: 08-18-19 Substance Use Type Other:: MEDICAL MARIJUANA- SMOKES (vape pen) AT HS Preferred Language: Persian Communication Ability: Effective Marketing Services Vice President Required: No Beliefs That Will Affect Care: None Current Living Situation: Spouse Other Information That Helps Us Care for You: No Feels Safe at Home: Yes Safety Concerns: Feels Safe At This Time Physical Exam Constitutional: well developed and well nourished; no acute distress ENMT: external ear and nose normal, oropharynx normal Neck: trachea midline, no thyromegaly Respiratory: normal respiratory effort, lungs clear to auscultation Cardiovascular: Rate/Rhythm: regular rate and regular rhythm Gastrointestinal (Abdomen): normal bowel sounds, soft, nontender, no hepatosplenomegaly Musculoskeletal: Ankle: + surgical incision (left hindfoot and ankle incisions), + limited ROM of ankle (left--secondary to attempted pantalar fusion) and + joint line tenderness (ankle) (Left hindfoot and ankle); no skin erythema and no ecchymosis Skin: no rashes, warm and dry Neurologic: + abnormal touch/pain/proprioception (BLE neuropathy) Psychiatric: A+Ox3, euthymic affect Speech: normal rate/rhythm/volume of speech Lymphatic: no cervical or axillary lymphadenopathy
[~2020-08-03 10:42] MED LIST: BUPIVACAINE 0.25% 30 ML VIAL ONE; BUPIVACAINE 0.5 % 5 MG/1 ML PF 10ML VIAL ONE; CEFAZOLIN 1000MG 1,000 MG/7.5 ML SYR IV SCH; SODIUM CHLORIDE 0.9% 1000ML IV SCH
[2020-08-03] MEDS ORDERED: BACITRACIN INJ 50,000 UNIT VIAL ONE (11:01)
[2020-08-03] MEDS ORDERED: BUPIVACAINE 0.5 % 5 MG/1 ML MPF 30ML VIAL ONE (11:01)
[2020-08-03 11:28] LABS: BUN Creatinine Ratio 2.5 (10-20); Calcium 9.5 mg/dl (8.5-10.1); Est GFR (African American) 20.1; Est GFR (Non-African American) 17.4; Potassium 3.6 mmol/L (3.5-5.1)
[2020-08-03] MEDS ORDERED: MIDAZOLAM HCL 1 MG/ML 2ML VIAL ONE (13:04)
[2020-08-03] MEDS ORDERED: fentaNYL citrate 100 MCG/2 ML VIAL ONE (13:04)
[2020-08-03] MEDS ORDERED: LIDOCAINE HCL 2% 2 ML VIAL/AMP(20MG/ML) INFIL ONE (13:05)
[2020-08-03] MEDS ORDERED: ONDANSETRON INJ 2 MG/ML 2 ML VIAL ONE ×2 (13:05→15:04)
[2020-08-03] MEDS ORDERED: PROPOFOL IV EMULSION 10 MG/ML 20 ML VIAL IV ONE (13:05)
--- NOTE | 2020-08-03 13:45 | History & Physical Bridge Note ---
Date of Service August 03, 2020 History & Physical Bridge Note I have examined the patient, reviewed the History & Physical and in the interval since the performance of the History & Physical I have noted the following changes of clinical significance: no changes noted
[2020-08-03] MEDS ORDERED: DEXTROSE 50% 50 ML SYRINGE IV ONE (14:06)
[2020-08-03] MEDS ORDERED: fentaNYL citrate 100 MCG/2 ML VIAL IV PRN (14:57)
[2020-08-03] MEDS ORDERED: ONDANSETRON INJ 2 MG/ML 2 ML VIAL IV PRN ×2 (14:57→17:52)
[2020-08-03] MEDS ORDERED: ATROPINE SULFATE 0.1 MG/ML 10ML SYR IV PRN (14:57)
[2020-08-03] MEDS ORDERED: ePHEDrine sulfate 50 MG/ML AMP IV PRN (14:57)
[2020-08-03] MEDS ORDERED: HYDROmorphone INJ 1 MG/ML SYRINGE IV PRN (14:57)
[2020-08-03] MEDS ORDERED: PHENYLEPHRINE HCL 10 MG/ML VIAL ONE (15:04)
--- NOTE | 2020-08-03 16:25 | Post Operative Brief Note ---
Immediate Post Op Note v1 Date of Surgery August 03, 2020 Pre & Post Diagnosis Operation Date: 08/03/20 11:10 Pre-Op Diagnosis: Left ankle Charcot's joint arthropathy in type 1 diabetes mellitus, nonunion ankle arthrodesis Post-Op Diagnosis: Left ankle Charcot's joint arthropathy in type 1 diabetes mellitus, nonunion ankle arthrodesis, abscess posterior ankle joint I identified the patient and participated in the time-out.: Yes Procedure Operation Date: 08/03/20 11:10 Actual Procedures p Left Leg Below Knee Amputation(Left) s Left posterior ankle evacuation abscess - Jose Pennington DO Surgeon Jose Pennington DO Business Systems Advisor Adonis Montesinos PA-C Estimated Blood Loss 5 Findings Consistent with Post-Op Diagnosis Specimens Amputated parts left BKA Drains Hemovac Drain (Hemovac drain X 2) Anesthesia Type General Regional Complications none Disposition Accompanied Patient To Recovery: No Disposition: Recovery Room
--- NOTE | 2020-08-03 16:46 | Anesthesiology Progress Note ---
Date of Service August 03, 2020 Anesthesia Post Procedure Vital Signs Vital Signs: Temp Pulse Pulse Resp BP Pulse Ox 08/03/20 16:40 79 14 116/63 100 08/03/20 16:30 71 17 121/62 100 08/03/20 16:20 36.5 C 70 10 L 129/67 100 08/03/20 11:15 36.7 C 90 18 135/77 98 Transfer of Care Handoff Completed per policy Notes Mental Status: alert / awake / arousable and participated in evaluation Patient Amnestic to Procedure: Yes Nausea / Vomiting: adequately controlled Pain: adequately controlled Airway Patency, RR, SpO2: stable & adequate BP & HR: stable & adequate Hydration State: stable & adequate Anesthetic Complications: no major complications apparent and Pt Satisfied with anesthetic care Notes: The patient is a 64 y/o female s/p L BKA with Dr. Pennington. The patient has a complex medical history including ESRD on HD, uncontrolled IDDM due to noncompliance and Hypothyroidism. The patient did receive HD prior to her procedure today. On arrival to preop she stated she felt that she was becoming hypoglycemic. Her BSG was rechecked and was 40 and then 35. She was given 12.5 Grams of 50% glucose IV and D5W was also started. Her blood sugar improved to 160 prior to going to the operating room. The patient did well in the OR with no issues. She continues to do well in PACU. SHe is alert and comfortable with no complaints. BSG is stable in the 160s. A full report was given to Dr. Ferraro who will be following the patient on the floor.
[2020-08-03] MEDS ORDERED: NALOXONE HCL 0.4 MG/1 ML VIAL/CARP IV PRN (17:52)
[2020-08-03] MEDS ORDERED: bisacodyL 10 MG SUPP PR PRN (17:52)
[2020-08-03] MEDS ORDERED: HYDROmorphone INJ 0.5 MG/0.5 ML SYR IV PRN (17:52)
[2020-08-03] MEDS ORDERED: MAGNESIUM HYDROXIDE SUSP 30 ML UDC PO PRN (17:52)
--- NOTE | 2020-08-03 17:55 | Operative Report (OR) ---
DATE OF OPERATION: 08/03/2020 PREOPERATIVE DIAGNOSES: 1. Left foot Charcot arthropathy. 2. Nonunion ankle fusion. 3. Left ankle pain. POSTOPERATIVE DIAGNOSES: 1. Left foot Charcot arthropathy. 2. Nonunion ankle fusion. 3. Left posterior ankle abscess. 4. Left ankle pain. PROCEDURE: 1. Left below knee amputation. 2. Evacuation of abscess posterior ankle joint. SURGEON: Jose Pennington DO PARKING REGULATION ENFORCEMENT OFFICER: Adonis Montesinos PA-C, who was present for patient positioning, sterile prep and drape, management of retractors and instruments. He was present through the critical portions of the case including wound closure, application of sterile dressing and transport of the patient to recovery. ANESTHESIA: General, regional. SPECIMENS: Amputated parts, left lower extremity BKA. DRAINS: Hemovac x2. COMPLICATIONS: None. BLOOD LOSS: 5 mL. PERTINENT HISTORY: This is a 64-year-old woman who had a left ankle fracture approximately 6 years ago, had an ORIF done in [place], [place]. She had infections and 2 other procedures performed of the ankle, last of them being a retrocalcaneal nail with an attempted pantalar fusion. She then had a nonunion of the ankle fusion. She was seen in clinic, was evaluated. Radiographs and CT scans noted to have nonunion with loosening hardware. The patient had significant kidney failure on dialysis and diabetes. Significant neuropathy. The patient opted for amputation of the left lower extremity and the patient was then scheduled for surgery as indicated. All potential risks, benefits, complications, alternatives, rehab, potential for incomplete relief of symptoms, need for further surgery, DVT, PE, , persistent pain, swelling, scarring, weakness, neurovascular injury, wound complications, need for further surgery or surgical revision of amputation was discussed with the patient. The patient decided to proceed with the procedure as indicated. DESCRIPTION OF PROCEDURE: The patient was taken to the operative suite, placed supine on the operating table. After review of consent and identification of proper operative site, the patient was anesthetized, LMA was placed. A tourniquet applied high on left thigh over cast padding. The patient had already received a regional anesthetic in the preop holding area. Next, left lower extremity was then sterilely prepped and draped in usual fashion, elevated and tourniquet inflated to 350 mmHg. There was no exsanguination performed due to the possibility of infection in lower extremity. Next, a 10 blade scalpel was used to make an incision approximately 11 cm distal to the anterior tibial tubercle and the anterior aspect of the lower limb. Next, the incision was deepened through the subcutaneous tissue. Full-thickness flaps were created in the mid lateral line, then infiltrated two limbs of the incision extending distally along the mid lateral line and then sweeping posteriorly transecting the Achilles and all deep soft tissue structures including nerves, vessels, tissues and tendons down to the level of bone. Next, a careful dissection was performed with Metzenbaum scissors and forceps down to the level of the tibia. The periosteum was maintained and preserved and circumferential dissection of the tibia, bone was performed at the level of the skin resection and then gently elevated proximally approximately 1 cm. Cee retractors were placed posterior to the tibia to retract all soft tissue structures and then a sagittal saw was then used to resect the tibia at approximately 10 mm distal to the tibial tubercle. A sagittal saw was then used to perform a slight bevel cut anteriorly to reduce any anterior impingement and a rasp was then used to smoothen rasp the residual tibia. Next, the fibula was then identified laterally. Cee retractors were placed circumferentially around and then was transected with a slight angle with a sagittal saw, just proximal to the level of the tibial cut. Next, the soft tissues were stripped posteriorly at the level of bone of the tibia and fibula extending distally maintaining the entirety of the posterior flap created. Next, the foot and ankle were then from the lower limb. There was noted to be a large abscess pocket along the posterior ankle. This was evacuated with the suction and then the residual limb was then passed off as specimen. Next, top gloves and top sheet were changed followed by identification of the neurovascular structures and adjacent to the interosseous membrane at the level of the tibia and fibular bone resection. Careful dissection was performed with Metzenbaum scissors. #2-0 silk ties folded in half, so doubled were then used to tie off the neurovascular structures and then the tibial nerve was then cauterized and placed on stretch and allowed to retract within the proximal stump. The tibial artery and vein were then also tied and cauterized with #2-0 silk tie. Saphenous vein was tied and cut with 2-0 silk ties and cauterized. Peroneal vessels were also silk tied and cauterized. Next, the 10 blade scalpel was then used to contour the posterior remaining flap for a low tension closure. Pulsatile lavage, 3 liters with bacitracin was then used to irrigate the residual flap. Next, #1 Vicryl was then used to close the Achilles fascia and tendon to the anterior periosteum at the level of the bone resection with buried interrupted #1 Vicryl sutures. Next 10-German Hemovac drains x2 were placed deep in the flap exiting medial and lateral. Next, the soft tissue flap was then shaped with a 10 blade scalpel, irrigated once again with sterile normal saline followed by closure of the dermis with buried interrupted 2-0 Vicryl sutures. Skin was closed using 2-0 nylon and then a sterile compressive dressing was applied and overwrapped with Deuar wraps. The tourniquet was released. The patient was awakened and taken to recovery in stable condition. I attest to the content of the Intraoperative Record and any orders documented therein. Any exceptions are noted below. EDMOND
[2020-08-03] MEDS ORDERED: LORazepam 0.5 MG TAB PO PRN (18:00)
[2020-08-03] MEDS ORDERED: PHARMACY GLYCEMIC MGMT CONSULT PRN (18:05)
[2020-08-03] MEDS ORDERED: SODIUM CHLORIDE 0.9% 1000ML 1,000 ML IV SCH (18:05)
[2020-08-03] MEDS ORDERED: GLUCOSE 40% GEL 15 GM TUBE PO PRN (18:30)
[2020-08-03] MEDS ORDERED: GLUCAGON FOR INJ 1 MG VIAL IM PRN (18:30)
[2020-08-03] MEDS ORDERED: GLUCOSE 10 TABS/TUBE PO PRN (18:30)
[2020-08-03] MEDS ORDERED: CARBOHYDRATES FOR HYPOGLYCEMIA PO PRN (18:30)
[2020-08-03] MEDS ORDERED: DEXTROSE 50% 50 ML SYRINGE IV PRN (18:30)
--- NOTE | 2020-08-03 20:30 | Pharmacy Report ---
Glycemic Control Consultation - Date of Service August 03, 2020 - Scope Scope: Glycemic Pharmacist consulted for glycemic control and to write orders per [facility] inpatient glycemic control protocol. - Objective Weight: 55.248 kg Accuchecks BSG (last 24hrs): 08/03/20 08/03/20 08/03/20 11:01 11:09 14:02 Glucose 91 POC Glucose 93 40 L* 08/03/20 08/03/20 08/03/20 14:04 14:11 14:37 Glucose POC Glucose 38 L* 160 H 129 H 08/03/20 08/03/20 08/03/20 15:12 15:52 16:23 Glucose POC Glucose 108 H 108 H 141 H 08/03/20 18:58 Glucose POC Glucose 85 Laboratory Data (last 24hrs): 08/03/20 11:01 Potassium 3.6 Carbon Dioxide 37 H Anion Gap 3.0 Creatinine 2.80 H Est Cr Clr Drug Dosing 17.0 - Recent Pertinent Medications Outpatient Anti-diabetic Regimen: * Basaglar 25 units SQ daily + Novolog 4 units SQ AC (2 units SQ prior to breakfast on dialysis days - MWF) * A1c = 11.4% (06/15/2020) Risk Factors for Insulin Resistance: * Steroids: * Fludrocortisone 0.5 mg PO HS * Recent Surgery: * POD #0 L BKA * Diet: * T1DM - Assessment & Plan Assessment & Plan: ASSESSMENT: * 64 yo F admitted s/p L BKA. Pharmacy is consulted for inpatient glycemic management. Most recent A1c was 11.4% at the end of May. A1c is likely unreliable in a patient with ESRD on HD MWF. * Patient states she takes 4 units of Novolog prior to each meal. When asked about her Basaglar, patient stated she takes 0 units for BSG less than 150 mg/dL and 2 units for BSG greater than 150 mg/dL. According to med rec and outpatient PCP notes, patient recently had Basaglar dose increased to 25 units SQ HS. Patient states she takes Basaglar in the morning and was unable to state the dose she took prior to admission. * Pre-operative BSG was 93 mg/dL. Intra-operative BSG was 40 mg/dL with a recheck of 38 mg/dL. Patient was treated with 25 g of dextrose. Repeat BSG was 160 mg/dL. Post-operative BSG was 141 mg/dL. * Given hypoglycemia and unsure of basal dose taken yesterday, will hold off on any further basal insulin tonight. Basal insulin will likely need resumed tomorrow. Will start patient on Novolog based on a weight/stress of 2. Will add an overnight check to ensure there is no nocturnal hypoglycemia. * ADA & AACE recommend a goal blood sugar range 140-180 mg/dl for the majority of critically ill & non-critically ill patients. However, more stringent targets may be selected in individual cases. Will utilize more stringent goal of 110-140mg/dl as tighter glycemic control is warranted to facilitate wound/infection healing. PLAN FOR INPATIENT GLYCEMIC CONTROL: * Basal insulin * On hold * Bolus insulin * NovoLog per scale ACHS or Q6hrs while NPO * Goal Range: Low 110 mg/dL - High 140 mg/dL * Correction Factor: 45 mg/dL/unit * Nutritional / Prandial insulin per carb ratio of 1 unit per 15 grams CHO consumed * Please note that the plan above was derived based on current level of insulin resistance and hospital stress. These recommendations are appropriate for inpatient admission only. Plan of care upon discharge will need to be reassessed to avoid potential outpatient hypo/hyperglycemia. Thank you.
[2020-08-03] MEDS: ASPIRIN 81 MG ECTAB PO SCH (20:41)
[2020-08-03] MEDS: DOCUSATE SODIUM 100 MG CAP PO SCH (20:41)
[2020-08-03] MEDS: FLUDROCORTISONE ACETATE 0.1 MG TAB PO SCH (20:41)
[2020-08-03] MEDS: SENNA 8.6 MG TAB PO SCH (20:42)
[2020-08-03] MEDS: MIDODRINE HCL 2.5 MG TAB PO SCH (20:42)
[2020-08-03] MEDS: ATORVASTATIN 40 MG TAB PO SCH (20:42)
[2020-08-03] MEDS ORDERED: INSULIN ASPART 100 UNITS/ML 3 ML PEN SC SCH (21:00)
[2020-08-03] MEDS: INSULIN ASPART 100 UNITS/ML 3 ML PEN SC SCH ×2 (21:28→21:29)
[2020-08-03] MEDS: HYDROCODONE/ACETAMOPHEN 5/325MG TAB PO PRN (22:33)
[2020-08-03] MEDS: CEFAZOLIN 1000MG 1,000 MG/7.5 ML SYR IV SCH (22:33)
[2020-08-04] MEDS ORDERED: INSULIN ASPART 100 UNITS/ML 3 ML PEN SC SCH (02:00)
[2020-08-04] MEDS: CEFAZOLIN 1000MG 1,000 MG/7.5 ML SYR IV SCH (06:00)
[2020-08-04] MEDS: LEVOTHYROXINE SODIUM 125 MCG TABLET PO SCH (06:00)
[2020-08-04] MEDS ORDERED: HYDROCODONE/ACETAMOPHEN 5/325MG TAB PO STA (07:36)
--- NOTE | 2020-08-04 07:43 | Orthopedic Progress Note ---
Date of Service August 04, 2020 Assessment & Plan (1) Below knee amputation: POD #1 s/p left below knee amputation will do dressing change tomorrow and likely pull hemovac tomorrow am PAULINA ASA 81mg po bid pain management- currently well controlled Admission and Anticipated Discharge Date Admission Date: August 03, 2020 Supervising Physician Co-Signing Physician Notes Patient seen and examined. Agree with ALISSA Mandel's note as above. She is postoperative day #1 after left below-knee amputation with Dr. Pennington yesterday. Her pain is very well controlled, and she is very comfortable. She is mobilizing well. Dressings and drain are clean and intact. Plan for dressing change and drain removal tomorrow potentially discharge after that. Subjective POD #1 s/p left below knee amputation Review of Systems Constitutional: no fever and no chills Cardiovascular: no chest pain and no dyspnea Gastrointestinal: no nausea and no vomiting Physical Exam Physical Exam: Vital Signs Temp 36.8 C 08/04/20 07:10 Pulse 76 08/04/20 07:10 Resp 18 08/04/20 07:10 BP 135/70 08/04/20 07:10 Pulse Ox 94 08/04/20 07:10 Intake & Output 08/03/20 08/04/20 08/04/20 18:59 06:59 18:59 Intake Total 608 / 2625.945 1591.667 / 1779.66 7 Output Total Balance 603 / 9302.580 6881.667 / 1749.66 7 Weight 55.248 kg Intake: IV 108 / 1039.667 931.667 / 1039.667 Nss 1000ML 1,0 00 ml @ 100 mls/ 108 / 1039.667 931.667 / 1039.667 hr IV .Q10H SC H Rx#:[id number] IV Perioperative 500 / 500 Oral 240 / 240 Output: Estimated Blood Loss / Drain Output Left Lower Hem ovac Constitutional: WD/WN, vitals as above no acute distress Musculoskeletal: left lower leg: dressing is clean and dry, thigh soft. hemovac 25cc/8hr Results & Data ([facility]) Vital Signs (Past 12 Hours) Vital Signs Temp Pulse Resp BP Pulse Ox 08/04/20 07:10 36.8 C 76 18 135/70 94 08/04/20 03:59 36.8 C 79 16 102/56 L 95 08/03/20 22:37 36.8 C 79 18 139/70 93 08/03/20 20:30 36.8 C 78 16 117/64 91
--- NOTE | 2020-08-04 08:29 | Pharmacy Report ---
Pharmacy Glycemic Short Note 2 - Date of Service August 04, 2020 - Glycemic Short BSG Results (Last 24 hours): 08/03/20 08/03/20 08/03/20 11:01 11:09 14:02 Glucose 91 POC Glucose 93 40 L* 08/03/20 08/03/20 08/03/20 14:04 14:11 14:37 Glucose POC Glucose 38 L* 160 H 129 H 08/03/20 08/03/20 08/03/20 15:12 15:52 16:23 Glucose POC Glucose 108 H 108 H 141 H 08/03/20 08/03/20 08/04/20 18:58 20:39 01:34 Glucose POC Glucose 85 98 32 L* 08/04/20 08/04/20 08/04/20 01:36 01:58 08:09 Glucose POC Glucose 35 L* 181 H 80 OUTPATIENT ANTIDIABETIC REGIMEN: * Basaglar 18 units SQ QAM * Novolog 2-4 units with breakfast, 4 units with lunch and dinner ASSESSMENT: * POD 1, Type 1 diabetic with two very low hypoglycemic episodes, once preop and once overnight in the middle of the night last night, patient had 0 units of insulin in past 24 hours. * Fasting blood sugar 80mg/dl this morning, will continue to hold basal at this time and only give CF/CR d/t severe hypoglycemia episodes and adjust goal range slightly. * Did confirm with patient today that she takes 18 units of basal every morning and she does not experience these low of hypoglycemic episodes at home. * Will add reduced dose of basal if blood sugars trending up and place a dose on for HS PRN. PLAN FOR INPATIENT GLYCEMIC CONTROL: * Basal insulin - hold AM at this time * Lantus 8 units SQ HS for BSG > 180mg/dl * Bolus insulin * NovoLog per scale ACHS or Q6hrs while NPO * CHANGE: Goal Range: Low 120 mg/dL - High 150 mg/dL * Correction Factor: 45 mg/dL/unit * Nutritional / Prandial insulin per carb ratio of 1 unit per 15 grams CHO consumed PLAN FOR DISCHARGE: * to be determined
[2020-08-04] MEDS: PYRIDOXINE HCL 50 MG TAB PO SCH (08:47)
[2020-08-04] MEDS: DOCUSATE SODIUM 100 MG CAP PO SCH ×2 (08:47→21:11)
[2020-08-04] MEDS: MIDODRINE HCL 2.5 MG TAB PO SCH ×3 (08:47→21:11)
[2020-08-04] MEDS: PANTOprazole 40 MG TAB PO SCH (08:47)
[2020-08-04] MEDS: ASPIRIN 81 MG ECTAB PO SCH ×2 (08:47→21:11)
[2020-08-04] MEDS: THIAMINE HCL 50 MG TABLET PO SCH (08:47)
[2020-08-04] MEDS: MULTIVITAMIN TAB PO SCH (08:47)
[2020-08-04] MEDS: ESCITALOPRAM OXALATE 20 MG TAB PO SCH (08:47)
[2020-08-04] MEDS: INSULIN ASPART 100 UNITS/ML 3 ML PEN SC SCH ×4 (08:49→21:38)
[2020-08-04] MEDS ORDERED: PANTOprazole 40 MG TAB PO SCH (09:00)
[2020-08-04 09:13] LABS: BUN Creatinine Ratio 3.3 (10-20); Calcium 8.4 mg/dl (8.5-10.1); Creatinine Clr Calc Pharmacy 10.6 ml/min; Est GFR (African American) 11.4; Est GFR (Non-African American) 9.8; Potassium 4.4 mmol/L (3.5-5.1)
[2020-08-04] MEDS ORDERED: PHARMACY GLYCEMIC MGMT CONSULT STA (09:13)
--- NOTE | 2020-08-04 11:34 | Nephrology Consultation ---
Date of Consultation August 04, 2020 Assessment & Plan (1) End stage renal disease on dialysis: HD MWF. Rx 3.5 hrs, 180 optiflux, 350/800. EDW 55 kg. RUE AVF. BP and volume status are currently acceptable. Electrolytes controlled. No HD at [facility] on Thursday due to holiday, will coordinate inpatient vs follow up outpatient treatment accordingly. Disposition unclear at this time. No emergent indication for HD today. Renal diet. Continue Renvela QAC for hyperphosphatemia. Chronic stable anemia. Will check CBC, BMP prior to next dialysis. Medications are appropriately dosed for kidney function. (2) Below knee amputation: POD #1. (3) Charcot's joint arthropathy in type 1 diabetes mellitus: POD #1. PT/OT pending. (4) Diabetic nephropathy associated with type 1 diabetes mellitus: History of Present Illness Reason for Consultation: ESRD on HD Requesting Physician: Jose Pennington DO Attending Physician: Jose Pennington DO History of Present Illness Shanda Conner is a 64-year-old female with ESRD due to DKD. She dialyzes MWF at [facility] on a MWF schedule. I know Shadna well from the outpatient setting. Her primary food mixer is Dr. Jenkins. Dr. Jenkins recently saw Shanda in the dialysis unit last week. She has been doing well with treatments. Clearances have been excellent. There have not been any recent complications. Her last dialysis treatment was completed on Thursday per schedule. Shanda was admitted to [facility] s/p scheduled elective L BKA yesterday. She tolerated surgery well. She was resting comfortable when I saw her this morning. She denies significant pain. Medical history is notable for IDDM, ESRD, PVD, Charcot foot with recent removal of previously placed hardware, depression, autonomic insufficiency, and hypothyroidism. Shanda has mild chronic anemia but has not required DEDE therapy in several months. She has hyperphosphatemia managed with Renvela QAC. HD Rx has been 3.5 hrs with a 180 optiflux 350/800. EDW 55 kg. R arm AVF functi oning well. Allergies Allergy/AdvReac Type Severity Reaction Status Date / Time blackberry Allergy Severe Anaphylaxis Verified 08/03/20 11:11 blueberry Allergy Severe Anaphylaxis Verified 08/03/20 11:11 raspberry Allergy Severe Anaphylaxis Verified 08/03/20 11:11 strawberry Allergy Severe ALL Verified 08/03/20 11:11 BERRIES --> Anaphylaxis codeine Allergy Intermediate Vomiting Verified 08/03/20 11:11 ibuprofen Allergy Intermediate VOMITING Verified 08/03/20 11:11 AND LIP SWELLING orange juice Allergy Mild Rash Verified 08/03/20 11:11 tomato Allergy Unknown Lip Verified 08/03/20 11:11 blistering Home Medications Home Medications Medication Instructions Recorded Confirmed Type thiamine HCl (vitamin B1) 250 mg 250 mg PO QAM tab 04/13/19 08/03/20 History tablet pyridoxine (vitamin B6) 100 mg 100 mg PO QAM 05/12/19 08/03/20 History tablet midodrine 2.5 mg PO TID 08/19/19 08/03/20 History diphenhydramine HCl [Benadryl 25 mg PO HS PRN 02/12/20 08/03/20 History Allergy] blood sugar diagnostic #200 ea 02/20/20 06/26/20 Rx atorvastatin 40 mg tablet 40 mg PO QPM #90 tab 04/04/20 08/03/20 Rx escitalopram oxalate 20 mg tablet 20 mg PO DAILY #30 tab 04/04/20 08/03/20 Rx insulin aspart U-100 100 unit/mL See Rx Instructions SQ .COMPLEX 04/04/20 08/03/20 Rx (3 mL) subcutaneous pen #15 ml levothyroxine 125 mcg capsule 125 mcg PO QAM #30 cap 04/04/20 08/03/20 Rx furosemide 40 mg tablet 40 mg PO 2XWK #30 tab 06/01/20 08/03/20 Rx pantoprazole 20 mg tablet,delayed 20 mg PO DAILY #90 tab 07/05/20 08/03/20 Rx release insulin glargine 100 unit/mL (3 25 unit SQ DAILY #15 ml 07/11/20 08/04/20 Rx mL) subcutaneous pen lorazepam 0.5 mg tablet 0.5 mg PO DAILY PRN #15 tab 07/11/20 08/03/20 Rx fludrocortisone 0.1 mg tablet 0.1 mg PO QPM #90 tab 07/16/20 08/03/20 Rx tramadol 50 mg tablet 50 mg PO BID PRN #60 tab 08/17/20 09/04/20 Rx Patient History Medical History A-V fistula RIGHT ARM Anemia Stable per patient Depression with anxiety Diabetes type 1, uncontrolled Sugar fluctuates Diabetic nephropathy associated with type 1 diabetes mellitus Dyslipidemia ESRD (end stage renal disease) on dialysis [facility] M, W, F. GERD (gastroesophageal reflux disease) Well controlled and stable with med Hypertension Hypothyroidism Follows with endo Osteoarthritis Osteoporosis Secondary hyperparathyroidism of renal origin Thrombosis of arteriovenous dialysis fistula REPAIRED - no issues with fistula at this time Surgical History History of ankle surgery 06/01/19--left--hardware removed History of appendectomy History of section History of cholecystectomy History of colonoscopy History of esophagogastroduodenoscopy (EGD) History of hysterectomy PIERCE WITH BSO History of open reduction and internal fixation (ORIF) procedure RIGHT HIP RIGHT WRIST LEFT ANKLE S/P arteriovenous (AV) fistula creation RIGHT ARM X2 Status post left foot surgery 08/2019--hardware in place Family History Father Coronary heart disease Myocardial infarction acute Mother Coronary heart disease Myocardial infarction Sister Ovarian cancer Coronary heart disease Breast cancer Other No family history of adverse response to anesthesia Social History Smoking Status: Current every day smoker (Quit in 2013- restarted last week- 1 cig/week) Tobacco Type: Cigarettes Age Started Using Tobacco: 20; Age Quit Using Tobacco: 61; packs per day: 1; Smoking End Date: 2013; Second Hand Exposure: Yes; Do You Dip or Chew Tobacco: No; Tobacco Cessation Education Requested by Patient: No Hx Alcohol Use: No Hx Substance Use: Yes Last Used Substance: Hours (ago) Last Used Substance Other:: 08-18-19 Substance Use Type Other:: MEDICAL MARIJUANA- SMOKES (vape pen) AT HS Preferred Language: [place]an Communication Ability: Effective Manager Mechanical Maintenance Required: No Beliefs That Will Affect Care: None Current Living Situation: Spouse Other Information That Helps Us Care for You: No Feels Safe at Home: Yes Safety Concerns: Feels Safe At This Time Review of Systems Review of Systems: All systems reviewed & are unremarkable except as noted in HPI & below Physical Exam Constitutional: well developed; no acute distress Eyes: no scleral abnormality and no corneal abnormality ENMT: Mouth: no oral mucosal abnormality and oral mucous membranes not dry Neck: normal visual inspection and trachea midline Respiratory: normal respiratory effort Auscultation: lungs clear to auscultation bilaterally Cardiovascular: Rate/Rhythm: regular rate Heart Sounds: normal S1 and normal S2 Extremities: + AV fistula; no edema Musculoskeletal: Extremities: no cyanosis and no clubbing Skin: normal turgor; no lesions Neurologic: Motor/Sensory: no tremor and no asterixis Psychiatric: Orientation: alert and oriented x 3 Results & Data ([facility]) Vital Signs (Past 12 Hours) Vital Signs Temp Pulse Resp BP Pulse Ox 08/04/20 07:10 36.8 C 76 18 135/70 94 08/04/20 03:59 36.8 C 79 16 102/56 L 95 Laboratory Results Laboratory Results - last 24 hr 08/03/20 08/03/20 08/03/20 11:12 14:02 14:04 Sodium Potassium Chloride Carbon Dioxide Anion Gap BUN Creatinine Est Cr Clr Drug Dosing Est GFR ( Amer) Est GFR (Non-Af Amer) BUN/Creatinine Ratio Glucose POC Glucose 40 L* 38 L* Calcium SARS-CoV-2, RNA, NAAT NEGATIVE 08/03/20 08/03/20 08/03/20 14:11 14:37 15:12 Sodium Potassium Chloride Carbon Dioxide Anion Gap BUN Creatinine Est Cr Clr Drug Dosing Est GFR ( Amer) Est GFR (Non-Af Amer) BUN/Creatinine Ratio Glucose POC Glucose 160 H 129 H 108 H Calcium SARS-CoV-2, RNA, NAAT 08/03/20 08/03/20 08/03/20 15:52 16:23 18:58 Sodium Potassium Chloride Carbon Dioxide Anion Gap BUN Creatinine Est Cr Clr Drug Dosing Est GFR ( Amer) Est GFR (Non-Af Amer) BUN/Creatinine Ratio Glucose POC Glucose 108 H 141 H 85 Calcium SARS-CoV-2, RNA, NAAT 08/03/20 08/04/20 08/04/20 20:39 01:34 01:36 Sodium Potassium Chloride Carbon Dioxide Anion Gap BUN Creatinine Est Cr Clr Drug Dosing Est GFR ( Amer) Est GFR (Non-Af Amer) BUN/Creatinine Ratio Glucose POC Glucose 98 32 L* 35 L* Calcium SARS-CoV-2, RNA, NAAT 08/04/20 08/04/20 08/04/20 01:58 08:05 08:09 Sodium 137 Potassium 4.4 D Chloride 98 Carbon Dioxide 36 H Anion Gap 3.0 BUN 15 D Creatinine 4.48 H D Est Cr Clr Drug Dosing 10.6 Est GFR ( Amer) 11.4 Est GFR (Non-Af Amer) 9.8 BUN/Creatinine Ratio 3.3 L Glucose 76 POC Glucose 181 H 80 Calcium 8.4 L SARS-CoV-2, RNA, NAAT PG Care Time/CCT Total # of Minutes Spent Total Time Spent with Patient: Total time spent is greater than 50% in coordination of care (as documented) at patient's floor/unit and/or counseling patient: Coding Level of Care Code 62147 Inpt Consult Level 4 Diagnoses End stage renal disease on dialysis N18.6; Z99.2 Below knee amputation S88.119A Charcot's joint arthropathy in type 1 diabetes mellitus E10.610 Diabetic nephropathy associated with type 1 diabetes mellitus E10.21
--- NOTE | 2020-08-04 13:32 | Hospitalist Progress Note ---
Date of Service August 04, 2020 Assessment & Plan (1) Charcot's joint arthropathy in type 1 diabetes mellitus: Shanda Conner is a 64-year-old female patient with uncontrolled type 1 diabetes mellitus, ESRD on dialysis, HTN, dyslipidemia, hypothyroidism, osteoporosis, hyperparathyroidism of renal origin, AV fistula, GERD. She had multiple procedures done on her left ankle/foot starting 6 years ago, the last one of which did not heal. Among the options she was offered by orthopedic surgery, she decided to have a left BKA. She is at [facility] for this procedure. ESRD on dialysis - Consult nephrology - Nephro recommendation: No HD at [facility] on Thursday due to holiday, will coordinate inpatient vs follow up outpatient treatment accordingly. Disposition unclear at this time. No emergent indication for HD today. DM type 1 - Patient had blood sugars at 30s overnight-- currently under control - Consult pharmacy - per pharmacy: Fasting blood sugar 80mg/dl this morning, will continue to hold basal at this time and only give CF/CR d/t severe hypoglycemia episodes and adjust goal range slightly. Will add reduced dose of basal if blood sugars trending up and place a dose on for HS PRN. - Follow POC glucose/AM BMP Hypothyroidism - Continue home levothyroxine 125mcg PO BID Hyperlipidemia - Continue home atorvastatin 40mg PO qPM Anxiety - Continue home escitalopram 20mg PO daily - Continue home lorazepam 0.5mg PO daily PRN GERD - Continue with home pantoprazole 40mg PO daily Charcot' joint - Uncomplicated left-sided BKA on 08/03/2020 - POD #1 - Continue routine postop care DVT prophylaxis: ASA 81mg PO BID FENGI: Carb count/DM1 Dispo: Med/Surg Code: Full Code (2) ESRD needing dialysis: (3) Below knee amputation: (4) Anemia: (5) Diabetes mellitus type 1: (6) Hypothyroidism: Admission and Anticipated Discharge Date Admission Date: August 03, 2020 Supervising Physician Co-Signing Physician Notes I personally examined the patient and verified all brar points of history and exam, discussed case, and agree with decision making with Dr Vera. feeling good. got up well and got around! no complaints otherwise. pain controlled. vitals noted nad heent nc at mmm breathing unlabored no accessory muscles good effort skin no rashes no pallor or icterus ESRD - on HD. nephro consulted DM1 - glycemic consult otherwise as above medically stable with above noted additions. will sign off for now/ be available if needed, thank you. Subjective Patient laying comfortably in bed with sheets over her head. Reports feeling "great" and says she feels ready to be home. I let her know that she has to be seen and cleared by her surgeons for discharge. She denies pain. When asked about her hypoglycemic episodes overnight she says this happens to her often; denies current symptoms. Denies headache, dizziness, lightheadedness, fever, chills, CP, palpitations, SOB, cough, nausea, vomiting, diarrhea, abdominal pain. Review of Systems Constitutional: no fever, no chills, no sweats, no fatigue and no weakness Respiratory: no cough, no chest congestion and no dyspnea Cardiovascular: no chest pain, no palpitations and no edema Gastrointestinal: no abdominal pain, no nausea, no vomiting, no constipation and no diarrhea/loose stools Physical Exam Constitutional: WD/WN, vitals as above no acute distress Respiratory: normal respiratory effort, lungs clear to auscultation Auscultation: no crackles, no rales, no rhonchi and no wheezes Cardiovascular: RRR, no murmur, no edema Heart Sounds: normal S1 and normal S2; no gallop, no murmur and no cardiac rub Gastrointestinal (Abdomen): normal bowel sounds, soft, nontender, no hepatosplenomegaly Skin: no rashes, warm and dry Psychiatric: A+Ox3, euthymic affect Results & Data Results & Data ([facility]) Vital Signs (Past 12 Hours) Vital Signs Temp Pulse Resp BP Pulse Ox 08/04/20 07:10 36.8 C 76 18 135/70 94 08/04/20 03:59 36.8 C 79 16 102/56 L 95 Resident Activity Tracking Resident Involvement: Resident Care Provided Care Provided: Adult Hospital Medicine (1) Diabetes mellitus type 1 Chronic kidney disease stage: on chronic dialysis Diabetes mellitus complication detail: with chronic kidney disease Diabetes mellitus complication status: with kidney complications Qualified Code(s): E10.22 - Type 1 diabetes mellitus with diabetic chronic kidney disease; N18.6 - End stage renal disease; Z99.2 - Dependence on renal dialysis
[2020-08-04] MEDS: TRAMADOL HCL 50 MG TABLET PO PRN ×2 (13:35→23:43)
--- NOTE | 2020-08-04 17:11 | Billing Data ---
Date of Service August 04, 2020 Coding Level of Care Code 55385 Subseq Hosp Care Lvl 2
[2020-08-04] MEDS: HYDROCODONE/ACETAMOPHEN 5/325MG TAB PO PRN (18:02)
[2020-08-04] MEDS ORDERED: INSULIN GLARGINE SOLOSTAR 100 UNITS/ML 3 ML PEN SC SCH (21:00)
[2020-08-04] MEDS: FLUDROCORTISONE ACETATE 0.1 MG TAB PO SCH (21:11)
[2020-08-04] MEDS: SENNA 8.6 MG TAB PO SCH (21:12)
[2020-08-04] MEDS: ATORVASTATIN 40 MG TAB PO SCH (21:12)
[2020-08-05] MEDS: LEVOTHYROXINE SODIUM 125 MCG TABLET PO SCH (06:23)
[2020-08-05] MEDS: HYDROCODONE/ACETAMOPHEN 5/325MG TAB PO PRN (06:30)
--- NOTE | 2020-08-05 06:43 | Orthopedic Progress Note ---
Date of Service August 05, 2020 Assessment & Plan (1) Below knee amputation: POD #2 s/p left below knee amputation dressing changed this am as well as hemovac d/c RICE ASA 81mg po bid pain management- currently well controlled plan on discharge home later today states she has arrangements for dialysis tomorrow has f/u scheduled with dr phillips end of next week at [facility] stable for d/c home later today Admission and Anticipated Discharge Date Admission Date: August 03, 2020 Subjective POD #2 s/p left below knee amputation Review of Systems Constitutional: no fever, no chills and no body aches Respiratory: no cough and no dyspnea Cardiovascular: no chest pain and no dyspnea Gastrointestinal: no nausea and no vomiting Physical Exam Physical Exam: Vital Signs Temp 36.7 C 08/04/20 23:40 Pulse 89 08/04/20 23:40 Resp 16 08/04/20 23:40 BP 135/70 08/04/20 23:40 Pulse Ox 93 08/04/20 23:40 Intake & Output 08/04/20 08/04/20 08/05/20 06:59 18:59 06:59 Intake Total 1171.667 / 1779.66 7 545 / 705 160 / 705 Output Total 25 / 30 60 / 310 250 / 310 Balance 1146.667 / 1749.66 7 485 / 395 -90 / 395 Intake: IV 931.667 / 1039.667 Nss 1000ML 1,0 00 ml @ 100 mls/ 931.667 / 931.667 hr IV .Q10H SC H Rx#:[id number] Oral 240 / 240 545 / 705 160 / 705 Output: Urine 50 / 300 250 / 300 Drain Output 25 / 25 10 / 10 0 / 10 Left Lower Hem ovac 25 / 25 10 / 10 0 / 10 Other: # Unmeasured Voi ds 1 Constitutional: WD/WN, vitals as above no acute distress Musculoskeletal: Left lower extremity: dressing was being changed as i entered the room, there is no active drainage noted, no erythema, warmth. her thigh is soft and non-tender Results & Data ([facility]) Vital Signs (Past 12 Hours) Vital Signs Temp Pulse Resp BP Pulse Ox 08/04/20 23:40 36.7 C 89 16 135/70 93 Laboratory Results Laboratory Results WBC 8.14 K/uL (4.8-10.8) 06/19/20 15:15 RBC 4.59 M/uL (4.2-5.4) 06/19/20 15:15 Hgb 15.1 g/dL (12.0-16.0) 06/19/20 15:15 Hct 44.9 % (37-47) 06/19/20 15:15 MCV 97.8 fL (80-100) 06/19/20 15:15 MCH 32.9 pg (25-34) 06/19/20 15:15 MCHC 33.6 g/dL (32-36) 06/19/20 15:15 RDW Std Deviation 53.8 fL (36.4-46.3) H 06/19/20 15:15 RDW Coeff of Erica 15.1 % (11.5-14.5) H 06/19/20 15:15 Plt Count 206 K/uL (130-400) 06/19/20 15:15 MPV 12.0 fL (7.4-10.4) H 06/19/20 15:15 Immature Gran % (Auto) 0.4 % 06/19/20 15:15 Neut % (Auto) 63.1 % 06/19/20 15:15 Lymph % (Auto) 20.0 % 06/19/20 15:15 Lagrange % (Auto) 8.6 % 06/19/20 15:15 Eos % (Auto) 6.9 % 06/19/20 15:15 Baso % (Auto) 1.0 % 06/19/20 15:15 Neut # (Auto) 5.14 K/uL (1.4-6.5) 06/19/20 15:15 Lymph # (Auto) 1.63 K/uL (1.2-3.4) 06/19/20 15:15 Lagrange # (Auto) 0.70 K/uL (0.11-0.59) H 06/19/20 15:15 Eos # (Auto) 0.56 K/uL (0-0.5) H 06/19/20 15:15 Baso # (Auto) 0.08 K/uL (0-0.2) 06/19/20 15:15 Immature Gran # (Auto) 0.03 K/uL (0.00-0.02) H 06/19/20 15:15 PT 10.2 Seconds (9.0-12.0) 06/19/20 15:15 INR 1.0 (0.9-1.1) 06/19/20 15:15 APTT 27.8 Seconds (21.0-31.0) 06/19/20 15:15 PTT Ratio 1.0 06/19/20 15:15 Sodium 137 mmol/L (136-145) 08/04/20 08:05 Potassium 4.4 mmol/L (3.5-5.1) D 08/04/20 08:05 Chloride 98 mmol/L (98-107) 08/04/20 08:05 Carbon Dioxide 36 mmol/L (21-32) H 08/04/20 08:05 Anion Gap 3.0 (3-11) 08/04/20 08:05 BUN 15 mg/dl (7-18) D 08/04/20 08:05 Creatinine 4.48 mg/dl (0.6-1.2) H D 08/04/20 08:05 Est Cr Clr Drug Dosing 10.6 ml/min 08/04/20 08:05 Est GFR ( Amer) 11.4 08/04/20 08:05 Est GFR (Non-Af Amer) 9.8 08/04/20 08:05 BUN/Creatinine Ratio 3.3 (10-20) L 08/04/20 08:05 Glucose 76 mg/dl (70-99) 08/04/20 08:05 POC Glucose 82 mg/dl (70-99) 08/05/20 06:25 Calcium 8.4 mg/dl (8.5-10.1) L 08/04/20 08:05 Beta-Hydroxybutyric Acd mg/dl (0.2-2.81) 06/19/20 15:15 Nasal Screen MRSA (PCR) Negative (Negative) 08/04/20 14:20 COVID-19 Eval Order [facility] 08/03/20 11:12 SARS-CoV-2, RNA, NAAT NEGATIVE (NEGATIVE) 08/03/20 11:12 Blood Type AB Positive 06/19/20 15:15 Antibody Screen NEGATIVE 06/19/20 15:15
[2020-08-05] MEDS: MIDODRINE HCL 2.5 MG TAB PO SCH (08:30)
[2020-08-05] MEDS: THIAMINE HCL 50 MG TABLET PO SCH (08:30)
[2020-08-05] MEDS: PYRIDOXINE HCL 50 MG TAB PO SCH (08:31)
[2020-08-05] MEDS: MULTIVITAMIN TAB PO SCH (08:31)
[2020-08-05] MEDS: DOCUSATE SODIUM 100 MG CAP PO SCH (08:31)
[2020-08-05] MEDS: ESCITALOPRAM OXALATE 20 MG TAB PO SCH (08:31)
[2020-08-05] MEDS: PANTOprazole 40 MG TAB PO SCH (08:31)
[2020-08-05] MEDS: ASPIRIN 81 MG ECTAB PO SCH (08:31)
[2020-08-05] MEDS: INSULIN ASPART 100 UNITS/ML 3 ML PEN SC SCH (08:52)
--- NOTE | 2020-08-05 10:07 | Pharmacy Report ---
Pharmacy Glycemic Short Note 2 - Date of Service August 05, 2020 - Glycemic Short BSG Results (Last 24 hours): 08/04/20 08/04/20 08/04/20 11:55 17:02 21:10 POC Glucose 158 H 94 116 H 08/05/20 08/05/20 08/05/20 02:34 06:25 08:07 POC Glucose 98 82 69 L* 08/05/20 08:22 POC Glucose 72 OUTPATIENT ANTIDIABETIC REGIMEN: * Basaglar 18 units SQ QAM for BSG > 150mg/dl, otherwise hold dose * Novolog 2-4 units with breakfast, 4 units with lunch and dinner ASSESSMENT: 08/05/20 * POD2, discharging today. * Patient required a total of 3 units of insulin yesterday, just to cover lunch, no basal needed, blood sugars 82-158mg/dl * Patient met with SEBASTIÁN Khan today, see DC recs below. 08/04/20 * POD 1, Type 1 diabetic with two very low hypoglycemic episodes, once preop and once overnight in the middle of the night last night, patient had 0 units of insulin in past 24 hours. * Fasting blood sugar 80mg/dl this morning, will continue to hold basal at this time and only give CF/CR d/t severe hypoglycemia episodes and adjust goal range slightly. * Did confirm with patient today that she takes 18 units of basal every morning and she does not experience these low of hypoglycemic episodes at home. * Will add reduced dose of basal if blood sugars trending up and place a dose on for HS PRN. PLAN FOR INPATIENT GLYCEMIC CONTROL: * Basal insulin - hold AM at this time * Lantus 8 units SQ HS for BSG > 180mg/dl * Bolus insulin * NovoLog per scale ACHS or Q6hrs while NPO * CHANGE: Goal Range: Low 120 mg/dL - High 150 mg/dL * Correction Factor: 45 mg/dL/unit * Nutritional / Prandial insulin per carb ratio of 1 unit per 15 grams CHO consumed PLAN FOR DISCHARGE: * Shanda reports having a sliding scale with the Basaglar at home. If BG > 150: takes 18 units daily and if < 150: holds dose. She reports BG values are usually ~170-180's; sometimes higher at home so she is usually taking the Basaglar daily. * Continue home basal dosing regimen once blood sugars consistently above 150mg/dl and po intake back to normal. * Continue Novolog as usual at home, as patient normally does depending on PO intake
--- NOTE | 2020-08-05 10:55 | Nephrology Progress Note ---
Date of Service August 05, 2020 Assessment & Plan (1) End stage renal disease on dialysis: HD MWF. Rx 3.5 hrs, 180 optiflux, 350/800. EDW 55 kg. RUE AVF. BP and volume status are currently acceptable. Resume outpatient Rx tomorrow at [facility] per schedule. Continue Renvela QAC for hyperphosphatemia. Chronic stable anemia. Will check CBC, BMP prior to next dialysis. Medications are appropriately dosed for kidney function. (2) Below knee amputation: POD #2. (3) Charcot's joint arthropathy in type 1 diabetes mellitus: (4) Diabetic nephropathy associated with type 1 diabetes mellitus: Admission and Anticipated Discharge Date Admission Date: August 03, 2020 Subjective No acute events overnight. Denies significant pain. Appetite is good. Breathing comfortably. Anticipated discharge home today. Review of Systems Review of Systems: All systems reviewed & are unremarkable except as noted in HPI & below Physical Exam Constitutional: well developed; no acute distress Eyes: no scleral abnormality and no corneal abnormality ENMT: Mouth: no oral mucosal abnormality and oral mucous membranes not dry Neck: normal visual inspection and trachea midline Respiratory: normal respiratory effort Auscultation: lungs clear to auscultation bilaterally Cardiovascular: Rate/Rhythm: regular rate Heart Sounds: normal S1 and normal S2 Extremities: + AV fistula; no edema Musculoskeletal: Extremities: no cyanosis and no clubbing Skin: normal turgor; no lesions Neurologic: Motor/Sensory: no tremor and no asterixis Psychiatric: Orientation: alert and oriented x 3 Results & Data ([facility]) Vital Signs (Past 12 Hours) Vital Signs Temp Pulse Resp BP Pulse Ox 08/05/20 07:26 36.5 C 73 14 152/78 H 93 08/04/20 23:40 36.7 C 89 16 135/70 93 Laboratory Results Laboratory Results - last 24 hr 08/04/20 08/04/20 08/04/20 11:55 14:20 17:02 POC Glucose 158 H 94 Nasal Screen MRSA (PCR) Negative 08/04/20 08/05/20 08/05/20 21:10 02:34 06:25 POC Glucose 116 H 98 82 Nasal Screen MRSA (PCR) 08/05/20 08/05/20 08:07 08:22 POC Glucose 69 L* 72 Nasal Screen MRSA (PCR) PG Care Time/CCT Total # of Minutes Spent Total Time Spent with Patient: Total time spent is greater than 50% in coordination of care (as documented) at patient's floor/unit and/or counseling patient: Coding Level of Care Code 14248 Subseq Hosp Care Lvl 3 Diagnoses End stage renal disease on dialysis N18.6; Z99.2 Below knee amputation S88.119A Charcot's joint arthropathy in type 1 diabetes mellitus E10.610 Diabetic nephropathy associated with type 1 diabetes mellitus E10.21
--- NOTE | 2020-08-10 10:23 | Discharge Summary ---
Date of Service August 10, 2020 Admission HPI Per Admitting Provider This is a patient who suffered a left ankle fx ~6 years ago and had an ORIF done in [place]. She later had 2 different procedures done, the last of them being a retrocalcaneal nail with pantalar fusion. The fusion did not heal. Options were given to the patient for surgical tx and she decided on a BKA on the left side. She is being set up for surgical management. Admission Exam Per Admitting Provider Physical Exam Constitutional: well developed and well nourished; no acute distress ENMT: external ear and nose normal, oropharynx normal Neck: trachea midline, no thyromegaly Respiratory: normal respiratory effort, lungs clear to auscultation Cardiovascular: Rate/Rhythm: regular rate and regular rhythm Gastrointestinal (Abdomen): normal bowel sounds, soft, nontender, no hepatosplenomegaly Musculoskeletal: Ankle: + surgical incision (left hindfoot and ankle incisions), + limited ROM of ankle (left--secondary to attempted pantalar fusion) and + joint line tenderness (ankle) (Left hindfoot and ankle); no skin erythema and no ecchymosis Skin: no rashes, warm and dry Neurologic: + abnormal touch/pain/proprioception (BLE neuropathy) Psychiatric: A+Ox3, euthymic affect Speech: normal rate/rhythm/volume of speech Lymphatic: no cervical or axillary lymphadenopathy Principal Diagnosis 1. Left foot Charcot arthropathy. 2. Nonunion ankle fusion. 3. Left posterior ankle abscess. 4. Left ankle pain. Discharge Data Allergies Allergy/AdvReac Type Severity Reaction Status Date / Time blackberry Allergy Severe Anaphylaxis Verified 08/03/20 11:11 blueberry Allergy Severe Anaphylaxis Verified 08/03/20 11:11 raspberry Allergy Severe Anaphylaxis Verified 08/03/20 11:11 strawberry Allergy Severe ALL Verified 08/03/20 11:11 BERRIES --> Anaphylaxis codeine Allergy Intermediate Vomiting Verified 08/03/20 11:11 ibuprofen Allergy Intermediate VOMITING Verified 08/03/20 11:11 AND LIP SWELLING orange juice Allergy Mild Rash Verified 08/03/20 11:11 tomato Allergy Unknown Lip Verified 08/03/20 11:11 blistering Consultations 08/03/20 17:52 Consult Case Management - Discharge Planning Routine Consult Hospitalist Routine 08/04/20 09:11 Consult Nephrology Routine Procedures Performed Operation Date: 08/03/20 11:10 Actual Procedures p Left Leg Below Knee Amputation(Left) - Jose Pennington DO Ordered Studies 07/06/20 05:00 US - OR guided needle placemen Routine 08/03/20 05:00 US - OR guided needle placemen Routine Hospital Course (1) Below knee amputation: Patient was admitted on the above date and had above-noted surgery performed which she tolerated well.Hospitalist service was consulted postoperatively and followed the patient during her stay. Nephrology was also consulted and continue to manage the patient's dialysis and renal function during her stay. Over the next several days the patient was recovering quite well. Pain was remaining controlled and a dressing change was performed on the second postoperative day. Her wound is remaining benign. She was slowly progressing with physical therapy. Vital signs remaining stable. She was otherwise remaining medically stable and orthopedically stable and was felt she could be discharged to home on 08/05/2020. Total Time Total Time Spent Total Time Spent (In Minutes): 10 Discharge Plan Discharge Items Patient Disposition: Home - Home Health Services Reason For Visit: Charcot's Joint of Foot in Type 1 Diabetes Mellitu Discharge Diagnosis: left below knee amputation Condition on Discharge: Good Activity: Per Instructions section Bathing Comment: keep dressing covered and dry Weightbearing Comment: non weightbearing on your left leg Non-emergency contact: Surgeon Call non-emergency contact if: you have any medication questions, your temperature is above 101, your wound has increased redness, your wound has increased drainage and your wound pain has increased Follow-up/Referrals: Fiorella Vela MD [Primary Care Provider] - Diet: Carb Count or DM1 Addtl Attending Provider Instructions: ACTIVITY RECOMMENDATIONS: Limitations: No weight bearing to affected limb at all times. SPECIAL CARE INSTRUCTIONS: * Some drainage onto the dressing is normal and is no cause for alarm. * Some swelling is natural especially after walking. * When resting, keep your leg elevated above the level of your heart. * Call [facility] if you notice: -Increased drainage -Fever over 101 degrees F -Severe constant pain BANDAGE: * Leave bandage in place unless otherwise directed. * Keep bandage/cast dry at all times. FOLLOW UP VISIT WITH DR. PENNINGTON If appointment is not already scheduled: Please call [facility] after you get home today to schedule a follow-up appointment for [address] Pennington at . Pending Studies at Discharge: No Stand-Alone Forms: My [facility], Opioid Pain Management, Smoking Cessation Medications and DC Order Prescriptions: New hydrocodone-acetaminophen [Croghan] 5-325 mg Tablet 1 - 2 tab PO Q6H PRN (Reason: pain) Qty: 30 RF: 0 aspirin 81 mg Tablet,Delayed Release (Dr/Ec) 81 mg PO BID 30 Days Qty: 60 RF: 0 docusate sodium 100 mg Capsule 100 mg PO BID 10 Days Qty: 20 RF: 0 Continued (DME) FreeStyle Lite Strips Strip See Rx Instructions .ROUTE .MEDSUPPLY Qty: 200 RF: 5 furosemide 40 mg tablet 40 mg PO 2XWK Qty: 30 RF: 1 pantoprazole 20 mg tablet,delayed release (DR/EC) 20 mg PO DAILY Qty: 90 RF: 3 fludrocortisone 0.1 mg tablet 0.1 mg PO QPM Qty: 90 RF: 0 thiamine HCl (vitamin B1) 250 mg tablet 250 mg PO QAM RF: 0 pyridoxine (vitamin B6) 100 mg tablet 100 mg PO QAM RF: 0 atorvastatin 40 mg tablet 40 mg PO QPM Qty: 90 RF: 1 escitalopram oxalate [Lexapro] 20 mg tablet 20 mg PO DAILY Qty: 30 RF: 4 levothyroxine 125 mcg capsule 125 mcg PO QAM Qty: 30 RF: 3 lorazepam [Ativan] 0.5 mg tablet 0.5 mg PO DAILY PRN (Reason: anxiety associated with dialysis.) Qty: 15 RF: 2 midodrine 2.5 mg tablet 2.5 mg PO TID RF: 0 diphenhydramine HCl [Benadryl Allergy] 25 mg Tablet 25 mg PO HS PRN (Reason: Sleep) RF: 0 Discontinued tramadol 50 mg tablet 50 mg PO BID PRN (Reason: Pain) Qty: 60 RF: 0 No Action insulin aspart U-100 [Novolog Flexpen U-100 Insulin] 100 unit/mL (3 mL) insulin pen See Rx Instructions SQ .COMPLEX RF: 0 Basaglar KwikPen U-100 Insulin 100 unit/mL (3 mL) insulin pen 18 unit SQ DAILY RF: 0 Discharge Orders: Discharge Order (Routine); Ordered 08/05/20 Ordered By: Bryon Guillory/Other Patient Handouts: Preventing Deep Vein Thrombosis Admission Data Admit Date/Time: 08/03/20 16:34 Attending Provider: Jose Pennington Admit Provider: Jose Pennington Primary Care Provider: Fiorella Vela Other Providers: Doyle Ferraro ; Higinio Bloom ; Luciano Peña Other Interventions: Discharge Summary Assessment (RN) Last Done: 08/05/20 08:54
== END 2020-08-05 12:36 | disposition home health service (06) | DRG 474 ==
LOC: ASU 10:42 → 3W 16:34